=== PATIENT | female | born 1960 | race Caucasian/White ===

== ENCOUNTER 2020-12-17 16:38 | Inpatient (IN) | payer MEDICAID, SELFPAY ==
[2020-12-17] VITALS (11 sets, daily range): BP systolic 149–200; BP diastolic 91–120; PULSE 95–103; RESP 16–20; TEMP 36.8–38.5; O2SAT 94–100; BMI 30.9
--- NOTE | 2020-12-17 16:41 | XRR_ITS ---
PROCEDURE INFORMATION: Exam: XR Chest Exam date and time: 12/17/2020 4:41 PM Age: 60 years old Clinical indication: Other: Stroke alert; Additional info: AMS TECHNIQUE: Imaging protocol: XR of the chest. Views: 1 view. COMPARISON: CR Chest 1 [place] [id number] 03/08/2014 8:12 PM FINDINGS: Lungs: Unremarkable. No consolidation. Pleural spaces: Unremarkable. No pleural effusion. No pneumothorax. Heart/Mediastinum: Unremarkable. No cardiomegaly. Bones/joints: Unremarkable. XR/XR chest 1V portable [id number] IMPRESSION: No acute findings.
--- NOTE | 2020-12-17 16:41 | CTR_ITS ---
PROCEDURE INFORMATION: Exam: CT Head Without Contrast Exam date and time: 12/17/2020 4:41 PM Age: 60 years old Clinical indication: Altered mental status/memory loss and weakness, extremity; Left; Additional info: AMS TECHNIQUE: Imaging protocol: Computed tomography of the head without contrast. Radiation optimization: All CT scans at this facility use at least one of these dose optimization techniques: automated exposure control; mA and/or kV adjustment per patient size (includes targeted exams where dose is matched to clinical indication); or iterative reconstruction. Other technique: STROKE PROTOCOL was implemented. COMPARISON: CT head wo con* [id number] 03/13/2019 11:46 AM RADIATION DOSE METRICS: Total DLP (mGy-cm): 1606.53 FINDINGS: Brain: There is encephalomalacia of the right temporal lobe tip new compared with 03/13/2019 which may represent a chronic cortical infarct. There is no intracranial mass, hemorrhage or edema. Cerebral ventricles: Ventricles and cisterns are within normal limits. There are no extra-axial fluid collections. Paranasal sinuses: Visualized sinuses are unremarkable. No fluid levels. Mastoid air cells: Visualized mastoid air cells are well aerated. Bones/joints: Unremarkable. No acute fracture. Soft tissues: Unremarkable. CT/CT head wo con* [id number] IMPRESSION: 1. Chronic infarct of right temporal lobe tip. 2. No acute intracranial finding. ASSESSMENT: ASPECTS ([place] Stroke Program Early CT Score) is 10. Radiation Dose CTDIVOL = (mGy): DLP = 1606.53 (mGy-cm)
--- NOTE | 2020-12-17 16:41 | CTR_ITS ---
PROCEDURE INFORMATION: Exam: CT Angiography Head Without And With Contrast, Arteriography Exam date and time: 12/17/2020 4:41 PM Age: 60 years old Clinical indication: Weakness and other: AMS TECHNIQUE: Imaging protocol: Computed tomographic angiography of the head without and with contrast. Exam focused on the arteries. 3D rendering (Not supervised by radiologist): MIP and/or 3D reconstructed images were created by the technologist. Radiation optimization: All CT scans at this facility use at least one of these dose optimization techniques: automated exposure control; mA and/or kV adjustment per patient size (includes targeted exams where dose is matched to clinical indication); or iterative reconstruction. Contrast material: OMNI 350; Contrast volume: 95 ml; Contrast route: INTRAVENOUS (IV); Other technique: STROKE PROTOCOL was implemented. COMPARISON: CT head wo con* [id number] 12/17/2020 4:37 PM RADIATION DOSE METRICS: Total DLP (mGy-cm): 2459.98 FINDINGS: ANTERIOR CIRCULATION: Right internal carotid artery: There is some atherosclerotic plaque in the clinoid right internal carotid artery with mild stenosis. Right middle cerebral artery: There is moderate stenosis in the midportion of the right M1 middle cerebral artery. Right anterior cerebral artery: No occlusion or significant stenosis. No aneurysm. Left internal carotid artery: There is some atherosclerotic plaque in the clinoid portion of the left internal carotid artery with mild stenosis. Left middle cerebral artery: No occlusion or significant stenosis. No aneurysm. Left anterior cerebral artery: No occlusion or significant stenosis. No aneurysm. POSTERIOR CIRCULATION: Right vertebral artery: No occlusion or significant stenosis. No aneurysm. Left vertebral artery: No occlusion or significant stenosis. No aneurysm. Basilar artery: There is some irregularity and moderate atherosclerotic change in the basilar artery with multifocal moderate stenoses.. Right posterior cerebral artery: There is origin of the right posterior cerebral artery. The right P1 segment is very small. Left posterior cerebral artery: There is origin of the left posterior cerebral artery. There is moderate stenosis in the proximal left posterior cerebral artery. Superior cerebellar arteries: There is moderate stenosis in the proximal left superior cerebellar artery. HEAD: Brain: Unremarkable. No acute intracranial hemorrhage. No significant white matter disease. No edema. Old right temporal lobe tip infarct. Cerebral ventricles: Normal. No ventriculomegaly. Bones/joints: Unremarkable. No acute fracture. Paranasal sinuses: Visualized sinuses are normal. No fluid levels. Mastoid air cells: Visualized mastoids are normal. No mastoid effusion. Soft tissues: Unremarkable. IMPRESSION: 1. Moderate stenosis of the mid right M1 MCA segment. 2. Stenosis of the proximal left P1 posterior cerebral artery segment and origin of the left posterior cerebral artery. 3. 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 ASSESSMENT: ASPECTS ([place] Stroke Program Early CT Score) is 10. COMMENTS: THIS REPORT CONTAINS FINDINGS THAT MAY BE CRITICAL TO PATIENT CARE. The findings were verbally communicated via telephone conference with NICOLE APONTE at 5:46 PM CDT on 12/17/2020. The findings were acknowledged and understood. PROCEDURE INFORMATION: Exam: CT Angiography Neck Without And With Contrast Exam date and time: 12/17/2020 4:41 PM Age: 60 years old Clinical indication: Weakness and other: AMS TECHNIQUE: Imaging protocol: Computed tomographic angiography of the neck without and with contrast. 3D rendering (Not supervised by radiologist): MIP and/or 3D reconstructed images were created by the technologist. Radiation optimization: All CT scans at this facility use at least one of these dose optimization techniques: automated exposure control; mA and/or kV adjustment per patient size (includes targeted exams where dose is matched to clinical indication); or iterative reconstruction. Contrast material: OMNI 350; Contrast volume: 95 ml; Contrast route: INTRAVENOUS (IV); COMPARISON: CT head wo con* [id number] 12/17/2020 4:37 PM RADIATION DOSE METRICS: Total DLP (mGy-cm): 2459.98 FINDINGS: Right common carotid artery: No stenosis. No dissection or occlusion. Right internal carotid artery: There is some atherosclerotic calcification at the right carotid bifurcation without stenosis as measured according to the NASCET criteria. Right external carotid artery: No occlusion or stenosis of the origin. Left common carotid artery: No stenosis. No dissection or occlusion. Left internal carotid artery: There is some atherosclerotic calcification at the left carotid bifurcation without stenosis as measured according to the NASCET criteria. Left external carotid artery: No occlusion or stenosis of the origin. Right vertebral artery: No stenosis. No dissection or occlusion. Left vertebral artery: No stenosis. No dissection or occlusion. Soft tissues: Normal. No significant soft tissue swelling. Bones/joints: No acute fracture. CT/CT angio headneck* [id number] IMPRESSION: 1. No significant stenosis or occlusion in the common or internal carotid artery on either side of the neck. 2. Bilateral vertebral arteries are patent. REFERENCES: NASCET CRITERIA. The degree of internal carotid artery stenosis is based on NASCET criteria. Normal is no stenosis. Mild is less than 50% stenosis. Moderate is 50-69% stenosis. Severe is 70% to 99% stenosis. Total occlusion is no detectable patent lumen. Radiation Dose CTDIVOL = (mGy): DLP = 2459.98~2459.98 (mGy-cm)
--- NOTE | 2020-12-17 16:42 | ECG_ITS ---
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 Measurements Intervals [place] Rate: 99 P: 40 [place]: 164 QRS: 12 QRSD: 78 T: 68 QT: 338 QTc: 435 Interpretive Statements SINUS RHYTHM NONSPECIFIC T-WAVE ABNORMALITY Compared to ECG 01/16/2018 20:23:37 No significant changes Electronically Signed On 12-18-2020 6:56:39 CDT by Dayana De Oliveira M.D. [email or web address]
[2020-12-17] MEDS: sodium chloride 0.9% 1,000 ML 999 ML IV (16:53)
[2020-12-17 16:54] LABS: Basophils # 0.1 10^3/uL (0.0-0.1); Basophils % 0.5 %; Eosinophils # 0.1 10^3/uL (0.0-0.8); Eosinophils % 0.5 %; Hematocrit 45.2 % (37.0-47.0); Lymphocytes % 7.6 %; Mean Corpuscular HGB Conc 33.2 g/dL (30.0-36.0); Mean Corpuscular Hemoglobin 28.6 pg (28.0-34.0); Mean Corpuscular Volume 86.1 fl (81-99); Mean Platelet Volume 9.8 fL (7.4-10.4); Monocytes # 0.2 10^3/uL (0.2-0.9); Monocytes % 1.9 %; Neutrophils # 11.29 10^3/uL (1.8-7.7); Neutrophils % 87.3 %; Nucleated Red Blood Cells % 0 %; Platelet Count 366 10^3/cmm (130-400); Red Blood Count 5.25 10^6/uL (4.1-5.3); Red Cell Distribution Width 12.3 % (12.1-15.1); White Blood Count 12.9 10^3/uL (4.0-10.0)
[2020-12-17] MEDS: naloxone 0.4 mg/ml SDV IVP (16:54)
[2020-12-17 16:56] LABS: ABG PCO2 39.5 mmHg (35-45); Arterial Blood Gas Hematocrit 45.1 % (37-47); Base Excess ABG -6.8 mmol/L (-2.0-2.0); Blood Gas Allen Test Pos; Blood Gas Sample Type Arterial; HCO3 ABG 19.3 mmol/L (22-26); PO2 ABG 73.7 mmHg (80.0-100.0)
[2020-12-17 16:58] LABS: Blood Gas Operator Identificat MONRO; Blood Gas Sample Site Radial, right; Oxygen Device ROOM AIR
[2020-12-17 17:10] LABS: Ketone (Acetest) Serum Negative (Negative)
[2020-12-17] MEDS: iohexol 350 mg/mL 100 mL Btl IV (17:15)
[2020-12-17 17:23] LABS: Troponin(5th) Baseline 9 ng/L (0-10)
[2020-12-17 17:33] LABS: Alanine Aminotransferase 20 U/L (0-33); Albumin Level 4.6 g/dL (3.5-5.2); Alkaline Phosphatase 114 IU/L (35-105); Anion Gap 28.7 (5-19); Aspartate Amino Transferase 14 U/L (0-32); Blood Urea Nitrogen 14 mg/dL (6-20); Calcium 9.1 mg/dL (8.5-10.5); Carbon Dioxide 16 mmol/L (22-29); Chloride 94 mmol/L (98-107); Creatine Phosphokinase 78 U/L (26-192); Globulin 2.5 g/dL (1.3-4.6); Glomerular Filtration Rate 73.7 mL/min (90-130); Glucose 346 mg/dL (65-115); Magnesium 2.1 mg/dL (1.7-2.3); NT Pro B Type Natriuretic Pept 330 pg/mL (0-125); Osmolality Calculated 292 mOsm/kg (285-295); Potassium 4.7 mmol/L (3.5-5.1); Sodium 134 mmol/L (136-145); Thyroid Stimulating Hormone 1.29 uIU/mL (0.27-4.20); Total Bilirubin 0.4 mg/dL (0.15-1.2); Total Protein 7.1 g/dL (6.6-8.7)
[2020-12-17 17:34] LABS: Glucose Point of Care 328 mg/dL (70-110)
[2020-12-17 17:40] LABS: Acetaminophen < 5.0 ug/mL (10-30); Alcohol Level < 10 mg/dL (0-10)
--- NOTE | 2020-12-17 17:42 | PC.PHAR ---
PT UNABLE TO VERIFY MEDICATIONS-NO MEDS PULL UP ON EXT MED HISTORY-DUDLEY STATES THE LAST THING THEY DID WAS A FLU SHOT IN 2020
--- NOTE | 2020-12-17 17:47 | PM.SAN ---
Stroke Alert Activation ED Arrival Date: 12/17/20 ED Arrival Time: 16:34 ED Physican at Bedside: 16:35 Last Known Normal/at Baseline: 1-2 hours ago Other Last Known Well Infomation: I was called stat for stroke team as [facility] approached with this 60-year-old woman who was found obtunded on an elevator. They were not able to obtain a cell phone number of the witness that found Ms. Lozada on the floor of the elevator unconscious. Her does not know anything about it other than what he was told by somebody who saw somebody who witnessed her fall or witnessed her to be unconscious. He does not know when she was last normal other than this morning when she was walking up and down the klein. She cannot tell me what time her symptoms began and she is insistent that she did not fall down. She is not aware that she has any problem. She has a right middle cerebral artery occlusion. She has left hemiparesis and a stroke scale score of 13. Stroke Alert Activated by: [facility] [place] Stroke Alert Activation Time: 16:22 Stroke MD @ Bedside Time: 16:40 NIH Stroke Scale Time: 17:00 NIH stroke score NIHSS: Level Of Consciousness - 1a: 1 Level Of Consciousness Questions - 1b: One Correct Level Of Consciousness Commands - 1c: One Correct Best Gaze - 2: Forced Deviation Visual [place] - 3: Complete Hemianopia Facial Palsy - 4: Minor Paralysis Motor Arm Right - 5: No Drift Motor Arm Left - 5: Effort Against [place] Motor Leg Right - 6: No Drift Motor Leg Left - 6: Drift Limb Ataxia - 7: Present In One Limb Sensory - 8: Normal Best Language - 9: No Aphasia Dysarthia - 10: Mild/Moderate Dysarthia Extinction And Inattention - 11: 1 Score: Total Score: 14 Stroke Alert Data/Treatment Time to CT of Head: 16:34 CT Results Time: 16:40 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 Schmidt and I talked with the patient's . He has no idea of anything that happened today. The patient cannot tell me what she did this afternoon. She cannot tell me whether she fell down and insists that she did not. She is not aware that she has a deficit. I talked with the EMT that pick the patient up at her apartment. There were several bystanders and all of them seemed mildly confused or demented. Someone shouted that she was normal 30 minutes before but they did not know what they meant by that and when he asked they could not elaborate. Critical Care Time Critical Care Time: 105 - 134 mins A&P Assessment and plan (1) Right middle cerebral artery stroke: This patient was brought in by EMS for obtundation after falling on the elevator. Initially she was confused and would not answer questions, had random eye movements, was weaker on the left than the right by my exam. The left toe was upgoing while the right was downgoing. Her CT scan of the head was negative. I examined her after her head CT with Dr. Schmidt and then we took her back for CT angiogram. That study shows no flow in the central part of the right middle cerebral artery. She has a very small right vertebral artery but her basilar, although small, is intact as are the posterior cerebral arteries. On reexamination she was calling my name on the way back to the emergency department (I know her from a patient). She had left hemineglect. She was weak on the left side but could oppose on the right and did not have drift on the right side. Her cranial nerves were remarkable for a new strong right gaze preference and dense left visual field cut. I have been unable to find a witness that can give us a time last known well. Patient's exam was not normal on arrival and she had subtle signs of weakness on the left side when she came. Present plan is to contact the [facility] stroke team and see if there willing to consider thrombolysis after reviewing her images. Status: Acute Coding Level of Care Code Acute Inspector Machine Cut Glass for Janene Poon Diagnoses Right middle cerebral artery stroke I63.511
[2020-12-17] MEDS: labetalol 5 mg/mL SDV 20mL 10 MG IVP (18:01)
--- NOTE | 2020-12-17 18:15 | PC.NURSE ---
Blood pressure are reported to Dr Schmidt
[2020-12-17 18:28] LABS: Amphetamines Screen Urine Negative (Negative); Barbiturates Screen Urine Negative (Negative); Benzodiazepines Screen Urine Negative (Negative); Cocaine Screen Urine Negative (Negative); Opiate Screen Urine Negative (Negative); PCP Screen Urine Negative (Negative); THC Screen Urine Negative (Negative)
[2020-12-17 18:35] LABS: Bilirubin Urine Neg (Negative); Blood Urine 2+ (Negative); Glucose Urine UA 4+ (Normal); Ketones Urine Negative (Negative); Nitrate Urine Negative (Negative); Protein Urine 3+ (Negative); Urine Appearance Clear (CLEAR); Urine Color Straw (Yellow); Urobilinogen Urine Norm (Negative); pH Urine 6.5 (5-7)
[2020-12-17 18:36] LABS: Add Urine Microscopic? YES; Bacteria Urine TRACE /hpf; Leukocyte Esterase Urine Negative (Negative); Mucus Urine 1+ /hpf; RBC Urine 0-4 /hpf (0-2); Squamous Epithelial Cell Urine 0-4 /hpf (0-5); WBC Urine 0-4 /hpf (0-5)
[2020-12-17 18:37] LABS: Add Urine Culture? No; Fine Granular Casts Urine 0-4 /lpf
[2020-12-17] MEDS: lactated ringers 1,000 ML 125 ML IV (18:48)
[2020-12-17 19:05] LABS: Troponin 5 2HR 11.77 ng/L (0-10); Troponin 5 2HR Delta 2.77 ABS# (0-10)
--- NOTE | 2020-12-17 19:10 | ED_ITS ---
HPI - Altered Mental Status General: Chief Complaint: Altered Mental Status Stated Complaint: stroke alert/AMS Time Seen by Provider: 12/17/20 16:40 History of Present Illness: HPI narrative: Patient is a 60-year-old female with a past medical history of diabetes and hypertension. She was brought in by EMS after being found down with a possible stroke. It is been extremely difficult to get an exact timeline of today. Her last absolute well-known time was 9:00 this morning by her . From what will be able to piece together from eyewitnesses at the scene as well as EMS she fell to the ground about 3:00 today. When EMS was called she had some left-sided weakness was transferred to the emergency department. None of the eyewitnesses could be interviewed and since most of them are dementia patients so would be difficult to get exact details from them. She arrived she was minimally responsive complaint with left-sided weakness. Was taken to CT via stroke alert. CT was negative was brought to the room where she developed right-sided head and hemianopsia right- sided gaze palsy she had a left upgoing Babinski and right-sided hemineglect. Neurology was consulted who examined the patient with me. That she possibly had MCA stroke. Patient did regain lucid consciousness and denied any other symptoms. Denied headache numbness or tingling. Denies fevers chills chest pain nausea vomiting diarrhea altered mental status or Review of Systems General: Reports: 10 or more systems reviewed and unremarkable except in HPI and below PFSH ED PFSH: Social History Smoking and tobacco status: never smoked Alcohol intake: never Current gender identity: Female Physical Exam Const: COMMON NORMALS: no acute distress and patient oriented x3 EXAM LIMITATIONS: altered mental status GENERAL APPEARANCE: disheveled, appears older than stated age and well hydrated; not cooperative, not in distress, not combative, not diaphoretic and no odor of alcohol detected NUTRITIONAL APPEARANCE: obese ORIENTATION/CONSCIOUSNESS: Yes awake, Yes oriented to person, Yes oriented to place and Yes confused HENMT: COMMON NORMALS: normocephalic and atraumatic HEAD & SCALP: normal to inspection, normocephalic and atraumatic FACE & SINUS: normal facial exam; no Flattened naso-labial fold present Eye: COMMON NORMALS: Equal, round and reactive pupils present, EOMs intact bilaterally and negative for normal visual patterson by confrontation PUPIL: Yes Equal, round and reactive pupils present EOM: Yes EOM abnormal and No Nystagmus present Neck/C-Spine: GENERAL: Yes normal visual inspection and No Meningeal signs present Resp: COMMON NORMALS: normal respiratory effort and No use of accessory muscles EFFORT & INSPECTION: Yes able to speak in complete sentences Cardio: COMMON NORMALS: regular rate, regular rhythm and No murmurs present (Cardio) RATE: regular rate RHYTHM: regular rhythm GI: COMMON NORMALS: Normal to inspection, nondistended, normoactive bowel sounds present INSPECTION: Yes normal to inspection AUSCULTATION: Yes normoactive bowel sounds Extremity: COMMON NORMALS: normal to inspection and no pedal edema; negative for full ROM NARRATIVE EXTREMITY EXAM: Weakness and neglect right- sided upper and lower extremities Neuro: JEF COMA SCALE: document GCS findings [place] coma scale eye opening: Spontaneous Jef coma scale verbal response: Confused Jef coma scale motor response: Obey commands [place] coma scale total score: 14 COMMON NORMALS: patient oriented x3; negative for no focal motor deficits SENSORIUM/ORIENTATION: Yes oriented to person and Yes oriented to place CRANIAL NERVES: Yes CN III (oculomotor) CN III laterality: right COORDINATION/BALANCE: No [id number] test normal and No Normal rapid alternating movements of the distal upper extremity present (Neuro) SPEECH: speech normal GAIT: Yes Unable to assess gait MOTOR EXAM: No Pronator motor function not present and No no tremor noted COORDINATION: [id number] test abnormal and abnormal rapid alternating movement UE OTHER: Right-sided hemineglect left upgoing toe with Babinski right gaze preference left hemianopsia consistent with right MCA syndrome Course ED course: Saw patient with Dr. Camilla Chirinos with neurology. Our concern is for a right MCA syndrome. CT was negative CTA showed some stenosis in the right M1 of MCA as well as P1 of DENTAL SURGERY DOCTOR. No clot noted discussed these findings with [facility] who also looked at the CTA and agreed with no clot. Given unknown last well time the risks of TPA were greater than the benefit so the decision was made not to give TPA [facility]. Given there was no intervention warranted we will keep the patient here admit her get a lipid panel loading dose with Plavix when she passes swallow study adria l keep her permissively hypertensive less than 220 Vital Signs: Vital signs: Vital Signs Temperature 98.8 F 12/17/20 16:51 Pulse Rate 103 H 12/17/20 18:52 Respiratory Rate 16 12/17/20 18:52 Blood Pressure 198/120 12/17/20 18:52 Pulse Oximetry 99 12/17/20 18:52 MDM - Altered Mental Status MDM Narrative: Medical decision making narrative: Patient is a 60-year-old female here with likely a stroke Differential includes stroke, sepsis, encephalitis, subarachnoid hemorrhage, epilepsy, drug overdose Differential Diagnosis: Differential diagnosis altered mental status: Likely alcoholic intoxication, altered mental status, delirium, dementia, hyponatremia and subarachnoid hemorrhage Lab Data: Labs: Lab Results 12/17/20 12/17/20 12/17/20 16:26 16:26 16:26 WBC 12.9 10^3/uL H 10 ^3/uL (4.0-10.0) RBC 5.25 10^6/uL 10^6 /uL (4.1-5.3) Hgb 15.0 g/dL g/dL (11.5-15.3) Hct 45.2 % % (37.0-47.0) MCV 86.1 fl fl (81-99) MCH 28.6 pg pg (28.0-34.0) MCHC 33.2 g/dL g/dL (30.0-36.0) RDW 12.3 % % (12.1-15.1) Plt Count 366 10^3/cmm 10^3 /cmm (130-400) MPV 9.8 fL fL (7.4-10.4) Neut % (Auto) 87.3 % % Lymph % (Auto) 7.6 % % [place] % (Auto) 1.9 % % Eos % (Auto) 0.5 % % Baso % (Auto) 0.5 % % Neut # (Auto) 11.29 10^3/uL H 1 0^3/uL (1.8-7.7) Lymph # (Auto) 1.0 10^3/uL 10^3/ uL (0.8-4.8) [place] # (Auto) 0.2 10^3/uL 10^3/ uL (0.2-0.9) Eos # (Auto) 0.1 10^3/uL 10^3/ uL (0.0-0.8) Baso # (Auto) 0.1 10^3/uL 10^3/ uL (0.0-0.1) Nucleated RBC % (a uto) 0 % % Nucleated RBCs # 0.0 /100WBC /100W BC Specimen Type Sample Site ABG pH ABG pCO2 ABG pO2 ABG HCO3 ABG Base Excess Juan R Test Hematocrit O2 Delivery Device FiO2 Apartment Rental Agent ID Sodium 134 mmol/L L mmol /L (136-145) Potassium 4.7 mmol/L mmol/L (3.5-5.1) Chloride 94 mmol/L L mmol/ L (98-107) Carbon Dioxide 16 mmol/L L mmol/ L (22-29) Anion Gap 28.7 H (5-19) BUN 14 mg/dL mg/dL (6-20) Creatinine 0.8 mg/dL mg/dL (0.5-0.9) GFR Calculation 73.7 mL/min L mL/ min (90-130) Glucose 346 mg/dL H mg/dL (65-115) POC Glucose Calculated Osmolal ity 292 mOsm/kg mOsm/ kg (285-295) Calcium 9.1 mg/dL mg/dL (8.5-10.5) Magnesium 2.1 mg/dL mg/dL (1.7-2.3) Total Bilirubin 0.4 mg/dL mg/dL (0.15-1.2) AST 14 U/L U/L (0-32) ALT 20 U/L U/L (0-33) Alkaline Phosphata se 114 IU/L H IU/L (35-105) Creatine Kinase 78 U/L U/L (26-192) Troponin T Baselin e Troponin T 120 Min [place] Delta Troponin T NT-Pro-B Natriuret Pep 330 pg/mL H pg/mL (0-125) Total Protein 7.1 g/dL g/dL (6.6-8.7) Albumin 4.6 g/dL g/dL (3.5-5.2) Globulin 2.5 g/dL g/dL (1.3-4.6) TSH 1.29 uIU/mL uIU/m L (0.27-4.20) Urine Color Urine Appearance Urine pH Ur Specific Gravit y Urine Protein Urine Glucose (UA) Urine Ketones Urine Blood Urine Nitrate Urine Bilirubin Urine Urobilinogen Ur Leukocyte Fatemeh ase Urine RBC Urine WBC Ur Squamous Epith Cells Amorphous Sediment Urine Bacteria Fine Granular Cast s Urine Mucus Urine Opiates Scre en Acetaminophen < 5.0 ug/mL L ug/ mL (10-30) Ur Barbiturates Sc reen Ur Phencyclidine S crn Ur Amphetamines Sc reen U Benzodiazepines Scrn Urine Cocaine Scre en U Marijuana (THC) Screen Ethyl Alcohol < 10 mg/dL mg/dL (0-10) Serum Ketones Negative (Negative) 12/17/20 12/17/20 12/17/20 16:26 16:45 17:21 WBC RBC Hgb Hct MCV MCH MCHC RDW Plt Count MPV Neut % (Auto) Lymph % (Auto) [place] % (Auto) Eos % (Auto) Baso % (Auto) Neut # (Auto) Lymph # (Auto) [place] # (Auto) Eos # (Auto) Baso # (Auto) Nucleated RBC % (a uto) Nucleated RBCs # Specimen Type Arterial Sample Site Radial, right ABG pH 7.30 L (7.35-7.45) ABG pCO2 39.5 mmHg mmHg (35-45) ABG pO2 73.7 mmHg L mmHg (80.0-100.0) ABG HCO3 19.3 mmol/L L mmo l/L (22-26) ABG Base Excess -6.8 mmol/L L mmo l/L (-2.0-2.0) Juan R Test Pos Hematocrit 45.1 % % (37-47) O2 Delivery Device Room air FiO2 21.0 % % Apartment Rental Agent ID [place] Sodium Potassium Chloride Carbon Dioxide Anion Gap BUN Creatinine GFR Calculation Glucose POC Glucose 328 mg/dL H mg/dL (70-110) Calculated Osmolal ity Calcium Magnesium Total Bilirubin AST ALT Alkaline Phosphata se Creatine Kinase Troponin T Baselin e 9 ng/L ng/L (0-10) Troponin T 120 Min [place] Delta Troponin T NT-Pro-B Natriuret Pep Total Protein Albumin Globulin TSH Urine Color Urine Appearance Urine pH Ur Specific Gravit y Urine Protein Urine Glucose (UA) Urine Ketones Urine Blood Urine Nitrate Urine Bilirubin Urine Urobilinogen Ur Leukocyte [place] ase Urine RBC Urine WBC Ur Squamous Epith Cells Amorphous Sediment Urine Bacteria Fine Granular Cast s Urine Mucus Urine Opiates Scre en Acetaminophen Ur Barbiturates Sc reen Ur Phencyclidine S crn Ur Amphetamines Sc reen U Benzodiazepines Scrn Urine Cocaine Scre en U Marijuana (THC) Screen Ethyl Alcohol Serum Ketones 12/17/20 12/17/20 12/17/20 17:32 17:32 18:28 WBC RBC Hgb Hct MCV MCH MCHC RDW Plt Count MPV Neut % (Auto) Lymph % (Auto) [place] % (Auto) Eos % (Auto) Baso % (Auto) Neut # (Auto) Lymph # (Auto) [place] # (Auto) Eos # (Auto) Baso # (Auto) Nucleated RBC % (a uto) Nucleated RBCs # Specimen Type Sample Site ABG pH ABG pCO2 ABG pO2 ABG HCO3 ABG Base Excess Juan R Test Hematocrit O2 Delivery Device FiO2 Apartment Rental Agent ID Sodium Potassium Chloride Carbon Dioxide Anion Gap BUN Creatinine GFR Calculation Glucose POC Glucose Calculated Osmolal ity Calcium Magnesium Total Bilirubin AST ALT Alkaline Phosphata se Creatine Kinase Troponin T Baselin e Troponin T 120 Min [place] 11.77 ng/L H ng/L (0-10) Delta Troponin T 2.77 ABS# ABS# (0-10) NT-Pro-B Natriuret Pep Total Protein Albumin Globulin TSH Urine Color Straw (Yellow) Urine Appearance Clear (CLEAR) Urine pH 6.5 (5-7) Ur Specific Gravit y 1.010 (1.005-1.030) Urine Protein 3+ H (Negative) Urine Glucose (UA) 4+ H (Normal) Urine Ketones Negative (Negative) Urine Blood 2+ H (Negative) Urine Nitrate Negative (Negative) Urine Bilirubin Neg (Negative) Urine Urobilinogen Norm mg/dL mg/dL (Negative) Ur Leukocyte Fatemeh ase Negative (Negative) Urine RBC 0-4 /hpf H /hpf (0-2) Urine WBC 0-4 /hpf H /hpf (0-5) Ur Squamous Epith Cells 0-4 /hpf H /hpf (0-5) Amorphous Sediment Not Reportable Urine Bacteria Trace /hpf /hpf (NONE) Fine Granular Cast s 0-4 /lpf H /lpf Urine Mucus 1+ /hpf /hpf Urine Opiates Scre en Negative ng/mL ng /mL (Negative) Acetaminophen Ur Barbiturates Sc reen Negative ng/mL ng /mL (Negative) Ur Phencyclidine S crn Negative ng/mL ng /mL (Negative) Ur Amphetamines Sc reen Negative ng/mL ng /mL (Negative) U Benzodiazepines Scrn Negative ng/mL ng /mL (Negative) Urine Cocaine Scre en Negative ng/mL ng /mL (Negative) U Marijuana (THC) Screen Negative ng/mL ng /mL (Negative) Ethyl Alcohol Serum Ketones Critical Care Time Critical Care Time: Critical Care Time: Yes Total Critical Care Time: 90 Attestation: This case had a high probability of a clinically significant, sudden, or life threatening deterioration of this patient's condition which required my full and direct attention, intervention and personal management. 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
[2020-12-17] MEDS: aspirin 300 mg Supp PR (19:18)
[2020-12-17 20:30] LABS: Chol HDL Ratio 5.22 mg/dL (0.0-4.40); Cholesterol 256 mg/dL (0-200); HDL Cholesterol 49 mg/dL (60-100); LDL Cholesterol Calculated 172 mg/dL (50-129); LDL HDL Ratio 3.51 RATIO (0.00-3.22); Triglycerides 177 mg/dL (0-150)
--- NOTE | 2020-12-17 22:42 | ECG_ITS ---
[facility] Test Date: 2020-12-17 Pat Name: Rebecca Sanderson Department: Room: 267 Gender: Female Turn Down Attendant: Dash : 1960 Requested By: Inocencio Stone Order Number: [id number] Sona MD: Nelson Boyle M.D. Measurements Intervals [place] Rate: 98 P: 51 AK: 182 QRS: 0 QRSD: 92 T: 55 QT: 343 QTc: 440 Interpretive Statements SINUS RHYTHM POSSIBLE LEFT ATRIAL ENLARGEMENT [-0.1mV P-WAVE IN V1/V2] NONSPECIFIC ST & T-WAVE ABNORMALITY Compared to ECG 12/17/2020 17:44:26 No significant changes Electronically Signed On 12-18-2020 21:09:09 CDT by Nelson Boyle M.D. [id number]
--- NOTE | 2020-12-17 23:41 | P.HP_ITS ---
Providers/Chief Complaint Admitting Physician: Saundra Sanches Primary Care Provider: Rich Rosa MD Chief Complaint: STROKE History of Present Illness 60-year-old with unknown past medical history hypertension, diabetes mellitus, anxiety, depression, bipolar disorder, obstructive sleep apnea on cpap, IBS, who was brought to ER after she was found unresponsive. She was not able to provide any history. No family at bedside. On arrival to ER a code stroke was called. Neurology consulted. Noted to have an initial NIH of 13. Head CT showed chronic infarct of right temporal lobe tip without acute intracranial finding. CTA head showed mod stenosis of right M1 MCA segment, proximal left p1 post cerebral artery segment and origin of the left post cerebral artery plus multifocal mod stenosis of the basilar artery and neck showed no significant stenosis or occlusion in the common or internal carotid artery on either side of the neck.At the time of my evaluation patient was alert awake and back to baseline however was feeling nauseous and c/o headache. She could not recall events leading to ER visit. She did however note self-inflicted brusing to her left inner thigh from a baseball bat. Denied suicidal ideation. 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 Laboratory workup showed a WBC of 12.9, hemoglobin 15.0, hematocrit of 45.2 and a platelet count of 366. Sodium 134, potassium 4.7 chloride 94, bicarb 16, BUN 14 and creatinine of 0.8. Glucose of 346. LFTs were within normal limits. ProBNP of 330. Delta troponin T of 2.77. TSH 1.29. Urinalysis and urinary drug screen were negative. Patient was aspirin 300 mg MD x 1, NS 1L bolus x 1, Labetalol 10 mg IV x 1. Review of Systems General: Reports: 10 or more systems reviewed and unremarkable except in HPI and below Medications/Allergies Home Medications Medication Instructions Recorded Confirmed Last Taken Type Unable to Assess 12/17/20 12/17/20 Unknown History Allergies Allergy/AdvReac Type Severity Reaction Status Date / Time penicillin G Allergy Mild breaks out Verified 10/12/19 14:37 in hives PFSH Acute PFSH: Medical History (Updated 12/18/20 @ 05:53 by Saundra Sanches MD) Bipolar 1 disorder Diabetes mellitus Hypertension No pertinent family history ESTHER (obstructive sleep apnea) Self-mutilation Social History Smoking and tobacco status: never smoked Alcohol intake: never Current gender identity: Female Vitals/I&O/Wt Last Vital Signs Temp 100.2 F H 12/17/20 22:24 Pulse 102 H 12/17/20 22:24 Resp 18 12/17/20 22:24 BP 199/94 12/17/20 22:24 Pulse Ox 96 12/17/20 22:45 12/17/20 12/17/20 12/18/20 14:59 22:59 06:59 Intake Total 1000 / 1000 Balance 1000 / 1000 Weight last 48 hrs Weight 79.379 kg Physical Exam Narrative: EXAM NARRATIVE: General - Alert - awake x 3 , NAD HEENT : grosly unremarkable CVS: RRR Chest : CTABL Abd Soft Ext No edema Skin - bruising to inner thigh Neuro; MS 5/5 b/l, no sensory deficit Data : 12/17/20 16:26 12/17/20 16:26 A&P Assessment and plan (1) TIA (transient ischemic attack): Possible acute MCA CVA NIH 13 on arrival - Symptoms improving CT head - no acute hemorrhage CTA head /Neck - noted in HPI Continue neuro checks Asa MD 300 mg x 1 in ER Bedside swallow - if stable - start po intake Permissive HTN NS at 125cc/hr Lipitor 40 mg PO qhs Cardiac tele MRI brain w/o contrast in am ECHO in am Neurology consulted in ER Status: Acute (2) Fever: Tmax 101 Tylenol PRN Unclear source of infection Monitor off abx for now Blood culture x2 ordered Pro-mansi in am Status: Acute (3) Injury, self-inflicted: Brusing to thigh caused by bat Not suicidal or homicidal Status: Acute (4) Diabetes mellitus: Sliding scale insulin A1c in am Qachs checks Status: Acute (5) Hypertension: Allow for permissive HTN Status: Acute (6) DVT prophylaxis: Lovenox 40 mg SQ daily Status: Acute Additional A&P Information * Verify home meds and resume Attestations Medical Necessity Statement*: Require over2 midnight stay in hospital for evaluation and treatment Time Spent in Patient Care: Greater than 35 minutes (>than 50% of time spen t in counselling and/or direct pt care on unit) . Coding Level of Care Code Acute Video Editing Intern for Janene Poon Diagnoses TIA (transient ischemic attack) G45.9 Fever R50.9 Injury, self-inflicted Z72.89 Diabetes mellitus E11.9 Hypertension I10 DVT prophylaxis Z29.9
[2020-12-18] VITALS (10 sets, daily range): BP systolic 172–196; BP diastolic 93–125; PULSE 74–95; RESP 16–20; TEMP 36.8–38; O2SAT 96–99
[2020-12-18] MEDS: lactated ringers 1,000 ML 125 ML IV (00:12)
[2020-12-18] MEDS: acetaminophen 500 mg Tablet 650 MG PO (00:13)
[2020-12-18] MEDS: ondansetron 2 mg/ML SDV 2 mL 4 MG IVP ×2 (00:13→13:13)
[2020-12-18] MEDS: enoxaparin 40 mg/0.4 mL Syringe SUBCUT (00:15)
[2020-12-18] MEDS: sodium chloride 0.9% 1,000 ML 125 ML IV ×2 (02:35→09:03)
[2020-12-18] MEDS: metoclopramide 5 mg/mL SDV 2 mL IVP (02:36)
--- NOTE | 2020-12-18 06:00 | USCV_ITS ---
Rebecca Sanderson Age: 60 Gender: F : 1960 Exam Date: 12/18/2020 06:36 Ordering Phys: Saundra Sanches MD Technologist: Exam [place] [facility] [place]ication: ? CVA BP: 144 / 85 HR: 80 Rhythm: Sinus Technical Quality: Adequate MEASUREMENTS (Male / Female) Normal Values 2D ECHO LV Diastolic Diameter PLAX 4.1 cm 4.2 - 5.9 / 3.9 - 5.3 cm LV Systolic Diameter PLAX 2.5 cm IVS Diastolic Thickness 1.1 cm 0.6 - 1.0 / 0.6 - 0.9 cm IVS Systolic Thickness 1.2 cm LVPW Diastolic Thickness 1.3 cm 0.6 - 1.0 / 0.6 - 0.9 cm LVPW Systolic Thickness 1.4 cm LVOT Diameter 2.0 cm LV Ejection Fraction 2D Teich 68.1 % LA Diameter 3.1 cm LA Width 3.8 cm LA Height 4.4 cm RA Width 3.4 cm RA Height 3.3 cm Aorta at Sinotubular Diameter 2.2 cm M-MODE LV Diastolic Diameter MM 3.9 cm 4.2 - 5.9 / 3.9 - 5.3 cm LV Systolic Diameter MM 2.6 cm LV Ejection Fraction MM Teich 60.4 % IVS Diastolic Thickness MM 0.9 cm 0.6 - 1.0 / 0.6 - 0.9 cm IVS Systolic Thickness MM 1.7 cm LVPW Diastolic Thickness MM 1.3 cm 0.6 - 1.0 / 0.6 - 0.9 cm LVPW Systolic Thickness MM 2.2 cm RV Diastolic Diameter MM 1.4 cm DOPPLER AV Peak Velocity 165.0 cm/s LVOT Peak Velocity 104.0 cm/s AV Area Cont Eq vti 2.3 cm squared AV Area Cont Eq pk 1.9 cm squared MV Area PHT 5.8 cm squared Mitral E to A Ratio 0.7 MV E' Velocity 41.5 cm/s Mitral E to MV E' Ratio 9.4 Mitral E to LV E' Lateral Ratio 9.4 Mitral E to LV E' Septal Ratio 9.4 TR Peak Velocity 131.7 cm/s TR Peak Gradient 6.9 mmHg TV Peak E Velocity 85.0 cm/s Right Atrial Pressure 3.0 mmHg Pulmonary Artery Systolic Pressu 9.9 mmHg FINDINGS Left Ventricle Normal left ventricular cavity size. Normal left ventricular systolic function. No regional wall motion abnormalities. Left ventricular ejection fraction is estimated at 60 %. Grade I/IV diastolic dysfunction (abnormal relaxation filling pattern), normal to mildly elevated filling pressures. Right Ventricle The right ventricle is normal in size and function. Right Atrium The right atrium is normal in size. Left Atrium The left atrium is normal in size. Mitral Valve Moderately thickened mitral valve. Mitral annular calcification. No mitral valve stenosis. Mild mitral valve regurgitation. Aortic Valve Moderate aortic valve calcification.aortic valve sclerosis without stenosis or regurgitation. Tricuspid Valve Structurally normal tricuspid valve without significant stenosis or regurgitation. Pulmonary artery systolic pressure is normal. Pulmonic Valve Structurally normal pulmonic valve without significant stenosis. There is no pulmonic regurgitation. Pericardium Normal pericardium without effusion. Aorta Normal ascending aorta dimension. CONCLUSIONS 1-Normal left ventricular cavity size. Normal left ventricular systolic function. No regional wall motion abnormalities. Left ventricular ejection fraction is estimated at 60 %. Grade I/IV diastolic dysfunction (abnormal relaxation filling pattern), normal to mildly elevated filling pressures. 2-Moderately thickened mitral valve. Mitral annular calcification. No mitral valve stenosis. Mild mitral valve regurgitation. 3-Moderate aortic valve calcification.aortic valve sclerosis without stenosis or regurgitation. 4-There is no pericardial effusion. 5-Pulmonary artery systolic pressure is within normal limits. 6-Right atrial pressure is around 5 mm of mercury. 7-No significant change since the prior echocardiogram study of 01/16/2018. Jered Stark MD (Electronically Signed) Final Date: 19 December 2020 12:26 S
[2020-12-18 06:35] LABS: Glucose Point of Care 213 mg/dL (70-110)
[2020-12-18] MEDS: aspirin 81 mg EC Tablet PO (08:56)
[2020-12-18 10:49] LABS: Glucose Point of Care 172 mg/dL (70-110)
--- NOTE | 2020-12-18 14:27 | P.PN_ITS ---
Subjective Subjective: Interval history: Patient was seen and examined this morning, she was complaining spinning of room, nausea.Tmax: 101.3. Her other vitals and labs have been reviewed. Medications: Reviewed: Yes Vitals/I&O/Wt Last Vital Signs Temp 98.6 F 12/18/20 11:45 Pulse 80 12/18/20 11:45 Resp 16 12/18/20 11:45 BP 196/125 12/18/20 11:45 Pulse Ox 96 12/18/20 11:45 12/17/20 12/18/20 12/18/20 22:59 06:59 14:59 Intake Total 1000 / 1000 1025 / 2025 1728.333 / 1728.333 Output Total 600 / 600 Balance 1000 / 1000 425 / 1425 1728.333 / 1728.333 Weight last 48 hrs Weight 79.379 kg Physical Exam Const: COMMON NORMALS: patient oriented x3 HENMT: COMMON NORMALS: normocephalic and atraumatic HEAD & SCALP: normocephalic and atraumatic Chest: COMMONS NORMALS: normal inspection of the chest and normal palpation of entire chest wall CHEST: Yes Symmetrical chest wall rise Resp: COMMON NORMALS: normal respiratory effort, No retractions, No use of accessory muscles and clear to auscultation bilaterally EFFORT & INSPECTION: Yes symmetric chest movement AUSCULTATION: clear to auscultation bilaterally Cardio: COMMON NORMALS: regular rate, regular rhythm, S1 normal heart sound present, S2 normal heart sound present, No gallops present (Cardio), No murmurs present (Cardio), No rub (Cardio) and Peripheral pulses 2+ throughout RATE: regular rate RHYTHM: regular rhythm HEART SOUNDS: S1 normal heart sound present and S2 normal heart sound present PERIPHERAL PULSES: Peripheral pulses 2+ throughout GI: COMMON NORMALS: Normal to inspection, nondistended, normoactive bowel sounds present, Soft to palpation, non-tender, No hepatosplenomegaly present and no masses AUSCULTATION: Yes normoactive bowel sounds PALPATION: Yes Soft to palpation and Yes No hepatosplenomegaly present RECTAL EXAM: deferred Extremity: COMMON NORMALS: no clubbing, cyanosis or edema and no pedal edema Neuro: COMMON NORMALS: patient oriented x3 Data : 12/17/20 16:26 12/17/20 16:26 Micro: Microbiology 12/18/20 04:53 Blood Culture - Preliminary Blood SPECIMEN COLLECTED 12/18/20 04:59 Blood Culture - Preliminary Blood SPECIMEN COLLECTED A&P Assessment and plan (1) TIA (transient ischemic attack): Possible acute MCA CVA NIH 13 on arrival -not a TPA candidate, as last known well could not be stopped CT head -no acute intracranial pathology CTA head /Neck -Moderate stenosis of the mid right M1 MCA segment.Stenosis of the proximal left P1 posterior cerebral artery segment and origin of the left posterior cerebral artery. 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 Continue neuro checks Asa [place] 300 mg x 1 in ER Aspirin 81 mg daily Lipitor 40 mg PO qhs CHIPPER done: Started on diabetic diet Permissive HTN Tele MRI brain w/o contrast: ECHO: Neurology consulted Status: Acute (2) Fever: Tmax 101 Tylenol PRN Unclear source of infection Monitor off abx for now Blood culture x2 ordered Pro-mansi: Status: Acute (3) Injury, self-inflicted: Brusing to thigh caused by bat Not suicidal or homicidal Status: Acute (4) Diabetes mellitus: Sliding scale insulin A1c in am Qachs checks Status: Acute (5) Hypertension: Allow for permissive HTN Status: Acute (6) DVT prophylaxis: Lovenox 40 mg SQ daily Status: Acute Attestations Medical Necessity Statement*: Patient needs to be in the hospital for management of acute CVA. Coding Level of Care Code Acute Supervisor Production Managing for Janene Poon Diagnoses TIA (transient ischemic attack) G45.9 Fever R50.9 Injury, self-inflicted Z72.89 Diabetes mellitus E11.9 Hypertension I10 DVT prophylaxis Z29.9
--- NOTE | 2020-12-18 15:12 | PC.CHAP ---
Pastoral Care Encounter/Spiritual Assessment Type of Contact [] Declined etl programmer visit [] Patient/Family/Request visit [] Outpatient visit [] Follow-up visit [] Physician referral [] Code/Alert [XX] Routine visit [] Staff referral [] Actively dying [] Patient sleeping [] Family support [] [] Out of room [] Palliative care [] [] Receiving care in room [] Pre-surgical visit [] Trauma [] Long length of stay [] ICU visit [] Other: Relational/Emotional Strength [XX] Patient feels connected with others/family/visitors/staff [] Distress [] Loneliness/isolation [] Abandonment Spirituality of Patient [XX] Person of Jessica [] Attends [employer] of their Jessica [XXBelieves in Prayer [XX] Reads Bible or Rastafarian materials [] There are Spiritual issues to be addressed Knotting Machine Operator Portable Interventions [XX] Prayer [XX] Active listening [XX] Non-anxious presence [] Spiritual/emotional support [] Crisis/trauma care [] Spiritual counseling [] Bereavement support [] Provided bereavement packet [XX] Provided Bible/devotional materials [] Provided toy/stuffed animal, coloring book to patient or family member [] Provided Communion [] Anointing/Ray [] Salvation [XX] Completed spiritual assessment [] Other: Impact on Illness or Injury [] Angry [] Fearful [] Anxious [] Often cries [] Exhaustion [XX] Unable to work [] Unable to attend sikh [] Unable to walk/stand [] Unable to read [] Unable to drive [] Unable to eat/drink [] Unable to sleep [] Unable to be with family [] Patient intubated [] Other: Summary Patient stated she is still dizzy but otherwise feels better. She expressed a desire for visit with counselor or psychologist as she has been deliberately hurting herself. She will tell staff about her desires and need. After prayer, patient asked etl programmer to get a nurse for her rene to help her get to bathroom. Knotting Machine Operator Portable complied immediately. Time spent with patient 7 minutes
[2020-12-18 16:57] LABS: Glucose Point of Care 156 mg/dL (70-110)
[2020-12-18 20:47] LABS: Glucose Point of Care 160 mg/dL (70-110)
[2020-12-18] MEDS: atorvastatin 40 mg Tablet PO (22:09)
[2020-12-19] MEDS: ondansetron 2 mg/ML SDV 2 mL 4 MG IVP (02:26)
[2020-12-19 03:10] VITALS: BP 178/110; PULSE 88; RESP 18; TEMP 37.3; O2SAT 95
[2020-12-19 05:28] LABS: Basophils # 0.1 10^3/uL (0.0-0.1); Basophils % 0.6 %; Eosinophils % 0.4 %; Hematocrit 42.4 % (37.0-47.0); Hemoglobin 14.5 g/dL (11.5-15.3); Lymphocytes # 0.7 10^3/uL (0.8-4.8); Lymphocytes % 7.4 %; Mean Corpuscular HGB Conc 34.2 g/dL (30.0-36.0); Mean Corpuscular Hemoglobin 28.7 pg (28.0-34.0); Mean Corpuscular Volume 83.8 fl (81-99); Mean Platelet Volume 9.9 fL (7.4-10.4); Monocytes # 0.6 10^3/uL (0.2-0.9); Monocytes % 6.1 %; Neutrophils # 7.68 10^3/uL (1.8-7.7); Neutrophils % 85.1 %; Nucleated Red Blood Cells % 0 %; Platelet Count 251 10^3/cmm (130-400); Red Blood Count 5.06 10^6/uL (4.1-5.3); Red Cell Distribution Width 12.6 % (12.1-15.1)
[2020-12-19 05:57] LABS: Alanine Aminotransferase 14 U/L (0-33); Albumin Level 3.9 g/dL (3.5-5.2); Alkaline Phosphatase 89 IU/L (35-105); Anion Gap 14.5 (5-19); Aspartate Amino Transferase 15 U/L (0-32); Blood Urea Nitrogen 17 mg/dL (6-20); Calcium 8.8 mg/dL (8.5-10.5); Carbon Dioxide 22 mmol/L (22-29); Chloride 100 mmol/L (98-107); Globulin 2.5 g/dL (1.3-4.6); Glomerular Filtration Rate 85.9 mL/min (90-130); Glucose 182 mg/dL (65-115); Osmolality Calculated 282 mOsm/kg (285-295); Potassium 3.5 mmol/L (3.5-5.1); Sodium 133 mmol/L (136-145); Total Bilirubin 0.5 mg/dL (0.15-1.2); Total Protein 6.4 g/dL (6.6-8.7)
[2020-12-19 05:58] LABS: Procalcitonin 0.37 ng/mL (0-0.5)
[2020-12-19 06:26] LABS: Glucose Point of Care 191 mg/dL (70-110)
[2020-12-19 07:43] VITALS: BP 179/98; PULSE 106; RESP 20; TEMP 37.3; O2SAT 99
[2020-12-19] MEDS: meclizine 25 mg tablet PO (09:03)
[2020-12-19] MEDS: aspirin 81 mg EC Tablet PO (09:03)
[2020-12-19 09:05] VITALS: PULSE 104; O2SAT 99
--- NOTE | 2020-12-19 10:15 | MRR_ITS ---
PROCEDURE INFORMATION: Exam: MR Head Without Contrast Exam date and time: 12/19/2020 10:15 AM Age: 60 years old Clinical indication: Dizziness; Additional info: CVA TECHNIQUE: Imaging protocol: MR of the head without contrast. COMPARISON: CT head wo con* [id number] 12/17/2020 4:37 PM FINDINGS: Brain: Stable chronic right temporal lobe infarct with encephalomalacia.Mild cerebral atrophy and ischemic leukoencephalopathy. Cerebral ventricles: Normal. No ventriculomegaly. Bones/joints: Unremarkable. Paranasal sinuses: Normal as visualized. No acute sinusitis. Mastoid air cells: Normal as visualized. No mastoid effusion. Orbital cavity: Unremarkable. Soft tissues: Unremarkable. Vertebral arteries: Dominant left vertebral artery with patent right vertebral artery. MR/MR head wo con* [id number] IMPRESSION: No acute findings.
[2020-12-19] MEDS: amlodipine 10 mg Tablet PO (11:35)
[2020-12-19 11:57] VITALS: BP 158/95; PULSE 79; RESP 18; TEMP 37.3; O2SAT 95
[2020-12-19 11:59] LABS: Glucose Point of Care 178 mg/dL (70-110)
[2020-12-19 13:42] VITALS: BP 158/95; PULSE 79; RESP 18; TEMP 37.3; O2SAT 95
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
--- NOTE | 2020-12-22 10:36 | PC.SOCIAL ---
discharge follow up call made, , is not a working number, , patients sister, no answer, unable to leave voicemail.
== END 2020-12-19 14:25 | disposition home or self-care (01) | DRG 69 ==
LOC: ER 19:35 → MEDSURG 20:08
PROVIDERS: Admitting Provider Hospitalist; Emergency Provider Family Medicine; PCP Family Medicine; Visit Provider Internal Medicine
DX: G45.9 Transient cerebral ischemic attack, unspecified (principal); G81.94 Hemiplegia, unspecified affecting left nondominant side; I66.01 Occlusion and stenosis of right middle cerebral artery; I34.0 Nonrheumatic mitral (valve) insufficiency; G93.89 Other specified disorders of brain; R50.9 Fever, unspecified; H51.0 Palsy (spasm) of conjugate gaze; R11.0 Nausea; S70.12XA Contusion of left thigh, initial encounter; X83.8XXA Intentional self-harm by other specified means, initial encounter; I10 Essential (primary) hypertension; I35.8 Other nonrheumatic aortic valve disorders; E11.9 Type 2 diabetes mellitus without complications; F41.9 Anxiety disorder, unspecified; F31.9 Bipolar disorder, unspecified; G47.33 Obstructive sleep apnea (adult) (pediatric); Z91.52 Personal history of nonsuicidal self-harm; Z29.9 Encounter for prophylactic measures, unspecified; Z86.73 Personal history of transient ischemic attack (TIA), and cerebral infarction without residual deficits
CPT/HCPCS: 36415; 36416; 36600; 70450; 70496; 70498; 70551; 71045; 80053; 80061; 80306; 80307; 81001; 82009; 82550; 82803; 82962; 83735; 83880; 84145; 84443; 84484; 85025; 87040; 92523; 92610; 93005; 93306; 96361; 96372; 96374; 96375; 97110; 97116; 97162; 97166; 97535; 99285; J1650; J1815; J2310; J2405; J2765; J3490; J7030; J8597; Q9967

== ENCOUNTER → 2021-01-04 11:41 | Outpatient (BNVA) | payer MEDICAID, SELFPAY | PROVIDERS: PCP Family Medicine; Visit Provider Specialist | DX: G93.9 Disorder of brain, unspecified (principal); I65.21 Occlusion and stenosis of right carotid artery; R56.9 Unspecified convulsions; E11.9 Type 2 diabetes mellitus without complications; Z86.73 Personal history of transient ischemic attack (TIA), and cerebral infarction without residual deficits | CPT/HCPCS: 99205 ==

== ENCOUNTER → 2021-02-24 07:49 | Outpatient (BNVA) | payer MEDICAID, SELFPAY | PROVIDERS: PCP Family Medicine; Visit Provider Specialist | DX: R56.9 Unspecified convulsions (principal); I65.21 Occlusion and stenosis of right carotid artery; G93.89 Other specified disorders of brain | CPT/HCPCS: 99214 ==

== ENCOUNTER → 2021-03-23 12:38 | Outpatient (BNVA) | payer MEDICAID, SELFPAY | PROVIDERS: PCP Family Medicine; Referring Provider Specialist; Visit Provider Specialist | DX: R56.9 Unspecified convulsions (principal); G93.9 Disorder of brain, unspecified | CPT/HCPCS: 95816 ==

== ENCOUNTER 2021-04-05 09:57 | Outpatient (CLI) | payer MEDICAID, SELFPAY ==
--- NOTE | 2021-04-05 11:00 | MR_ITS ---
WS: [id number] MRI HEAD WITH CONTRAST TECHNIQUE: Sagittal T1, T2 axial, T2 axial FLAIR, axial susceptibility weighted imaging, axial diffus ion weighted images, and coronal T2 images were obtained. Pre and post-T1 axial and post T1 coronal i mages. ADC and FSPGR images. CLINICAL INFORMATION: I63.511 - Cerebral infarction due to unspecified occlusio... COMPARISON: MRI December 19, 2020 FINDINGS: No evidence of restricted diffusion to suggest acute ischemia. Ventricular system and basal cisterns are patent. Moderate small vessel changes. Moderate parenchymal volume loss. Encephalomalacia and gliosis right anterior temporal lobe.This is unchanged from previous. Normal pos terior fossa. Normal vascular flow voids at the skull base. No extra-axial fluid collections. No evid ence of mass or mass effect. Mild mucosal thickening with partial opacification ethmoid air cells. Mi ld mucosal thickening in the maxillary sinuses. Mild mucosal thickening mastoid air cells. No hemosiderin on the susceptibly weighted images. Tiny punctate focus of hemosiderin in the right pa rietal lobe. Normal optic chiasm and pituitary infundibulum. No abnormal gadolinium enhancement. Norm al optic chiasm and pituitary infundibulum. Dural venous sinuses appear patent. MR/MR head wo/w con [id number] IMPRESSION: 1. No evidence of restricted diffusion to suggest acute ischemia. 2. Moderate small vessel changes with moderate parenchymal volume loss. 3. Chronic encephalomalacia and gliosis in the right anterior temporal lobe un changed from previous. 4. Small vessel changes in the ole. 5. Mild mucosal thickening paranasal sinuses with partial opacification of the ethmoid air cells 6. No abnormal gadolinium enhancement. 7. Tiny punctate chronic focus of hemosiderin in the right parietal lobe.
[2021-04-05] MEDS: gadobenate dimeglumine 20 mL vial IV (13:17)
== END 2021-04-05 09:58 | disposition home or self-care (01) ==
PROVIDERS: PCP Family Medicine; Visit Provider Specialist
DX: I63.511 Cerebral infarction due to unspecified occlusion or stenosis of right middle cerebral artery (principal)
CPT/HCPCS: 70553; A9577

== ENCOUNTER 2021-05-29 16:34 | Emergency (ER) | payer MEDICAID, SELFPAY ==
[2021-05-29 16:38] VITALS: BP 129/84; PULSE 83; RESP 18; TEMP 36.7; O2SAT 97; BMI 34.5
[2021-05-29 16:46] VITALS: BP 127/78; PULSE 79; O2SAT 97
[2021-05-29 16:55] LABS: Glucose Point of Care 159 mg/dL (70-110)
--- NOTE | 2021-05-29 16:56 | W.ED.DIZZY ---
Documented by User: Luis Eduardo Rosales DO 05/29/21 17:40 HPI - Dizziness General: Chief Complaint: Dizziness Stated Complaint: Dizziness and light headed Time Seen by Provider: 05/29/21 16:53 History of Present Illness: HPI Narrative: 60-year-old female presents with a wavy feeling in her head patient reports that it started about 3 weeks ago after she bent down and then stood back up. She reports today she was having a bowel movement had a strain and it got worse. Patient denies any nausea or vomiting. She reports that she just feels off and cannot describe the wavy feeling. Patient reports that she has had a stroke in the past. Patient denies any recent illnesses such as fever, chills, cough or urinary symptoms. Associated symptoms: Denies chest pain, chills, nausea, palpitations or vomiting Review of Systems Narrative: No apparent distress Const: Denies: fever(s) or chills Eyes: Denies: change in vision, blurry vision or photophobia ENMT: Denies: throat pain or ear or mastoid pain Card: Denies: chest pain, palpitations or irregular heart rhythm GI: Denies: abdominal pain, nausea or vomiting Musc: Denies: neck pain, back pain or extremity swelling Neuro: Reports: dizziness and other (Please see HPI) PFSH ED PFSH: Medical History Bipolar 1 disorder Diabetes mellitus DVT prophylaxis Fever Hypertension Injury, self-inflicted No pertinent family history ESTHER (obstructive sleep apnea) Right middle cerebral artery stroke Self-mutilation TIA (transient ischemic attack) Social History Smoking and tobacco status: never smoked Alcohol intake: never Current gender identity: Female Physical Exam Const: COMMON NORMALS: no acute distress, patient oriented x3 and no limitations HENMT: HEAD & SCALP: normal to inspection MOUTH: Normal oral and palatal mucosa present Eye: COMMON NORMALS: Equal, round and reactive pupils present and EOMs intact bilaterally PUPIL: Yes Equal, round and reactive pupils present Resp: COMMON NORMALS: normal respiratory effort, No use of accessory muscles and clear to auscultation bilaterally AUSCULTATION: clear to auscultation bilaterally Extremity: COMMON NORMALS: normal to inspection, full ROM and capillary refill normal Neuro: COMMON NORMALS: patient oriented x3, CN's II-XII intact bilaterally, moves all extremities, no focal motor deficits, no sensory deficits noted and deep tendon reflexes 2+ bilaterally Psych: COMMON NORMALS: mental status grossly normal, cooperative, normal affect and activity/motor behavior normal Skin: COMMON NORMALS: no rashes or lesions noted GENERAL SKIN EXAM: no rashes or lesions noted Course Vital Signs: Vital signs: Vital Signs Temperature 98.0 F 05/29/21 16:38 Pulse Rate 79 05/29/21 17:46 Respiratory Rate 16 05/29/21 18:33 Blood Pressure 132/82 05/29/21 18:30 Pulse Oximetry 98 05/29/21 18:33 MDM - Dizziness Lab Data : 05/29/21 16:58 05/29/21 16:58 Radiology Impressions Chest X-Ray 05/29/21 17:00 IMPRESSION: No acute findings. Head CT 05/29/21 17:00 IMPRESSION: 1. Negative for intracranial hemorrhage. 2. Right middle temporal fossa area of chronic encephalomalacia as seen on prior MRI. Laboratory Results WBC 7.4 10^3/uL (4.0-10.0) 05/29/21 16:58 RBC 4.21 10^6/uL (4.1-5.3) 05/29/21 16:58 Hgb 12.4 g/dL (11.5-15.3) 05/29/21 16:58 Hct 36.7 % (37.0-47.0) L 05/29/21 16:58 MCV 87.2 fl (81-99) 05/29/21 16:58 MCH 29.5 pg (28.0-34.0) 05/29/21 16:58 MCHC 33.8 g/dL (30.0-36.0) 05/29/21 16:58 RDW 12.6 % (12.1-15.1) 05/29/21 16:58 Plt Count 270 10^3/cmm (130-400) 05/29/21 16:58 MPV 9.8 fL (7.4-10.4) 05/29/21 16:58 Neut % (Auto) 65.3 % 05/29/21 16:58 Lymph % (Auto) 22.4 % 05/29/21 16:58 Parker % (Auto) 6.4 % 05/29/21 16:58 Eos % (Auto) 4.7 % 05/29/21 16:58 Baso % (Auto) 0.8 % 05/29/21 16:58 Neut # (Auto) 4.81 10^3/uL (1.8-7.7) 05/29/21 16:58 Lymph # (Auto) 1.7 10^3/uL (0.8-4.8) 05/29/21 16:58 Parker # (Auto) 0.5 10^3/uL (0.2-0.9) 05/29/21 16:58 Eos # (Auto) 0.4 10^3/uL (0.0-0.8) 05/29/21 16:58 Baso # (Auto) 0.1 10^3/uL (0.0-0.1) 05/29/21 16:58 Nucleated RBC % (auto) 0 % 05/29/21 16:58 Nucleated RBCs # 0.0 /100WBC 05/29/21 16:58 Sodium 139 mmol/L (136-145) 05/29/21 16:58 Potassium 3.7 mmol/L (3.5-5.1) 05/29/21 16:58 Chloride 103 mmol/L (98-107) 05/29/21 16:58 Carbon Dioxide 25 mmol/L (22-29) 05/29/21 16:58 Anion Gap 14.7 (5-19) 05/29/21 16:58 BUN 21 mg/dL (6-20) H 05/29/21 16:58 Creatinine 1.0 mg/dL (0.5-0.9) H 05/29/21 16:58 GFR Calculation 56.9 mL/min (90-130) L 05/29/21 16:58 Glucose 169 mg/dL (65-115) H 05/29/21 16:58 POC Glucose 159 mg/dL (70-110) H 05/29/21 16:53 Calculated Osmolality 295 mOsm/kg (285-295) 05/29/21 16:58 Calcium 10.0 mg/dL (8.5-10.5) 05/29/21 16:58 Magnesium 1.7 mg/dL (1.7-2.3) 05/29/21 16:58 Total Bilirubin 0.2 mg/dL (0.15-1.2) 05/29/21 16:58 AST 10 U/L (0-32) 05/29/21 16:58 ALT 10 U/L (0-33) 05/29/21 16:58 Alkaline Phosphatase 101 IU/L (35-105) 05/29/21 16:58 Troponin T Gen 5 ng/L 11 ng/L (0-10) H 05/29/21 16:58 Total Protein 6.6 g/dL (6.6-8.7) 05/29/21 16:58 Albumin 4.4 g/dL (3.5-5.2) 05/29/21 16:58 Globulin 2.2 g/dL (1.3-4.6) 05/29/21 16:58 EKG Data EKG 1: I personally reviewed and interpreted this EKG as follows: EKG interpretation date: 05/29/21 EKG interpretation time: 17:09 Interpretation: Heart rate 70, normal sinus rhythm, normal axis, no acute findings. Computer generated interpretation: Ventricular rate 70, sinus rhythm, septal SC of indeterminate age due to Q-wave in V1 V2, abnormal EKG Discharge Plan Discharge Patient Disposition: Home Clinical Impression: Dizziness, Headache Condition: Stable Prescriptions: No Action meclizine 25 mg tablet 25 mg PO DAILY 0RF zonisamide [Zonegran] 100 mg capsule 200 mg PO DAILY Qty: 60 2RF atorvastatin 40 mg Tablet 40 mg PO BEDTIME 30 Days Qty: 30 3RF aspirin 81 mg Tablet,Delayed Release (Dr/Ec) 81 mg PO DAILY 30 Days Qty: 30 3RF Plavix 75 mg tablet 75 mg PO DAILY Qty: 30 3RF Discharge Orders: Discharge ED (Routine); Ordered 05/29/21 Ordered By: Giovanni Rachel Referrals: Rich Rosa MD [Primary Care Provider] - 1-3 days (As scheduled) Kaycee Ace MD [Physician] - 4-7 days Patient Instructions: Dizziness (ED), Acute Headache (ED) Activity Restrictions/Additional Instructions: Return for worsening headache, vomiting liquids or medications, worsening weakness, syncope or passing out, any other concerning symptoms. Follow-up with your doctors as listed above. Let your neurologist know that you were seen here this weekend with increased dizziness. Coding Level of Care Code ED Investor Relations Manager for Chg Fwd Exam Comprehensive Documented by User: Giovanni Rachel DO 05/29/21 20:18 HPI - Dizziness General: Chief Complaint: Dizziness Stated Complaint: Dizziness and light headed Time Seen by Provider: 05/29/21 16:53 PFSH ED PFSH: Medical History Bipolar 1 disorder Diabetes mellitus DVT prophylaxis Fever Hypertension Injury, self-inflicted No pertinent family history ESTHER (obstructive sleep apnea) Right middle cerebral artery stroke Self-mutilation TIA (transient ischemic attack) Social History Smoking and tobacco status: never smoked Alcohol intake: never Current gender identity: Female Course Vital Signs: Vital signs: Vital Signs Temperature 98.0 F 05/29/21 16:38 Pulse Rate 79 05/29/21 17:46 Respiratory Rate 16 05/29/21 18:33 Blood Pressure 132/82 05/29/21 18:30 Pulse Oximetry 98 05/29/21 18:33 MDM - Dizziness Medical Decision Making 60-year-old female checked out to me at shift change by Dr. Rosales. This lady has a history of chronic neurological symptoms, and is followed by neurology. She had an increase in dizziness over the last 3 weeks or so, and was worse today. Her head CT appears stable from an MRI done in March. She has a chronic temporal lobe encephalomalacia. Her blood pressure is 132/82. She has a headache. Her CBC is essentially normal. BMP shows a BUN of 21, creatinine of 1. Otherwise not remarkable. Point whether she has migraine with dizziness, or if this is more related to chronic symptoms. Certainly after 3 weeks of symptoms, we would see changes on MRI if this was ischemia. I think symptom control is more appropriate. After Toradol, Reglan, and Depacon infusion, headache is improved. Dizziness is quite a bit better as well. She notes that seems to worsen when she bends over and stands back up, which could be flow dependent versus simply positional vertigo. We will ask her to follow-up with neurology as an outpatient. She has had a PCP appointment on Monday. Lab Data : 05/29/21 16:58 05/29/21 16:58 Radiology Impressions Chest X-Ray 05/29/21 17:00 IMPRESSION: No acute findings. Head CT 05/29/21 17:00 IMPRESSION: 1. Negative for intracranial hemorrhage. 2. Right middle temporal fossa area of chronic encephalomalacia as seen on prior MRI. Laboratory Results WBC 7.4 10^3/uL (4.0-10.0) 05/29/21 16:58 RBC 4.21 10^6/uL (4.1-5.3) 05/29/21 16:58 Hgb 12.4 g/dL (11.5-15.3) 05/29/21 16:58 Hct 36.7 % (37.0-47.0) L 05/29/21 16:58 MCV 87.2 fl (81-99) 05/29/21 16:58 MCH 29.5 pg (28.0-34.0) 05/29/21 16:58 MCHC 33.8 g/dL (30.0-36.0) 05/29/21 16:58 RDW 12.6 % (12.1-15.1) 05/29/21 16:58 Plt Count 270 10^3/cmm (130-400) 05/29/21 16:58 MPV 9.8 fL (7.4-10.4) 05/29/21 16:58 Neut % (Auto) 65.3 % 05/29/21 16:58 Lymph % (Auto) 22.4 % 05/29/21 16:58 Parker % (Auto) 6.4 % 05/29/21 16:58 Eos % (Auto) 4.7 % 05/29/21 16:58 Baso % (Auto) 0.8 % 05/29/21 16:58 Neut # (Auto) 4.81 10^3/uL (1.8-7.7) 05/29/21 16:58 Lymph # (Auto) 1.7 10^3/uL (0.8-4.8) 05/29/21 16:58 Parker # (Auto) 0.5 10^3/uL (0.2-0.9) 05/29/21 16:58 Eos # (Auto) 0.4 10^3/uL (0.0-0.8) 05/29/21 16:58 Baso # (Auto) 0.1 10^3/uL (0.0-0.1) 05/29/21 16:58 Nucleated RBC % (auto) 0 % 05/29/21 16:58 Nucleated RBCs # 0.0 /100WBC 05/29/21 16:58 Sodium 139 mmol/L (136-145) 05/29/21 16:58 Potassium 3.7 mmol/L (3.5-5.1) 05/29/21 16:58 Chloride 103 mmol/L (98-107) 05/29/21 16:58 Carbon Dioxide 25 mmol/L (22-29) 05/29/21 16:58 Anion Gap 14.7 (5-19) 05/29/21 16:58 BUN 21 mg/dL (6-20) H 05/29/21 16:58 Creatinine 1.0 mg/dL (0.5-0.9) H 05/29/21 16:58 GFR Calculation 56.9 mL/min (90-130) L 05/29/21 16:58 Glucose 169 mg/dL (65-115) H 05/29/21 16:58 POC Glucose 159 mg/dL (70-110) H 05/29/21 16:53 Calculated Osmolality 295 mOsm/kg (285-295) 05/29/21 16:58 Calcium 10.0 mg/dL (8.5-10.5) 05/29/21 16:58 Magnesium 1.7 mg/dL (1.7-2.3) 05/29/21 16:58 Total Bilirubin 0.2 mg/dL (0.15-1.2) 05/29/21 16:58 AST 10 U/L (0-32) 05/29/21 16:58 ALT 10 U/L (0-33) 05/29/21 16:58 Alkaline Phosphatase 101 IU/L (35-105) 05/29/21 16:58 Troponin T Gen 5 ng/L 11 ng/L (0-10) H 05/29/21 16:58 Total Protein 6.6 g/dL (6.6-8.7) 05/29/21 16:58 Albumin 4.4 g/dL (3.5-5.2) 05/29/21 16:58 Globulin 2.2 g/dL (1.3-4.6) 05/29/21 16:58 Discharge Plan Discharge Patient Disposition: Home Clinical Impression: Dizziness, Headache Condition: Stable Prescriptions: No Action meclizine 25 mg tablet 25 mg PO DAILY 0RF zonisamide [Zonegran] 100 mg capsule 200 mg PO DAILY Qty: 60 2RF atorvastatin 40 mg Tablet 40 mg PO BEDTIME 30 Days Qty: 30 3RF aspirin 81 mg Tablet,Delayed Release (Dr/Ec) 81 mg PO DAILY 30 Days Qty: 30 3RF Plavix 75 mg tablet 75 mg PO DAILY Qty: 30 3RF Discharge Orders: Discharge ED (Routine); Ordered 05/29/21 Ordered By: Giovanni Rachel Referrals: Rich Rosa MD [Primary Care Provider] - 1-3 days (As scheduled) Kaycee Ace MD [Physician] - 4-7 days Patient Instructions: Dizziness (ED), Acute Headache (ED) Activity Restrictions/Additional Instructions: Return for worsening headache, vomiting liquids or medications, worsening weakness, syncope or passing out, any other concerning symptoms. Follow-up with your doctors as listed above. Let your neurologist know that you were seen here this weekend with increased dizziness. Coding Level of Care Code ED Investor Relations Manager for Chg Fwd Exam Comprehensive
--- NOTE | 2021-05-29 17:00 | ECG_ITS ---
[facility] Test Date: 2021-05-29 Pat Name: Rebecca Sanderson Department: Room: Gender: Female Reproduction Technician: : 1960 Requested By: Luis Eduardo Rosales Order Number: [id number] Sona MD: Nelson Boyle M.D. Measurements Intervals [place] Rate: 70 P: 48 AR: 170 QRS: 21 QRSD: 90 T: 66 QT: 409 QTc: 442 Interpretive Statements SINUS RHYTHM SEPTAL MYOCARDIAL INFARCTION , OF INDETERMINATE AGE [40+ ms Q WAVE IN V1/V2] Compared to ECG 12/17/2020 22:52:16 Myocardial infarct finding now present T-wave abnormality no longer present Electronically Signed On 05-30-2021 15:53:52 CDT by Nelson Boyle M.D. [id number]
--- NOTE | 2021-05-29 17:00 | XRR_ITS ---
PROCEDURE INFORMATION: Exam: XR Chest Exam date and time: 05/29/2021 5:00 PM Age: 60 years old Clinical indication: Dyspnea; Additional info: Dizziness TECHNIQUE: Imaging protocol: XR of the chest. Views: 1 view. COMPARISON: CR XR chest 1V portable [id number] 12/17/2020 4:51 PM FINDINGS: Lungs: Unremarkable. No consolidation. Pleural spaces: Unremarkable. No pleural effusion. No pneumothorax. Heart/Mediastinum: Unremarkable. No cardiomegaly. Bones/joints: Unremarkable. XR/XR chest 1V portable [id number] IMPRESSION: No acute findings.
--- NOTE | 2021-05-29 17:00 | CTR_ITS ---
PROCEDURE INFORMATION: Exam: CT Head Without Contrast Exam date and time: 05/29/2021 5:00 PM Age: 60 years old Clinical indication: Patient HX: C/O worsening dizziness x 3 weeks states had a light stroke a year ago TECHNIQUE: Imaging protocol: Computed tomography of the head without contrast. Radiation optimization: All CT scans at this facility use at least one of these dose optimization techniques: automated exposure control; mA and/or kV adjustment per patient size (includes targeted exams where dose is matched to clinical indication); or iterative reconstruction. COMPARISON: MR head wo/w con [id number] 04/05/2021 11:21 AM RADIATION DOSE METRICS: Total DLP (mGy-cm): 768.94 FINDINGS: Brain: Right middle temporal fossa area of chronic encephalomalacia as seen on prior MRI. Cerebral ventricles: No ventriculomegaly. Paranasal sinuses: Visualized sinuses are unremarkable. No fluid levels. Mastoid air cells: Visualized mastoid air cells are well aerated. Bones/joints: Unremarkable. No acute fracture. Soft tissues: Unremarkable. CT/CT head wo con* [id number] IMPRESSION: 1. Negative for intracranial hemorrhage. 2. Right middle temporal fossa area of chronic encephalomalacia as seen on prior MRI.
[2021-05-29 17:11] LABS: Basophils # 0.1 10^3/uL (0.0-0.1); Basophils % 0.8 %; Eosinophils # 0.4 10^3/uL (0.0-0.8); Eosinophils % 4.7 %; Hematocrit 36.7 % (37.0-47.0); Hemoglobin 12.4 g/dL (11.5-15.3); Lymphocytes # 1.7 10^3/uL (0.8-4.8); Lymphocytes % 22.4 %; Mean Corpuscular HGB Conc 33.8 g/dL (30.0-36.0); Mean Corpuscular Hemoglobin 29.5 pg (28.0-34.0); Mean Corpuscular Volume 87.2 fl (81-99); Mean Platelet Volume 9.8 fL (7.4-10.4); Monocytes # 0.5 10^3/uL (0.2-0.9); Monocytes % 6.4 %; Neutrophils # 4.81 10^3/uL (1.8-7.7); Neutrophils % 65.3 %; Nucleated Red Blood Cells % 0 %; Platelet Count 270 10^3/cmm (130-400); Red Blood Count 4.21 10^6/uL (4.1-5.3); Red Cell Distribution Width 12.6 % (12.1-15.1); White Blood Count 7.4 10^3/uL (4.0-10.0)
[2021-05-29] MEDS: sodium chloride 0.9% 1,000 ML 999 ML IV (17:13)
[2021-05-29 17:16] VITALS: BP 159/87; PULSE 76; O2SAT 98
[2021-05-29 17:31] LABS: Alanine Aminotransferase 10 U/L (0-33); Albumin Level 4.4 g/dL (3.5-5.2); Alkaline Phosphatase 101 IU/L (35-105); Anion Gap 14.7 (5-19); Aspartate Amino Transferase 10 U/L (0-32); Blood Urea Nitrogen 21 mg/dL (6-20); Carbon Dioxide 25 mmol/L (22-29); Chloride 103 mmol/L (98-107); Globulin 2.2 g/dL (1.3-4.6); Glomerular Filtration Rate 56.9 mL/min (90-130); Glucose 169 mg/dL (65-115); Magnesium 1.7 mg/dL (1.7-2.3); Osmolality Calculated 295 mOsm/kg (285-295); Potassium 3.7 mmol/L (3.5-5.1); Sodium 139 mmol/L (136-145); Total Bilirubin 0.2 mg/dL (0.15-1.2); Total Protein 6.6 g/dL (6.6-8.7)
[2021-05-29 17:32] LABS: Troponin T (5th) Once 11 ng/L (0-10)
[2021-05-29 17:46] VITALS: BP 132/82; PULSE 79; O2SAT 98
[2021-05-29 18:30] VITALS: BP 132/82; O2SAT 96
[2021-05-29 18:33] VITALS: RESP 16; O2SAT 98
[2021-05-29] MEDS: fentaNYL 50 mcg/mL INJ 2mL 75 MCG IVP (18:33)
[2021-05-29] MEDS: metoclopramide 5 mg/mL SDV 2 mL 10 MG IVP (18:34)
[2021-05-29] MEDS: ketorolac 30 mg/mL INJ 15 MG IVP (19:24)
== END 2021-05-29 20:34 | disposition home or self-care (01) ==
PROVIDERS: Student in an Organized Health Care Education/Training Program; Emergency Provider Emergency Medicine; PCP Family Medicine
DX: R42 Dizziness and giddiness (principal); R51.9 Headache, unspecified; Z79.82 Long term (current) use of aspirin; Z79.02 Long term (current) use of antithrombotics/antiplatelets; E11.9 Type 2 diabetes mellitus without complications; I10 Essential (primary) hypertension; Z86.73 Personal history of transient ischemic attack (TIA), and cerebral infarction without residual deficits
CPT/HCPCS: 36416; 70450; 71045; 80053; 82962; 83735; 84484; 85025; 93005; 96365; 96375; 99284; J1885; J2765; J3010; J7030

== ENCOUNTER → 2021-06-23 10:34 | Outpatient (BNVA) | payer MEDICAID, SELFPAY | PROVIDERS: PCP Family Medicine; Visit Provider Specialist | DX: R56.9 Unspecified convulsions (principal); I65.21 Occlusion and stenosis of right carotid artery; G93.9 Disorder of brain, unspecified; G43.711 Chronic migraine without aura, intractable, with status migrainosus | CPT/HCPCS: 99214; 99215 ==

== ENCOUNTER 2021-08-03 18:24 | Emergency (ER) | payer MEDICAID, SELFPAY ==
[2021-08-03] VITALS (7 sets, daily range): BP systolic 116–150; BP diastolic 68–91; PULSE 61–89; RESP 16–18; TEMP 37.2; O2SAT 96–100
--- NOTE | 2021-08-03 18:57 | ED_ITS ---
HPI - Dizziness General: Chief Complaint: Dizziness Stated Complaint: HEADACHE Time Seen by Provider: 08/03/21 18:57 History of Present Illness: HPI Narrative: Ms. Sanderson is a 61-year-old lady with history of seizures, diabetes, migraines, and history of stroke presenting to the emergency department due to off-balance feeling lightheadedness associated with possible confusion. She reports symptom onset was this morning. She was on the toilet however denies straining or hard bowel movements and had sudden onset of symptoms. She describes spinning sensation with difficulty with ambulation. Additionally she endorses headache which is sharp behind the back of her eye. Currently intensity symptoms is moderate though has been severe. She did note high blood pressure associated with this however it is subsequently improved. The symptoms are similar to prior episode of stroke. No other specific changes in health, exacerbating, or alleviating factors identified. Onset (ago): hour(s) Severity: moderate Description: lightheadedness, off-balance and difficulty walking History of similar symptoms: Yes Exacerbating factors: movement/ambulation Relieving factors: nothing Review of Systems General: Reports: 10 or more systems reviewed and unremarkable except in HPI and below PFSH ED PFSH: Medical History Bipolar 1 disorder Diabetes mellitus DVT prophylaxis Fever Hypertension Injury, self-inflicted No pertinent family history ESTHER (obstructive sleep apnea) Right middle cerebral artery stroke Self-mutilation TIA (transient ischemic attack) Social History Smoking and tobacco status: never smoked Alcohol intake: never Current gender identity: Female Physical Exam Const: COMMON NORMALS: patient oriented x3 and alert GENERAL APPEARANCE: cooperative and well developed HENMT: COMMON NORMALS: normocephalic and atraumatic HEAD & SCALP: nor mocephalic and atraumatic Eye: COMMON NORMALS: conjunctivae normal CONJUNCTIVA: Yes conjunctivae normal SCLERA: sclerae normal Neck/C-Spine: COMMON NORMALS: supple GENERAL: Yes trachea midline Resp: COMMON NORMALS: normal respiratory effort EFFORT & INSPECTION: Yes able to speak in complete sentences Cardio: COMMON NORMALS: regular rate and regular rhythm RATE: regular rate RHYTHM: regular rhythm GI: COMMON NORMALS: Soft to palpation PALPATION: Yes Soft to palpation and No Tenderness to palpation present (GI) PERCUSSION: normal to percussion Extremity: GENERAL: Yes normal exam except as noted and No edema Neuro: COMMON NORMALS: patient oriented x3, CN's II-XII intact bilaterally, moves all extremities, no focal motor deficits and no sensory deficits noted SENSORIUM/ORIENTATION: Yes alert and No Orientation impaired Psych: COMMON NORMALS: mental status grossly normal and Normal thought process present THOUGHT PROCESS: Normal thought process present Course ED course: - Patient was seen and evaluated by me at bedside - Patient placed on cardiac monitors, IV access obtained - Initial evaluation notable for exam as above - Labs and xrays personally interpreted by me. EKG notable for sinus rhythm wi th no STEMI. -Fluids and meclizine ordered. - Labs notable for no acute hematologic or metabolic abnormality to explain patient's symptoms. Delta troponin is negative. Urinalysis not concerning for urinary tract infection. - Imaging notable for no lobar consolidation or pneumothorax on chest x-ray. Head CT and CTA head and neck without acute pathology identified to explain patient's symptoms. Discussed thyroid nodule with patient including need for follow-up. - Upon serial reexamination after treatment the patient was mildly improved though she did still have headache and headache treatment was ordered. Improvement in headache on reassessment. - Based on patient history, evaluation, and testing as interpreted the most likely cause of the patient's condition is dizziness and headache of uncertain etiology. Patient has history of similar and is on aspirin, Plavix, statin. - The results of ED evaluation were discussed with the patient including prescriptions and/or symptomatic cares (if applicable) including appropriate and responsible use, followup plan, and return precautions. The patient verbalized understanding and felt safe for discharge. - Patient discharged in satisfactory condition. Note: Click bubbles or prepopulated patterson in note writing are used for assistance with data collection and billing and are inherently more limited than narrative and other text portions of this note. Please use narrative for additional clinical history and defer to narrative/free test for any case of contradictory information. If information appears in only free text or click bubble it should be considered present or absent as reported. Please contact note advertising copywriter for clarifications of clinical information or contradictory information. MDM is a brief summary, contradictory or erroneous seeming information should be clarified and full note should be reviewed. Vital Signs: Vital signs: Vital Signs Temperature 98.9 F 08/03/21 18:39 Pulse Rate 63 05/18/22 00:17 Respiratory Rate 16 08/04/21 00:17 Blood Pressure 149/80 08/04/21 00:17 Pulse Oximetry 98 08/04/21 00:17 MDM - Dizziness Medical Decision Making 61-year-old lady presenting with headache and dizziness. She has history of stroke and has had similar episodes in the past. ED evaluation without obvious cause. Patient mildly improved with symptom treatment and comfortable for outpatient follow-up. Discharged with strict return precautions. Medical Records I reviewed the patient's medical records. Lab Data I reviewed the patient's lab results. : 08/03/21 19:45 08/03/21 19:45 Radiology Impressions Chest X-Ray 08/03/21 19:14 IMPRESSION: No acute findings. Head CT 08/03/21 19:14 IMPRESSION: 1. No acute intracranial abnormality. 2. Unchanged chronic right temporal lobe encephalomalacia. Head/Neck CTA 08/03/21 20:24 IMPRESSION: No large vessel occlusion. IMPRESSION: 1. 1.5 cm left inferior thyroid nodule with recommendation for nonemergent thyroid ultrasound to rule out neoplasm. 2. Dominant left vertebral artery with patent right vertebral artery. 3. No ICA stenosis by NASCET/SRU criteria. COMMENTS: Consistent with the [place] [employer]'s Incidental Findings Committee white paper (J Am Matt Radiol 2015): In patients aged 35 years and older with an incidental thyroid nodule equal to or greater than 1.[address], MRI or extrathyroidal US, further evaluation with dedicated thyroid US is recommended for patients with normal life expectancy and without comorbidities. For smaller nodules without suspicious features, no further evaluation or follow up is recommended. REFERENCES: NASCET CRITERIA. The degree of internal carotid artery stenosis is based on NASCET criteria. Normal is no stenosis. Mild is less than 50% stenosis. Moderate is 50-69% stenosis. Severe is 70% to 99% stenosis. Total occlusion is no detectable patent lumen. Laboratory Results WBC 8.7 10^3/uL (4.0-10.0) 08/03/21 19:45 RBC 4.61 10^6/uL (4.1-5.3) 08/03/21 19:45 Hgb 13.3 g/dL (11.5-15.3) 08/03/21 19:45 Hct 39.2 % (37.0-47.0) 08/03/21 19:45 MCV 85.0 fl (81-99) 08/03/21 19:45 MCH 28.9 pg (28.0-34.0) 08/03/21 19:45 MCHC 33.9 g/dL (30.0-36.0) 08/03/21 19:45 RDW 12.1 % (12.1-15.1) 08/03/21 19:45 Plt Count 272 10^3/cmm (130-400) 08/03/21 19:45 MPV 9.8 fL (7.4-10.4) 08/03/21 19:45 Neut % (Auto) 64.4 % 08/03/21 19:45 Lymph % (Auto) 20.2 % 08/03/21 19:45 [place] % (Auto) 4.9 % 08/03/21 19:45 Eos % (Auto) 9.2 % 08/03/21 19:45 Baso % (Auto) 1.0 % 08/03/21 19:45 Neut # (Auto) 5.62 10^3/uL (1.8-7.7) 08/03/21 19:45 Lymph # (Auto) 1.8 10^3/uL (0.8-4.8) 08/03/21 19:45 [place] # (Auto) 0.4 10^3/uL (0.2-0.9) 08/03/21 19:45 Eos # (Auto) 0.8 10^3/uL (0.0-0.8) 08/03/21 19:45 Baso # (Auto) 0.1 10^3/uL (0.0-0.1) 08/03/21 19:45 Nucleated RBC % (auto) 0 % 08/03/21 19:45 Nucleated RBCs # 0.0 /100WBC 08/03/21 19:45 Sodium 136 mmol/L (136-145) 08/03/21 19:45 Potassium 4.3 mmol/L (3.5-5.1) 08/03/21 19:45 Chloride 101 mmol/L (98-107) 08/03/21 19:45 Carbon Dioxide 23 mmol/L (22-29) 08/03/21 19:45 Anion Gap 16.3 (5-19) 08/03/21 19:45 BUN 19 mg/dL (6-20) 08/03/21 19:45 Creatinine 1.0 mg/dL (0.5-0.9) H 08/03/21 19:45 GFR Calculation 56.7 mL/min (90-130) L 08/03/21 19:45 Glucose 111 mg/dL (65-115) 08/03/21 19:45 Calculated Osmolality 285 mOsm/kg (285-295) 08/03/21 19:45 Calcium 9.8 mg/dL (8.5-10.5) 08/03/21 19:45 Magnesium 1.9 mg/dL (1.7-2.3) 08/03/21 19:45 Total Bilirubin 0.3 mg/dL (0.15-1.2) 08/03/21 19:45 AST 11 U/L (0-32) 08/03/21 19:45 ALT 11 U/L (0-33) 08/03/21 19:45 Alkaline Phosphatase 97 IU/L (35-105) 08/03/21 19:45 Troponin T Baseline 20 ng/L (0-10) H 08/03/21 19:45 Troponin T 120 Minute 18.05 ng/L (0-10) H 08/03/21 21:40 Delta Troponin T -1.95 ABS# (0-10) L 08/03/21 21:40 NT-Pro-B Natriuret Pep 37 pg/mL (0-125) 08/03/21 19:45 Total Protein 7.3 g/dL (6.6-8.7) 08/03/21 19:45 Albumin 4.7 g/dL (3.5-5.2) 08/03/21 19:45 Globulin 2.6 g/dL (1.3-4.6) 08/03/21 19:45 TSH 1.86 uIU/mL (0.27-4.20) 08/03/21 19:45 Urine Color Yellow (Yellow) 08/03/21 20:00 Urine Appearance Clear (CLEAR) 08/03/21 20:00 Urine pH 5 (5-7) 08/03/21 20:00 Ur Specific [place] 1.015 (1.005-1.030) 08/03/21 20:00 Urine Protein Neg (Negative) 08/03/21 20:00 Urine Glucose (UA) Norm (Normal) 08/03/21 20:00 Urine Ketones Negative (Negative) 08/03/21 20:00 Urine Blood Neg (Negative) 08/03/21 20:00 Urine Nitrate Negative (Negative) 08/03/21 20:00 Urine Bilirubin Neg (Negative) 08/03/21 20:00 Urine Urobilinogen Norm mg/dL (Negative) 08/03/21 20:00 Ur Leukocyte Esterase 2+ (Negative) H 08/03/21 20:00 Urine RBC None /hpf (0-2) 08/03/21 20:00 Urine WBC 0-4 /hpf (0-5) H 08/03/21 20:00 Ur Squamous Epith Cells 0-4 /hpf (0-5) H 08/03/21 20:00 Amorphous Sediment Not Reportable 08/03/21 20:00 Urine Bacteria None /hpf (NONE) 08/03/21 20:00 Discharge Plan Discharge Patient Disposition: Home Clinical Impression: Dizziness, Headache Condition: Stable Prescriptions: No Action meclizine 25 mg tablet 25 mg PO DAILY 0RF gabapentin 300 mg capsule 300 mg PO TID 0RF zonisamide [Zonegran] 100 mg capsule 300 mg PO DAILY Qty: 90 2RF atorvastatin 40 mg Tablet 40 mg PO BEDTIME 30 Days Qty: 30 3RF aspirin 81 mg Tablet,Delayed Release (Dr/Ec) 81 mg PO DAILY 30 Days Qty: 30 3RF Plavix 75 mg tablet 75 mg PO DAILY Qty: 30 3RF Discharge Orders: Discharge ED (Routine); Ordered 08/04/21 Ordered By: Jose Lam Referrals: Rich Rosa MD [Primary Care Provider] - Discharge Diet: Usual diet Discharge Activity: Increase activity as tolerated Patient Instructions: Acute Headache (ED), Dizziness (ED) Activity Restrictions/Additional Instructions: Thank you for visiting the emergency department. You were seen and evaluated for abnormal neurologic event with headache and dizziness. The exact cause of your symptoms is unclear. You are on optimal treatment for secondary stroke prevention, please ensure that you continue this. Please follow-up with your primary care provider and neurology. Please return to the emergency department for worsening symptoms, any new focal neurologic deficits, or anything else that you are concerned about and feel needs emergency department evaluation. Coding Level of Care Code ED Costume Cutter for Janene Poon Exam Comprehensive
--- NOTE | 2021-08-03 19:14 | ECG_ITS ---
[facility] Test Date: 2021-08-03 Pat Name: Rebecca Sanderson Department: Room: Gender: Female Surgical Consultant: : 1960 Requested By: Jose Lam Order Number: [id number] Sona MD: Nelson Boyle M.D. Measurements Intervals [place] Rate: 64 P: 37 OR: 184 QRS: -5 QRSD: 95 T: 56 QT: 427 QTc: 443 Interpretive Statements SINUS RHYTHM NONSPECIFIC T-WAVE ABNORMALITY Compared to ECG 05/29/2021 17:09:16 T-wave abnormality now present Myocardial infarct finding no longer present Electronically Signed On 08-03-2021 21:56:20 CDT by Nelson Boyle M.D. [id number]
--- NOTE | 2021-08-03 19:14 | CTR_ITS ---
PROCEDURE INFORMATION: Exam: CT Head Without Contrast Exam date and time: 08/03/2021 7:27 PM Age: 61 years old Clinical indication: Dizziness; Prior surgery; Surgery date: 6+ months; Patient HX: Only eye surgery; Additional info: Dizzy, AMS TECHNIQUE: Imaging protocol: Computed tomography of the head without contrast. Radiation optimization: All CT scans at this facility use at least one of these dose optimization techniques: automated exposure control; mA and/or kV adjustment per patient size (includes targeted exams where dose is matched to clinical indication); or iterative reconstruction. COMPARISON: CT head wo con* [id number] 05/29/2021 5:47 PM RADIATION DOSE METRICS: Total DLP (mGy-cm): 785.28 FINDINGS: Brain: There is volume loss and periventricular low density compatible with chronic small vessel disease changes. There is no acute hemorrhage, edema or mass effect. Unchanged chronic right temporal lobe encephalomalacia. Cerebral ventricles: No ventriculomegaly. Paranasal sinuses: Visualized sinuses are unremarkable. No fluid levels. Mastoid air cells: Visualized mastoid air cells are well aerated. Bones/joints: Unremarkable. No acute fracture. Soft tissues: Unremarkable. CT/CT head wo con* [id number] IMPRESSION: 1. No acute intracranial abnormality. 2. Unchanged chronic right temporal lobe encephalomalacia.
--- NOTE | 2021-08-03 19:14 | XRR_ITS ---
PROCEDURE INFORMATION: Exam: XR Chest Exam date and time: 08/03/2021 7:38 PM Age: 61 years old Clinical indication: Other: Headache; Additional info: AMS TECHNIQUE: Imaging protocol: XR of the chest. Views: 1 view. COMPARISON: CR (CHEST, ) 05/29/2021 5:12 PM FINDINGS: Lungs: Unremarkable. No consolidation. Unchanged calcified pulmonary granulomas. The vascularity is within normal limits. Pleural spaces: Unremarkable. No pleural effusion. No pneumothorax. Heart/Mediastinum: Unremarkable. No cardiomegaly. Bones/joints: No acute abnormality. XR/XR chest 1V portable [id number] IMPRESSION: No acute findings.
[2021-08-03 19:56] LABS: Basophils # 0.1 10^3/uL (0.0-0.1); Eosinophils # 0.8 10^3/uL (0.0-0.8); Eosinophils % 9.2 %; Hematocrit 39.2 % (37.0-47.0); Hemoglobin 13.3 g/dL (11.5-15.3); Lymphocytes # 1.8 10^3/uL (0.8-4.8); Lymphocytes % 20.2 %; Mean Corpuscular HGB Conc 33.9 g/dL (30.0-36.0); Mean Corpuscular Hemoglobin 28.9 pg (28.0-34.0); Mean Platelet Volume 9.8 fL (7.4-10.4); Monocytes # 0.4 10^3/uL (0.2-0.9); Monocytes % 4.9 %; Neutrophils # 5.62 10^3/uL (1.8-7.7); Neutrophils % 64.4 %; Nucleated Red Blood Cells % 0 %; Platelet Count 272 10^3/cmm (130-400); Red Blood Count 4.61 10^6/uL (4.1-5.3); Red Cell Distribution Width 12.1 % (12.1-15.1); White Blood Count 8.7 10^3/uL (4.0-10.0)
[2021-08-03] MEDS: lactated ringers 1,000 ML 999 ML IV (19:56)
[2021-08-03 20:15] LABS: Add Urine Microscopic? YES; Bilirubin Urine Neg (Negative); Blood Urine Neg (Negative); Glucose Urine UA Norm (Normal); Ketones Urine Negative (Negative); Leukocyte Esterase Urine 2+ (Negative); Nitrate Urine Negative (Negative); Protein Urine Neg (Negative); Specific Gravity, Urine 1.015 (1.005-1.030); Urine Appearance Clear (CLEAR); Urine Color Yellow (Yellow); Urobilinogen Urine Norm (Negative); pH Urine 5 (5-7)
[2021-08-03 20:19] LABS: WBC Urine 0-4 /hpf (0-5)
[2021-08-03 20:20] LABS: Add Urine Culture? No; Squamous Epithelial Cell Urine 0-4 /hpf (0-5)
--- NOTE | 2021-08-03 20:24 | CTR_ITS ---
PROCEDURE INFORMATION: Exam: CT Angiography Head With Contrast, Arteriography Exam date and time: 08/03/2021 9:11 PM Age: 61 years old Clinical indication: Dizziness and giddiness; Other: Eye pain; Patient HX: C/O RT ocular pain with dizziness. History of RT mca stroke. ; Additional info: Dizzy, headache, unsteady, stroke HX, eval posterior circ TECHNIQUE: Imaging protocol: Computed tomography angiography of the head with contrast. Exam focused on the arteries. 3D rendering (Not supervised by radiologist): MIP and/or 3D reconstructed images were created by the technologist. Radiation optimization: All CT scans at this facility use at least one of these dose optimization techniques: automated exposure control; mA and/or kV adjustment per patient size (includes targeted exams where dose is matched to clinical indication); or iterative reconstruction. Contrast material: OMNI 350; Contrast volume: 60 ml; Contrast route: INTRAVENOUS (IV); COMPARISON: CT angio headneck* [id number] 12/17/2020 5:11 PM RADIATION DOSE METRICS: Total DLP (mGy-cm): 33 FINDINGS: ANTERIOR CIRCULATION: Right internal carotid artery: Calcified plaque in the right cavernous ICA without significant stenosis. Right middle cerebral artery: Unremarkable. No occlusion or significant stenosis. No aneurysm. Right anterior cerebral artery: Unremarkable. No occlusion or significant stenosis. No aneurysm. Left internal carotid artery: Calcified plaque in the left cavernous ICA without significant stenosis. Left middle cerebral artery: Unremarkable. No occlusion or significant stenosis. No aneurysm. Left anterior cerebral artery: Unremarkable. No occlusion or significant stenosis. No aneurysm. POSTERIOR CIRCULATION: Right vertebral artery: Dominant left vertebral artery with patent right vertebral artery. Left vertebral artery: Unremarkable. No occlusion or significant stenosis. No aneurysm. Basilar artery: Unremarkable. No occlusion or significant stenosis. No aneurysm. Right posterior cerebral artery: Unremarkable. No occlusion or significant stenosis. No aneurysm. Left posterior cerebral artery: Unremarkable. No occlusion or significant stenosis. No aneurysm. Brain: No definite mass, mass effect, or midline shift. Cerebral ventricles: No ventriculomegaly. Bones/joints: Unremarkable. No acute fracture. Soft tissues: Unremarkable. PROCEDURE INFORMATION: Exam: CT Angiography Neck With Contrast Exam date and time: 08/03/2021 9:11 PM Age: 61 years old Clinical indication: Dizziness and giddiness; Other: Eye pain; Patient HX: C/O RT ocular pain with dizziness. History of RT mca stroke. ; Additional info: Dizzy, headache, unsteady, stroke HX, eval posterior circ TECHNIQUE: Imaging protocol: Computed tomography angiography of the neck with contrast. 3D rendering (Not supervised by radiologist): MIP and/or 3D reconstructed images were created by the technologist. Radiation optimization: All CT scans at this facility use at least one of these dose optimization techniques: automated exposure control; mA and/or kV adjustment per patient size (includes targeted exams where dose is matched to clinical indication); or iterative reconstruction. Contrast material: OMNI 350; Contrast volume: 60 ml; Contrast route: INTRAVENOUS (IV); COMPARISON: CT angio headneck* [id number] 12/17/2020 5:11 PM RADIATION DOSE METRICS: Total DLP (mGy-cm): 2059. FINDINGS: Right common carotid artery: No stenosis. No dissection or occlusion. Right internal carotid artery: Right carotid bifurcation calcified plaque. No ICA stenosis by NASCET/SRU criteria. Right external carotid artery: No occlusion or stenosis of the origin. Left common carotid artery: No stenosis. No dissection or occlusion. Left internal carotid artery: Left carotid bifurcation calcified plaque. Left external carotid artery: No occlusion or stenosis of the origin. Right vertebral artery: Dominant left vertebral artery with patent right vertebral artery. Left vertebral artery: No stenosis. No dissection or occlusion. Thyroid: 1.5 cm left inferior thyroid nodule with recommendation for nonemergent thyroid ultrasound to rule out neoplasm. Soft tissues: Normal. No significant soft tissue swelling. Bones/joints: No acute fracture. CT/CT angio headneck* [id number] IMPRESSION: No large vessel occlusion. IMPRESSION: 1. 1.5 cm left inferior thyroid nodule with recommendation for nonemergent thyroid ultrasound to rule out neoplasm. 2. Dominant left vertebral artery with patent right vertebral artery. 3. No ICA stenosis by NASCET/SRU criteria. COMMENTS: Consistent with the [place] [employer]'s Incidental Findings Committee white paper (J Am Matt Radiol 2015): In patients aged 35 years and older with an incidental thyroid nodule equal to or greater than 1.[address], MRI or extrathyroidal US, further evaluation with dedicated thyroid US is recommended for patients with normal life expectancy and without comorbidities. For smaller nodules without suspicious features, no further evaluation or follow up is recommended. REFERENCES: NASCET CRITERIA. The degree of internal carotid artery stenosis is based on NASCET criteria. Normal is no stenosis. Mild is less than 50% stenosis. Moderate is 50-69% stenosis. Severe is 70% to 99% stenosis. Total occlusion is no detectable patent lumen.
[2021-08-03 20:25] LABS: Troponin(5th) Baseline 20 ng/L (0-10)
[2021-08-03 20:35] LABS: Alanine Aminotransferase 11 U/L (0-33); Albumin Level 4.7 g/dL (3.5-5.2); Alkaline Phosphatase 97 IU/L (35-105); Anion Gap 16.3 (5-19); Aspartate Amino Transferase 11 U/L (0-32); Blood Urea Nitrogen 19 mg/dL (6-20); Calcium 9.8 mg/dL (8.5-10.5); Carbon Dioxide 23 mmol/L (22-29); Chloride 101 mmol/L (98-107); Globulin 2.6 g/dL (1.3-4.6); Glomerular Filtration Rate 56.7 mL/min (90-130); Glucose 111 mg/dL (65-115); Magnesium 1.9 mg/dL (1.7-2.3); NT Pro B Type Natriuretic Pept 37 pg/mL (0-125); Osmolality Calculated 285 mOsm/kg (285-295); Potassium 4.3 mmol/L (3.5-5.1); Sodium 136 mmol/L (136-145); Thyroid Stimulating Hormone 1.86 uIU/mL (0.27-4.20); Total Bilirubin 0.3 mg/dL (0.15-1.2); Total Protein 7.3 g/dL (6.6-8.7)
[2021-08-03] MEDS: ketorolac 30 mg/mL INJ 15 MG IVP (20:36)
[2021-08-03] MEDS: meclizine 25 mg tablet PO (20:36)
--- NOTE | 2021-08-03 21:14 | ECG_ITS ---
[facility] Test Date: 2021-08-03 Pat Name: Rebecca Sanderson Department: Room: Gender: Female Boiling Off Winder: : 1960 Requested By: Jose Lam Order Number: [id number] Sona MD: Nelson Boyle M.D. Measurements Intervals [place] Rate: 60 P: 51 MS: 188 QRS: -1 QRSD: 90 T: 63 QT: 432 QTc: 432 Interpretive Statements SINUS RHYTHM NONSPECIFIC T-WAVE ABNORMALITY Compared to ECG 08/03/2021 19:50:25 No significant changes Electronically Signed On 08-03-2021 22:00:44 CDT by Nelson Boyle M.D. [id number]
[2021-08-03] MEDS: iohexol 350 mg/mL 100 mL Btl IV (21:34)
[2021-08-03 22:03] LABS: Troponin 5 2HR 18.05 ng/L (0-10)
[2021-08-03 22:05] LABS: Troponin 5 2HR Delta -1.95 ABS# (0-10)
[2021-08-03] MEDS: sodium chloride 0.9% 1,000 ML 999 ML IV (23:00)
--- NOTE | 2021-08-04 00:06 | PC.NURSE ---
Patient able to ambulate down hallway without having dizziness, stumbling, or difficulty. Patient states she is ready to be discharged and go home. Dr. Lam notified.
[2021-08-04 00:17] VITALS: BP 149/80; PULSE 63; RESP 16; O2SAT 98
== END 2021-08-04 00:18 | disposition home or self-care (01) ==
PROVIDERS: Emergency Provider Emergency Medicine; PCP Family Medicine
DX: R51.9 Headache, unspecified (principal); R42 Dizziness and giddiness; E11.9 Type 2 diabetes mellitus without complications; I10 Essential (primary) hypertension; Z79.82 Long term (current) use of aspirin; Z86.73 Personal history of transient ischemic attack (TIA), and cerebral infarction without residual deficits
CPT/HCPCS: 70450; 70496; 70498; 71045; 80053; 81001; 83735; 83880; 84443; 84484; 85025; 93005; 96361; 96374; 99285; J1885; J7030; J8597; Q9967

== ENCOUNTER → 2021-09-13 08:48 | Outpatient (BNVA) | payer MEDICAID, SELFPAY | PROVIDERS: PCP Family Medicine; Referring Provider Specialist; Visit Provider Specialist | DX: R56.9 Unspecified convulsions (principal); G93.9 Disorder of brain, unspecified | CPT/HCPCS: 95816 ==

== ENCOUNTER → 2021-10-07 12:22 | Outpatient (BNVA) | payer MEDICAID, SELFPAY | PROVIDERS: PCP Family Medicine; Visit Provider Specialist | DX: G93.9 Disorder of brain, unspecified (principal); R56.9 Unspecified convulsions; Z86.73 Personal history of transient ischemic attack (TIA), and cerebral infarction without residual deficits | CPT/HCPCS: 99214 ==

== ENCOUNTER → 2022-01-05 12:18 | Outpatient (BNVA) | payer MEDICAID, SELFPAY | PROVIDERS: PCP Family Medicine; Visit Provider Specialist | DX: R42 Dizziness and giddiness (principal); R56.9 Unspecified convulsions; G45.0 Vertebro-basilar artery syndrome; I69.398 Other sequelae of cerebral infarction | CPT/HCPCS: 99214 ==

== ENCOUNTER → 2022-02-22 12:56 | Outpatient (BNVA) | payer MEDICAID, SELFPAY | PROVIDERS: PCP Family Medicine; Visit Provider Specialist | DX: F44.5 Conversion disorder with seizures or convulsions (principal); G43.711 Chronic migraine without aura, intractable, with status migrainosus | CPT/HCPCS: 36415; 80053; 82533; 84443; 85025; 99215 ==

== ENCOUNTER → 2022-06-06 15:32 | Outpatient (BNVA) | payer MEDICAID, SELFPAY | PROVIDERS: PCP Family Medicine; Visit Provider Specialist | DX: F44.5 Conversion disorder with seizures or convulsions (principal); G93.9 Disorder of brain, unspecified | CPT/HCPCS: 99214 ==

== ENCOUNTER 2022-09-27 14:59 | Emergency (ER) | payer MEDICAID, SELFPAY ==
--- NOTE | 2022-09-27 15:04 | ECG_ITS ---
[facility] Test Date: 2022-09-27 Pat Name: Rebecca Sanderson Department: Room: Gender: Female Security Systems Administrator: : 1960 Requested By: Braden Lemos Order Number: [id number] Sona MD: Dayana De Oliveira M.D. Measurements Intervals [place] Rate: 71 P: 52 ID: 180 QRS: 0 QRSD: 98 T: 49 QT: 406 QTc: 443 Interpretive Statements SINUS RHYTHM Compared to ECG 08/03/2021 20:50:05 T-wave abnormality no longer present Electronically Signed On 09-27-2022 17:17:47 CDT by Dayana De Oliveira M.D. [id number]
--- NOTE | 2022-09-27 15:04 | XRR_ITS ---
PROCEDURE INFORMATION: Exam: XR Chest Exam date and time: 09/27/2022 3:13 PM Age: 62 years old Clinical indication: Other: Syncope TECHNIQUE: Imaging protocol: Radiologic exam of the chest. Views: 1 view. COMPARISON: CR XR chest 1V portable [id number] 08/03/2021 7:38 PM FINDINGS: Lungs: Unremarkable. No consolidation. Pleural spaces: Unremarkable. No pleural effusion. No pneumothorax. Heart/Mediastinum: Unremarkable. No cardiomegaly. Bones/joints: Unremarkable. XR/XR chest 1V portable [id number] IMPRESSION: No acute findings.
[2022-09-27 15:30] LABS: Basophils # 0.1 10^3/uL (0.0-0.1); Basophils % 1.1 %; Eosinophils # 0.5 10^3/uL (0.0-0.8); Eosinophils % 7.7 %; Hematocrit 33.8 % (37.0-47.0); Hemoglobin 11.4 g/dL (11.5-15.3); Lymphocytes # 1.4 10^3/uL (0.8-4.8); Lymphocytes % 21.6 %; Mean Corpuscular HGB Conc 33.7 g/dL (30.0-36.0); Mean Corpuscular Hemoglobin 29.8 pg (28.0-34.0); Mean Corpuscular Volume 88.5 fl (81-99); Mean Platelet Volume 9.9 fL (7.4-10.4); Monocytes # 0.4 10^3/uL (0.2-0.9); Monocytes % 6.5 %; Neutrophils # 4.15 10^3/uL (1.8-7.7); Neutrophils % 62.6 %; Nucleated Red Blood Cells % 0 %; Platelet Count 244 10^3/cmm (130-400); Red Blood Count 3.82 10^6/uL (4.1-5.3); Red Cell Distribution Width 12.7 % (12.1-15.1); White Blood Count 6.6 10^3/uL (4.0-10.0)
--- NOTE | 2022-09-27 15:31 | CTR_ITS ---
PROCEDURE INFORMATION: Exam: CT Head Without Contrast Exam date and time: 09/27/2022 3:51 PM Age: 62 years old Clinical indication: Syncope and collapse; Additional info: Fall, positive loc, on blood thinner TECHNIQUE: Imaging protocol: Computed tomography of the head without contrast. Radiation optimization: All CT scans at this facility use at least one of these dose optimization techniques: automated exposure control; mA and/or kV adjustment per patient size (includes targeted exams where dose is matched to clinical indication); or iterative reconstruction. REPORTING DATA: Count of CT and Cardiac NM exams in prior 12 months: This patient has received 0 known CTs and 0 known cardiac nuclear medicine studies in the 12 months prior to the current study. COMPARISON: CT head wo con* [id number] 08/03/2021 7:27 PM RADIATION DOSE METRICS: Total DLP (mGy-cm): 987.8 FINDINGS: Brain: Right temporal lobe arachnoid cyst. There are moderate periventricular and subcortical lucencies consistent with chronic microvascular ischemic changes.The howard-white differentiation is maintained. No hemorrhage. No edema. Cerebral ventricles: No ventriculomegaly. Paranasal sinuses: Visualized sinuses are unremarkable. No fluid levels. Mastoid air cells: Visualized mastoid air cells are well aerated. Bones/joints: Unremarkable. No acute fracture. Soft tissues: Unremarkable. CT/CT head wo con* [id number] IMPRESSION: No acute intracranial abnormality. Chronic microvascular ischemic changes.
[2022-09-27 15:37] LABS: INR 0.97 (0.8-1.2)
--- NOTE | 2022-09-27 15:37 | W.ED.FALL ---
HPI - Fall General: Chief Complaint: Fall Stated Complaint: sycope Time Seen by Provider: 09/27/22 15:03 History of Present Illness: Patient presents to the ER with complaints of syncope fall and loss of consciousness. Patient is currently on Plavix. Patient does have a history of an old stroke. Patient states she was unconscious for approximately 30 seconds to 1 minute and now has a headache. This was a witnessed fall. Patient does not remember anything about the fall or any pre-existing symptoms she only remembers waking up on the ground with a headache. Patient does not have a history of syncope prior to this episode. Review of Systems General: Reports: 10 or more systems reviewed and unremarkable except in HPI and below PFSH ED PFSH: Medical History Bipolar 1 disorder Diabetes mellitus DVT prophylaxis Fever Hypertension Injury, self-inflicted No pertinent family history ESTHER (obstructive sleep apnea) Right middle cerebral artery stroke Self-mutilation TIA (transient ischemic attack) Family History Father Sleep apnea Hypertension Mother Hypertension Social History Smoking and tobacco status: never smoked Alcohol intake: current Alcohol intake frequency: holidays/special occasions only Substance/Drug Use: never Current gender identity: Female Physical Exam Const: COMMON NORMALS: no acute distress, average body habitus, patient oriented x3, no limitations, healthy appearing, alert and well nourished HENMT: COMMON NORMALS: normocephalic, atraumatic, hearing grossly normal bilaterally, external ears normal, Normal external nose present and moist oral mucous membranes HEAD & SCALP: normocephalic and atraumatic NOSE: Normal external nose present EXTERNAL EAR: Yes external ears normal Eye: COMMON NORMALS: Equal, round and reactive pupils present, EOMs intact bilaterally, conjunctivae normal and no scleral icterus CONJUNCTIVA: Yes conjunctivae normal PUPIL: Yes Equal, round and reactive pupils present Neck/C-Spine: COMMON NORMALS: full ROM, no lymphadenopathy, supple, no meningeal signs, no JVD and Thyroid normal THYROID: Thyroid normal Lymph: LYMPHATIC: no lymphadenopathy noted Chest: COMMONS NORMALS: normal inspection of the chest and normal palpation of entire chest wall Resp: COMMON NORMALS: normal respiratory effort, No retractions, No use of accessory muscles and clear to auscultation bilaterally AUSCULTATION: clear to auscultation bilaterally Cardio: COMMON NORMALS: no JVD, regular rate, regular rhythm, S1 normal heart sound present, S2 normal heart sound present, No gallops present (Cardio), No clicks present (Cardio), No murmurs present (Cardio) and No rub (Cardio) RATE: regular rate RHYTHM: regular rhythm HEART SOUNDS: S1 normal heart sound present and S2 normal heart sound present GI: COMMON NORMALS: Normal to inspection, nondistended, normoactive bowel sounds present, Soft to palpation, non-tender, No hepatosplenomegaly present and no masses PALPATION: Yes Soft to palpation and Yes No hepatosplenomegaly present Neuro: COMMON NORMALS: patient oriented x3 SENSORIUM/ORIENTATION: Yes alert MENINGEAL SIGNS: Yes no meningeal signs MDM - Fall Medical Decision Making Patient presents to the ER after having a syncopal episode falling and hitting her head. Patient is on Plavix. Physical exam was performed lab work-up was obtained as well as chest x-ray head CT and EKG. This showed patient creatinine was up at 1.5 and her urine showed a urinary tract infection. Patient was given Cipro in the ER and will be discharged home with a prescription for Cipro and is to follow-up with her family practice doctor in the next 7 days as needed. Differential Diagnosis Likely syncope; Unlikely dislocation of shoulder region, fracture of wrist, compression fracture, concussion with loss of consciousness or concussion without loss of consciousness Medical Records I reviewed the patient's medical records. Lab Data I reviewed the patient's lab results. 09/27/22 15:09 09/27/22 15:09 Radiology Impressions Chest X-Ray 09/27/22 15:04 IMPRESSION: No acute findings. Head CT 09/27/22 15:31 IMPRESSION: No acute intracranial abnormality. Chronic microvascular ischemic changes. Laboratory Results WBC 6.6 10^3/uL (4.0-10.0) 09/27/22 15:09 RBC 3.82 10^6/uL (4.1-5.3) L 09/27/22 15:09 Hgb 11.4 g/dL (11.5-15.3) L 09/27/22 15:09 Hct 33.8 % (37.0-47.0) L 09/27/22 15:09 MCV 88.5 fl (81-99) 09/27/22 15:09 MCH 29.8 pg (28.0-34.0) 09/27/22 15:09 MCHC 33.7 g/dL (30.0-36.0) 09/27/22 15:09 RDW 12.7 % (12.1-15.1) 09/27/22 15:09 Plt Count 244 10^3/cmm (130-400) 09/27/22 15:09 MPV 9.9 fL (7.4-10.4) 09/27/22 15:09 Neut % (Auto) 62.6 % 09/27/22 15:09 Lymph % (Auto) 21.6 % 09/27/22 15:09 [place] % (Auto) 6.5 % 09/27/22 15:09 Eos % (Auto) 7.7 % 09/27/22 15:09 Baso % (Auto) 1.1 % 09/27/22 15:09 Neut # (Auto) 4.15 10^3/uL (1.8-7.7) 09/27/22 15:09 Lymph # (Auto) 1.4 10^3/uL (0.8-4.8) 09/27/22 15:09 [place] # (Auto) 0.4 10^3/uL (0.2-0.9) 09/27/22 15:09 Eos # (Auto) 0.5 10^3/uL (0.0-0.8) 09/27/22 15:09 Baso # (Auto) 0.1 10^3/uL (0.0-0.1) 09/27/22 15:09 Nucleated RBC % (auto) 0 % 09/27/22 15:09 Nucleated RBCs # 0.0 /100WBC 09/27/22 15:09 PT 13.20 SECONDS (12.1-14.9) 09/27/22 15:09 INR 0.97 (0.8-1.2) 09/27/22 15:09 Sodium 139 mmol/L (136-145) 09/27/22 15:09 Potassium 4.3 mmol/L (3.5-5.1) 09/27/22 15:09 Chloride 104 mmol/L (98-107) 09/27/22 15:09 Carbon Dioxide 22 mmol/L (22-29) 09/27/22 15:09 Anion Gap 17.3 (5-19) 09/27/22 15:09 BUN 21 mg/dL (8-23) 09/27/22 15:09 Creatinine 1.5 mg/dL (0.5-0.9) H 09/27/22 15:09 GFR Calculation 35.4 mL/min (90-130) L 09/27/22 15:09 Glucose 92 mg/dL (65-115) 09/27/22 15:09 Calculated Osmolality 291 mOsm/kg (285-295) 09/27/22 15:09 Calcium 9.4 mg/dL (8.5-10.5) 09/27/22 15:09 Total Bilirubin 0.3 mg/dL (0.15-1.2) 09/27/22 15:09 AST 10 U/L (0-32) 09/27/22 15:09 ALT 11 U/L (0-33) 09/27/22 15:09 Alkaline Phosphatase 83 U/L (35-105) 09/27/22 15:09 Total Protein 6.7 g/dL (6.6-8.7) 09/27/22 15:09 Albumin 4.4 g/dL (3.5-5.2) 09/27/22 15:09 Globulin 2.3 g/dL (1.3-4.6) 09/27/22 15:09 Urine Color Yellow (Yellow) 09/27/22 18:16 Urine Appearance Clear (CLEAR) 09/27/22 18:16 Urine pH 5 (5-7) 09/27/22 18:16 Ur Specific [place] 1.020 (1.005-1.030) 09/27/22 18:16 Urine Protein Neg (Negative) 09/27/22 18:16 Urine Glucose (UA) Norm (Normal) 09/27/22 18:16 Urine Ketones Negative (Negative) 09/27/22 18:16 Urine Blood Neg (Negative) 09/27/22 18:16 Urine Nitrate Positive (Negative) H 09/27/22 18:16 Urine Bilirubin Neg (Negative) 09/27/22 18:16 Prot Sulfosalicylic Acd Negative (Negative) 09/27/22 18:16 Urine Urobilinogen Norm mg/dL (Negative) 09/27/22 18:16 Ur Leukocyte Esterase 1+ (Negative) H 09/27/22 18:16 Urine RBC 0-4 /hpf (0-2) H 09/27/22 18:16 Urine WBC 10-15 /hpf (0-5) H 09/27/22 18:16 Ur Squamous Epith Cells 0-4 /hpf (0-5) H 09/27/22 18:16 Amorphous Sediment Not Reportable 09/27/22 18:16 Urine Bacteria 4+ /hpf (NONE) H 09/27/22 18:16 EKG Data EKG 1: I personally reviewed and interpreted this EKG as follows: EKG interpretation date: 09/27/22 EKG interpretation time: 15:11 Prior EKG tracings: not available for review Interpretation: EKG showed ventricular rate 71 beats a minute, [place] interval 180, QRS duration 98, QTc of 429, sinus rhythm, no ST-T wave changes Discharge Plan Discharge Patient Disposition: Home Clinical Impression: Syncope Qualifiers: Syncope type: unspecified Qualified Code(s): R55 - Syncope and collapse Urinary tract infection Qualifiers: Urinary tract infection type: acute cystitis Hematuria presence: without hematuria Qualified Code(s): N30.00 - Acute cystitis without hematuria Condition: Stable Prescriptions: New ciprofloxacin HCl 500 mg tablet 500 mg PO BID Qty: 14 0RF No Action meclizine 25 mg tablet 25 mg PO DAILY gabapentin 300 mg capsule 300 mg PO TID zonisamide [Zonegran] 100 mg capsule 300 mg PO DAILY 90 Days Qty: 270 3RF Rx Instructions: Take 3 caps daily. atorvastatin 40 mg Tablet 40 mg PO BEDTIME 30 Days Qty: 30 3RF aspirin 81 mg Tablet,Delayed Release (Dr/Ec) 81 mg PO DAILY 30 Days Qty: 30 3RF Plavix 75 mg tablet 75 mg PO DAILY Qty: 30 3RF Discharge Orders: Discharge ED (Routine); Ordered 09/27/22 Ordered By: Braden Lemos Referrals: Rich Rosa MD [Primary Care Provider] - 1 week Patient Instructions: Syncope, Urinary Tract Infection in Women (ED) Activity Restrictions/Additional Instructions: Please push fluids. Please take all your antibiotics as directed. Please follow-up with family practice doctor in approximately 7 days or sooner as needed. Coding Level of Care Code ED Tissue Coordinator for Janene Poon
[2022-09-27 15:48] LABS: Alanine Aminotransferase 11 U/L (0-33); Albumin Level 4.4 g/dL (3.5-5.2); Alkaline Phosphatase 83 U/L (35-105); Anion Gap 17.3 (5-19); Aspartate Amino Transferase 10 U/L (0-32); Blood Urea Nitrogen 21 mg/dL (8-23); Calcium 9.4 mg/dL (8.5-10.5); Carbon Dioxide 22 mmol/L (22-29); Chloride 104 mmol/L (98-107); Globulin 2.3 g/dL (1.3-4.6); Glomerular Filtration Rate 35.4 mL/min (90-130); Glucose 92 mg/dL (65-115); Osmolality Calculated 291 mOsm/kg (285-295); Potassium 4.3 mmol/L (3.5-5.1); Sodium 139 mmol/L (136-145); Total Bilirubin 0.3 mg/dL (0.15-1.2); Total Protein 6.7 g/dL (6.6-8.7)
[2022-09-27 18:39] LABS: Add Urine Microscopic? YES; Bilirubin Urine Neg (Negative); Blood Urine Neg (Negative); Glucose Urine UA Norm (Normal); Ketones Urine Negative (Negative); Leukocyte Esterase Urine 1+ (Negative); Nitrate Urine Positive (Negative); Protein Urine Neg (Negative); Sulfosalicylic Acid Urine Negative (Negative); Urine Appearance Clear (CLEAR); Urine Color Yellow (Yellow); Urobilinogen Urine Norm (Negative); pH Urine 5 (5-7)
[2022-09-27 18:40] LABS: RBC Urine 0-4 /hpf (0-2); Squamous Epithelial Cell Urine 0-4 /hpf (0-5)
[2022-09-27 18:41] LABS: Add Urine Culture? Yes; Bacteria Urine 4+ /hpf
[2022-09-27] MEDS: ciprofloxacin 500 mg Tablet PO (18:54)
[2022-09-27 18:57] VITALS: BP 135/92; PULSE 64; RESP 16; O2SAT 100
== END 2022-09-27 18:59 | disposition home or self-care (01) ==
PROVIDERS: Emergency Provider Emergency Medicine; PCP Family Medicine
DX: N30.00 Acute cystitis without hematuria (principal); R55 Syncope and collapse; E11.9 Type 2 diabetes mellitus without complications; I10 Essential (primary) hypertension; G47.33 Obstructive sleep apnea (adult) (pediatric); Z79.82 Long term (current) use of aspirin; Z79.02 Long term (current) use of antithrombotics/antiplatelets; Z86.73 Personal history of transient ischemic attack (TIA), and cerebral infarction without residual deficits
CPT/HCPCS: 70450; 71045; 80053; 81001; 85025; 85610; 87077; 87086; 87186; 93005; 99285

== ENCOUNTER 2022-10-19 15:42 | Emergency (ER) | payer MEDICAID, SELFPAY ==
--- NOTE | 2022-10-19 15:43 | CT_ITS ---
WS: [id number] CT HEAD NONCONTRAST HISTORY: fall on thinner with AMS TECHNIQUE: Contiguous axial imaging performed through the brain in 2.5 mm imaging. Bone and soft tiss ue windows. Sagittal and coronal reformats reviewed. All CT scans at [facility] use at least one of these dose optimization techniques: automated exposure control; mA and/or kV adjustment per pa tient size (includes targeted exams where dose is matched to clinical indication); or iterative recon struction. DLP: 1344.35 mGy.cm COMPARISON: 09/27/2022 No acute intracranial hemorrhage, midline shift or mass effect. Minimal atrophy. Following loss in the anterior RIGHT frontal lobe probably an arachnoid cyst versus prior infarct. Ventricles: Normal size with no hydrocephalus. Paranasal sinuses: As visualized are clear. Mastoid air cells: Well pneumatized. Calvarium and scalp: Hyperostosis frontalis interna. CT/CT head wo con* [id number] IMPRESSION: 1. No acute intracranial hemorrhage or edema. 2. Long-term stability volume loss in the anterior RIGHT frontal lobe. Arachno id cyst versus prior infarct. 3. Mild atrophy and small vessel ischemic disease.
--- NOTE | 2022-10-19 15:43 | CT_ITS ---
WS: [id number] CT CERVICAL SPINE HISTORY: fall from standing on thinners ams TECHNIQUE: Contiguous 2.0 mm axial imaging performed through the entire cervical spine. Sagittal and coronal reformats also performed. All CT scans at [facility] use at least one of these dose o ptimization techniques: automated exposure control; mA and/or kV adjustment per patient size (include s targeted exams where dose is matched to clinical indication); or iterative reconstruction. DLP: 1344.35 mGy.cm COMPARISON: None available. Normal cervical alignment. Craniocervical junction, atlantodental interval and C1-C2 alignment is nor mal. C2-C3: Normal. C3-C4: Bilateral facet joint arthritis, LEFT greater than RIGHT. Mild LEFT foraminal narrowing. C4-C5: Moderate osteophytic ridging with central and bilateral foraminal stenosis, moderate. C5-C6: No stenosis. C6-C7: No stenosis. C7-T1: Normal. Bilateral thyromegaly. CT/CT cervical spin wo con* [id number] IMPRESSION: 1. No acute cervical spine fracture. 2. Facet joint arthritis and foraminal stenosis as above. 3. Mild thyromegaly.
--- NOTE | 2022-10-19 15:52 | XRR_ITS ---
PROCEDURE INFORMATION: Exam: XR Chest Exam date and time: 10/19/2022 3:58 PM Age: 62 years old Clinical indication: Other: Altered mental status TECHNIQUE: Imaging protocol: Radiologic exam of the chest. Views: 1 view. COMPARISON: CR XR chest 1V portable [id number] 09/27/2022 3:13 PM FINDINGS: Lungs: Unremarkable. No consolidation. Pleural spaces: Unremarkable. No pleural effusion. No pneumothorax. Heart/Mediastinum: Unremarkable. No cardiomegaly. Bones/joints: Unremarkable. XR/XR chest 1V portable [id number] IMPRESSION: No acute findings.
[2022-10-19 16:03] VITALS: BP 102/65; RESP 60; TEMP 36.8; O2SAT 96; BMI 35.4
[2022-10-19 16:03] LABS: Basophils # 0.1 10^3/uL (0.0-0.1); Basophils % 1.3 %; Eosinophils # 0.7 10^3/uL (0.0-0.8); Eosinophils % 11.6 %; Hemoglobin 11.6 g/dL (11.5-15.3); Lymphocytes # 1.4 10^3/uL (0.8-4.8); Lymphocytes % 22.5 %; Mean Corpuscular HGB Conc 32.2 g/dL (30.0-36.0); Mean Corpuscular Hemoglobin 29.4 pg (28.0-34.0); Mean Corpuscular Volume 91.1 fl (81-99); Mean Platelet Volume 9.9 fL (7.4-10.4); Monocytes # 0.3 10^3/uL (0.2-0.9); Monocytes % 5.6 %; Neutrophils # 3.54 10^3/uL (1.8-7.7); Neutrophils % 58.7 %; Nucleated Red Blood Cells % 0 %; Platelet Count 272 10^3/cmm (130-400); Red Blood Count 3.95 10^6/uL (4.1-5.3); Red Cell Distribution Width 12.6 % (12.1-15.1)
[2022-10-19] MEDS: sodium chloride 0.9% 500 ML IV (16:13)
[2022-10-19 16:24] LABS: Troponin(5th) Baseline 16 ng/L (0-10)
--- NOTE | 2022-10-19 16:31 | ECG_ITS ---
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 Measurements Intervals [place] Rate: 60 P: 55 SD: 181 QRS: -6 QRSD: 81 T: 61 QT: 420 QTc: 421 Interpretive Statements SINUS RHYTHM LOW QRS VOLTAGE IN PRECORDIAL LEADS [QRS DEFLECTION < 1.0 mV IN CHEST LEADS] Compared to ECG 09/27/2022 15:11:51 Low QRS voltage now present Electronically Signed On 10-19-2022 23:26:51 CDT by Davian Interiano M.D. [id number]
[2022-10-19 16:34] LABS: Alanine Aminotransferase 11 U/L (0-33); Albumin Level 4.4 g/dL (3.5-5.2); Alkaline Phosphatase 81 U/L (35-105); Anion Gap 14.9 (5-19); Aspartate Amino Transferase 10 U/L (0-32); Blood Urea Nitrogen 15 mg/dL (8-23); Carbon Dioxide 24 mmol/L (22-29); Chloride 108 mmol/L (98-107); Globulin 1.8 g/dL (1.3-4.6); Glomerular Filtration Rate 45.8 mL/min (90-130); Glucose 120 mg/dL (65-115); NT Pro B Type Natriuretic Pept 531 pg/mL (0-125); Osmolality Calculated 296 mOsm/kg (285-295); Potassium 4.9 mmol/L (3.5-5.1); Sodium 142 mmol/L (136-145); Total Bilirubin 0.2 mg/dL (0.15-1.2); Total Protein 6.2 g/dL (6.6-8.7)
[2022-10-19 16:41] LABS: Creatinine Clr Calc Pharmacy 53.3038
[2022-10-19 16:48] LABS: Lactic Sepsis W/Reflex 2.1 mmol/L (0.5-2.2)
--- NOTE | 2022-10-19 16:49 | ED_ITS ---
HPI - Headache General: Chief Complaint: Headache Stated Complaint: Ams Time Seen by Provider: 10/19/22 15:43 History of Present Illness: 62-year-old female presents to the emergency room department chief complaint of altered mental status patient apparently sustained a fall 2 weeks ago she is a currently on blood thinning agents of Plavix she had a episode of altered neuro status when by her today which had a persistent headache for last 2 weeks. Patient reports no recent falls injury or trauma reports no recent infections or illnesses reporting a generalized headache noted to the front of her head with no other associated symptoms. Associated symptoms: Reports confusion; Deny chest pain, fever(s), malaise, nausea, rash or vomiting Review of Systems General: Reports: 10 or more systems reviewed and unremarkable except in HPI and below Const: Reports: other (Headache); Denies: fever(s), chills, fatigue or malaise Eyes: Denies: change in vision or blurry vision Card: Denies: chest pain or palpitations Resp: Denies: dyspnea or productive cough GI: Denies: abdominal pain, nausea or vomiting : Denies: flank pain Musc: Denies: extremity pain or extremity swelling Skin/Breast: Denies: rash or pruritus Neuro: Reports: headache(s) and confusion Psych: Denies: anxiety or depression Zak/Lymph: Denies: easy bleeding All/Imm: Denies: urticaria, throat swelling or facial swelling PFSH ED PFSH: Medical History Bipolar 1 disorder Diabetes mellitus DVT prophylaxis Fever Hypertension Injury, self-inflicted No pertinent family history ESTHER (obstructive sleep apnea) Right middle cerebral artery stroke Self-mutilation TIA (transient ischemic attack) Family History Father Sleep apnea Hypertension Mother Hypertension Social History Smoking and tobacco status: never smoked Alcohol intake: current Alcohol intake frequency: holidays/special occasions only Substance/Drug Use: never Current gender identity: Female Physical Exam Narrative: EXAM NARRATIVE: Patient appears somewhat confused on exam with no focal neurodeficits appreciated patient appears to be a very poor historian upon direct questioning patient has difficulty answering my questions. Const: COMMON NORMALS: no acute distress, patient oriented x3 and healthy appearing HENMT: COMMON NORMALS: normocephalic and atraumatic HEAD & SCALP: normocephalic and atraumatic Eye: COMMON NORMALS: Equal, round and reactive pupils present and EOMs intact bilaterally PUPIL: Yes Equal, round and reactive pupils present Neck/C-Spine: COMMON NORMALS: full ROM, supple and no JVD Lymph: LYMPHATIC: no lymphadenopathy noted Chest: COMMONS NORMALS: normal inspection of the chest and normal palpation of entire chest wall Resp: COMMON NORMALS: normal respiratory effort, No retractions and clear to auscultation bilaterally EFFORT & INSPECTION: Yes able to speak in complete sentences and Yes symmetric chest movement AUSCULTATION: clear to auscultation bilaterally Cardio: COMMON NORMALS: no JVD, regular rate and regular rhythm RATE: regular rate RHYTHM: regular rhythm GI: COMMON NORMALS: Normal to inspection, nondistended, normoactive bowel sounds present, Soft to palpation and non-tender INSPECTION: Yes normal to inspection PALPATION: Yes Soft to palpation : COMMON NORMALS: Yes no CVA tenderness BLADDER/KIDNEY EXAM: Yes no CVA tenderness Back/Pelvis: COMMON NORMALS: no CVA tenderness Extremity: COMMON NORMALS: normal to inspection and full ROM Neuro: COMMON NORMALS: patient oriented x3, CN's II-XII intact bilaterally, moves all extremities and no focal motor deficits Psych: COMMON NORMALS: mental status grossly normal, Normal thought process present, cooperative and normal affect THOUGHT PROCESS: Normal thought process present Skin: COMMON NORMALS: no rashes or lesions noted GENERAL SKIN EXAM: no rashes or lesions noted Course 2 Vital Signs: Vital signs: Vital Signs Temperature 98.2 F 10/19/22 16:03 Pulse Rate 62 10/19/22 18:00 Respiratory Rate 60 H 10/19/22 16:03 Blood Pressure 119/72 10/19/22 18:00 Pulse Oximetry 99 10/19/22 18:00 Oxygen Delivery Me thod Room Air 10/19/22 18:00 MDM - Headache Medical Decision Making Due to patient's symptoms and condition IV will be established lab work imaging will be obtained we will continue to follow. Patient continue to improve regards her mental status return emergency department CT imaging came back unremarkable as well as red rest of the lab work patient on her CT and he does report having a long-term volume loss right anterior frontal lobe that appears to be chronic in nature which is arachnoid cyst versus prior infarct with mild atrophy with no acute process the patient be subcu discharged home with some medication for discomfort advised for the follow-up primary care in 3 to 5 days in which she was advised to return the interim if any of her symptoms persist or worse. Lab Data 10/19/22 15:28 10/19/22 15:28 Radiology Impressions Cervical Spine CT 10/19/22 15:43 IMPRESSION: 1. No acute cervical spine fracture. 2. Facet joint arthritis and foraminal stenosis as above. 3. Mild thyromegaly. Head CT 10/19/22 15:43 IMPRESSION: 1. No acute intracranial hemorrhage or edema. 2. Long-term stability volume loss in the anterior RIGHT frontal lobe. Arachnoid cyst versus prior infarct. 3. Mild atrophy and small vessel ischemic disease. Chest X-Ray 10/19/22 15:52 IMPRESSION: No acute findings. Laboratory Results WBC 6.0 10^3/uL (4.0-10.0) 10/19/22 15: RBC 3.95 10^6/uL (4.1-5.3) L 10/19/22 15:28 Hgb 11.6 g/dL (11.5-15.3) 10/19/22 15: Hct 36.0 % (37.0-47.0) L 10/19/22 15: MCV 91.1 fl (81-99) 10/19/22 15: MCH 29.4 pg (28.0-34.0) 10/19/22 15: MCHC 32.2 g/dL (30.0-36.0) 10/19/22 15: RDW 12.6 % (12.1-15.1) 10/19/22 15: Plt Count 272 10^3/cmm (130-400) 10/19/22 15: MPV 9.9 fL (7.4-10.4) 10/19/22 15: Neut % (Auto) 58.7 % 10/19/22 15: Lymph % (Auto) 22.5 % 10/19/22 15:28 [place] % (Auto) 5.6 % 10/19/22 15:28 Eos % (Auto) 11.6 % 10/19/22 15:28 Baso % (Auto) 1.3 % 10/19/22 15:28 Neut # (Auto) 3.54 10^3/uL (1.8-7.7) 10/19/22 15: Lymph # (Auto) 1.4 10^3/uL (0.8-4.8) 10/19/22 15:28 [place] # (Auto) 0.3 10^3/uL (0.2-0.9) 10/19/22 15: Eos # (Auto) 0.7 10^3/uL (0.0-0.8) 10/19/22 15:28 Baso # (Auto) 0.1 10^3/uL (0.0-0.1) 10/19/22 15: Nucleated RBC % (auto) 0 % 10/19/22 15: Nucleated RBCs # 0.0 /100WBC 10/19/22 15:28 Sodium 142 mmol/L (136-145) 10/19/22 15:28 Potassium 4.9 mmol/L (3.5-5.1) 10/19/22 15:28 Chloride 108 mmol/L (98-107) H 10/19/22 15:28 Carbon Dioxide 24 mmol/L (22-29) 10/19/22 15:28 Anion Gap 14.9 (5-19) 10/19/22 15:28 BUN 15 mg/dL (8-23) 10/19/22 15:28 Creatinine 1.2 mg/dL (0.5-0.9) H 10/19/22 15:28 GFR Calculation 45.8 mL/min (90-130) L 10/19/22 15:28 Glucose 120 mg/dL (65-115) H 10/19/22 15:28 Calculated Osmolality 296 mOsm/kg (285-295) H 10/19/22 15:28 Lactic Acid 2.1 mmol/L (0.5-2.2) 10/19/22 16:26 Calcium 10.0 mg/dL (8.5-10.5) 10/19/22 15:28 Total Bilirubin 0.2 mg/dL (0.15-1.2) 10/19/22 15:28 AST 10 U/L (0-32) 10/19/22 15:28 ALT 11 U/L (0-33) 10/19/22 15:28 Alkaline Phosphatase 81 U/L (35-105) 10/19/22 15:28 Troponin T Baseline 16 ng/L (0-10) H 10/19/22 15:28 Troponin T 120 Minute 9.70 ng/L (0-10) 10/19/22 17:33 Delta Troponin T -6.30 ABS# (0-10) L 10/19/22 17:33 C-Reactive Protein 3.0 mg/L (0.0-4.9) 10/19/22 15:28 NT-Pro-B Natriuret Pep 531 pg/mL (0-125) H 10/19/22 15:28 Total Protein 6.2 g/dL (6.6-8.7) L 10/19/22 15:28 Albumin 4.4 g/dL (3.5-5.2) 10/19/22 15:28 Globulin 1.8 g/dL (1.3-4.6) 10/19/22 15:28 Urine Color Yellow (Yellow) 10/19/22 18:34 Urine Appearance Clear (CLEAR) 10/19/22 18:34 Urine pH 7 (5-7) 10/19/22 18:34 Ur Specific [place] 1.005 (1.005-1.030) 10/19/22 18:34 Urine Protein Neg (Negative) 10/19/22 18:34 Urine Glucose (UA) Norm (Normal) 10/19/22 18:34 Urine Ketones Negative (Negative) 10/19/22 18:34 Urine Blood Neg (Negative) 10/19/22 18:34 Urine Nitrate Negative (Negative) 10/19/22 18:34 Urine Bilirubin Neg (Negative) 10/19/22 18:34 Urine Urobilinogen Norm mg/dL (Negative) 10/19/22 18:34 Ur Leukocyte Esterase Negative (Negative) 10/19/22 18:34 Urine Opiates Screen Negative ng/mL (Negative) 10/19/22 18:34 Ur Barbiturates Screen Negative ng/mL (Negative) 10/19/22 18:34 Ur Phencyclidine Scrn Negative ng/mL (Negative) 10/19/22 18:34 Ur Amphetamines Screen Negative ng/mL (Negative) 10/19/22 18:34 U Benzodiazepines Scrn Negative ng/mL (Negative) 10/19/22 18:34 Urine Cocaine Screen Negative ng/mL (Negative) 10/19/22 18:34 U Marijuana (THC) Screen Negative ng/mL (Negative) 10/19/22 18:34 Discharge Plan Discharge Patient Disposition: Home Clinical Impression: Acute post-traumatic headache, Post-concussional syndrome Condition: Stable Prescriptions: New tramadol 50 mg tablet 25 mg PO Q6H PRN (Reason: pain) Qty: 10 0RF ondansetron 4 mg tablet,disintegrating 4 mg PO Q8H PRN (Reason: nausea and vomiting) Qty: 10 0RF No Action meclizine 25 mg tablet 25 mg PO DAILY gabapentin 300 mg capsule 300 mg PO TID zonisamide [Zonegran] 100 mg capsule 300 mg PO DAILY 90 Days Qty: 270 3RF Rx Instructions: Take 3 caps daily. atorvastatin 40 mg Tablet 40 mg PO BEDTIME 30 Days Qty: 30 3RF aspirin 81 mg Tablet,Delayed Release (Dr/Ec) 81 mg PO DAILY 30 Days Qty: 30 3RF Plavix 75 mg tablet 75 mg PO DAILY Qty: 30 3RF ciprofloxacin HCl 500 mg tablet 500 mg PO BID Qty: 14 0RF Discharge Orders: Discharge ED (Routine); Ordered 10/19/22 Ordered By: Kadeem Marie Referrals: Rich Rosa MD [Primary Care Provider] - 4-7 days Discharge Diet: Advance as tolerated Discharge Activity: Resume usual activity and Increase activity as tolerated Patient Instructions: Chronic Post Traumatic Headache (ED), Opioid Safety, Pain Management Activity Restrictions/Additional Instructions: Please further follow-up your primary care doctor in 3 to 5 days, please take medications as prescribed and please return in the interim if any of your symptoms persist or worse. Coding Level of Care Code ED Web Software Engineer for Janene Poon
[2022-10-19 16:59] VITALS: BP 118/67; PULSE 58; O2SAT 98
[2022-10-19 18:00] VITALS: BP 119/72; PULSE 62; O2SAT 99
[2022-10-19 18:16] LABS: Reflex Lactate Order REFLEX LACTIC ORDERD
[2022-10-19 18:52] LABS: Add Urine Microscopic? NO; Charge for UA Resulting for Rev
[2022-10-19 18:54] LABS: Bilirubin Urine Neg (Negative); Blood Urine Neg (Negative); Glucose Urine UA Norm (Normal); Ketones Urine Negative (Negative); Leukocyte Esterase Urine Negative (Negative); Nitrate Urine Negative (Negative); Protein Urine Neg (Negative); Specific Gravity, Urine 1.005 (1.005-1.030); Urine Appearance Clear (CLEAR); Urine Color Yellow (Yellow); Urobilinogen Urine Norm (Negative); pH Urine 7 (5-7)
[2022-10-19 19:03] LABS: Amphetamines Screen Urine Negative (Negative); Barbiturates Screen Urine Negative (Negative); Benzodiazepines Screen Urine Negative (Negative); Cocaine Screen Urine Negative (Negative); Opiate Screen Urine Negative (Negative); PCP Screen Urine Negative (Negative); THC Screen Urine Negative (Negative)
[2022-10-19 19:59] VITALS: BP 124/85; PULSE 60; RESP 16; O2SAT 98
[2022-10-19 20:02] VITALS: BP 124/85; RESP 16; O2SAT 98
== END 2022-10-19 20:03 | disposition home or self-care (01) ==
PROVIDERS: Emergency Provider Emergency Medicine; PCP Family Medicine
DX: G44.319 Acute post-traumatic headache, not intractable (principal); F07.81 Postconcussional syndrome; E11.9 Type 2 diabetes mellitus without complications; I10 Essential (primary) hypertension; Z79.82 Long term (current) use of aspirin; Z79.02 Long term (current) use of antithrombotics/antiplatelets; Z79.899 Other long term (current) drug therapy; Z86.73 Personal history of transient ischemic attack (TIA), and cerebral infarction without residual deficits
CPT/HCPCS: 36415; 70450; 71045; 72125; 80053; 80306; 81003; 83605; 83880; 84484; 85025; 86140; 93005; 96360; 96361; 99285; J7040

== ENCOUNTER → 2022-12-14 10:14 | Outpatient (BNVA) | payer MEDICAID, SELFPAY | PROVIDERS: PCP Family Medicine; Visit Provider Specialist | DX: G43.711 Chronic migraine without aura, intractable, with status migrainosus; G93.9 Disorder of brain, unspecified; F44.5 Conversion disorder with seizures or convulsions; R29.90 Unspecified symptoms and signs involving the nervous system | CPT/HCPCS: 99214 ==

== ENCOUNTER 2022-12-30 08:55 | Observation (INO) | payer MEDICAID, SELFPAY ==
[2022-12-30] VITALS (49 sets, daily range): BP systolic 120–161; BP diastolic 82–125; PULSE 79–137; RESP 0–31; TEMP 36.6–37.1; O2SAT 81–100; BMI 29.2
[2022-12-30 09:12] LABS: Basophils # 0.1 10^3/uL (0.0-0.1); Basophils % 0.8 %; Eosinophils # 0.1 10^3/uL (0.0-0.8); Eosinophils % 0.5 %; Hematocrit 30.5 % (36-47); Lymphocytes # 1.4 10^3/uL (0.8-4.8); Mean Corpuscular HGB Conc 32.5 g/dL (30-55); Mean Corpuscular Hemoglobin 29.6 pg (27-33); Mean Platelet Volume 9.8 fL (7.4-10.4); Monocytes # 0.4 10^3/uL (0.2-0.9); Neutrophils # 10.53 10^3/uL (1.8-7.7); Neutrophils % 84.2 %; Nucleated Red Blood Cells % 0 %; Platelet Count 350 10^3/cmm (157-399); Red Blood Count 3.35 10^6/uL (3.85-5.65); Red Cell Distribution Width 12.5 % (12.1-15.1)
[2022-12-30] MEDS: tranexamic acid 1,000 mg/10mL SDV 1000 MG MUCOUS MEM ×2 (09:13→10:47)
--- NOTE | 2022-12-30 09:26 | ED_ITS ---
HPI - Dental/Oral General: Chief complaint: Dental/Oral Stated complaint: Mouth Bleeding Time Seen by Provider: 12/30/22 08:58 Source: patient Mode of arrival: EMS History of Present Illness: 62-year-old female who recently had dental extractions she is on Plavix continued to take her Plavix with the dental extractions. Presents emergency room via EMS with continued bleeding from the extraction sites. In addition to Plavix she does take aspirin. Onset (ago): hour(s) Duration: constant Relieving factors: nothing Exacerbating factors: nothing Associated symptoms: Denies fever(s), gum swelling, odynophagia, sore throat or tongue swelling Review of Systems Const: Denies: fever(s) ENMT: Denies: odynophagia Card: Denies: chest pain Resp: Denies: dyspnea GI: Denies: abdominal pain : Denies: dysuria, urinary frequency or urinary urgency Musc: Denies: neck pain or back pain Skin/Breast: Denies: rash All/Imm: Denies: tongue swelling PFSH ED PFSH: Medical History Bipolar 1 disorder Diabetes mellitus DVT prophylaxis Fever Hypertension Injury, self-inflicted No pertinent family history ESTHER (obstructive sleep apnea) Right middle cerebral artery stroke Self-mutilation TIA (transient ischemic attack) Family History Father Sleep apnea Hypertension Mother Hypertension Social History Smoking and tobacco/nicotine status: never used tobacco/nicotine Alcohol intake: current Alcohol intake frequency: holidays/special occasions only Substance/Drug Use: never Current gender identity: Female Physical Exam Const: GENERAL APPEARANCE: cooperative and comfortable ORIENTATION/CONSCIOUSNESS: Yes awake HENMT: COMMON NORMALS: normocephalic, atraumatic and hearing grossly normal bilaterally HEAD & SCALP: normocephalic and atraumatic OTHER: Active bleeding from gumline where teeth were excised from the lower incisors and the second molar on the left on the maxilla. Resp: COMMON NORMALS: normal respiratory effort, No retractions, No use of accessory muscles and clear to auscultation bilaterally AUSCULTATION: clear to auscultation bilaterally Cardio: COMMON NORMALS: regular rate, regular rhythm and No murmurs present (Cardio) RATE: regular rate RHYTHM: regular rhythm GI: COMMON NORMALS: Soft to palpation and No hepatosplenomegaly present AUSCULTATION: Yes normoactive bowel sounds PALPATION: Yes Soft to palpation, No Tenderness to palpation present (GI), No Guarding due to palpation present (GI) and Yes No hepatosplenomegaly present Extremity: COMMON NORMALS: normal to inspection, capillary refill normal, no c lubbing, cyanosis or edema, no calf tenderness and no pedal edema Skin: COMMON NORMALS: no rashes or lesions noted GENERAL SKIN EXAM: no rashes or lesions noted Course Vital Signs: Vital signs: Vital Signs Temperature 98.4 F 12/31/22 05:48 Pulse Rate 77 12/31/22 06:00 Respiratory Rate 16 12/31/22 05:48 Blood Pressure 136/84 12/31/22 05:48 Pulse Oximetry 100 12/31/22 05:48 Oxygen Delivery Me thod Room Air 12/31/22 04:00 Oxygen Flow Rate 5 12/30/22 12:04 MDM - Dental/Oral Medical Decision Making Extractions done while patient was on Plavix and aspirin. Multiple strategies were used to treat the patient's bleeding she was given TXA IV and topically. Both wires were repeated after we did not have improvement. After 3 hours patient continued to have receded above. She also reiterated to have altered m ental status got confused and disoriented she was taken to a trauma room and reevaluated. We were able to eventually contact the dentist who had done the procedures who recommended oversewing the areas for ciliary do not have any dentist with privileges to the hospital. We contacted oral maxillofacial surgery through [facility] transfer center they advised that the patient could be seen in their office however patient and no family members available to transfer the patient and since we are going to a private office ambulance was not an option. We were finally able to get the bleeding to stop by applying Surgicel multiple times to the gumline. Repeat hemoglobin at that time patient seem to deter iorate and remained stable it is gone from 9.9-10.1. Patient's cognition mental status improved she was given 1 mg Ativan she had severe anxiety this did seem to help. Will admit to hospital for observation and further evaluation. Lactate was slightly up a think that is from the stress of the blood loss there is no evidence of secondary infections at this time no evidence of infection at the time of the gumline. Discussed with hospitalist orders written. Patient will need repeat hemoglobins to monitor. Medical Records I reviewed the patient's medical records. Lab Data I reviewed the patient's lab results. 12/31/22 03:36 12/31/22 03:36 Laboratory Results WBC 11.76 10^3/uL (3.29-11.43) H 12/30/22 11:40 RBC 3.38 10^6/uL (3.85-5.65) L 12/30/22 11:40 Hgb 10.10 g/dL (11.27-16.99) L 12/30/22 11:40 Hct 30.6 % (36-47) L 12/30/22 11:40 MCV 90.5 fl (85-98) 12/30/22 11:40 MCH 29.9 pg (27-33) 12/30/22 11:40 MCHC 33.0 g/dL (30-55) 12/30/22 11:40 RDW 12.5 % (12.1-15.1) 12/30/22 11:40 Plt Count 364 10^3/cmm (157-399) 12/30/22 11:40 MPV 9.5 fL (7.4-10.4) 12/30/22 11:40 Neut % (Auto) 85.7 % 12/30/22 11:40 Lymph % (Auto) 10.4 % 12/30/22 11:40 [place] % (Auto) 2.5 % 12/30/22 11:40 Eos % (Auto) 0.2 % 12/30/22 11:40 Baso % (Auto) 0.7 % 12/30/22 11:40 Neut # (Auto) 10.09 10^3/uL (1.8-7.7) H 12/30/22 11:40 Lymph # (Auto) 1.2 10^3/uL (0.8-4.8) 12/30/22 11:40 [place] # (Auto) 0.3 10^3/uL (0.2-0.9) 12/30/22 11:40 Eos # (Auto) 0.0 10^3/uL (0.0-0.8) 12/30/22 11:40 Baso # (Auto) 0.1 10^3/uL (0.0-0.1) 12/30/22 11:40 Nucleated RBC % (auto) 0 % 12/30/22 11:40 Nucleated RBCs # 0.0 /100WBC 12/30/22 11:40 Specimen Type Arterial 12/30/22 11:39 Sample Site Radial, right 12/30/22 11:39 ABG pH 7.33 (7.35-7.45) L 12/30/22 11:39 ABG pCO2 26.7 mmHg (35-45) L 12/30/22 11:39 ABG pO2 97.0 mmHg (80.0-100.0) 12/30/22 11:39 ABG HCO3 14.1 mmol/L (22-26) L 12/30/22 11:39 ABG O2 Saturation 98.8 12/30/22 11:39 ABG Base Excess -10.5 mmol/L (-2.0-2.0) L 12/30/22 11:39 Juan R Test Pos 12/30/22 11:39 A-a O2 Gradient 2.1 mmHg (5-10) L 12/30/22 11:39 Hematocrit 29.7 % (37-47) L 12/30/22 11:39 Hgb O2 Saturation 97.1 % (95-100) 12/30/22 11:39 Carboxyhemoglobin 1.3 %THgb (0.4-20.1) 12/30/22 11:39 Methemoglobin 0.4 % (0.4-1.5) 12/30/22 11:39 Total Hemoglobin 9.7 g/dL (12-16) L 12/30/22 11:39 Sodium 137.0 mmol/L (131-143) 12/30/22 11:39 Potassium 5.2 mmol/L (3.5-5.0) H 12/30/22 11:39 Glucose 195.0 mg/dL (70-115) H 12/30/22 11:39 Ionized Calcium 1.3 mmol/L (1.1-1.4) 12/30/22 11:39 O2 Delivery Device Room air 12/30/22 11:39 FiO2 21.0 % 12/30/22 11:39 Vp Clinical Research ID [place] 12/30/22 11:39 Sodium 139 mmol/L (136-145) 12/30/22 11:40 Potassium 5.6 mmol/L (3.5-5.1) H 12/30/22 13:52 Chloride 105 mmol/L (98-107) 12/30/22 11:40 Carbon Dioxide 17 mmol/L (22-29) L 12/30/22 11:40 Anion Gap 22.9 (5-19) H 12/30/22 11:40 BUN 42 mg/dL (8-23) H 12/30/22 11:40 Creatinine 1.5 mg/dL (0.5-0.9) H 12/30/22 11:40 GFR Calculation 35.4 mL/min (90-130) L 12/30/22 11:40 Glucose 204 mg/dL (65-115) H 12/30/22 11:40 Estimat Average Glucose 108 12/30/22 11:40 Hemoglobin A1c 5.4 % (4.0-6.0) 12/30/22 11:40 Calculated Osmolality 304 mOsm/kg (285-295) H 12/30/22 11:40 Lactic Acid 4.9 mmol/L (0.5-2.2) H* 12/30/22 11:40 Lactic Acid (Sepsis) 2.7 mmol/L (0.5-2.2) H 12/30/22 14:35 Calcium 9.3 mg/dL (8.5-10.5) 12/30/22 11:40 Ammonia 14 umol/L (11-51) 12/30/22 11:40 Creatine Kinase 77 U/L (26-192) 12/30/22 11:40 Vitamin B12 655 pg/mL (232-1245) 12/30/22 11:40 Procalcitonin 0.13 ng/mL (0-0.5) 12/30/22 11:40 TSH 1.79 uIU/mL (0.27-4.20) 12/30/22 11:40 Urine Color Yellow (Yellow) 12/30/22 15:10 Urine Appearance Sl hazy (CLEAR) A 12/30/22 15:10 Urine pH 5 (5-7) 12/30/22 15:10 Ur Specific [place] 1.025 (1.005-1.030) 12/30/22 15:10 Urine Protein Trace (Negative) 12/30/22 15:10 Urine Glucose (UA) Norm (Normal) 12/30/22 15:10 Urine Ketones 1+ (Negative) H 12/30/22 15:10 Urine Blood 2+ (Negative) H 12/30/22 15:10 Urine Nitrate Positive (Negative) H 12/30/22 15:10 Urine Bilirubin 1+ (Negative) H 12/30/22 15:10 Urine Urobilinogen Norm mg/dL (Negative) 12/30/22 15:10 Ur Leukocyte Esterase Trace (Negative) H 12/30/22 15:10 Urine RBC 0-4 /hpf (0-2) H 12/30/22 15:10 Urine WBC 0-4 /hpf (0-5) H 12/30/22 15:10 Ur Squamous Epith Cells 0-4 /hpf (0-5) H 12/30/22 15:10 Amorphous Sediment Not Reportable 12/30/22 15:10 Urine Bacteria 3+ /hpf (NONE) H 12/30/22 15:10 Blood Type O Positive 12/30/22 11:40 Rho(D) Type Positive 12/30/22 11:40 Antibody Screen Negative 12/30/22 11:40 Crossmatch See Detail 12/30/22 11:40 All radiology interpretation(s) finalized by discharge Discharge Plan Discharge Patient Disposition: Admitted As Inpatient Admit Provider: Jered Lo Clinical Impression: Altered mental status, Functional neurological symptom disorder with attacks or seizures, Anemia, Medication side effect Condition: Stable Coding Level of Care Code ED Can Crimper for Janene Poon
--- NOTE | 2022-12-30 09:32 | PC.PHAR ---
Addendum entered by Maura Lynn 12/30/22 10:10: evert from [employer] [phone] verified pts meds-list sent from [facility] had losartan 100mg/25mg daily rameys last filled 08/02/22 30d/s 5 refills rameys states the sent in another rx on 08/16/22 for 50-12.5mg daily with 5 refills evert states the losartan/hctz was dced-list pt brought in had amlodipine 10mg bid med list from [facility] has 2.5mg daily rameys last filled 2.5mg daily-notes are made in the pharmacy comments-medications entered are from what mac has filled recently-what was on med list from [facility] and what the nurse evert from [facility] states the pt takes Original Note: pt states she has [facility] [phone] that sets up her meds-per riley from [facility] states will fax med list
[2022-12-30] MEDS: ondansetron 2 mg/ML SDV 2 mL 4 MG IVP (10:58)
--- NOTE | 2022-12-30 11:22 | CT_ITS ---
WS: [id number] CT HEAD NONCONTRAST HISTORY: AMS TECHNIQUE: Contiguous axial imaging performed through the brain in 2.5 mm imaging. Bone and soft tiss ue windows. Sagittal and coronal reformats reviewed. All CT scans at [facility] use at least one of these dose optimization techniques: automated exposure control; mA and/or kV adjustment per pa tient size (includes targeted exams where dose is matched to clinical indication); or iterative recon struction. DLP: 979.58 mGy.cm COMPARISON: 10/19/2022 No acute intracranial hemorrhage, midline shift or mass effect. Mild atrophy. Reidentified is the anterior RIGHT middle cranial fossa arachnoid cyst. No midline shif t or mass effect. Mild small vessel ischemic disease. No prior infarct. Ventricles: Normal size with no hydrocephalus. No inferior displacement of the cerebellar tonsils. Paranasal sinuses: As visualized are clear. Mastoid air cells: Well pneumatized. Calvarium and scalp: Skull is intact with no soft tissue edema or swelling. IMPRESSION: 1. Stable noncontrast head CT. 2. Mild volume loss and atrophy and small vessel ischemic disease. 3. Stable RIGHT middle cranial fossa arachnoid cyst.
--- NOTE | 2022-12-30 11:22 | ECG_ITS ---
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 Measurements Intervals [place] Rate: 131 P: 51 PA: 171 QRS: -12 QRSD: 68 T: 73 QT: 298 QTc: 441 Interpretive Statements SINUS TACHYCARDIA MINIMAL ST DEPRESSION [0.025+ mV ST DEPRESSION] ABNORMAL RHYTHM ECG Compared to ECG 10/19/2022 16:31:09 ST (T wave) deviation now present Sinus rhythm no longer present Electronically Signed On 12-30-2022 12:35:27 CDT by Dayana De Oliveira M.D. [id number]
--- NOTE | 2022-12-30 11:38 | XR_ITS ---
WS: [id number] Portable AP upright chest, 12/30/2022 Clinical Data: change in loc Comparison: Portable chest, 10/19/2022 Findings: No nodules, masses or effusions are seen. The heart is normal. The pulmonary vascularity is not increased. No pneumonia or pneumothorax is seen. Monitor leads are on the chest wall. The patien t's clothing obscures only minimal detail. Impression: Negative chest.
[2022-12-30 11:45] LABS: Basophils # 0.1 10^3/uL (0.0-0.1); Basophils % 0.7 %; Eosinophils % 0.2 %; Hematocrit 30.6 % (36-47); Lymphocytes # 1.2 10^3/uL (0.8-4.8); Lymphocytes % 10.4 %; Mean Corpuscular Hemoglobin 29.9 pg (27-33); Mean Corpuscular Volume 90.5 fl (85-98); Mean Platelet Volume 9.5 fL (7.4-10.4); Monocytes # 0.3 10^3/uL (0.2-0.9); Monocytes % 2.5 %; Neutrophils # 10.09 10^3/uL (1.8-7.7); Neutrophils % 85.7 %; Nucleated Red Blood Cells % 0 %; Platelet Count 364 10^3/cmm (157-399); Red Blood Count 3.38 10^6/uL (3.85-5.65); Red Cell Distribution Width 12.5 % (12.1-15.1); White Blood Count 11.76 10^3/uL (3.29-11.43)
[2022-12-30] MEDS: pantoprazole 40 mg SDV 80 MG IVP (11:49)
[2022-12-30] MEDS: LORazepam 2 mg/mL INJ 1 mL 1 MG IVP (11:49)
[2022-12-30] MEDS: sodium chloride 0.9% 1,000 ML 999 ML IV (11:49)
[2022-12-30 11:50] LABS: ABG PCO2 26.7 mmHg (35-45); ABG PH Result 7.33 (7.35-7.45); Alveolar-Arterial Oxygen Gradi 2.1 mmHg (5-10); Arterial Blood Gas Hematocrit 29.7 % (37-47); Base Excess ABG -10.5 mmol/L (-2.0-2.0); Blood Gas Allen Test Pos; Blood Gas Operator Identificat WALCI; Blood Gas Sample Site Radial, right; Blood Gas Sample Type Arterial; Carboxyhemoglobin 1.3 %THgb (0.4-20.1); HCO3 ABG 14.1 mmol/L (22-26); HGB O2 Sat 97.1 % (95-100); Ionized Calcium Level - ABG 1.3 mmol/L (1.1-1.4); Methemoglobin 0.4 % (0.4-1.5); Oxygen Device ROOM AIR; Oxygen Saturation ABG 98.8; Potassium Level - ABG 5.2 mmol/L (3.5-5.0); Total Hemoglobin 9.7 g/dL (12-16)
--- NOTE | 2022-12-30 11:54 | PC.NURSE ---
Nurse went in room to assess pt. Pt was screaming for her mom and dad. Dr. Stone was notified vrb orders were given to get a head CT and repeat CBC. While pt was in CT pt became no responsive to verbal and pain stimuli. Pt was brought back to ER 10 and was assessed for a stroke. Further orders were given per Dr. Stone. Pt is still not a/o. Pt has continuous bleeding coming from mouth. No further orders at this time.
[2022-12-30 12:07] LABS: Anion Gap 22.9 (5-19); Blood Urea Nitrogen 42 mg/dL (8-23); Calcium 9.3 mg/dL (8.5-10.5); Carbon Dioxide 17 mmol/L (22-29); Chloride 105 mmol/L (98-107); Creatine Phosphokinase 77 U/L (26-192); Glomerular Filtration Rate 35.4 mL/min (90-130); Glucose 204 mg/dL (65-115); Osmolality Calculated 304 mOsm/kg (285-295); Potassium 5.9 mmol/L (3.5-5.1); Sodium 139 mmol/L (136-145)
[2022-12-30 12:09] LABS: Ammonia 14 umol/L (11-51)
[2022-12-30 12:13] LABS: Lactic Sepsis W/Reflex 4.9 mmol/L (0.5-2.2)
[2022-12-30 13:29] LABS: Reflex Lactate Order REFLEX LACTIC ORDERD
[2022-12-30 14:18] LABS: Potassium 5.6 mmol/L (3.5-5.1)
[2022-12-30 14:58] LABS: Lactic Acid level (Lactate) 2.7 mmol/L (0.5-2.2)
[2022-12-30 15:34] LABS: Add Urine Culture? Yes; Add Urine Microscopic? YES; Bacteria Urine 3+ /hpf; Bilirubin Urine 1+ (Negative); Blood Urine 2+ (Negative); Glucose Urine UA Norm (Normal); Ketones Urine 1+ (Negative); Leukocyte Esterase Urine Trace (Negative); Nitrate Urine Positive (Negative); Protein Urine Trace (Negative); RBC Urine 0-4 /hpf (0-2); Specific Gravity, Urine 1.025 (1.005-1.030); Squamous Epithelial Cell Urine 0-4 /hpf (0-5); Urine Appearance SL Hazy (CLEAR); Urine Color Yellow (Yellow); Urobilinogen Urine Norm (Negative); WBC Urine 0-4 /hpf (0-5); pH Urine 5 (5-7)
--- NOTE | 2022-12-30 15:54 | P.HP_ITS ---
Providers/Chief Complaint Admitting Physician: Jered oL MD Primary Care Provider: Rich Rosa MD Chief Complaint: Mouth Bleeding History of Present Illness Rebecca Sanderson is a 62 year old female Who presentED to the hospital for dental bleed. Recently had dental extraction for caries, patient did not stop aspirin Plavix or Eliquis stating that she was not told to stop she is able to tell me her name, date of she is stating that president is Kadeem Fischer and she is not sure about her 's name.She is endorsing that she lives with her she is denying signs of UTI. No active nausea vomiting chest pain or active bleeding. She has received multiple dose of Tranxene Estella acid in the ER. 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 Review of Systems Const: Denies: fever(s) Eyes: Denies: change in vision ENMT: Denies: throat pain Card: Denies: chest pain Resp: Denies: dyspnea GI: Denies: abdominal pain : Denies: flank pain Medications/Allergies Home Medications Medication Instructions Recorded Confirmed Last Taken Type aspirin 81 mg tablet,delayed 81 mg PO DAILY 30 days #30 tabs 12/19/20 12/30/22 Unknown Rx release atorvastatin 40 mg tablet 40 mg PO BEDTIME 30 days #30 tabs 12/19/20 12/30/22 Unknown Rx clopidogrel 75 mg tablet (Plavix) 75 mg PO DAILY #30 tabs 12/19/20 12/30/22 Unknown Rx meclizine 25 mg tablet 25 mg PO TID PRN Dizziness 01/04/21 12/30/22 Unknown History bupropion HCl 150 mg 24 hr tablet, 150 mg PO QAM 12/14/22 12/30/22 Unknown History extended release cetirizine 10 mg tablet (Allergy 10 mg PO DAILY 12/14/22 12/30/22 Unknown History Relief (cetirizine)) citalopram 20 mg tablet 20 mg PO DAILY 12/14/22 12/30/22 Unknown History clonidine HCl 0.1 mg tablet 0.1 mg PO BID 12/14/22 12/30/22 Unknown History gabapentin 300 mg capsule See Rx Instructions .Route .COMPLEX 12/14/22 12/30/22 Unknown History isosorbide mononitrate 60 mg 60 mg PO DAILY 12/14/22 12/30/22 Unknown History tablet,extended release 24 hr metformin 1,000 mg tablet 1,000 mg PO BID 12/14/22 12/30/22 Unknown History omeprazole 20 mg capsule,delayed 20 mg PO DAILY 12/14/22 12/30/22 Unknown History release spironolactone 50 mg tablet 50 mg PO DAILY 12/14/22 12/30/22 Unknown History tamsulosin 0.4 mg capsule 0.4 mg PO DAILY 12/14/22 12/30/22 Unknown History amlodipine 2.5 mg tablet 2.5 mg PO DAILY 12/30/22 12/30/22 Unknown History latanoprost 0.005 % eye drops 1 drp ophthalmic (eye) QPM 12/30/22 12/30/22 Unknown History zonisamide 100 mg capsule 300 mg PO QAM 12/30/22 12/30/22 Unknown History (Zonegran) Allergies Allergy/AdvReac Type Severity Reaction Status Date / Time penicillin G Allergy Mild breaks out Verified 12/14/22 10:38 in hives PFSH Acute PFSH: Medical History Bipolar 1 disorder Diabetes mellitus DVT prophylaxis Fever Hypertension Injury, self-inflicted No pertinent family history ESTHER (obstructive sleep apnea) Right middle cerebral artery stroke Self-mutilation TIA (transient ischemic attack) Family History Father Sleep apnea Hypertension Mother Hypertension Social History Smoking and tobacco/nicotine status: never used tobacco/nicotine Alcohol intake: current Alcohol intake frequency: holidays/special occasions only Substance/Drug Use: never Current gender identity: Female Vitals/I&O/Wt Last Vital Signs Temp 98.2 F 12/30/22 08:58 Pulse 122 H 12/30/22 15:00 Resp 21 H 12/30/22 15:00 BP 160/116 12/30/22 15:15 Pulse Ox 100 12/30/22 15:00 O2 Del Method Nasal Cannula 12/30/22 12:04 O2 Flow Rate 5 12/30/22 12:04 Weight last 48 hrs Weight 74.843 kg Physical Exam Narrative: Patient is awake and alert Oriented to time place and person GCS 15 Nonfocal neuro exam Hemodynamically stable S1, S2 Abdomen soft Lower extremity no edema Currently doing well on room air Data 12/30/22 11:40 12/30/22 13:52 A&P Assessment and plan (1) Seizures: (2) Functional neurological symptom disorder with attacks or seizures: (3) Vertigo: (4) Chronic migraine without aura, intractable, with status migrainosus: (5) Diabetes mellitus: (6) Basilar artery insufficiency: (7) Temporal lobe lesion: (8) Acute kidney injury superimposed on chronic kidney disease: Plan Patient seems to have functional neurological symptoms with 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 Ace She is not showing any signs of stroke I do not think she is off baseline at this point I would like to monitor overnight We will give her antibiotics for UTI Dental bleed has stopped Stop antiplatelet and anticoagulating agent for next 72 hours Likely will discharge her tomorrow DVT prophylaxis on board Full code Hold antiplatelet therapy , questionable history of seizure with a migraine Hypertension: Continue antihtn rx Attestations Medical Necessity Statement*: Likely will be discharged within 48 hours Coding Level of Care Code 11066 Moderate MDM includes number and complexity of problems actively addressed during encounter, amount and/or complexity of data reviewed/ordered and described risk of complication, morbidity or mortality of management as d ocumented Diagnoses Seizures R56.9 Functional neurological symptom disorder with attacks or seizures F44.5 Vertigo R42 Chronic migraine without aura, intractable, with status migrainosus G43.711 Diabetes mellitus E11.9 Basilar artery insufficiency G45.0 Temporal lobe lesion G93.9 Acute kidney injury superimposed on chronic kidney disease N17.9; N18.9
[2022-12-30 16:31] LABS: Procalcitonin 0.13 ng/mL (0-0.5)
[2022-12-30] MEDS: lactated ringers 1,000 ML 999 ML IV (16:50)
[2022-12-30 16:51] LABS: Estmated Average Glucose 108; Hemoglobin A1C 5.4 % (4.0-6.0)
[2022-12-30 17:01] LABS: Ammonia 30 umol/L (11-51)
[2022-12-30 17:05] LABS: Thyroid Stimulating Hormone 1.79 uIU/mL (0.27-4.20); Vitamin B12 655 pg/mL (232-1245)
[2022-12-30] MEDS: cloNIDine 0.1 mg Tablet PO (17:49)
[2022-12-30] MEDS: sodium chloride 0.9% 1,000 ML 75 ML IV (18:02)
[2022-12-31] VITALS (13 sets, daily range): BP systolic 106–170; BP diastolic 67–98; PULSE 74–92; RESP 16–18; TEMP 36.4–37; O2SAT 97–100
[2022-12-31 04:00] LABS: Basophils % 0.3 %; Eosinophils % 0.2 %; Lymphocytes # 0.9 10^3/uL (0.8-4.8); Lymphocytes % 13.9 %; Mean Corpuscular Volume 91.1 fl (85-98); Mean Platelet Volume 9.5 fL (7.4-10.4); Monocytes # 0.4 10^3/uL (0.2-0.9); Monocytes % 5.5 %; Neutrophils # 5.04 10^3/uL (1.8-7.7); Neutrophils % 79.5 %; Nucleated Red Blood Cells % 0 %; Platelet Count 216 10^3/cmm (157-399); Red Blood Count 2.13 10^6/uL (3.85-5.65); Red Cell Distribution Width 12.7 % (12.1-15.1); White Blood Count 6.34 10^3/uL (3.29-11.43)
[2022-12-31 04:18] LABS: Anion Gap 13.4 (5-19); Blood Urea Nitrogen 34 mg/dL (8-23); C Reactive Protein 4.2 mg/L (0.0-4.9); Calcium 8.3 mg/dL (8.5-10.5); Carbon Dioxide 20 mmol/L (22-29); Chloride 110 mmol/L (98-107); Creatinine Clr Calc Pharmacy 48.3061; Glomerular Filtration Rate 45.8 mL/min (90-130); Glucose 147 mg/dL (65-115); Hematocrit 19.4 % (36-47); Magnesium 1.8 mg/dL (1.7-2.3); Osmolality Calculated 298 mOsm/kg (285-295); Phosphorus 3.1 mg/dL (2.5-4.5); Potassium 4.4 mmol/L (3.5-5.1); Sodium 139 mmol/L (136-145)
--- NOTE | 2022-12-31 06:00 | USCV_ITS ---
Rebecca Sanderson Age: 62 Gender: F : 1960 Exam Date: 12/31/2022 07:51 Ordering Phys: Jered Lo MD Technologist: Yogi Chino Exam Location: [facility] [place] Indication: ams BP: 143 / 88 HR: 83 Rhythm: Sinus Technical Quality: Adequate MEASUREMENTS (Male / Female) Normal Values 2D ECHO LVOT Diameter 2.0 cm LV Ejection Fraction MOD 2C 69.7 % LV Ejection Fraction 2C AL 69.2 % LA Diameter 3.7 cm LA Width 2.9 cm LA Height 4.7 cm RA Width 3.6 cm RA Height 4.4 cm Aorta at Sinotubular Diameter 2.2 cm IVC Diameter 1.3 cm M-MODE Aortic Annulus Diameter 2.5 cm LA Ao Ratio MM 1.6 MV E Point Septal Separation 0.5 cm DOPPLER AV Peak Velocity 155.0 cm/s LVOT Peak Velocity 101.0 cm/s AV Area Cont Eq vti 1.9 cm squared AV Area Cont Eq pk 2.0 cm squared MV Peak Velocity 131.0 cm/s MV Area PHT 5.0 cm squared Mitral E to A Ratio 0.6 MV E' Velocity 33.5 cm/s Mitral E to MV E' Ratio 6.3 Mitral E to LV E' Lateral Ratio 9.1 Mitral E to LV E' Septal Ratio 4.8 TR Peak Velocity 160.4 cm/s TR Peak Gradient 10.3 mmHg TR Mean Velocity 115.7 cm/s TR Mean Gradient 5.8 mmHg TR Velocity Time Integral 33.8 cm Right Atrial Pressure 3.0 mmHg Pulmonary Artery Systolic Pressu 13.3 mmHg PV Peak Velocity 113.0 cm/s RV Acceleration Time 0.1 s RV Ejection Time 0.3 s RV AcT/ET 0.4 FINDINGS Left Ventricle Normal left ventricular size and systolic function, EF 70 %. No regional wall motion abnormalities. Grade I/IV diastolic dysfunction (abnormal relaxation filling pattern), normal to mildly elevated filling pressures. Right Ventricle The right ventricle is normal in size and function. Right Atrium The right atrium is normal in size. Left Atrium The left atrium is normal in size. Mitral Valve Thickened mitral valve. Mild mitral annular calcification. Aortic Valve Thickened aortic valve. Tricuspid Valve Trace tricuspid valve regurgitation. Pulmonic Valve No gross abnormalities noted Pericardium Normal pericardium without effusion. Aorta Normal ascending aorta dimension. IVC Normal inferior vena cava. CONCLUSIONS Normal left ventricular size and systolic function, EF 70 %. No regional wall motion abnormalities. Grade I/IV diastolic dysfunction (abnormal relaxation filling pattern), normal to mildly elevated filling pressures. Thickened mitral valve. Mild mitral annular calcification. Trace tricuspid valve regurgitation. Thickened aortic valve. Estimated pulmonary artery peak systolic pressure, within normal limits There is no pericardial effusion. Compared to the study from 12/18/2020, there may not be a significant change Dr Davian Interiano MD FACC (Electronically Signed) Final Date: 31 December 2022 12:50 S
[2022-12-31] MEDS: isosorbide mononitrate ER 60 mg Tablet PO (08:53)
[2022-12-31] MEDS: cloNIDine 0.1 mg Tablet PO (08:53)
[2022-12-31] MEDS: tamsulosin 0.4 mg Capsule PO (08:53)
[2022-12-31] MEDS: cefTRIAXone 1,000 MG in sodium chloride 0.9% (plus) 50 ML 100 MG IV (08:53)
[2022-12-31] MEDS: sodium chloride 0.9% 1,000 ML 75 ML IV (08:54)
--- NOTE | 2022-12-31 09:02 | PM.PN ---
Subjective Subjective: Drop in hemoglobin noted, patient getting blood transfusion continue Protonix discontinue fluids Vitals/I&O/Wt Last Vital Signs Temp 97.9 F 12/31/22 08:18 Pulse 85 12/31/22 08:18 Resp 18 12/31/22 08:18 BP 166/98 12/31/22 08:53 Pulse Ox 99 12/31/22 08:18 O2 Del Method Nasal Cannula 12/31/22 08:18 O2 Flow Rate 5 12/30/22 12:04 12/30/22 12/31/22 12/31/22 22:59 06:59 14:59 Intake Total 2220 / 2220 867.5 / 3087.5 350 / 350 Output Total 200 / 200 400 / 600 Balance 2019 467.5 / 2487.5 350 / 350 Weight last 48 hrs Weight 74.843 kg Physical Exam Narrative: Pleasant but confused Hemodynamically stable Currently on 2 L nasal cannula GCS 15 Abdomen soft Awake and alert S1, S2 variable Data 12/31/22 03:36 12/31/22 03:36 Micro: Microbiology 12/30/22 16:28 Blood Culture - Preliminary Blood SPECIMEN COLLECTED 12/30/22 16:20 Blood Culture - Preliminary Blood SPECIMEN COLLECTED A&P Assessment and plan (1) Altered mental status: (2) Anemia: (3) Medication side effect: (4) Acute kidney injury superimposed on chronic kidney disease: (5) Functional neurological symptom disorder with attacks or seizures: (6) Blood loss anemia: Plan Acute blood loss anemia Patient had significant dental bleed she has received Tranxene Estella acid Check FOBT Continue Protonix Discontinue IV fluids 1 unit PRBC requested today Hemodynamically stable Monitor blood pressure closely as she is requiring clonidine DVT prophylaxis: SCDs Attestations Medical Necessity Statement*: Continue medical management Diagnoses Altered mental status R41.82 Anemia D64.9 Medication side effect T88.7XXA Acute kidney injury superimposed on chronic kidney disease N17.9; N18.9 Functional neurological symptom disorder with attacks or seizures F44.5 Blood loss anemia D50.0
[2022-12-31] MEDS: pantoprazole 40 mg SDV IVP (10:01)
[2022-12-31 10:41] LABS: Hematocrit 23.7 % (36-47)
--- NOTE | 2022-12-31 11:27 | PM.DCS ---
Discharge Providers Date of Admission: 12/30/22 15:51 Date of Discharge: December 31, 2022 Attending Provider at Admission: Jered Lo MD Attending Provider at Discharge: Jered Lo MD Primary Care Provider: Rich Rosa MD Diagnoses at Discharge Discharge Diagnosis (1) Altered mental status: Status: Acute (2) Anemia: Status: Acute (3) Medication side effect: Status: Acute (4) Acute kidney injury superimposed on chronic kidney disease: Status: Acute (5) Functional neurological symptom disorder with attacks or seizures: Status: Acute (6) Blood loss anemia: Status: Acute Reason for Visit Reason for Visit: Mouth Bleeding Hospital Course Hospital Course 8-year-old female who recently had dental surgery, patient was on aspirin and Plavix, she did not hold her Plavix before surgery and dentist was not aware she presented to hospital with active bleeding from her tooth, she was given multiple Tranxene Estella acid doses topically and intravascular which did stopped the bleeding, her hemoglobin dropped below 7 she required 1 unit PRBC. Hemoglobin at the time of discharge is 7.8 she is hemodynamically stable I have asked her to hold antiplatelet therapy for at least 1 week, her general surgeon also called I spoke with him as well he is planning to keep an eye on her and likely will see on Monday. I will add levofloxacin for possible UTI. Patient seems to have baseline dementia with confusion. Patient is awake and alert no signs of confusion at the time of discharge. Physical Exam Narrative: Awake and alert GCS 15 No active confusion Nonfocal neuro exam Hemodynamic stable Currently on room air Discharge Data Studies Completed and Pending Completed Studies During Hospitalization Category Date Time Status CT head wo con* [id number] Stat Cat Scan 12/30/22 11:22 Completed XR chest 1V portable [id number] Stat Exams 12/30/22 11:38 Completed Pending at discharge Category Date Time Status Basic Metabolic Panel AM LABS Lab 01/01/23 04:00 Ordered Blood Culture Stat Lab 12/30/22 16:28 Results Complete Blood Count w/Auto AM LABS Lab 01/01/23 04:00 Ordered Leukocyte Reduced RBC Stat Lab 12/31/22 04:25 Results Occult Blood Stool [Immunochemical Fecal OCB] Routine Lab 12/31/22 09:04 Uncollected Type and Screen Stat Lab 12/31/22 04:25 Results Urine Culture Stat Lab 12/30/22 15:10 Received CV. echo complete* [id number] Routine Ultrasound 12/31/22 06:00 Taken Laboratory Results WBC 6.34 10^3/uL (3.29-11.43) 12/31/22 03:36 RBC 2.13 10^6/uL (3.85-5.65) L 12/31/22 03:36 Hgb 7.80 g/dL (11.27-16.99) L 12/31/22 10:25 Hct 23.7 % (36-47) L 12/31/22 10:25 MCV 91.1 fl (85-98) 12/31/22 03:36 MCH 30.0 pg (27-33) 12/31/22 03:36 MCHC 33.0 g/dL (30-55) 12/31/22 03:36 RDW 12.7 % (12.1-15.1) 12/31/22 03:36 Plt Count 216 10^3/cmm (157-399) D 12/31/22 03:36 MPV 9.5 fL (7.4-10.4) 12/31/22 03:36 Neut % (Auto) 79.5 % 12/31/22 03:36 Lymph % (Auto) 13.9 % 12/31/22 03:36 [place] % (Auto) 5.5 % 12/31/22 03:36 Eos % (Auto) 0.2 % 12/31/22 03:36 Baso % (Auto) 0.3 % 12/31/22 03:36 Neut # (Auto) 5.04 10^3/uL (1.8-7.7) 12/31/22 03:36 Lymph # (Auto) 0.9 10^3/uL (0.8-4.8) 12/31/22 03:36 [place] # (Auto) 0.4 10^3/uL (0.2-0.9) 12/31/22 03:36 Eos # (Auto) 0.0 10^3/uL (0.0-0.8) 12/31/22 03:36 Baso # (Auto) 0.0 10^3/uL (0.0-0.1) 12/31/22 03:36 Nucleated RBC % (auto) 0 % 12/31/22 03:36 Nucleated RBCs # 0.0 /100WBC 12/31/22 03:36 Specimen Type Arterial 12/30/22 11:39 Sample Site Radial, right 12/30/22 11:39 ABG pH 7.33 (7.35-7.45) L 12/30/22 11:39 ABG pCO2 26.7 mmHg (35-45) L 12/30/22 11:39 ABG pO2 97.0 mmHg (80.0-100.0) 12/30/22 11:39 ABG HCO3 14.1 mmol/L (22-26) L 12/30/22 11:39 ABG O2 Saturation 98.8 12/30/22 11:39 ABG Base Excess -10.5 mmol/L (-2.0-2.0) L 12/30/22 11:39 Juan R Test Pos 12/30/22 11:39 A-a O2 Gradient 2.1 mmHg (5-10) L 12/30/22 11:39 Hematocrit 29.7 % (37-47) L 12/30/22 11:39 Hgb O2 Saturation 97.1 % (95-100) 12/30/22 11:39 Carboxyhemoglobin 1.3 %THgb (0.4-20.1) 12/30/22 11:39 Methemoglobin 0.4 % (0.4-1.5) 12/30/22 11:39 Total Hemoglobin 9.7 g/dL (12-16) L 12/30/22 11:39 Sodium 137.0 mmol/L (131-143) 12/30/22 11:39 Potassium 5.2 mmol/L (3.5-5.0) H 12/30/22 11:39 Glucose 195.0 mg/dL (70-115) H 12/30/22 11:39 Ionized Calcium 1.3 mmol/L (1.1-1.4) 12/30/22 11:39 O2 Delivery Device Room air 12/30/22 11:39 FiO2 21.0 % 12/30/22 11:39 Financial Services Consultant ID [place] 12/30/22 11:39 Sodium 139 mmol/L (136-145) 12/31/22 03:36 Potassium 4.4 mmol/L (3.5-5.1) 12/31/22 03:36 Chloride 110 mmol/L (98-107) H 12/31/22 03:36 Carbon Dioxide 20 mmol/L (22-29) L 12/31/22 03:36 Anion Gap 13.4 (5-19) 12/31/22 03:36 BUN 34 mg/dL (8-23) H 12/31/22 03:36 Creatinine 1.2 mg/dL (0.5-0.9) H 12/31/22 03:36 GFR Calculation 45.8 mL/min (90-130) L 12/31/22 03:36 Glucose 147 mg/dL (65-115) H 12/31/22 03:36 Estimat Average Glucose 108 12/30/22 11:40 Hemoglobin A1c 5.4 % (4.0-6.0) 12/30/22 11:40 Calculated Osmolality 298 mOsm/kg (285-295) H 12/31/22 03:36 Lactic Acid 4.9 mmol/L (0.5-2.2) H* 12/30/22 11:40 Lactic Acid (Sepsis) 2.7 mmol/L (0.5-2.2) H 12/30/22 14:35 Calcium 8.3 mg/dL (8.5-10.5) L 12/31/22 03:36 Phosphorus 3.1 mg/dL (2.5-4.5) 12/31/22 03:36 Magnesium 1.8 mg/dL (1.7-2.3) 12/31/22 03:36 Ammonia 30 umol/L (11-51) 12/30/22 16:28 Creatine Kinase 77 U/L (26-192) 12/30/22 11:40 C-Reactive Protein 4.2 mg/L (0.0-4.9) 12/31/22 03:36 Vitamin B12 655 pg/mL (232-1245) 12/30/22 11:40 Procalcitonin 0.13 ng/mL (0-0.5) 12/30/22 11:40 TSH 1.79 uIU/mL (0.27-4.20) 12/30/22 11:40 Urine Color Yellow (Yellow) 12/30/22 15:10 Urine Appearance Sl hazy (CLEAR) A 12/30/22 15:10 Urine pH 5 (5-7) 12/30/22 15:10 Ur Specific [place] 1.025 (1.005-1.030) 12/30/22 15:10 Urine Protein Trace (Negative) 12/30/22 15:10 Urine Glucose (UA) Norm (Normal) 12/30/22 15:10 Urine Ketones 1+ (Negative) H 12/30/22 15:10 Urine Blood 2+ (Negative) H 12/30/22 15:10 Urine Nitrate Positive (Negative) H 12/30/22 15:10 Urine Bilirubin 1+ (Negative) H 12/30/22 15:10 Urine Urobilinogen Norm mg/dL (Negative) 12/30/22 15:10 Ur Leukocyte Esterase Trace (Negative) H 12/30/22 15:10 Urine RBC 0-4 /hpf (0-2) H 12/30/22 15:10 Urine WBC 0-4 /hpf (0-5) H 12/30/22 15:10 Ur Squamous Epith Cells 0-4 /hpf (0-5) H 12/30/22 15:10 Amorphous Sediment Not Reportable 12/30/22 15:10 Urine Bacteria 3+ /hpf (NONE) H 12/30/22 15:10 Blood Type O Positive 12/30/22 11:40 Rho(D) Type Positive 12/30/22 11:40 Antibody Screen Negative 12/30/22 11:40 Crossmatch See Detail 12/30/22 11:40 Vitals Last Vital Signs Temp 97.6 F 12/31/22 09:53 Pulse 83 12/31/22 10:16 Resp 16 12/31/22 10:16 BP 138/72 12/31/22 09:53 Pulse Ox 100 12/31/22 10:16 O2 Del Method Room Air 12/31/22 10:16 O2 Flow Rate 5 12/30/22 12:04 Discharge Plan Discharge Patient Disposition: Home Condition: Stable Prescriptions: New levofloxacin 750 mg tablet 750 mg PO DAILY 5 Days Qty: 5 0RF Continued meclizine 25 mg tablet 25 mg PO TID PRN (Reason: Dizziness) gabapentin 300 mg capsule See Rx Instructions .ROUTE .COMPLEX Rx Instructions: 300mg po in the am and 600mg in the pm tamsulosin 0.4 mg capsule 0.4 mg PO DAILY metformin 1,000 mg tablet 1,000 mg PO BID omeprazole 20 mg capsule,delayed release(DR/EC) 20 mg PO DAILY bupropion HCl 150 mg tablet extended release 24 hr 150 mg PO QAM cetirizine [Allergy Relief (cetirizine)] 10 mg tablet 10 mg PO DAILY isosorbide mononitrate 60 mg tablet extended release 24 hr 60 mg PO DAILY citalopram 20 mg tablet 20 mg PO DAILY clonidine HCl 0.1 mg tablet 0.1 mg PO BID spironolactone 50 mg tablet 50 mg PO DAILY atorvastatin 40 mg Tablet 40 mg PO BEDTIME 30 Days Qty: 30 3RF latanoprost 0.005 % drops 1 drp ophthalmic (eye) QPM amlodipine 2.5 mg Tablet 2.5 mg PO DAILY Held aspirin 81 mg Tablet,Delayed Release (Dr/Ec) 81 mg PO DAILY 30 Days Qty: 30 3RF Hold Instructions: Resume on 01/07/23. clopidogrel [Plavix] 75 mg tablet 75 mg PO DAILY Qty: 30 3RF Hold Instructions: Resume on 01/07/23. Discontinued Zonegran 100 mg capsule 300 mg PO QAM Discharge Orders: Discharge Order (Routine); Ordered 12/31/22 Ordered By: Jered Lo Referrals: Rich Rosa MD [Primary Care Provider] - 1 week Discharge Diet: GI Soft Discharge Activity: Increase activity as tolerated Patient Instructions: Opioid Safety Activity Restrictions/Additional Instructions: Please see your dental surgeon on Monday if possible and do not take aspirin or Plavix for at least 1 week Discharge Attestations Time Spent in Discharge Care*: greater than 30 min Status at Discharge: Cognitive status at discharge: cognitively intact, Behavioral status at discharge: cooperative, Quality Metrics Clinical Quality Measures [ No reported AMI, CVA or VTE this stay] Coding Level of Care Code Acute Code for Chg Fwd Diagnoses Altered mental status R41.82 Anemia D64.9 Medication side effect T88.7XXA Acute kidney injury superimposed on chronic kidney disease N17.9; N18.9 Functional neurological symptom disorder with attacks or seizures F44.5 Blood loss anemia D50.0
== END 2022-12-31 12:51 | disposition home or self-care (01) ==
LOC: ER 09:28 → MEDSURG 15:51
PROVIDERS: Admitting Provider Internal Medicine; Emergency Provider Family Medicine; PCP Family Medicine; Visit Provider Internal Medicine
DX: D50.0 Iron deficiency anemia secondary to blood loss (chronic) (principal); Z98.890 Other specified postprocedural states; N17.9 Acute kidney failure, unspecified; N18.9 Chronic kidney disease, unspecified; F44.5 Conversion disorder with seizures or convulsions; I05.9 Rheumatic mitral valve disease, unspecified; I35.8 Other nonrheumatic aortic valve disorders; Z79.82 Long term (current) use of aspirin; E11.9 Type 2 diabetes mellitus without complications; I10 Essential (primary) hypertension; G47.33 Obstructive sleep apnea (adult) (pediatric); Z86.73 Personal history of transient ischemic attack (TIA), and cerebral infarction without residual deficits; R42 Dizziness and giddiness; G43.711 Chronic migraine without aura, intractable, with status migrainosus; G45.0 Vertebro-basilar artery syndrome; G93.9 Disorder of brain, unspecified; N39.0 Urinary tract infection, site not specified
CPT/HCPCS: 36415; 36430; 36600; 70450; 71045; 80048; 80051; 81001; 82140; 82330; 82550; 82607; 82805; 83036; 83605; 83735; 84100; 84132; 84145; 84443; 85014; 85018; 85025; 86140; 86850; 86900; 86920; 87040; 87077; 87086; 87186; 93005; 93306; 96361; 96365; 96366; 96375; 96376; 99285; C9113; G0378; J0696; J2060; J2405; J7030; J7120; P9016

== ENCOUNTER 2023-01-04 08:18 | Emergency (ER) | payer MEDICAID, SELFPAY ==
[2023-01-04 08:20] VITALS: BP 132/88; PULSE 93; RESP 18; TEMP 36.9; O2SAT 100; BMI 28.3
--- NOTE | 2023-01-04 08:22 | XRR_ITS ---
PROCEDURE INFORMATION: Exam: XR Chest Exam date and time: 01/04/2023 8:28 AM Age: 62 years old Clinical indication: Cough and dyspnea and shortness of breath; Additional info: Dyspnea/cough.No history of trauma or recent surgery is provided. TECHNIQUE: Imaging protocol: Radiologic exam of the chest. 1image(s) are provided. Views: 1 view. COMPARISON: 1. CR XR chest 1V portable [id number] 12/30/2022 11:36 AM 2. CR XR chest 1V portable [id number] 10/19/2022 3:58 PM FINDINGS: Lungs: No lobar consolidation is appreciated. Pleural spaces: No pneumothorax or significant pleural effusion is appreciated. Heart/Mediastinum: The cardiomediastinal silhouette is within normal. No cardiac decompensation is appreciated. Diaphragm: The hemidiaphragms are symmetric. Bones/joints: Osseous alignment is maintained.No interval displaced fracture or dislocation is appreciated. Soft tissues: No radiopaque foreign body or subcutaneous emphysema is appreciated. Other findings: No significant interval changes are appreciated. XR/XR chest 1V portable [id number] IMPRESSION: No lobar consolidation is appreciated.No interval acute cardiopulmonary changes are appreciated.
--- NOTE | 2023-01-04 08:32 | W.ED.AMS ---
HPI - Altered Mental Status General: Chief Complaint: Altered Mental Status Stated Complaint: AMS Time Seen by Provider: 01/04/23 08:19 Source: patient and EMS Mode of arrival: EMS History of Present Illness: 62-year-old female presents emergency room via EMS with complaint of confusion and altered mental status. She has no acute neurologic deficits but is confused and disoriented she was seen a few days ago with protracted bleeding from dental extractions failed TXA and ultimately bleeding was stopped with application of topical Surgicel in the mouth. She did have significant blood loss and required a unit of blood. She had a functional neurologic episodes during that time as well. Last hospitalization notes were reviewed. They did discharge her home with her aspirin and Plavix on hold. She presents here denies any abdominal pain chest pain no difficulty breathing. She is arousable to verbal stimuli there is no focal neurologic deficits. Vital signs are stable no fever. MD complaint: confusion Onset (ago): day(s) Severity: mild Consistency of symptoms: Waxing and Waning Associated symptoms: Deny auditory hallucinations, visual hallucinations, delusions, depression, homicidal ideation, racing thoughts or suicidal ideation Review of Systems Const: Denies: fever(s) or chills Card: Denies: chest pain Resp: Denies: dyspnea GI: Denies: abdominal pain : Denies: dysuria, urinary frequency or urinary urgency Musc: Denies: neck pain or back pain Skin/Breast: Denies: rash Psych: Denies: depression, visual hallucinations, auditory hallucinations, suicidal ideation or homicidal ideation [facility] PFSH: Medical History Bipolar 1 disorder Diabetes mellitus DVT prophylaxis Fever Hypertension Injury, self-inflicted No pertinent family history ESTHER (obstructive sleep apnea) Right middle cerebral artery stroke Self-mutilation TIA (transient ischemic attack) Family History Father Sleep apnea Hypertension Mother Hypertension Social History Smoking and tobacco/nicotine status: never used tobacco/nicotine Alcohol intake: current Alcohol intake frequency: holidays/special occasions only Substance/Drug Use: never Current gender identity: Female Physical Exam Const: COMMON NORMALS: no acute distress GENERAL APPEARANCE: cooperative and comfortable ORIENTATION/CONSCIOUSNESS: Yes awake HENMT: COMMON NORMALS: normocephalic, atraumatic and hearing grossly normal bilaterally HEAD & SCALP: normocephalic and atraumatic Resp: COMMON NORMALS: normal respiratory effort, No retractions, No use of accessory muscles and clear to auscultation bilaterally AUSCULTATION: clear to auscultation bilaterally Cardio: COMMON NORMALS: regular rate, regular rhythm and No murmurs present (Cardio) RATE: regular rate RHYTHM: regular rhythm GI: COMMON NORMALS: Soft to palpation and No hepatosplenomegaly present AUSCULTATION: Yes normoactive bowel sounds PALPATION: Yes Soft to palpation, No Tenderness to palpation present (GI), No Guarding due to palpation present (GI) and Yes No hepatosplenomegaly present Extremity: COMMON NORMALS: normal to inspection, capillary refill normal, no clubbing, cyanosis or edema, no calf tenderness and no pedal edema Neuro: OTHER: No focal or lateralizing neurologic symptoms. Psych: THOUGHT CONTENT: No delusions Skin: COMMON NORMALS: no rashes or lesions noted GENERAL SKIN EXAM: no rashes or lesions noted Course Vital Signs: Vital signs: Vital Signs Temperature 98.5 F 01/04/23 08:20 Pulse Rate 82 01/04/23 10:24 Respiratory Rate 16 01/04/23 10:24 Blood Pressure 132/88 01/04/23 08:20 Pulse Oximetry 100 01/04/23 10:24 Oxygen Delivery Me thod Room Air 01/04/23 08:20 MDM - Altered Mental Status Medical Decision Making She did not have any bleeding from the mouth lesions. During the course of work-up she now has become awake and alert back at her baseline. She ambulated without difficulty we will discharge patient home continue to follow-up with neurology and dentistry as previously planned. Her hemoglobin is increased. Medical Records I reviewed the patient's medical records. Lab Data I reviewed the patient's lab results. 01/04/23 08:26 01/04/23 08:26 Radiology Impressions Chest X-Ray 01/04/23 08:22 IMPRESSION: No lobar consolidation is appreciated.No interval acute cardiopulmonary changes are appreciated. Laboratory Results WBC 6.65 10^3/uL (3.29-11.43) 01/04/23 08:26 RBC 3.21 10^6/uL (3.85-5.65) L 01/04/23 08: Hgb 9.60 g/dL (11.27-16.99) L 01/04/23 08: Hct 29.4 % (36-47) L 01/04/23 08: MCV 91.6 fl (85-98) 01/04/23 08: MCH 29.9 pg (27-33) 01/04/23 08: MCHC 32.7 g/dL (30-55) 01/04/23 08: RDW 13.4 % (12.1-15.1) 01/04/23 08: Plt Count 296 10^3/cmm (157-399) 01/04/23 08: MPV 9.5 fL (7.4-10.4) 01/04/23 08:26 Neut % (Auto) 66.7 % 01/04/23 08: Lymph % (Auto) 21.8 % 01/04/23 08:26 [place] % (Auto) 6.8 % 01/04/23 08:26 Eos % (Auto) 3.3 % 01/04/23 08:26 Baso % (Auto) 0.8 % 01/04/23 08: Neut # (Auto) 4.44 10^3/uL (1.8-7.7) 01/04/23 08: Lymph # (Auto) 1.5 10^3/uL (0.8-4.8) 01/04/23 08:26 [place] # (Auto) 0.5 10^3/uL (0.2-0.9) 01/04/23 08: Eos # (Auto) 0.2 10^3/uL (0.0-0.8) 01/04/23 08:26 Baso # (Auto) 0.1 10^3/uL (0.0-0.1) 01/04/23 08: Nucleated RBC % (auto) 0 % 01/04/23 08: Nucleated RBCs # 0.0 /100WBC 01/04/23 08:26 Sodium 144 mmol/L (136-145) 01/04/23 08:26 Potassium 3.5 mmol/L (3.5-5.1) 01/04/23 08:26 Chloride 109 mmol/L (98-107) H 01/04/23 08:26 Carbon Dioxide 19 mmol/L (22-29) L 01/04/23 08:26 Anion Gap 19.5 (5-19) H 01/04/23 08:26 BUN 20 mg/dL (8-23) 01/04/23 08: Creatinine 1.4 mg/dL (0.5-0.9) H 01/04/23 08:26 GFR Calculation 38.4 mL/min (90-130) L 01/04/23 08:26 Glucose 171 mg/dL (65-115) H 01/04/23 08:26 Calculated Osmolality 305 mOsm/kg (285-295) H 01/04/23 08:26 Calcium 9.8 mg/dL (8.5-10.5) 01/04/23 08:26 Total Bilirubin 0.3 mg/dL (0.15-1.2) 01/04/23 08: AST 10 U/L (0-32) 01/04/23 08:26 ALT 9 U/L (0-33) 01/04/23 08:26 Alkaline Phosphatase 81 U/L (35-105) 01/04/23 08:26 Total Protein 6.8 g/dL (6.6-8.7) 01/04/23 08:26 Albumin 4.5 g/dL (3.5-5.2) 01/04/23 08:26 Globulin 2.3 g/dL (1.3-4.6) 01/04/23 08:26 Urine Color Dark yellow (Yellow) 01/04/23 08:30 Urine Appearance Hazy (CLEAR) A 01/04/23 08:30 Urine pH 5 (5-7) 01/04/23 08:30 Ur Specific [employer] 1.030 (1.005-1.030) 01/04/23 08:30 Urine Protein 1+ (Negative) H 01/04/23 08:30 Urine Glucose (UA) Norm (Normal) 01/04/23 08:30 Urine Ketones 1+ (Negative) H 01/04/23 08:30 Urine Blood Neg (Negative) 01/04/23 08:30 Urine Nitrate Negative (Negative) 01/04/23 08:30 Urine Bilirubin 1+ (Negative) H 01/04/23 08:30 Urine Urobilinogen 1 mg/dL (Negative) H 01/04/23 08:30 Ur Leukocyte Esterase 2+ (Negative) H 01/04/23 08:30 Urine RBC 0-4 /hpf (0-2) H 01/04/23 08:30 Urine WBC 15-25 /hpf (0-5) H 01/04/23 08:30 Ur Squamous Epith Cells 5-10 /hpf (0-5) H 01/04/23 08:30 Calcium Oxalate Crystal 5-10 /hpf H 01/04/23 08:30 Amorphous Sediment Not Reportable 01/04/23 08:30 Urine Bacteria Trace /hpf (NONE) 01/04/23 08:30 Hyaline Casts 15-25 /lpf H 01/04/23 08:30 Urine Mucus 2+ /hpf 01/04/23 08:30 All radiology interpretation(s) finalized by discharge Discharge Plan Discharge Patient Disposition: Home Clinical Impression: Functional neurological symptom disorder with attacks or seizures, Anemia Condition: Stable Prescriptions: No Action meclizine 25 mg tablet 25 mg PO TID PRN (Reason: Dizziness) gabapentin 300 mg capsule See Rx Instructions .ROUTE .COMPLEX Rx Instructions: 300mg po in the am and 600mg in the pm tamsulosin 0.4 mg capsule 0.4 mg PO DAILY metformin 1,000 mg tablet 1,000 mg PO BID omeprazole 20 mg capsule,delayed release(DR/EC) 20 mg PO DAILY bupropion HCl 150 mg tablet extended release 24 hr 150 mg PO QAM cetirizine [Allergy Relief (cetirizine)] 10 mg tablet 10 mg PO DAILY isosorbide mononitrate 60 mg tablet extended release 24 hr 60 mg PO DAILY citalopram 20 mg tablet 20 mg PO DAILY clonidine HCl 0.1 mg tablet 0.1 mg PO BID spironolactone 50 mg tablet 50 mg PO DAILY atorvastatin 40 mg Tablet 40 mg PO BEDTIME 30 Days Qty: 30 3RF aspirin 81 mg Tablet,Delayed Release (Dr/Ec) 81 mg PO DAILY 30 Days Qty: 30 3RF Hold Instructions: Resume on 01/07/23. clopidogrel [Plavix] 75 mg tablet 75 mg PO DAILY Qty: 30 3RF Hold Instructions: Resume on 01/07/23. latanoprost 0.005 % drops 1 drp ophthalmic (eye) QPM amlodipine 2.5 mg Tablet 2.5 mg PO DAILY levofloxacin 750 mg tablet 750 mg PO DAILY 5 Days Qty: 5 0RF Discharge Orders: Discharge ED (Routine); Ordered 01/04/23 Ordered By: Meliton Stone Referrals: Rich Rosa MD [Primary Care Provider] - Patient Instructions: Opioid Safety, Pain Management Coding Level of Care Code ED Director Of Plant Operations for Janene Poon
[2023-01-04 08:33] LABS: Basophils # 0.1 10^3/uL (0.0-0.1); Basophils % 0.8 %; Eosinophils # 0.2 10^3/uL (0.0-0.8); Eosinophils % 3.3 %; Hematocrit 29.4 % (36-47); Lymphocytes # 1.5 10^3/uL (0.8-4.8); Lymphocytes % 21.8 %; Mean Corpuscular HGB Conc 32.7 g/dL (30-55); Mean Corpuscular Hemoglobin 29.9 pg (27-33); Mean Corpuscular Volume 91.6 fl (85-98); Mean Platelet Volume 9.5 fL (7.4-10.4); Monocytes # 0.5 10^3/uL (0.2-0.9); Monocytes % 6.8 %; Neutrophils # 4.44 10^3/uL (1.8-7.7); Neutrophils % 66.7 %; Nucleated Red Blood Cells % 0 %; Platelet Count 296 10^3/cmm (157-399); Red Blood Count 3.21 10^6/uL (3.85-5.65); Red Cell Distribution Width 13.4 % (12.1-15.1); White Blood Count 6.65 10^3/uL (3.29-11.43)
--- NOTE | 2023-01-04 08:46 | ECG_ITS ---
[facility] Test Date: 2023-01-04 Pat Name: Rebecca Sanderson Department: Room: Gender: Female Weight Engineer: : 1960 Requested By: Meliton Norris Order Number: [id number] Reading MD: Davian Interiano M.D. Measurements Intervals [place] Rate: 90 P: 42 [place]: 176 QRS: -14 QRSD: 69 T: 11 QT: 329 QTc: 404 Interpretive Statements SINUS RHYTHM LOW QRS VOLTAGE IN PRECORDIAL LEADS [QRS DEFLECTION < 1.0 mV IN CHEST LEADS] NONSPECIFIC ST & T-WAVE ABNORMALITY Compared to ECG 12/30/2022 11:34:06 Low QRS voltage now present T-wave abnormality now present Sinus tachycardia no longer present ST (T wave) deviation no longer present Electronically Signed On 01-04-2023 19:35:31 CDT by Davian Interiano M.D. [id number]
[2023-01-04 08:58] VITALS: PULSE 78; RESP 18; O2SAT 100
[2023-01-04 09:01] LABS: Alanine Aminotransferase 9 U/L (0-33); Albumin Level 4.5 g/dL (3.5-5.2); Alkaline Phosphatase 81 U/L (35-105); Anion Gap 19.5 (5-19); Aspartate Amino Transferase 10 U/L (0-32); Blood Urea Nitrogen 20 mg/dL (8-23); Calcium 9.8 mg/dL (8.5-10.5); Carbon Dioxide 19 mmol/L (22-29); Chloride 109 mmol/L (98-107); Globulin 2.3 g/dL (1.3-4.6); Glomerular Filtration Rate 38.4 mL/min (90-130); Glucose 171 mg/dL (65-115); Osmolality Calculated 305 mOsm/kg (285-295); Potassium 3.5 mmol/L (3.5-5.1); Sodium 144 mmol/L (136-145); Total Bilirubin 0.3 mg/dL (0.15-1.2); Total Protein 6.8 g/dL (6.6-8.7)
[2023-01-04 09:09] LABS: Blood Urine Neg (Negative); Glucose Urine UA Norm (Normal); Ketones Urine 1+ (Negative); Nitrate Urine Negative (Negative); Protein Urine 1+ (Negative); Urine Appearance Hazy (CLEAR); Urine Color Dark Yellow (Yellow); pH Urine 5 (5-7)
[2023-01-04 09:10] LABS: Add Urine Culture? Yes; Add Urine Microscopic? YES; Bacteria Urine TRACE /hpf; Bilirubin Urine 1+ (Negative); Hyaline Casts Urine 15-25 /lpf; Leukocyte Esterase Urine 2+ (Negative); Mucus Urine 2+ /hpf; RBC Urine 0-4 /hpf (0-2); Urobilinogen Urine 1 mg/dL (Negative); WBC Urine 15-25 /hpf (0-5)
[2023-01-04] MEDS: sodium chloride 0.9% 500 ML 999 ML IV (09:11)
--- NOTE | 2023-01-04 09:31 | PC.PHAR ---
waiting on a med list from [facility]
[2023-01-04 10:24] VITALS: PULSE 82; RESP 16; O2SAT 100
== END 2023-01-04 10:25 | disposition home or self-care (01) ==
PROVIDERS: Emergency Provider Family Medicine; PCP Family Medicine
DX: R29.818 Other symptoms and signs involving the nervous system (principal); D64.9 Anemia, unspecified; Z79.82 Long term (current) use of aspirin; Z79.02 Long term (current) use of antithrombotics/antiplatelets; Z79.84 Long term (current) use of oral hypoglycemic drugs; E11.9 Type 2 diabetes mellitus without complications; I10 Essential (primary) hypertension; Z86.73 Personal history of transient ischemic attack (TIA), and cerebral infarction without residual deficits
CPT/HCPCS: 71045; 80053; 81001; 85025; 87086; 93005; 99285; J7040

== ENCOUNTER 2023-03-21 10:47 | Emergency (ER) | payer MEDICAID, SELFPAY ==
[2023-03-21] VITALS (11 sets, daily range): BP systolic 133–174; BP diastolic 90–129; PULSE 93–125; TEMP 37.2; O2SAT 95–99; BMI 28.8
--- NOTE | 2023-03-21 10:51 | XR_ITS ---
WS: [id number] Portable AP upright chest, 03/21/2023 Clinical Data: dyspnea/cough Comparison: Portable chest, 01/04/2023 Findings: No nodules, masses or effusions are seen. The heart is normal. The pulmonary vascularity is not increased. No pneumonia or pneumothorax is seen. Monitor leads are on the chest wall. There is a slight dextroscoliosis. Impression: Negative chest.
--- NOTE | 2023-03-21 10:58 | ED_ITS ---
HPI - General Adult 2 General: Chief complaint: Chest Pain Stated complaint: high BP/ diff breathing Time Seen by Provider: 03/21/23 10:50 Source: patient Mode of arrival: ambulatory History of Present Illness: 62-year-old female presents emergency ro om complaining of rapid heart rate and elevated blood pressure. She was previously on anticoagulants for atrial fibrillation but is those were stopped. She is having some chest discomfort she is given nitro and aspirin in route. She is normally on clonidine but ran out and has been off of it the last couple of days. She is awake and alert she has some mild chest discomfort and slight nonproductive cough no fever. Onset (ago): hour(s) Associated symptoms: Deny chest pain, dyspnea or rash Review of Systems 2 Const: Denies: fever(s) or chills Card: Denies: chest pain Resp: Denies: dyspnea GI: Denies: abdominal pain : Denies: dysuria, urinary frequency or urinary urgency Musc: Denies: neck pain or back pain Skin/Breast: Denies: rash PFSH ED 2 PFSH: Medical History Blood loss anemia Medication side effect Anemia Altered mental status Acute kidney injury superimposed on chronic kidney disease Seizures Functional neurological symptom disorder with attacks or seizures Vertigo Chronic migraine without aura, intractable, with status migrainosus Diabetes mellitus Basilar artery insufficiency Temporal lobe lesion DVT prophylaxis Injury, self-inflicted Fever TIA (transient ischemic attack) No pertinent family history ESTHER (obstructive sleep apnea) Bipolar 1 disorder Self-mutilation Diabetes mellitus Hypertension Right middle cerebral artery stroke Family History Father Sleep apnea Hypertension Mother Hypertension Social History Smoking and tobacco/nicotine status: never used tobacco/nicotine Alcohol intake: current Alcohol intake frequency: holidays/special occasions only Substance/Drug Use: never Current gender identity: Female Physical Exam 2 Const: COMMON NORMALS: no acute distress GENERAL APPEARANCE: cooperative and comfortable ORIENTATION/CONSCIOUSNESS: Yes awake, Yes oriented to person, Yes oriented to place and Yes oriented to time HENMT: COMMON NORMALS: normocephalic, atraumatic and hearing grossly normal bilaterally HEAD & SCALP: normocephalic and atraumatic Resp: COMMON NORMALS: normal respiratory effort, No retractions, No use of accessory muscles and clear to auscultation bilaterally AUSCULTATION: clear to auscultation bilaterally Cardio: COMMON NORMALS: regular rate, regular rhythm and No murmurs present (Cardio) RATE: regular rate RHYTHM: regular rhythm GI: COMMON NORMALS: Soft to palpation and No hepatosplenomegaly present A USCULTATION: Yes normoactive bowel sounds PALPATION: Yes Soft to palpation, No Tenderness to palpation present (GI), No Guarding due to palpation present (GI) and Yes No hepatosplenomegaly present Extremity: COMMON NORMALS: normal to inspection, capillary refill normal, no clubbing, cyanosis or edema, no calf tenderness and no pedal edema Neuro: SENSORIUM/ORIENTATION: Yes oriented to person, Yes oriented to place and Yes oriented to time Skin: COMMON NORMALS: no rashes or lesions noted GENERAL SKIN EXAM: no rashes or lesions noted Course 2 Vital Signs: Vital signs: Vital Signs Temperature 99 F 03/21/23 10:48 Pulse Rate 94 03/21/23 14:30 Blood Pressure 134/90 03/21/23 14:30 Pulse Oximetry 95 03/21/23 14:30 Oxygen Delivery Me thod Room Air 03/21/23 14:30 [facility] - General Adult Medical Decision Making Labs imaging and EKGs reviewed. EKG does not show any acute ST elevation. She does have elevated blood pressure will start on Toprol-XL 25 p.o. daily. Reviewed findings with the patient. Lab Data 03/21/23 10:32 03/21/23 10:32 Laboratory Results WBC 5.94 10^3/uL (3.29-11.43) 03/21/23 10:32 RBC 4.48 10^6/uL (3.85-5.65) 03/21/23 10:32 Hgb 12.60 g/dL (11.27-16.99) 03/21/23 10:32 Hct 38.4 % (36-47) 03/21/23 10:32 MCV 85.7 fl (85-98) 03/21/23 10:32 MCH 28.1 pg (27-33) 03/21/23 10:32 MCHC 32.8 g/dL (30-55) 03/21/23 10:32 RDW 12.7 % (12.1-15.1) 03/21/23 10:32 Plt Count 246 10^3/cmm (157-399) 03/21/23 10:32 MPV 9.7 fL (7.4-10.4) 03/21/23 10:32 Neut % (Auto) 68.9 % 03/21/23 10:32 Lymph % (Auto) 15.8 % 03/21/23 10:32 Divide % (Auto) 13.3 % 03/21/23 10:32 Eos % (Auto) 0.7 % 03/21/23 10:32 Baso % (Auto) 1.0 % 03/21/23 10:32 Neut # (Auto) 4.09 10^3/uL (1.8-7.7) 03/21/23 10:32 Lymph # (Auto) 0.9 10^3/uL (0.8-4.8) 03/21/23 10:32 Divide # (Auto) 0.8 10^3/uL (0.2-0.9) 03/21/23 10:32 Eos # (Auto) 0.0 10^3/uL (0.0-0.8) 03/21/23 10:32 Baso # (Auto) 0.1 10^3/uL (0.0-0.1) 03/21/23 10:32 Nucleated RBC % (auto) 0 % 03/21/23 10:32 Nucleated RBCs # 0.0 /100WBC 03/21/23 10:32 D-Dimer <= 0.27 ug/mLFEU (0-0.59) 03/21/23 10:32 Sodium 141 mmol/L (136-145) 03/21/23 10:32 Potassium 4.4 mmol/L (3.5-5.1) 03/21/23 10:32 Chloride 103 mmol/L (98-107) 03/21/23 10:32 Carbon Dioxide 20 mmol/L (22-29) L 03/21/23 10:32 Anion Gap 22.4 (5-19) H 03/21/23 10:32 BUN 13 mg/dL (8-23) 03/21/23 10:32 Creatinine 1.3 mg/dL (0.5-0.9) H 03/21/23 10:32 GFR Calculation 41.8 mL/min (90-130) L 03/21/23 10:32 Glucose 136 mg/dL (65-115) H 03/21/23 10:32 Calculated Osmolality 294 mOsm/kg (285-295) 03/21/23 10:32 Calcium 10.2 mg/dL (8.5-10.5) 03/21/23 10:32 Total Bilirubin 0.4 mg/dL (0.15-1.2) 03/21/23 10:32 AST 14 U/L (0-32) 03/21/23 10:32 ALT 14 U/L (0-33) 03/21/23 10:32 Alkaline Phosphatase 115 U/L (35-105) H 03/21/23 10:32 Troponin T Baseline 12 ng/L (0-10) H 03/21/23 10:32 Troponin T 120 Minute 10.09 ng/L (0-10) H 03/21/23 12:32 Delta Troponin T -1.91 ABS# (0-10) L 03/21/23 12:32 Total Protein 7.4 g/dL (6.6-8.7) 03/21/23 10:32 Albumin 4.9 g/dL (3.5-5.2) 03/21/23 10:32 Globulin 2.5 g/dL (1.3-4.6) 03/21/23 10:32 All radiology interpretation(s) finalized by discharge Discharge Plan Discharge Patient Disposition: Home Clinical Impression: Atypical chest pain, HTN (hypertension) Condition: Stable Prescriptions: New Toprol XL 25 mg tablet extended release 24 hr 25 mg PO DAILY Qty: 30 0RF No Action gabapentin 300 mg capsule See Rx Instructions .ROUTE .COMPLEX Rx Instructions: 300mg po in the am and 600mg in the pm tamsulosin 0.4 mg capsule 0.4 mg PO QPM metformin 1,000 mg tablet 1,000 mg PO BID omeprazole 20 mg capsule,delayed release(DR/EC) 20 mg PO DAILY bupropion HCl 150 mg tablet extended release 24 hr 150 mg PO BEDTIME cetirizine [Allergy Relief (cetirizine)] 10 mg tablet 10 mg PO DAILY isosorbide mononitrate 60 mg tablet extended release 24 hr 60 mg PO DAILY citalopram 20 mg tablet 20 mg PO DAILY clonidine HCl 0.1 mg tablet 0.1 mg PO BID spironolactone 50 mg tablet 50 mg PO DAILY atorvastatin 40 mg Tablet 40 mg PO BEDTIME 30 Days Qty: 30 3RF aspirin 81 mg Tablet,Delayed Release (Dr/Ec) 81 mg PO DAILY 30 Days Qty: 30 3RF Hold Instructions: Resume on 01/07/23. clopidogrel [Plavix] 75 mg tablet 75 mg PO DAILY Qty: 30 3RF Hold Instructions: Resume on 01/07/23. latanoprost 0.005 % drops 1 drp ophthalmic (eye) QPM amlodipine 2.5 mg Tablet 2.5 mg PO BEDTIME zonisamide 100 mg Capsule 300 mg PO DAILY Discharge Orders: Discharge ED (Routine); Ordered 03/21/23 Ordered By: Meliton Stone Referrals: Rich Rosa MD [Primary Care Provider] - Discharge Diet: Usual diet Discharge Activity: Increase activity as tolerated Patient Instructions: Opioid Safety, Pain Management Activity Restrictions/Additional Instructions: Thank you for choosing [facility] for your healthcare needs today. Please realize this is an emergency room and that we are providing you with a medical screening exam and this may not be complete and all inclusive of all the testing and or work up that you may need to determine your ailment or severity of your illness. It is very important that you follow up as instructed or that you return to the Emergency Department should you have concerns or if your condition changes or worsens in any way. You are seen today for rapid heart rate and hypertension. Recommend to continue all of your current medications and also add metoprolol 25 mg daily and follow- up with your primary care doctor within the next week to reevaluate your blood pressure and return if you have further problems. Coding Level of Care Code ED [employer] for Janene Poon
[2023-03-21] MEDS: labetalol 5 mg/mL SDV 20mL 10 MG IVP (11:00)
--- NOTE | 2023-03-21 11:00 | ECG_ITS ---
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 Measurements Intervals [place] Rate: 120 P: 45 ME: 174 QRS: -27 QRSD: 60 T: 44 QT: 312 QTc: 442 Interpretive Statements SINUS TACHYCARDIA BORDERLINE LEFT AXIS DEVIATION [QRS AXIS < -20] NONSPECIFIC ST & T-WAVE ABNORMALITY ABNORMAL RHYTHM ECG Compared to ECG 01/04/2023 08:46:25 Sinus rhythm no longer present T-wave abnormality still present Electronically Signed On 03-21-2023 17:47:08 RETURNS CLERK by Davian Interiano M.D. [id number]
[2023-03-21 11:04] LABS: Basophils # 0.1 10^3/uL (0.0-0.1); Eosinophils % 0.7 %; Hematocrit 38.4 % (36-47); Lymphocytes # 0.9 10^3/uL (0.8-4.8); Lymphocytes % 15.8 %; Mean Corpuscular HGB Conc 32.8 g/dL (30-55); Mean Corpuscular Hemoglobin 28.1 pg (27-33); Mean Corpuscular Volume 85.7 fl (85-98); Mean Platelet Volume 9.7 fL (7.4-10.4); Monocytes # 0.8 10^3/uL (0.2-0.9); Monocytes % 13.3 %; Neutrophils # 4.09 10^3/uL (1.8-7.7); Neutrophils % 68.9 %; Nucleated Red Blood Cells % 0 %; Platelet Count 246 10^3/cmm (157-399); Red Blood Count 4.48 10^6/uL (3.85-5.65); Red Cell Distribution Width 12.7 % (12.1-15.1); White Blood Count 5.94 10^3/uL (3.29-11.43)
[2023-03-21] MEDS: amlodipine 5 mg Tablet PO (11:18)
[2023-03-21] MEDS: isosorbide mononitrate ER 60 mg Tablet PO (11:18)
[2023-03-21] MEDS: cloNIDine 0.1 mg Tablet PO (11:19)
[2023-03-21 11:21] LABS: Troponin(5th) Baseline 12 ng/L (0-10)
[2023-03-21 11:26] LABS: Alanine Aminotransferase 14 U/L (0-33); Albumin Level 4.9 g/dL (3.5-5.2); Alkaline Phosphatase 115 U/L (35-105); Anion Gap 22.4 (5-19); Aspartate Amino Transferase 14 U/L (0-32); Blood Urea Nitrogen 13 mg/dL (8-23); Calcium 10.2 mg/dL (8.5-10.5); Carbon Dioxide 20 mmol/L (22-29); Chloride 103 mmol/L (98-107); Globulin 2.5 g/dL (1.3-4.6); Glomerular Filtration Rate 41.8 mL/min (90-130); Glucose 136 mg/dL (65-115); Osmolality Calculated 294 mOsm/kg (285-295); Potassium 4.4 mmol/L (3.5-5.1); Sodium 141 mmol/L (136-145); Total Bilirubin 0.4 mg/dL (0.15-1.2); Total Protein 7.4 g/dL (6.6-8.7)
[2023-03-21 12:14] LABS: D Dimer <= 0.27 ug/mLFEU (0-0.59)
--- NOTE | 2023-03-21 12:35 | PC.PHAR ---
PT USES [facility] [phone]. FAXING MED LIST 12:36 03/21/23
--- NOTE | 2023-03-21 12:51 | ECG_ITS ---
[facility] Test Date: 2023-03-21 Pat Name: Rebecca Sanderson Department: Room: Gender: Female Completions Engineer: : 1960 Requested By: Meliton Norris Order Number: [id number] Sona MD: Davian Interiano M.D. Measurements Intervals [place] Rate: 104 P: 32 [place]: 172 QRS: -25 QRSD: 77 T: 36 QT: 334 QTc: 441 Interpretive Statements SINUS TACHYCARDIA POSSIBLE LEFT ATRIAL ENLARGEMENT [-0.1mV P-WAVE IN V1/V2] BORDERLINE LEFT AXIS DEVIATION [QRS AXIS < -20] NONSPECIFIC T-WAVE ABNORMALITY ABNORMAL RHYTHM ECG Compared to ECG 03/21/2023 11:00:02 No significant changes Electronically Signed On 03-21-2023 21:49:05 BIOLOGY DEPARTMENT CHAIR by Davian Interiano M.D. [id number]
[2023-03-21 12:57] LABS: Troponin 5 2HR 10.09 ng/L (0-10)
[2023-03-21 12:58] LABS: Troponin 5 2HR Delta -1.91 ABS# (0-10)
[2023-03-21] MEDS: metoprolol tartrate 1 mg/1 mL SDV 5 mL 2.5 MG IVP (14:06)
== END 2023-03-21 14:44 | disposition home or self-care (01) ==
PROVIDERS: Emergency Provider Family Medicine; PCP Family Medicine
DX: R07.89 Other chest pain (principal); Z79.02 Long term (current) use of antithrombotics/antiplatelets; Z79.82 Long term (current) use of aspirin; Z79.84 Long term (current) use of oral hypoglycemic drugs; E11.22 Type 2 diabetes mellitus with diabetic chronic kidney disease; I12.9 Hypertensive chronic kidney disease with stage 1 through stage 4 chronic kidney disease, or unspecified chronic kidney disease; N18.9 Chronic kidney disease, unspecified; Z86.73 Personal history of transient ischemic attack (TIA), and cerebral infarction without residual deficits
CPT/HCPCS: 36415; 71045; 80053; 84484; 85025; 85378; 93005; 96374; 96375; 99285; J3490

== ENCOUNTER 2023-05-30 02:40 | Emergency (ER) | payer MEDICAID, SELFPAY ==
[2023-05-30 02:46] VITALS: BP 117/72; PULSE 93; RESP 18; TEMP 38.3; O2SAT 97; BMI 28.3
[2023-05-30 04:23] VITALS: BP 94/65; PULSE 80; O2SAT 97
[2023-05-30 04:38] VITALS: BP 119/70; PULSE 78; O2SAT 97
--- NOTE | 2023-05-30 05:06 | XRR_ITS ---
PROCEDURE INFORMATION: Exam: XR Lumbosacral Spine Exam date and time: 05/30/2023 5:11 AM Age: 62 years old Clinical indication: Low back pain TECHNIQUE: Imaging protocol: Radiologic exam of the lumbosacral spine. Views: 2 or 3 views. Other contrast: Oral; COMPARISON: No relevant prior studies available. FINDINGS: Bones/joints: Mild anterolisthesis of L4 on L5. Mild diffuse demineralization. Mild disc space narrowing at L5-S1. The pedicles are intact. Soft tissues: The perivertebral soft tissues are normal. XR/XR lumbar spine 2-3V* [id number] IMPRESSION: 1. No acute findings. 2. Mild degenerative changes.
--- NOTE | 2023-05-30 05:49 | W.ED.GENADLT ---
HPI - General Adult General: Chief complaint: General Medical Stated complaint: weakness Time Seen by Provider: 05/30/23 02:56 History of Present Illness: 62-year-old female presents emergency department via EMS personnel stating she has no ability to move her legs. The patient states she had to crawl to the bathroom at home. Per EMS personnel the patient did stand and ambulate from her chair to the EMS cot. Patient states she is unable to raise her legs but is able to flex and extend her foot. When asked to bend her knee for evaluation patient was able to bend/flex both knees without difficulty. She states she also sees Dr. Ace for neurology for all over tingling sensation that she has had for quite some time. She states she has a history of a light stroke in December 2022 and currently takes Plavix and aspirin. She denies bowel or bladder incontinence or retention. Review of Systems Neuro: Reports: weakness in extremities [facility] ED PFSH: Medical History Blood loss anemia Medication side effect Anemia Altered mental status Acute kidney injury superimposed on chronic kidney disease Seizures Functional neurological symptom disorder with attacks or seizures Vertigo Chronic migraine without aura, intractable, with status migrainosus Diabetes mellitus Basilar artery insufficiency Temporal lobe lesion DVT prophylaxis Injury, self-inflicted Fever TIA (transient ischemic attack) No pertinent family history ESTHER (obstructive sleep apnea) Bipolar 1 disorder Self-mutilation Diabetes mellitus Hypertension Right middle cerebral artery stroke Family History Father Sleep apnea Hypertension Mother Hypertension Social History Smoking and tobacco/nicotine status: never used tobacco/nicotine Alcohol intake: current Alcohol intake frequency: holidays/special occasions only Substance/Drug Use: never Current gender identity: Female Physical Exam Narrative: EXAM NARRATIVE: Constitutional: the patient appears well nourished and with normal development. Vital signs reviewed as documented. HENMT: Normocephalic, atraumatic. External ears normal appearance without drainage. Nose without drainage, normal appearance. Mucus membranes moist. Neck is supple, No jugular venous distension, trachea is midline, no appreciable carotid bruits. No lymphadenopathy. No meningeal signs. Flexion, extension and lateral rotation is without pain. Eyes: Pupils are equal, round, reactive to light and accommodation. No scleral icterus. Extra-ocular movement are intact. Thorax is symmetrical and with equal rise and fall with respirations. Resp: Lungs are clear to auscultation. No wheezes, rales, crackles or ronchi at present. Cardio: Regular rate and rhythm. Positive S1, S2. No appreciable murmurs, rubs or gallops. GI: Abdominal exam reveals normal bowel sounds to all quadrants. No organomegaly. No obvious palpable masses noted. No hepatomegally appreciated. Soft, non-tender to palpation. Extremity: Extremities are non-edematous and both femoral and pedal pulses are 2+ and equal bilaterally. Moves all extremities well, sensation in all extremities. Neuro: Alert and oriented x4, person, place, time and situation. Cranial nerves II through XII are grossly intact, there is no focal neurological deficits that I can appreciate at present. Sensation intact to all extremities. 2-point discrimination intact. Light touch intact to all extremities. Motor strength in the upper and lower extremities are equal and bilateral 5/5. Psych: Cooperative, calm, normal thought process, appropriate judgment. Skin: No lesions, rashes. Patient does have a large healing bruise to the right buttocks area. She also has an abrasion to the right knee and to her right wrist. Back: Symmetrical, no obvious deformity, No CVA tenderness Course Reevaluation(s): Reevaluation #1: Patient sitting at bedside no difficulty or weakness in her lower extremities. The x-ray was completed without any difficulties and the patient flexing or extending her legs she was able to raise her legs up off the bed she states she feels much better and is ready to be discharged. I did advise her to follow-up with her primary care provider and call Dr. Ace her neurologist to discuss her presentation to the emergency department. Patient is in agreement with this plan. Time: 05:55 Vital Signs: Vital signs: Vital Signs Temperature 101.0 F H 05/30/23 02:46 Pulse Rate 77 05/30/23 05:54 Respiratory Rate 18 05/30/23 02:46 Blood Pressure 120/71 05/30/23 06:12 Pulse Oximetry 99 05/30/23 05:54 Oxygen Delivery Me thod Room Air 05/30/23 02:46 MDM - General Adult Medical Decision Making Physical exam completed and documented, I will obtain a x-ray of her lumbar spine. Medical Records I reviewed the patient's medical records. Lab Data Radiology Impressions Lumbar Spine X-Ray 05/30/23 05:06 IMPRESSION: 1. No acute findings. 2. Mild degenerative changes. All radiology interpretation(s) finalized by discharge Discharge Plan Discharge Patient Disposition: Home Clinical Impression: Muscle weakness-general Condition: Stable Prescriptions: No Action gabapentin 300 mg capsule See Rx Instructions .ROUTE .COMPLEX Rx Instructions: 300mg po in the am and 600mg in the pm tamsulosin 0.4 mg capsule 0.4 mg PO QPM metformin 1,000 mg tablet 1,000 mg PO BID omeprazole 20 mg capsule,delayed release(DR/EC) 20 mg PO DAILY bupropion HCl 150 mg tablet extended release 24 hr 150 mg PO BEDTIME cetirizine [Allergy Relief (cetirizine)] 10 mg tablet 10 mg PO DAILY isosorbide mononitrate 60 mg tablet extended release 24 hr 60 mg PO DAILY citalopram 20 mg tablet 20 mg PO DAILY clonidine HCl 0.1 mg tablet 0.1 mg PO BID spironolactone 50 mg tablet 50 mg PO DAILY atorvastatin 40 mg Tablet 40 mg PO BEDTIME 30 Days Qty: 30 3RF aspirin 81 mg Tablet,Delayed Release (Dr/Ec) 81 mg PO DAILY 30 Days Qty: 30 3RF Hold Instructions: Resume on 01/07/23. clopidogrel [Plavix] 75 mg tablet 75 mg PO DAILY Qty: 30 3RF Hold Instructions: Resume on 01/07/23. latanoprost 0.005 % drops 1 drp ophthalmic (eye) QPM amlodipine 2.5 mg Tablet 2.5 mg PO BEDTIME zonisamide 100 mg Capsule 300 mg PO DAILY Toprol XL 25 mg tablet extended release 24 hr 25 mg PO DAILY Qty: 30 0RF Discharge Orders: Discharge ED (Routine); Ordered 05/30/23 Ordered By: Yang Haddad Referrals: Rich Rosa MD [Primary Care Provider] - Discharge Diet: Usual diet Discharge Activity: Resume usual activity Patient Instructions: Opioid Safety, Pain Management Activity Restrictions/Additional Instructions: Activity Restrictions/Additional Instructions: Thank you for choosing [facility] for your healthcare needs today. Please realize that you were seen in the Emergency Department and that we are providing you with an emergency medical screening exam and this may not be a complete and all inclusive of all the testing and or medical work-up that you may need to determine your ailment or severity of your illness. It is very important that you follow-up as instructed with your Primary care provider or Specialist for additional evaluation and to discuss your medical treatment plan. Coding Level of Care Code ED [employer] for Janene Poon
[2023-05-30 05:54] VITALS: BP 120/71; PULSE 77; O2SAT 99
[2023-05-30 06:12] VITALS: BP 120/71
== END 2023-05-30 05:58 | disposition home or self-care (01) ==
PROVIDERS: Emergency Provider Internal Medicine; PCP Family Medicine
DX: M62.81 Muscle weakness (generalized) (principal); Z79.02 Long term (current) use of antithrombotics/antiplatelets; Z79.82 Long term (current) use of aspirin; Z79.84 Long term (current) use of oral hypoglycemic drugs; E11.22 Type 2 diabetes mellitus with diabetic chronic kidney disease; I12.9 Hypertensive chronic kidney disease with stage 1 through stage 4 chronic kidney disease, or unspecified chronic kidney disease; N18.9 Chronic kidney disease, unspecified; Z86.73 Personal history of transient ischemic attack (TIA), and cerebral infarction without residual deficits
CPT/HCPCS: 72100; 99283

== ENCOUNTER → 2023-07-10 11:09 | Outpatient (BNVA) | payer MEDICAID, SELFPAY | PROVIDERS: PCP Family Medicine; Visit Provider Specialist | DX: I63.511 Cerebral infarction due to unspecified occlusion or stenosis of right middle cerebral artery (principal); G43.711 Chronic migraine without aura, intractable, with status migrainosus; G93.9 Disorder of brain, unspecified; F44.5 Conversion disorder with seizures or convulsions; R29.90 Unspecified symptoms and signs involving the nervous system | CPT/HCPCS: 99214 ==

== ENCOUNTER → 2023-09-19 09:31 | Outpatient (BNVA) | payer MEDICAID, SELFPAY | PROVIDERS: PCP Family Medicine; Visit Provider Podiatrist Foot & Ankle Surgery | DX: L60.3 Nail dystrophy (principal); L84 Corns and callosities; G62.9 Polyneuropathy, unspecified; E11.42 Type 2 diabetes mellitus with diabetic polyneuropathy; Z79.84 Long term (current) use of oral hypoglycemic drugs | CPT/HCPCS: 11055; 11721; 99203 ==

== ENCOUNTER 2023-10-02 20:00 | Outpatient (CLI) | payer MEDICAID, SELFPAY | END 2023-10-02 20:01 | disposition home or self-care (01) | LOC: SLEEP 23:56 | PROVIDERS: PCP Family Medicine; Visit Provider Family Medicine | DX: G47.33 Obstructive sleep apnea (adult) (pediatric) (principal) | CPT/HCPCS: 95811 ==

== ENCOUNTER 2023-12-27 10:28 | Inpatient (IN) | payer MEDICAID, SELFPAY ==
[2023-12-27] VITALS (19 sets, daily range): BP systolic 88–128; BP diastolic 53–84; PULSE 47–102; RESP 9–17; TEMP 35.2–36.5; O2SAT 92–99; BMI 28.3; BMI 30.1
--- NOTE | 2023-12-27 10:32 | ECG_ITS ---
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: : 1960 Requested By: Luis Eduardo Rosales Order Number: [id number] Sona MD: CHUCHO IVEY Measurements Intervals [place] Rate: 50 P: 18 HI: 216 QRS: -24 QRSD: 93 T: 33 QT: 451 QTc: 412 Interpretive Statements SINUS BRADYCARDIA WITH FIRST DEGREE AV BLOCK POSSIBLE ANTERIOR MYOCARDIAL INFARCTION , PROBABLY OLD [30 ms Q WAVE IN V3/V4, OR R < 0.2 mV IN V4] Compared to ECG 03/21/2023 12:54:56 First degree AV block now present Myocardial infarct finding now present Sinus tachycardia no longer present T-wave abnormality no longer present Electronically Signed On 12-27-2023 20:11:46 CDT by CHUCHO IVEY [id number]
[2023-12-27 11:05] LABS: Basophils # 0.1 10^3/uL (0.0-0.1); Basophils % 1.1 %; Eosinophils # 0.3 10^3/uL (0.0-0.8); Eosinophils % 4.6 %; Hematocrit 34.2 % (36-47); Lymphocytes # 1.6 10^3/uL (0.8-4.8); Lymphocytes % 21.9 %; Mean Corpuscular HGB Conc 32.5 g/dL (30-55); Mean Corpuscular Hemoglobin 29.4 pg (27-33); Mean Corpuscular Volume 90.7 fl (85-98); Mean Platelet Volume 10.4 fL (7.4-10.4); Monocytes # 0.4 10^3/uL (0.2-0.9); Monocytes % 4.8 %; Neutrophils # 4.85 10^3/uL (1.8-7.7); Nucleated Red Blood Cells % 0 %; Platelet Count 341 10^3/cmm (157-399); Red Blood Count 3.77 10^6/uL (3.85-5.65); Red Cell Distribution Width 12.6 % (12.1-15.1); White Blood Count 7.23 10^3/uL (3.29-11.43)
--- NOTE | 2023-12-27 11:05 | W.ED.GENADLT ---
HPI - General Adult General: Chief complaint: General Medical Stated complaint: Weakness, HTN Time Seen by Provider: 12/27/23 10:33 History of Present Illness: 63-year-old female brought in via EMS for concern for low blood pressure. Patient has been having blood pressure issues on and off for a while and reports that her primary care provider has been making adjustments. Patient is also complaining of fibromyalgia this been going on for a while along with some jerking motions this been going on for at least a couple weeks if not longer. Patient has some generalized malaise and mainly complains of fibromyalgia but no other acute complaints. Associated symptoms: Deny dyspnea, nausea or vomiting Related Data Home Medications Medication Instructions Recorded Confirmed bupropion HCl 150 mg 24 hr tablet, 150 mg PO BEDTIME 12/14/22 12/27/23 extended release cetirizine 10 mg tablet (Allergy 10 mg PO DAILY 12/14/22 12/27/23 Relief (cetirizine)) citalopram 20 mg tablet 20 mg PO DAILY 12/14/22 12/27/23 isosorbide mononitrate 60 mg 60 mg PO DAILY 12/14/22 12/27/23 tablet,extended release 24 hr metformin 1,000 mg tablet 1,000 mg PO BID 12/14/22 12/27/23 omeprazole 20 mg capsule,delayed 20 mg PO BID 12/14/22 12/27/23 release spironolactone 50 mg tablet 50 mg PO DAILY 12/14/22 12/27/23 tamsulosin 0.4 mg capsule 0.4 mg PO QPM 12/14/22 12/27/23 latanoprost 0.005 % eye drops 1 drp ophthalmic (eye) QPM 12/30/22 12/27/23 amlodipine 10 mg tablet 10 mg PO DAILY 07/10/23 12/27/23 metoprolol succinate 50 mg 25 mg PO DAILY 07/10/23 12/27/23 tablet,extended release 24 hr clonidine HCl 0.2 mg tablet 0.2 mg PO BID 12/27/23 12/27/23 diclofenac sodium 75 mg 75 mg PO BID 12/27/23 12/27/23 tablet,delayed release oxybutynin chloride 10 mg 10 mg PO BEDTIME 12/27/23 12/27/23 tablet,extended release 24 hr pregabalin 200 mg capsule 200 mg PO BID 12/27/23 12/27/23 Previous Rx's Medication Instructions Recorded aspirin 81 mg tablet,delayed 81 mg PO DAILY 30 days #30 tabs 12/19/20 release atorvastatin 40 mg tablet 40 mg PO BEDTIME 30 days #30 tabs 12/19/20 clopidogrel 75 mg tablet (Plavix) 75 mg PO DAILY #30 tabs 12/19/20 diabetic shoes w/ 3 inserts #1 ea 09/19/23 Allergies Allergy/AdvReac Type Severity Reaction Status Date / Time penicillin G Allergy Mild breaks out Verified 09/19/23 09:38 in hives Penicillins Allergy ALGY-Hives Verified 09/19/23 09:38 Review of Systems Const: Denies: fever(s) or chills Resp: Denies: dyspnea or wheezing GI: Denies: abdominal pain, nausea or vomiting Musc: Reports: other Neuro: Reports: other (Please see HPI) [facility] ED PFSH: Medical History Blood loss anemia Medication side effect Anemia Altered mental status Acute kidney injury superimposed on chronic kidney disease Seizures Functional neurological symptom disorder with attacks or seizures Vertigo Chronic migraine without aura, intractable, with status migrainosus Diabetes mellitus Basilar artery insufficiency Temporal lobe lesion DVT prophylaxis Injury, self-inflicted Fever TIA (transient ischemic attack) No pertinent family history ESTHER (obstructive sleep apnea) Bipolar 1 disorder Self-mutilation Diabetes mellitus Hypertension Right middle cerebral artery stroke Family History Father Sleep apnea Hypertension Mother Hypertension Social History Smoking and tobacco/nicotine status: never used tobacco/nicotine Alcohol intake: current Alcohol intake frequency: holidays/special occasions only Substance/Drug Use: never Current gender identity: Female Physical Exam Const: COMMON NORMALS: patient oriented x3 GENERAL APPEARANCE: cooperative and appears older than stated age Resp: COMMON NORMALS: normal respiratory effort and No retractions Cardio: COMMON NORMALS: regular rhythm RATE: bradycardic RHYTHM: regular rhythm GI: COMMON NORMALS: Soft to palpation and non-tender PALPATION: Yes Soft to palpation Extremity: COMMON NORMALS: normal to inspection and full ROM Neuro: COMMON NORMALS: patient oriented x3, moves all extremities and no focal motor deficits Psych: COMMON NORMALS: mental status grossly normal and cooperative Course Vital Signs: Vital signs: Vital Signs Temperature 97.7 F 12/27/23 10:29 Pulse Rate 48 L 12/27/23 10:59 Respiratory Rate 14 12/27/23 10:29 Blood Pressure 88/58 12/27/23 10:59 Pulse Oximetry 99 12/27/23 10:59 Oxygen Delivery Me thod Room Air 12/27/23 10:59 MDM - General Adult Medical Decision Making Patient with acute kidney injury. As well as hyperkalemia on labs. Her hyperkalemia is likely due to her Jaycee. Patient is low blood pressure responded appropriately to labs. I suspect it may have to do with her medication adjustments that are being made. Patient will be admitted to Dr. Gonzales for further inpatient management. She is stable upon admission. Lab Data 12/27/23 10:14 12/27/23 10:14 Laboratory Results WBC 7.23 10^3/uL (3.29-11.43) 12/27/23 10:14 RBC 3.77 10^6/uL (3.85-5.65) L 12/27/23 10:14 Hgb 11.10 g/dL (11.27-16.99) L 12/27/23 10:14 Hct 34.2 % (36-47) L 12/27/23 10:14 MCV 90.7 fl (85-98) 12/27/23 10:14 MCH 29.4 pg (27-33) 12/27/23 10:14 MCHC 32.5 g/dL (30-55) 12/27/23 10:14 RDW 12.6 % (12.1-15.1) 12/27/23 10:14 Plt Count 341 10^3/cmm (157-399) 12/27/23 10:14 MPV 10.4 fL (7.4-10.4) 12/27/23 10:14 Neut % (Auto) 67.0 % 12/27/23 10:14 Lymph % (Auto) 21.9 % 12/27/23 10:14 [place] % (Auto) 4.8 % 12/27/23 10:14 Eos % (Auto) 4.6 % 12/27/23 10:14 Baso % (Auto) 1.1 % 12/27/23 10:14 Neut # (Auto) 4.85 10^3/uL (1.8-7.7) 12/27/23 10:14 Lymph # (Auto) 1.6 10^3/uL (0.8-4.8) 12/27/23 10:14 [place] # (Auto) 0.4 10^3/uL (0.2-0.9) 12/27/23 10:14 Eos # (Auto) 0.3 10^3/uL (0.0-0.8) 12/27/23 10:14 Baso # (Auto) 0.1 10^3/uL (0.0-0.1) 12/27/23 10:14 Nucleated RBC % (auto) 0 % 12/27/23 10:14 Nucleated RBCs # 0.0 /100WBC 12/27/23 10:14 Sodium 138 mmol/L (136-145) 12/27/23 10:14 Potassium 6.6 mmol/L (3.5-5.1) H* 12/27/23 10:14 Chloride 107 mmol/L (98-107) 12/27/23 10:14 Carbon Dioxide 18 mmol/L (22-29) L 12/27/23 10:14 Anion Gap 19.6 (5-19) H 12/27/23 10:14 BUN 30 mg/dL (8-23) H 12/27/23 10:14 Creatinine 1.9 mg/dL (0.5-0.9) H 12/27/23 10:14 GFR Calculation 26.9 mL/min (90-130) L 12/27/23 10:14 Glucose 93 mg/dL (65-115) 12/27/23 10:14 POC Glucose 210 mg/dL (70-110) H 12/27/23 12:38 Calculated Osmolality 292 mOsm/kg (285-295) 12/27/23 10:14 Calcium 9.2 mg/dL (8.5-10.5) 12/27/23 10:14 Magnesium 1.7 mg/dL (1.7-2.3) 12/27/23 10:14 All radiology interpretation(s) finalized by discharge Discharge Plan Discharge Condition: Stable Prescriptions: No Action tamsulosin 0.4 mg capsule 0.4 mg PO QPM metformin 1,000 mg tablet 1,000 mg PO BID omeprazole 20 mg capsule,delayed release(DR/EC) 20 mg PO BID bupropion HCl 150 mg tablet extended release 24 hr 150 mg PO BEDTIME cetirizine [Allergy Relief (cetirizine)] 10 mg tablet 10 mg PO DAILY isosorbide mononitrate 60 mg tablet extended release 24 hr 60 mg PO DAILY citalopram 20 mg tablet 20 mg PO DAILY spironolactone 50 mg tablet 50 mg PO DAILY (DME) diabetic shoes w/ 3 inserts See Rx Instructions .Route .MEDSUPPLY Qty: 1 0RF Rx Instructions: As directed by the briseydae callie metoprolol succinate 50 mg tablet extended release 24 hr 25 mg PO DAILY Rx Instructions: take 1/2 tablet by mouth at bedtime amlodipine 10 mg tablet 10 mg PO DAILY atorvastatin 40 mg Tablet 40 mg PO BEDTIME 30 Days Qty: 30 3RF aspirin 81 mg Tablet,Delayed Release (Dr/Ec) 81 mg PO DAILY 30 Days Qty: 30 3RF Hold Instructions: Resume on 01/07/23. clopidogrel [Plavix] 75 mg tablet 75 mg PO DAILY Qty: 30 3RF Hold Instructions: Resume on 01/07/23. latanoprost 0.005 % drops 1 drp ophthalmic (eye) QPM clonidine HCl 0.2 mg Tablet 0.2 mg PO BID oxybutynin chloride 10 mg tablet extended release 24hr 10 mg PO BEDTIME diclofenac sodium 75 mg tablet,delayed release (DR/EC) 75 mg PO BID pregabalin 200 mg capsule 200 mg PO BID Referrals: Rich Rosa MD [Primary Care Provider] - Coding Level of Care Code ED Print Buyer for Janene Poon
[2023-12-27] MEDS: sodium chloride 0.9% 1,000 ML 999 ML IV (11:14)
[2023-12-27 11:16] LABS: Anion Gap 19.6 (5-19); Blood Urea Nitrogen 30 mg/dL (8-23); Calcium 9.2 mg/dL (8.5-10.5); Carbon Dioxide 18 mmol/L (22-29); Chloride 107 mmol/L (98-107); Glomerular Filtration Rate 26.9 mL/min (90-130); Glucose 93 mg/dL (65-115); Magnesium 1.7 mg/dL (1.7-2.3); Osmolality Calculated 292 mOsm/kg (285-295); Sodium 138 mmol/L (136-145)
[2023-12-27 11:17] LABS: Creatinine Clr Calc Pharmacy 29.6825; Potassium 6.6 mmol/L (3.5-5.1)
[2023-12-27] MEDS: dextrose 5%-sod chloride 0.45% 1,000 ML 75 ML IV (11:31)
[2023-12-27] MEDS: insulin regular-human 100 units/1 mL 10 UNIT IVP (11:36)
[2023-12-27 12:17] LABS: Glucose Point of Care 32 mg/dL (70-110)
[2023-12-27] MEDS: dextrose 50% syringe 50 mL IVP (12:22)
[2023-12-27 12:41] LABS: Glucose Point of Care 210 mg/dL (70-110)
--- NOTE | 2023-12-27 12:52 | P.HP_ITS ---
Providers/Chief Complaint 2 Primary Care Provider: Rich Rosa MD Chief Complaint: Weakness, HTN History of Present Illness Rebecca Sanderson is a 63 year old female Medications/Allergies Home Medications Medication Instructions Recorded Confirmed Last Taken Type aspirin 81 mg tablet,delayed 81 mg PO DAILY 30 days #30 tabs 12/19/20 12/27/23 12/27/23 Rx release atorvastatin 40 mg tablet 40 mg PO BEDTIME 30 days #30 tabs 12/19/20 12/27/23 12/26/23 Rx clopidogrel 75 mg tablet (Plavix) 75 mg PO DAILY #30 tabs 12/19/20 12/27/23 12/27/23 Rx bupropion HCl 150 mg 24 hr tablet, 150 mg PO BEDTIME 12/14/22 12/27/23 12/26/23 History extended release cetirizine 10 mg tablet (Allergy 10 mg PO DAILY 12/14/22 12/27/23 12/27/23 History Relief (cetirizine)) citalopram 20 mg tablet 20 mg PO DAILY 12/14/22 12/27/23 12/27/23 History isosorbide mononitrate 60 mg 60 mg PO DAILY 12/14/22 12/27/23 12/27/23 History tablet,extended release 24 hr metformin 1,000 mg tablet 1,000 mg PO BID 12/14/22 12/27/23 12/27/23 History omeprazole 20 mg capsule,delayed 20 mg PO BID 12/14/22 12/27/23 12/27/23 History release spironolactone 50 mg tablet 50 mg PO DAILY 12/14/22 12/27/23 12/27/23 History tamsulosin 0.4 mg capsule 0.4 mg PO QPM 12/14/22 12/27/23 12/26/23 History latanoprost 0.005 % eye drops 1 drp ophthalmic (eye) QPM 12/30/22 12/27/23 12/27/23 History amlodipine 10 mg tablet 10 mg PO DAILY 07/10/23 12/27/23 12/27/23 History metoprolol succinate 50 mg 25 mg PO DAILY 07/10/23 12/27/23 12/27/23 History tablet,extended release 24 hr diabetic shoes w/ 3 inserts #1 ea 09/19/23 12/27/23 Unknown Rx clonidine HCl 0.2 mg tablet 0.2 mg PO BID 12/27/23 12/27/23 Unknown History diclofenac sodium 75 mg 75 mg PO BID 12/27/23 12/27/23 Unknown History tablet,delayed release oxybutynin chloride 10 mg 10 mg PO BEDTIME 12/27/23 12/27/23 Unknown History tablet,extended release 24 hr pregabalin 200 mg capsule 200 mg PO BID 12/27/23 12/27/23 Unknown History Allergies Allergy/AdvReac Type Severity Reaction Status Date / Time penicillin G Allergy Mild breaks out Verified 09/19/23 09:38 in hives Penicillins Allergy ALGY-Hives Verified 09/19/23 09:38 PFSH Acute 2 PFSH: Medical History Blood loss anemia Medication side effect Anemia Altered mental status Acute kidney injury superimposed on chronic kidney disease Seizures Functional neurological symptom disorder with attacks or seizures Vertigo Chronic migraine without aura, intractable, with status migrainosus Diabetes mellitus Basilar artery insufficiency Temporal lobe lesion DVT prophylaxis Injury, self-inflicted Fever TIA (transient ischemic attack) No pertinent family history ESTHER (obstructive sleep apnea) Bipolar 1 disorder Self-mutilation Diabetes mellitus Hypertension Right middle cerebral artery stroke Family History Father Sleep apnea Hypertension Mother Hypertension Social History Smoking and tobacco/nicotine status: never used tobacco/nicotine Alcohol intake: current Alcohol intake frequency: holidays/special occasions only Substance/Drug Use: never Current gender identity: Female Vitals/I&O/Wt Last Vital Signs Temp 97.7 F 12/27/23 10:29 Pulse 48 L 12/27/23 10:59 Resp 14 12/27/23 10:29 BP 88/58 12/27/23 10:59 Pulse Ox 99 12/27/23 10:59 O2 Del Method Room Air 12/27/23 10:59 Weight last 48 hrs Weight 72.575 kg Data 12/27/23 10:14 12/27/23 10:14 Coding Level of Care Code Acute Code for Janene Poon
[2023-12-27 13:48] LABS: Glucose Point of Care 111 mg/dL (70-110)
--- NOTE | 2023-12-27 13:53 | P.HP_ITS ---
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 Patient is concerned about her coarse tremors of extremities. Her medications have been adjusted by PCP. She carries history of fibromyalgia as well. In the ER she was diagnosed with LUÍS creatinine 1.9 and hyperkalemia, she was given hyperkalemia cocktail which caused hypoglycemia, currently she is on D5 half-normal saline at 75 mL/h Patient is not endorsing any nausea, vomiting or diarrhea stating that she is very compliant with her medications, she took all of her antihypertensive regimen today without checking her blood pressure. She was feeling a little lethargic and fatigued when checked her blood pressure it was low that prompted her visit to the ER. Review of Systems 2 Const: Denies: fever(s) Eyes: Denies: change in vision ENMT: Denies: throat pain Card: Denies: chest pain Resp: Denies: dyspnea Medications/Allergies Home Medications Medication Instructions Recorded Confirmed Last Taken Type aspirin 81 mg tablet,delayed 81 mg PO DAILY 30 days #30 tabs 12/19/20 12/27/23 12/27/23 Rx release atorvastatin 40 mg tablet 40 mg PO BEDTIME 30 days #30 tabs 12/19/20 12/27/23 12/26/23 Rx clopidogrel 75 mg tablet (Plavix) 75 mg PO DAILY #30 tabs 12/19/20 12/27/23 12/27/23 Rx bupropion HCl 150 mg 24 hr tablet, 150 mg PO BEDTIME 12/14/22 12/27/23 12/26/23 History extended release cetirizine 10 mg tablet (Allergy 10 mg PO DAILY 12/14/22 12/27/23 12/27/23 History Relief (cetirizine)) citalopram 20 mg tablet 20 mg PO DAILY 12/14/22 12/27/23 12/27/23 History isosorbide mononitrate 60 mg 60 mg PO DAILY 12/14/22 12/27/23 12/27/23 History tablet,extended release 24 hr metformin 1,000 mg tablet 1,000 mg PO BID 12/14/22 12/27/23 12/27/23 History omeprazole 20 mg capsule,delayed 20 mg PO BID 12/14/22 12/27/23 12/27/23 History release spironolactone 50 mg tablet 50 mg PO DAILY 12/14/22 12/27/23 12/27/23 History tamsulosin 0.4 mg capsule 0.4 mg PO QPM 12/14/22 12/27/23 12/26/23 History latanoprost 0.005 % eye drops 1 drp ophthalmic (eye) QPM 12/30/22 12/27/23 12/27/23 History amlodipine 10 mg tablet 10 mg PO DAILY 07/10/23 12/27/23 12/27/23 History metoprolol succinate 50 mg 25 mg PO DAILY 07/10/23 12/27/23 12/27/23 History tablet,extended release 24 hr diabetic shoes w/ 3 inserts #1 ea 09/19/23 12/27/23 Unknown Rx clonidine HCl 0.2 mg tablet 0.2 mg PO BID 12/27/23 12/27/23 Unknown History diclofenac sodium 75 mg 75 mg PO BID 12/27/23 12/27/23 Unknown History tablet,delayed release oxybutynin chloride 10 mg 10 mg PO BEDTIME 12/27/23 12/27/23 Unknown History tablet,extended release 24 hr pregabalin 200 mg capsule 200 mg PO BID 12/27/23 12/27/23 Unknown History Allergies Allergy/AdvReac Type Severity Reaction Status Date / Time penicillin G Allergy Mild breaks out Verified 09/19/23 09:38 in hives Penicillins Allergy ALGY-Hives Verified 09/19/23 09:38 PFSH Acute 2 PFSH: Medical History Blood loss anemia Medication side effect Anemia Altered mental status Acute kidney injury superimposed on chronic kidney disease Seizures Functional neurological symptom disorder with attacks or seizures Vertigo Chronic migraine without aura, intractable, with status migrainosus Diabetes mellitus Basilar artery insufficiency Temporal lobe lesion DVT prophylaxis Injury, self-inflicted Fever TIA (transient ischemic attack) No pertinent family history ESTHER (obstructive sleep apnea) Bipolar 1 disorder Self-mutilation Diabetes mellitus Hypertension Right middle cerebral artery stroke Family History Father Sleep apnea Hypertension Mother Hypertension Social History Smoking and tobacco/nicotine status: never used tobacco/nicotine Alcohol intake: current Alcohol intake frequency: holidays/special occasions only Substance/Drug Use: never Current gender identity: Female Vitals/I&O/Wt Last Vital Signs Temp 97.7 F 12/27/23 10:29 Pulse 53 L 12/27/23 13:16 Resp 14 12/27/23 10:29 BP 96/61 12/27/23 13:16 Pulse Ox 96 12/27/23 13:16 O2 Del Method Room Air 12/27/23 13:16 Weight last 48 hrs Weight 72.575 kg Physical Exam 2 Narrative: Pleasant cooperative GCS 15 Bradycardic Blood pressure 96/61-minute juan Awake and alert Pleasant cooperative No active focal deficit Looks euvolemic GCS 15 Pleasant cooperative On room air Data 12/27/23 10:14 12/27/23 13:03 A&P Assessment and plan (1) Functional neurological symptom disorder with attacks or seizures: (2) Type 2 diabetes mellitus: (3) Peripheral neuropathy: (4) Polypharmacy: (5) Acute kidney injury superimposed on chronic kidney disease: (6) Hyperkalemia: (7) Metabolic acidosis: Plan LUÍS related to nephrotoxic agents Acute on chronic kidney disease Mild metabolic acidosis Hold spironolactone, NSAIDs Discontinue metformin IV fluid hydration Monitor for urinary retention Hypotension, discontinue clonidine, Imdur, metoprolol, spironolactone at this point Patient will need IV fluid hydration No signs of sepsis, she is afebrile, no leukocytosis Patient seems to have dementia with cognitive impairment this was also noted on previous records Neuro conversion disorder She has seen Dr. 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 Ace as well Full code Regular diet Suffering from polypharmacy DVT prophylaxis heparin Attestations 2 Medical Necessity Statement*: Anticipating more than 2 midnights for management of acute on chronic kidney disease with hyperkalemia Diagnoses Functional neurological symptom disorder with attacks or seizures F44.5 Type 2 diabetes mellitus E11.9 Peripheral neuropathy G62.9 Polypharmacy Z79.899 Acute kidney injury superimposed on chronic kidney disease N17.9; N18.9 Hyperkalemia E87.5 Metabolic acidosis E87.20
[2023-12-27 14:00] LABS: Amphetamines Screen Urine Negative (Negative); Barbiturates Screen Urine Negative (Negative); Benzodiazepines Screen Urine Negative (Negative); Cocaine Screen Urine Negative (Negative); Opiate Screen Urine Negative (Negative); PCP Screen Urine Negative (Negative); THC Screen Urine Negative (Negative)
[2023-12-27 14:10] LABS: Anion Gap 14.6 (5-19); Blood Urea Nitrogen 29 mg/dL (8-23); Calcium 7.8 mg/dL (8.5-10.5); Carbon Dioxide 16 mmol/L (22-29); Chloride 113 mmol/L (98-107); Creatinine Clr Calc Pharmacy 33.1745; Glomerular Filtration Rate 30.6 mL/min (90-130); Glucose 157 mg/dL (65-115); Osmolality Calculated 295 mOsm/kg (285-295); Potassium 5.6 mmol/L (3.5-5.1); Sodium 138 mmol/L (136-145)
[2023-12-27 15:06] LABS: Glucose Point of Care 94 mg/dL (70-110)
[2023-12-27 15:13] LABS: Bilirubin Urine Negative (Negative); Blood Urine Negative (Negative); Glucose Urine UA Negative (Normal); Ketones Urine Negative (Negative); Leukocyte Esterase Urine 3+ (Negative); Nitrate Urine Negative (Negative); Protein Urine Negative (Negative); Specific Gravity, Urine 1.013 (1.005-1.030); Urine Appearance Cloudy (CLEAR); Urine Color Yellow (Yellow); pH Urine 5.5 (5-7)
[2023-12-27 15:15] LABS: Add Urine Microscopic? YES; Bacteria Urine 4+ /hpf; Hyaline Casts Urine 2.05 /lpf; RBC Urine 0-2 /hpf (0-2); Squamous Epithelial Cell Urine 0-5 /hpf (0-5); WBC Urine 21-50 /hpf (0-5)
[2023-12-27 15:18] LABS: Add Urine Culture? Yes
[2023-12-27 17:57] LABS: Glucose Point of Care 113 mg/dL (70-110)
[2023-12-27] MEDS: heparin 5,000 unit/mL INJ 1 mL 5000 UNIT SUBCUT (18:25)
[2023-12-27] MEDS: tamsulosin 0.4 mg Capsule PO (18:25)
[2023-12-27] MEDS: sodium bicarbonate 650 mg Tablet PO ×2 (18:25→20:58)
[2023-12-27] MEDS: pantoprazole DR 40 mg Tablet PO (18:25)
--- NOTE | 2023-12-27 18:39 | PC.NURSE ---
Patient's temperature is 95.6 after and hour on the bare hugger used to warm her up. Blood sugar is 113. Dr. Gonzales gave a verbal order to transfer patient to the ICU.
--- NOTE | 2023-12-27 18:47 | PHA.VACGOAL ---
Vancomycin Goal - Goal Vancomycin Goal:: 15-20 mg/L Vancomycin Indication:: Other (SEPSIS) - Therapy Current therapy:: Pip/Tazo Day of therpy:: Day [1]of [] . Actual body weight (kg): 77.111 kg - Data Labs: WBC 7.23 10^3/uL (3.29-11.43) 12/27/23 10:14 RBC 3.77 10^6/uL (3.85-5.65) L 12/27/23 10:14 Hgb 11.10 g/dL (11.27-16.99) L 12/27/23 10:14 Hct 34.2 % (36-47) L 12/27/23 10:14 MCV 90.7 fl (85-98) 12/27/23 10:14 MCH 29.4 pg (27-33) 12/27/23 10:14 MCHC 32.5 g/dL (30-55) 12/27/23 10:14 RDW 12.6 % (12.1-15.1) 12/27/23 10:14 Sodium 138 mmol/L (136-145) 12/27/23 13:03 Potassium 5.6 mmol/L (3.5-5.1) H 12/27/23 13:03 Chloride 113 mmol/L (98-107) H 12/27/23 13:03 Carbon Dioxide 16 mmol/L (22-29) L 12/27/23 13:03 Anion Gap 14.6 (5-19) 12/27/23 13:03 BUN 29 mg/dL (8-23) H 12/27/23 13:03 Creatinine 1.7 mg/dL (0.5-0.9) H 12/27/23 13:03 GFR Calculation 30.6 mL/min (90-130) L 12/27/23 13:03 Treatment plan:: new consult Regimen:: Patient is new start of Vancomycin for Indication of Sepsis. 2000 mg loading dose ordered and a maintenance dose of 1000 mg q24 hours. Pharmacy will monitor daily.
[2023-12-27 18:56] LABS: Anion Gap 12.7 (5-19); Blood Urea Nitrogen 27 mg/dL (8-23); Calcium 8.4 mg/dL (8.5-10.5); Carbon Dioxide 18 mmol/L (22-29); Chloride 111 mmol/L (98-107); Creatinine Clr Calc Pharmacy 36.3055; Glomerular Filtration Rate 32.8 mL/min (90-130); Glucose 111 mg/dL (65-115); Osmolality Calculated 288 mOsm/kg (285-295); Potassium 5.7 mmol/L (3.5-5.1); Sodium 136 mmol/L (136-145)
[2023-12-27] MEDS: vancomycin 2,000 MG/400 ML PIGGYBACK 200 MG IV (19:41)
[2023-12-27] MEDS: oxybutynin chloride XL 5 MG TABLET 10 MG PO (20:58)
[2023-12-27] MEDS: piperacillin-tazobactam 3.375 GM in sodium chloride 0.9% (plus) 50 ML IV (20:58)
[2023-12-27] MEDS: atorvastatin 40 mg Tablet PO (20:58)
[2023-12-27 21:53] LABS: Thyroid Stimulating Hormone 1.03 uIU/mL (0.27-4.20)
--- NOTE | 2023-12-27 22:00 | PC.NURSE ---
Blood sugar: Patient's blood sugar was 168 and had an order for sliding scale insulin, patient also had d5 1/2 NS running at 75mL/hr. Dr. Rondon was contacted and informed of ordered meds, gave this nurse telephone orders to hold ordered evening dose of insulin and stop d5 1/2 ns drip but recheck blood sugars periodically.
[2023-12-27 23:12] LABS: Glucose Point of Care 163 mg/dL (70-110)
[2023-12-28] VITALS (34 sets, daily range): BP systolic 120–182; BP diastolic 72–105; PULSE 48–88; RESP 7–19; TEMP 36.8–37.1; O2SAT 94–100; BMI 30.2
[2023-12-28] MEDS: piperacillin-tazobactam 3.375 GM in sodium chloride 0.9% (plus) 50 ML IV ×3 (04:12→20:11)
[2023-12-28] MEDS: heparin 5,000 unit/mL INJ 1 mL 5000 UNIT SUBCUT ×2 (04:12→17:26)
[2023-12-28 05:51] LABS: Basophils % 0.7 %; Eosinophils # 0.3 10^3/uL (0.0-0.8); Eosinophils % 4.5 %; Hematocrit 32.6 % (36-47); Lymphocytes # 1.4 10^3/uL (0.8-4.8); Lymphocytes % 22.4 %; Mean Corpuscular HGB Conc 31.6 g/dL (30-55); Mean Corpuscular Hemoglobin 29.4 pg (27-33); Mean Corpuscular Volume 93.1 fl (85-98); Mean Platelet Volume 10.6 fL (7.4-10.4); Monocytes # 0.4 10^3/uL (0.2-0.9); Monocytes % 6.1 %; Neutrophils # 3.98 10^3/uL (1.8-7.7); Nucleated Red Blood Cells % 0 %; Platelet Count 239 10^3/cmm (157-399); Red Cell Distribution Width 12.4 % (12.1-15.1); White Blood Count 6.03 10^3/uL (3.29-11.43)
[2023-12-28 06:12] LABS: Blood Urea Nitrogen 24 mg/dL (8-23); Calcium 8.6 mg/dL (8.5-10.5); Carbon Dioxide 17 mmol/L (22-29); Chloride 115 mmol/L (98-107); Creatinine Clr Calc Pharmacy 38.8226; Glomerular Filtration Rate 35.3 mL/min (90-130); Glucose 126 mg/dL (65-115); Magnesium 1.5 mg/dL (1.7-2.3); Osmolality Calculated 302 mOsm/kg (285-295); Sodium 143 mmol/L (136-145)
[2023-12-28 06:14] LABS: Anion Gap 16.8 (5-19); Potassium 5.8 mmol/L (3.5-5.1)
[2023-12-28 07:23] LABS: Glucose Point of Care 98 mg/dL (70-110)
[2023-12-28 07:23] LABS: Glucose Point of Care 104 mg/dL (70-110)
[2023-12-28 07:23] LABS: Glucose Point of Care 106 mg/dL (70-110)
[2023-12-28 07:52] LABS: Glucose Point of Care 105 mg/dL (70-110)
[2023-12-28] MEDS: sodium bicarbonate 650 mg Tablet PO ×2 (09:06→17:26)
[2023-12-28] MEDS: clopidogrel 75 mg Tablet PO (09:06)
[2023-12-28] MEDS: pantoprazole DR 40 mg Tablet PO ×2 (09:06→17:26)
[2023-12-28] MEDS: isosorbide mononitrate ER 60 mg Tablet PO (09:06)
[2023-12-28] MEDS: aspirin 81 mg EC Tablet PO (09:06)
--- NOTE | 2023-12-28 09:42 | P.CONIM_ITS ---
Providers/Reason For Consult 2 Consulting Physician/Specialty*: Lacho Harper MD/telemetry-nephrology Reason for Consult*: Renal failure and hyperkalemia Requesting Physician: Dr Gonzales Attending Physician: Lori Gonzales MD Primary Care Provider: Rich Rosa MD History of Present Illness History of Present Illness Rebecca Sanderson is a 63 year old female with CKD stage III baseline creatinine 1.2 to 1.5 mg/dL. As of 2022. Patient was admitted with a creatinine of 1.9 mg/dL that has since improved to 1.5 mg/dL. The patient has persistent hyperkalemia and renal was called to see the patient. The patient has diagnosis of functional seizures/neuro conversion disorder. Patient has fibromyalgia. She also has history of hypertension. At home the patient takes many medications including metformin for diabetes spironolactone amlodipine metoprolol XL clonidine, and diclofenac, and oxybutynin. Patient was here she was weak lethargic and hypotensive. On admission they discontinued her antihypertensive medications was given IV fluids and then started on vancomycin and Zosyn for significant hypotension. Patient was given also sodium bicarbonate. In his stated renal was called to see the patient as her renal function is improved but she has hyperkalemia. Review of Systems 2 Narrative: Weak, whole body pains. Lightheaded dizzy nausea chest pain shortness of breath denies diarrhea. No hearing nursing changes. Positive urinary complaints. Lightheaded. Medications/Allergies Home Medications Medication Instructions Recorded Confirmed Last Taken Type aspirin 81 mg tablet,delayed 81 mg PO DAILY 30 days #30 tabs 12/19/20 12/27/23 12/27/23 Rx release atorvastatin 40 mg tablet 40 mg PO BEDTIME 30 days #30 tabs 12/19/20 12/27/23 12/26/23 Rx clopidogrel 75 mg tablet (Plavix) 75 mg PO DAILY #30 tabs 12/19/20 12/27/23 12/27/23 Rx bupropion HCl 150 mg 24 hr tablet, 150 mg PO BEDTIME 12/14/22 12/27/23 12/26/23 History extended release cetirizine 10 mg tablet (Allergy 10 mg PO DAILY 12/14/22 12/27/23 12/27/23 History Relief (cetirizine)) citalopram 20 mg tablet 20 mg PO DAILY 12/14/22 12/27/23 12/27/23 History isosorbide mononitrate 60 mg 60 mg PO DAILY 12/14/22 12/27/23 12/27/23 History tablet,extended release 24 hr metformin 1,000 mg tablet 1,000 mg PO BID 12/14/22 12/27/23 12/27/23 History omeprazole 20 mg capsule,delayed 20 mg PO BID 12/14/22 12/27/23 12/27/23 History release spironolactone 50 mg tablet 50 mg PO DAILY 12/14/22 12/27/23 12/27/23 History tamsulosin 0.4 mg capsule 0.4 mg PO QPM 12/14/22 12/27/23 12/26/23 History latanoprost 0.005 % eye drops 1 drp ophthalmic (eye) QPM 12/30/22 12/27/23 12/27/23 History amlodipine 10 mg tablet 10 mg PO DAILY 07/10/23 12/27/23 12/27/23 History metoprolol succinate 50 mg 25 mg PO DAILY 07/10/23 12/27/23 12/27/23 History tablet,extended release 24 hr diabetic shoes w/ 3 inserts #1 ea 09/19/23 12/27/23 Unknown Rx clonidine HCl 0.2 mg tablet 0.2 mg PO BID 12/27/23 12/27/23 Unknown History diclofenac sodium 75 mg 75 mg PO BID 12/27/23 12/27/23 Unknown History tablet,delayed release oxybutynin chloride 10 mg 10 mg PO BEDTIME 12/27/23 12/27/23 Unknown History tablet,extended release 24 hr pregabalin 200 mg capsule 200 mg PO BID 12/27/23 12/27/23 Unknown History Allergies Allergy/AdvReac Type Severity Reaction Status Date / Time penicillin G Allergy Mild breaks out Verified 09/19/23 09:38 in hives Penicillins Allergy ALGY-Hives Verified 09/19/23 09:38 Current Medications Generic Name Dose Route Start Last Admin Trade Name Jaspalq PRN Reason Stop Dose Admin Aspirin 81 mg 12/28/23 09:00 12/28/23 09:06 Aspirin 81 Mg Ec Tablet PO 81 mg DAILY MELINDA Administration Atorvastatin Calcium 40 mg 12/27/23 21:00 12/27/23 20:58 Atorvastatin 40 Mg Tablet PO 40 mg BEDTIME MELINDA Administration Clopidogrel Bisulfate 75 mg 12/28/23 09:00 12/28/23 09:06 Clopidogrel 75 Mg Tablet PO 75 mg DAILY MELINDA Administration Heparin Sodium (Porcine) 5,000 unit 12/27/23 17:07 12/28/23 04:12 Heparin 5,000 Unit/Ml Inj 1 Ml SUBCUT 5,000 unit Q12H MELINDA Administration Piperacillin Sod/Tazobactam 50 mls @ 12.5 mls/hr 12/27/23 19:45 12/28/23 04:12 Sod 3.375 gm/ Sodium Chloride IV 12.5 mls/hr Q8H MELINDA Administration Insulin Human Lispro 0 unit 12/27/23 18:00 12/28/23 07:49 Insulin Lispro 100 Unit/1 Ml SUBCUT Not Given WM&BEDTIME MELINDA Protocol Isosorbide Mononitrate 60 mg 12/28/23 09:00 12/28/23 09:06 Isosorbide Mononitrate Er 60 Mg Tablet PO 60 mg DAILY MELINDA Administration Oxybutynin Chloride 10 mg 12/27/23 21:00 12/27/23 20:58 Oxybutynin Chloride Xl 5 Mg Tablet PO 10 mg BEDTIME MELINDA Administration Pantoprazole Sodium 40 mg 12/27/23 18:00 12/28/23 09:[address] 40 Mg Tablet PO 40 mg BID MELINDA Administration Sodium Bicarbonate 650 mg 12/27/23 16:35 12/28/23 09:06 Sodium Bicarbonate 650 Mg Tablet PO 650 mg TID MELINDA Administration Tamsulosin HCl 0.4 mg 12/27/23 18:00 12/27/23 18:25 Tamsulosin 0.4 Mg Capsule PO 0.4 mg QPM MELINDA Administration PFSH Acute 2 PFSH: Medical History Blood loss anemia Medication side effect Anemia Altered mental status Acute kidney injury superimposed on chronic kidney disease Seizures Functional neurological symptom disorder with attacks or seizures Vertigo Chronic migraine without aura, intractable, with status migrainosus Diabetes mellitus Basilar artery insufficiency Temporal lobe lesion DVT prophylaxis Injury, self-inflicted Fever TIA (transient ischemic attack) No pertinent family history ESTHER (obstructive sleep apnea) Bipolar 1 disorder Self-mutilation Diabetes mellitus Hypertension Right middle cerebral artery stroke Family History Father Sleep apnea Hypertension Mother Hypertension Social History Smoking and tobacco/nicotine status: never used tobacco/nicotine Alcohol intake: current Alcohol intake frequency: holidays/special occasions only Substance/Drug Use: never Current gender identity: Female Vitals/I&O/Wt Last Vital Signs Temp 98.8 F 12/28/23 04:00 Pulse 55 L 12/28/23 09:00 Resp 19 H 12/28/23 09:00 BP 142/81 12/28/23 09:00 Pulse Ox 99 12/28/23 09:00 O2 Del Method Room Air 12/28/23 04:00 12/27/23 12/28/23 12/28/23 22:59 06:59 14:59 Intake Total 1024 170 / 2195 220 / 220 Output Total 1800 / 1800 Balance 1025 / 2024 -1630 / 395 220 / 220 Weight last 48 hrs Weight 77.5 kg Weight 77.111 kg Weight 72.575 kg Physical Exam 2 Narrative: Comfortable in bed no apparent distress. Vital signs noted and stable. HEENT normocephalic atraumatic. Neck is supple no JVP no carotid bruits. Lungs have good air movement. Heart is regular. Abdomen is soft nontender nondistended positive bowel sounds. Extremities have no edema. Neuro awake alert oriented x 3. Normal pulses. The patient was seen and examined using audiovisual equipment as a telehealth visit the nurse aided in the examination. Data 12/28/23 04:24 12/28/23 04:24 Micro: Microbiology 12/27/23 12:58 Urine Culture - Preliminary Urine,Clean Catch Gram Negative Rods 12/27/23 19:48 Blood Culture - Preliminary Blood SPECIMEN COLLECTED 12/27/23 19:45 Blood Culture - Preliminary Blood SPECIMEN COLLECTED A&P Assessment and plan (1) Acute kidney injury superimposed on chronic kidney disease: 63-year-old lady history of seizures, hypertension, hyperlipidemia, anemia, CKD stage III diabetes basilar artery insufficiency ESTHER, bipolar disease. Patient presented with weakness and lethargy and was diagnosed with a gram-negative edie UTI. Patient was hypotensive blood pressure is improving at this time w/ abx and icf 1. CKD stage III- likely from dm, meds, roberts-2 inhibitor and UTI -check renal us 2. leticia improving w/ ivf and off bp meds -check ua, ur na, ur pr, cr, ur microalbumin 3. mild inc AGMA- monitor for diarrhea check urine electrolytes NS ivf can cause a hyperchloremic metabolic acidosis 4. hyperkalemia- from DM, CKD, recent aldactone, and Roberts-2 inhibitor use -stop above meds -ivf -low k diet kayexalate x 1 -beta-balbina can cause some hyperkalemia -send urine potassium Plan see above Consult Attestations 2 Medical Necessity Statement: hyperkalemia, infection, leticia on ckd, hypotension Time Spent in Patient Care: Greater than 35 minutes (>than 50% of time spent in counselling and/or direct pt care on unit) . Coding Level of Care Code Acute Code for Chg Fwd Diagnoses Acute kidney injury superimposed on chronic kidney disease N17.9; N18.9
--- NOTE | 2023-12-28 09:59 | US_ITS ---
WS: [id number] ULTRASOUND RENAL TECHNIQUE: Ultrasound examination of both kidneys. CLINICAL INFORMATION: leticia on ckd COMPARISON: None. FINDINGS: RIGHT: Right kidney is normal in size and appearance. Echogenicity: Normal. Cortical thickness: 1.0 cm; Normal. Hydronephrosis: None. Perinephric fluid: None. Right kidney measures: 8.3 cm x 4.3 cm x 4.3 cm. LEFT: Left kidney is normal in size and appearance. Echogenicity: Normal. Cortical thickness: 1.1 cm; Normal. Hydronephrosis: None. Perinephric fluid: None. Left kidney measures: 8.6 cm x 4.4 cm x 4.0 cm. Normal visualized aorta. Normal bladder US/US renal BI* [id number] IMPRESSION: Normal renal ultrasound
--- NOTE | 2023-12-28 10:12 | PC.NURSE ---
HR 40s and 50s, morning metoprolol dose held Dr. Gonzales approved
[2023-12-28] MEDS: sodium polystyrene sulfonate 15 gm/60 mL Btl PO (10:47)
[2023-12-28 11:25] LABS: Uric Acid 4.9 mg/dL (2.4-5.7)
[2023-12-28 11:30] LABS: Glucose Point of Care 135 mg/dL (70-110)
--- NOTE | 2023-12-28 13:24 | P.PN_ITS ---
Subjective 2 Subjective: Seen today. Potassium 5.8, bicarb 17, creatinine 1.5. Urine culture positive for gram-negative rods Vitals/I&O/Wt Last Vital Signs Temp 98.8 F 12/28/23 04:00 Pulse 55 L 12/28/23 09:00 Resp 19 H 12/28/23 09:00 BP 142/81 12/28/23 09:00 Pulse Ox 99 12/28/23 09:00 O2 Del Method Room Air 12/28/23 04:00 12/27/23 12/28/23 12/28/23 22:59 06:59 14:59 Intake Total 1024 170 / 2195 270 / 270 Output Total 1800 / 1800 Balance 1024 -1630 / 395 270 / 270 Weight last 48 hrs Weight 77.5 kg Weight 77.111 kg Weight 72.575 kg Physical Exam 2 Narrative: Pleasant cooperative GCS 15 Heart rate 55, respirate 19, saturating 99% on room air. Awake and alert Pleasant cooperative No active focal deficit Looks euvolemic GCS 15 Pleasant cooperative On room air Data 12/28/23 04:24 12/28/23 04:24 Micro: Microbiology 12/27/23 12:58 Urine Culture - Preliminary Urine,Clean Catch Gram Negative Rods 12/27/23 19:48 Blood Culture - Preliminary Blood SPECIMEN COLLECTED 12/27/23 19:45 Blood Culture - Preliminary Blood SPECIMEN COLLECTED A&P Assessment and plan (1) Functional neurological symptom disorder with attacks or seizures: (2) Type 2 diabetes mellitus: (3) Peripheral neuropathy: (4) Polypharmacy: (5) Acute kidney injury superimposed on chronic kidney disease: (6) Hyperkalemia: (7) Metabolic acidosis: Plan LUSÍ related to nephrotoxic agents Acute on chronic kidney disease Mild metabolic acidosis Hold spironolactone, NSAIDs Discontinue metformin IV fluid hydration Monitor for urinary retention Hypotension, discontinue clonidine, Imdur, metoprolol, spironolactone at this point Patient will need IV fluid hydration No signs of sepsis, she is afebrile, no leukocytosis Patient seems to have dementia with cognitive impairment this was also noted on previous records Neuro conversion disorder She has seen Dr. 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 Ace as well Full code Regular diet Suffering from polypharmacy DVT prophylaxis heparin 12/27 LUÍS improving however has persistent hyperkalemia ? Hold nephrotoxic agents ? Nephrology consulted, recommendations appreciated Hypotension ? Discontinue antihypertensives from home. Continue IV fluid hydration at this time. ? Will gradually restart home antihypertensives as per blood pressure values Urine culture positive for gram-negative rods Patient does complain of symptoms. Patient was hypothermic and required active rewarming. ? Continue Zosyn. Continue vancomycin Blood cultures pending at this time. If cultures negative will discontinue vancomycin as well. Bradycardia: Most likely secondary to metoprolol. Continue to monitor on telemetry. Transfer to medical surgical floor. Attestations 2 Medical Necessity Statement*: LUÍS, UTI Diagnoses Functional neurological symptom disorder with attacks or seizures F44.5 Type 2 diabetes mellitus E11.9 Peripheral neuropathy G62.9 Polypharmacy Z79.899 Acute kidney injury superimposed on chronic kidney disease N17.9; N18.9 Hyperkalemia E87.5 Metabolic acidosis E87.20
[2023-12-28] MEDS: tamsulosin 0.4 mg Capsule PO (17:26)
[2023-12-28 17:39] LABS: Glucose Point of Care 129 mg/dL (70-110)
[2023-12-28] MEDS: atorvastatin 40 mg Tablet PO (20:10)
[2023-12-28] MEDS: oxybutynin chloride XL 5 MG TABLET 10 MG PO (20:10)
[2023-12-28] MEDS: insulin lispro 100 unit/1 mL SUBCUT (20:44)
[2023-12-28 21:07] LABS: Glucose Point of Care 158 mg/dL (70-110)
[2023-12-28] MEDS: buPROPion XL (24 HR) 150 mg Tablet PO (22:13)
[2023-12-28] MEDS: pregabalin 100 mg Capsule 200 MG PO (22:13)
--- NOTE | 2023-12-28 22:58 | ECG_ITS ---
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 Measurements Intervals [place] Rate: 56 P: 42 HI: 194 QRS: -26 QRSD: 93 T: 47 QT: 416 QTc: 403 Interpretive Statements SINUS BRADYCARDIA BORDERLINE LEFT AXIS DEVIATION [QRS AXIS < -20] Compared to ECG 12/27/2023 10:32:42 First degree AV block no longer present Myocardial infarct finding no longer present Electronically Signed On 12-29-2023 07:40:06 CDT by Nelson Boyle M.D. [id number]
[2023-12-28] MEDS: nitroglycerin 0.4 mg sublingual Tablet SUBLINGUAL ×2 (23:25→23:32)
[2023-12-28] MEDS: magnesium sulfate premix 2 GM/50 ML PIGGYBACK IV (23:26)
[2023-12-28 23:47] LABS: Troponin(5th) Baseline 21 ng/L (0-10)
[2023-12-28 23:53] LABS: Glucose Point of Care 124 mg/dL (70-110)
[2023-12-29] VITALS (42 sets, daily range): BP systolic 117–191; BP diastolic 80–117; PULSE 62–122; RESP 7–19; TEMP 37–37.2; O2SAT 96–100; BMI 29.0
[2023-12-29 00:03] LABS: Bilirubin Urine Negative (Negative); Blood Urine Negative (Negative); Glucose Urine UA Negative (Normal); Ketones Urine Negative (Negative); Leukocyte Esterase Urine Negative (Negative); Nitrate Urine Negative (Negative); Protein Urine Negative (Negative); Specific Gravity, Urine 1.011 (1.005-1.030); Urine Appearance Clear (CLEAR); Urine Color Yellow (Yellow); Urobilinogen Urine 0.2 mg/dL (Negative); pH Urine 5.5 (5-7)
[2023-12-29 00:07] LABS: Bacteria Urine None Seen /hpf; RBC Urine 0-2 /hpf (0-2); Squamous Epithelial Cell Urine 0-5 /hpf (0-5); WBC Urine 0-5 /hpf (0-5)
[2023-12-29 00:20] LABS: Creatinine Urine, Random 38 mg/dL (28-217); Microalbum Creatinine Ratio Ur 26 mg/dL (0-20); Microalbumin Random Urine 1 ug/dL (0-20); Potassium, Radom Urine 19 mmol/L; Urine Protein Random 4 mg/dL; Urine Random Chloride 144 mmol/L; Urine Random Sodium 152 mmol/L
--- NOTE | 2023-12-29 00:50 | PC.NURSE ---
Chest Pain Patient experienced an episode of 6/10 chest pain. Patient stated that the pain radiated to her right arm and both sides of her jaw. Patient also hypertensive at 182/104. EKG was performed. Dr. Sue was contacted and he gave orders for a troponin series and EKG series as well as PRN nitro tablets. This nurse adminstered two nitro tablets. Patient's blood pressure remained steady. After the second tablet, patient stated pain was nearly gone. No further chest pain.
--- NOTE | 2023-12-29 01:02 | PC.NURSE ---
Void Patient saturated a terell pad twice. Unable to accurately assess output.
--- NOTE | 2023-12-29 01:07 | ECG_ITS ---
[facility] Date: 2023-12-29 Pat Name: Rebecca Sanderson Department: Room: ICU03 Gender: Female Car Sander: : 1960 Requested By: Juan Francisco Sue Order Number: [id number] Sona MD: Nelson Boyle M.D. Measurements Intervals [place] Rate: 73 P: 25 SD: 148 QRS: -28 QRSD: 93 T: 65 QT: 397 QTc: 438 Interpretive Statements SINUS RHYTHM BORDERLINE LEFT AXIS DEVIATION [QRS AXIS < -20] NONSPECIFIC T-WAVE ABNORMALITY Compared to ECG 12/27/2023 10:32:42 T-wave abnormality now present Sinus bradycardia no longer present First degree AV block no longer present Myocardial infarct finding no longer present Electronically Signed On 12-29-2023 07:43:38 CDT by Nelson Boyle M.D. [id number]
[2023-12-29] MEDS: hyDRALAzine 20 mg/mL INJ 1 mL 5 MG IVP ×2 (01:35→06:02)
--- NOTE | 2023-12-29 02:00 | PC.NURSE ---
Hypertension Contacted Dr. Sue to let him know of patient's blood pressure of 175/94. Received order for hydralazine 5 mg IVP once.
[2023-12-29 02:29] LABS: Troponin 5 2HR 22.14 ng/L (0-10); Troponin 5 2HR Delta 1.14 ABS# (0-10)
[2023-12-29] MEDS: piperacillin-tazobactam 3.375 GM in sodium chloride 0.9% (plus) 50 ML IV ×2 (04:05→12:25)
--- NOTE | 2023-12-29 05:07 | ECG_ITS ---
[facility] Date: 2023-12[facility]29 Pat Name: Rebecca Sanderson Department: Room: ICU03 Gender: Female Lead Informatica Developer: : 1960 Requested By: Juan Francisco Sue Order Number: [id number] Reading MD: Nelson Boyle M.D. Measurements Intervals [place] Rate: 77 P: -1 ID: [id number] QRS: -27 QRSD: 86 T: 68 QT: 373 QTc: 422 Interpretive Statements SINUS RHYTHM BORDERLINE LEFT AXIS DEVIATION [QRS AXIS < -20] NONSPECIFIC ST & T-WAVE ABNORMALITY Compared to ECG 12/29/2023 00:30:01 No significant changes Electronically Signed On 12-29-2023 07:43:03 CDT by Nelson Boyle M.D. [id number]
[2023-12-29 05:22] LABS: Troponin 5 6HR 23.58 ng/L (0-10); Troponin 5 6HR Delta 2.58 ng/L (0-12)
[2023-12-29 05:25] LABS: Alanine Aminotransferase 11 U/L (0-33); Albumin Level 4.7 g/dL (3.5-5.2); Alkaline Phosphatase 91 U/L (35-105); Anion Gap 16.5 (5-19); Aspartate Amino Transferase 10 U/L (0-32); Blood Urea Nitrogen 18 mg/dL (8-23); Calcium 9.6 mg/dL (8.5-10.5); Carbon Dioxide 21 mmol/L (22-29); Chloride 112 mmol/L (98-107); Creatinine Clr Calc Pharmacy 36.3962; Globulin 2.1 g/dL (1.3-4.6); Glomerular Filtration Rate 32.8 mL/min (90-130); Glucose 114 mg/dL (65-115); Magnesium 2.1 mg/dL (1.7-2.3); Osmolality Calculated 303 mOsm/kg (285-295); Potassium 4.5 mmol/L (3.5-5.1); Sodium 145 mmol/L (136-145); Total Bilirubin 0.3 mg/dL (0.15-1.2); Total Protein 6.8 g/dL (6.6-8.7)
[2023-12-29] MEDS: amlodipine 5 mg Tablet PO (06:02)
[2023-12-29] MEDS: heparin 5,000 unit/mL INJ 1 mL 5000 UNIT SUBCUT ×2 (06:06→17:25)
[2023-12-29 07:35] LABS: Glucose Point of Care 113 mg/dL (70-110)
--- NOTE | 2023-12-29 08:45 | USCV_ITS ---
Rebecca Sanderson Age: 63 Gender: F : 1960 Exam Date: 12/29/2023 13:13 Ordering Phys: Lori Gonzales MD Technologist: Yogi Chino Exam Location: [facility] Indication: chest pain BP: 117 / 68 HR: 74 Rhythm: Sinus Technical Quality: Adequate MEASUREMENTS (Male / Female) Normal Values 2D ECHO LV Diastolic Diameter PLAX 3.9 cm 4.2 - 5.9 / 3.9 - 5.3 cm IVS Diastolic Thickness 1.1 cm 0.6 - 1.0 / 0.6 - 0.9 cm IVS Systolic Thickness 1.5 cm LVPW Diastolic Thickness 1.5 cm 0.6 - 1.0 / 0.6 - 0.9 cm LVPW Systolic Thickness 1.9 cm LVOT Diameter 2.0 cm LV Ejection Fraction 2D Teich 68.8 % LV Ejection Fraction MOD 4C 66.3 % LV Ejection Fraction MOD 2C 63.1 % LV Ejection Fraction 2C AL 62.2 % LA Diameter 3.7 cm RA Systolic Volume 4C AL 27.9 ml RA Systolic Volume 4C MOD 28.8 ml LA Sys Volume AL 40.6 cm cubed LA Sys Volume Index AL 22.1 cm cubed/m squared Aorta at Sinotubular Diameter 2.2 cm IVC Diameter 1.5 cm M-MODE LA Ao Ratio MM 1.3 AV Cusp Separation MM 1.7 cm DOPPLER AV Peak Velocity 150.0 cm/s LVOT Peak Velocity 102.0 cm/s AV Area Cont Eq vti 3.1 cm squared AV Area Cont Eq pk 2.2 cm squared MV Peak Velocity 110.0 cm/s MV Area PHT 4.2 cm squared Mitral E to A Ratio 0.5 TV Peak Velocity 254.0 cm/s TR Peak Velocity 356.0 cm/s TR Peak Gradient 50.7 mmHg TR Mean Velocity 296.0 cm/s TR Mean Gradient 36.1 mmHg TR Velocity Time Integral 89.8 cm PV Peak Velocity 118.0 cm/s RV Ejection Time 0.3 s FINDINGS Left Ventricle Left ventricle is normal in size. LV systolic function is normal with EF 55 to 60%. No regional wall motion abnormalities are seen. Grade 1 diastolic dysfunction. Right Ventricle Normal in size and function Right Atrium Normal in size Left Atrium Normal in size Mitral Valve Moderate mitral annular calcification. Aortic Valve Structurally normal aortic valve. No significant stenosis or regurgitation. Tricuspid Valve Mild tricuspid regurgitation. Insufficient TR jet to calculate RVSP. Pulmonic Valve Not well visualized Pericardium Normal Aorta Normal in size IVC Appears to be normal CONCLUSIONS LV systolic function is normal with EF of 55 to 60%. Grade 1 diastolic dysfunction. Mild tricuspid regurgitation Compared to prior echocardiogram from 2022, no significant changes are seen Nelson Boyle MD (Electronically Signed) Final Date: 29 December 2023 22:03 S
[2023-12-29] MEDS: pregabalin 100 mg Capsule 200 MG PO ×2 (08:47→21:08)
[2023-12-29] MEDS: metoprolol succinate ER (24 HR) 25 mg Tablet PO (08:47)
[2023-12-29] MEDS: citalopram 20 mg Tablet PO (08:47)
[2023-12-29] MEDS: clopidogrel 75 mg Tablet PO (08:47)
[2023-12-29] MEDS: isosorbide mononitrate ER 60 mg Tablet PO (08:48)
[2023-12-29] MEDS: cetirizine 10 mg Tablet PO (08:48)
[2023-12-29] MEDS: sodium bicarbonate 650 mg Tablet PO ×2 (08:48→17:26)
[2023-12-29] MEDS: aspirin 81 mg EC Tablet PO (08:48)
[2023-12-29] MEDS: pantoprazole DR 40 mg Tablet PO ×2 (08:48→17:25)
--- NOTE | 2023-12-29 09:30 | PC.SOCIAL ---
IMM Updated pg 2 of IMM updated and reviewed w/ patient. Copy provided and copy dated, initialed and placed in chart.
--- NOTE | 2023-12-29 09:40 | P.PN_ITS ---
Subjective 2 Subjective: NO NEW COMPLAINTS Medications: Reviewed: Yes Vitals/I&O/Wt Last Vital Signs Temp 98.7 F 12/29/23 05:30 Pulse 75 12/29/23 06:00 Resp 15 12/29/23 06:00 BP 176/112 12/29/23 06:00 Pulse Ox 100 12/29/23 06:00 O2 Del Method Room Air 12/28/23 21:00 12/28/23 12/29/23 12/29/23 22:59 06:59 14:59 Intake Total 250 / 700 600 / 1300 Balance 250 / 700 600 / 1300 Weight last 48 hrs Weight 74.5 kg Weight 77.5 kg Weight 77.111 kg Weight 72.575 kg Physical Exam 2 Narrative: Pleasant cooperative GCS 15 Heart rate 55, respirate 19, saturating 99% on room air. Awake and alert Pleasant cooperative No active focal deficit Looks euvolemic GCS 15 Pleasant cooperative On room air Data 12/28/23 04:24 12/29/23 04:56 Micro: Microbiology 12/27/23 19:48 Blood Culture - Preliminary Blood NEGATIVE TO DATE 12/27/23 19:45 Blood Culture - Preliminary Blood NEGATIVE TO DATE 12/27/23 12:58 Urine Culture - Preliminary Urine,Clean Catch Gram Negative Rods A&P Assessment and plan (1) Acute kidney injury superimposed on chronic kidney disease: 63-year-old lady history of seizures, hypertension, hyperlipidemia, anemia, CKD stage III diabetes basilar artery insufficiency ESTHER, bipolar disease. Patient presented with weakness and lethargy and was diagnosed with a gram-negative edie UTI. Patient was hypotensive blood pressure is improving at this time w/ abx and icf 1. CKD stage III- likely from dm, meds, yeboah-2 inhibitor and UTI -Renal US normal 2. leticia improving - s/p ivf and off bp meds -check UA , UPCR 3. mild AGMA- Improved 4. hyperkalemia- from DM, CKD, recent aldactone, and Yeboah-2 inhibitor use -improved , s/p med management Plan see above Attestations 2 Medical Necessity Statement*: per [facility] Coding Level of Care Code Acute Code for Chg Fwd Diagnoses Acute kidney injury superimposed on chronic kidney disease N17.9; N18.9
[2023-12-29 11:39] LABS: Glucose Point of Care 149 mg/dL (70-110)
[2023-12-29] MEDS: insulin lispro 100 unit/1 mL SUBCUT ×2 (12:24→21:04)
--- NOTE | 2023-12-29 13:55 | P.PN_ITS ---
Subjective 2 Subjective: Seen today. Creatinine 1.6 today. Patient feels better. Did have an episode of chest pain overnight that radiated to the jaw. She also states she has exertional chest pain at home in the past. Chest pain was relieved by nitro. Vitals/I&O/Wt Last Vital Signs Temp 98.7 F 12/29/23 05:30 Pulse 96 12/29/23 09:30 Resp 16 12/29/23 09:30 BP 130/89 12/29/23 10:30 Pulse Ox 99 12/29/23 10:30 O2 Del Method Room Air 12/28/23 21:00 12/28/23 12/29/23 12/29/23 22:59 06:59 14:59 Intake Total 250 / 700 600 / 1300 550 / 550 Output Total 400 / 400 Balance 250 / 700 600 / 1300 150 / 150 Weight last 48 hrs Weight 74.5 kg Weight 77.5 kg Weight 77.111 kg Physical Exam 2 Narrative: Pleasant cooperative GCS 15 Chest pain-free at this time. Awake and alert Pleasant cooperative No active focal deficit Looks euvolemic GCS 15 Pleasant cooperative On room air Clear to auscultation bilaterally Data 12/28/23 04:24 12/29/23 04:56 Micro: Microbiology 12/27/23 19:48 Blood Culture - Preliminary Blood NEGATIVE TO DATE 12/27/23 19:45 Blood Culture - Preliminary Blood NEGATIVE TO DATE A&P Assessment and plan (1) Functional neurological symptom disorder with attacks or seizures: (2) Type 2 diabetes mellitus: (3) Peripheral neuropathy: (4) Polypharmacy: (5) Acute kidney injury superimposed on chronic kidney disease: (6) Hyperkalemia: (7) Metabolic acidosis: Plan LUÍS related to nephrotoxic agents Acute on chronic kidney disease Mild metabolic acidosis Hold spironolactone, NSAIDs Discontinue metformin IV fluid hydration Monitor for urinary retention Hypotension, discontinue clonidine, Imdur, metoprolol, spironolactone at this point Patient will need IV fluid hydration No signs of sepsis, she is afebrile, no leukocytosis Patient seems to have dementia with cognitive impairment this was also noted on previous records Neuro conversion disorder She has seen Dr. 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 Ace as well Full code Regular diet Suffering from polypharmacy DVT prophylaxis heparin 12/28 LUÍS improving, hyperkalemia improved. ? Hold nephrotoxic agents ? Nephrology consulted, recommendations appreciated Hypotension ? Resolved. Urine culture positive for gram-negative rods Patient does complain of symptoms. Patient was hypothermic and required active rewarming. ? Continue Zosyn. Blood cultures pending at this time. Discontinue vancomycin Bradycardia: Most likely secondary to metoprolol. Continue to monitor on telemetry. Chest pain: Troponins completed. Troponin back in March was 10 and now is 23 however from this admission delta +1.14. Given patient's history of exertional chest pain with another episode overnight which relieved with nitro is concerning. She also was hypertensive at the time. It could be attributed to pain secondary to severe hypertension however we will proceed with stress testing on Monday. Continue aspirin Plavix atorvastatin. May transfer to floor today. Attestations 2 Medical Necessity Statement*: Continue to hospitalize for chest pain. She will have a stress test on Monday. Diagnoses Functional neurological symptom disorder with attacks or seizures F44.5 Type 2 diabetes mellitus E11.9 Peripheral neuropathy G62.9 Polypharmacy Z79.899 Acute kidney injury superimposed on chronic kidney disease N17.9; N18.9 Hyperkalemia E87.5 Metabolic acidosis E87.20
[2023-12-29 17:08] LABS: Glucose Point of Care 128 mg/dL (70-110)
[2023-12-29] MEDS: latanoprost 0.005% Op Soln 2.5 mL Btl 1 DROP EYE-BOTH (17:24)
[2023-12-29] MEDS: tamsulosin 0.4 mg Capsule PO (17:25)
[2023-12-29 20:59] LABS: Glucose Point of Care 249 mg/dL (70-110)
[2023-12-29] MEDS: buPROPion XL (24 HR) 150 mg Tablet PO (21:02)
[2023-12-29] MEDS: oxybutynin chloride XL 5 MG TABLET 10 MG PO (21:02)
[2023-12-29] MEDS: atorvastatin 40 mg Tablet PO (21:02)
[2023-12-30] VITALS (28 sets, daily range): BP systolic 140–177; BP diastolic 80–125; PULSE 67–145; RESP 11–22; TEMP 36.7–37.4; O2SAT 96–100
[2023-12-30] MEDS: hyDRALAzine 20 mg/mL INJ 1 mL 5 MG IVP (03:00)
[2023-12-30] MEDS: heparin 5,000 unit/mL INJ 1 mL 5000 UNIT SUBCUT ×2 (04:27→16:33)
[2023-12-30 05:41] LABS: Alanine Aminotransferase 12 U/L (0-33); Albumin Level 4.3 g/dL (3.5-5.2); Alkaline Phosphatase 84 U/L (35-105); Anion Gap 16.1 (5-19); Aspartate Amino Transferase 10 U/L (0-32); Blood Urea Nitrogen 23 mg/dL (8-23); Calcium 9.7 mg/dL (8.5-10.5); Carbon Dioxide 21 mmol/L (22-29); Chloride 112 mmol/L (98-107); Creatinine Clr Calc Pharmacy 40.7963; Globulin 2.6 g/dL (1.3-4.6); Glomerular Filtration Rate 38.2 mL/min (90-130); Glucose 114 mg/dL (65-115); Magnesium 1.9 mg/dL (1.7-2.3); Osmolality Calculated 305 mOsm/kg (285-295); Potassium 4.1 mmol/L (3.5-5.1); Sodium 145 mmol/L (136-145); Total Bilirubin 0.3 mg/dL (0.15-1.2); Total Protein 6.9 g/dL (6.6-8.7)
[2023-12-30] MEDS: hyDRALAzine 20 mg/mL INJ 1 mL 10 MG IVP (06:08)
[2023-12-30 07:54] LABS: Glucose Point of Care 132 mg/dL (70-110)
[2023-12-30] MEDS: aspirin 81 mg EC Tablet PO (09:31)
[2023-12-30] MEDS: clopidogrel 75 mg Tablet PO (09:31)
[2023-12-30] MEDS: isosorbide mononitrate ER 60 mg Tablet PO (09:31)
[2023-12-30] MEDS: amlodipine 10 mg Tablet PO (09:31)
[2023-12-30] MEDS: citalopram 20 mg Tablet PO (09:31)
[2023-12-30] MEDS: cetirizine 10 mg Tablet PO (09:31)
[2023-12-30] MEDS: cefTRIAXone 1,000 mg SDV 1000 MG IVP (09:31)
[2023-12-30] MEDS: sodium bicarbonate 650 mg Tablet PO ×2 (09:31→17:52)
[2023-12-30] MEDS: pantoprazole DR 40 mg Tablet PO ×2 (09:32→17:52)
[2023-12-30] MEDS: hyDRALAzine 50 mg Tablet PO ×3 (09:32→21:01)
[2023-12-30] MEDS: pregabalin 100 mg Capsule 200 MG PO ×2 (09:35→21:01)
[2023-12-30 11:23] LABS: Glucose Point of Care 130 mg/dL (70-110)
--- NOTE | 2023-12-30 12:00 | ECG_ITS ---
[facility] Test Date: 2023-12-30 Pat Name: Rebecca Sanderson Department: Room: [facility] Gender: Female Corporate Director Of Human Resources: : 1960 Requested By: Lori Gonzales Order Number: [id number] Sona MD: Nelson Boyle M.D. Measurements Intervals [place] Rate: 108 P: 20 MA: 160 QRS: -29 QRSD: 78 T: 61 QT: 321 QTc: 432 Interpretive Statements SINUS TACHYCARDIA BORDERLINE LEFT AXIS DEVIATION [QRS AXIS < -20] NONSPECIFIC ST & T-WAVE ABNORMALITY Compared to ECG 12/29/2023 05:01:05 Sinus rhythm no longer present T-wave abnormality still present Electronically Signed On 01-01-2024 14:17:25 CDT by Nelson Boyle M.D. [id number]
--- NOTE | 2023-12-30 13:07 | P.PN_ITS ---
Subjective 2 Subjective: no new c/o Medications: Reviewed: Yes Vitals/I&O/Wt Last Vital Signs Temp 99.4 F 12/30/23 05:48 Pulse 95 12/30/23 09:10 Resp 18 12/30/23 09:10 BP 171/107 12/30/23 09:00 Pulse Ox 100 12/30/23 09:10 O2 Del Method Room Air 12/30/23 09:10 12/29/23 12/30/23 12/30/23 22:59 06:59 14:59 Intake Total 275 / 825 370 / 370 Balance 275 / 425 370 / 370 Weight last 48 hrs Weight 74 kg Weight 74.5 kg Physical Exam 2 Narrative: Pleasant cooperative Awake and alert On room air Data 12/28/23 04:24 12/30/23 04:18 Micro: Microbiology 12/27/23 12:58 Urine Culture - Final Urine,Clean Catch Escherichia coli A&P Assessment and plan (1) Acute kidney injury superimposed on chronic kidney disease: 63-year-old lady history of seizures, hypertension, hyperlipidemia, anemia, CKD stage III diabetes basilar artery insufficiency ESTHER, bipolar disease. Patient presented with weakness and lethargy and was diagnosed with a gram-negative edie UTI. Patient was hypotensive blood pressure is improving at this time w/ abx and icf 1. CKD stage III- likely from dm, meds, yeboah-2 inhibitor and UTI -Renal US normal ,Cr back to baseline 2. leticia improving - s/p ivf and off bp meds -check UA , UPCR 3. mild AGMA- Improved 4. hyperkalemia- from DM, CKD, recent aldactone, and Yeboah-2 inhibitor use -improved , s/p med management Plan see above Attestations 2 Medical Necessity Statement*: per [facility] Coding Level of Care Code Acute Code for Chg Fwd Diagnoses Acute kidney injury superimposed on chronic kidney disease N17.9; N18.9
--- NOTE | 2023-12-30 15:06 | P.PN_ITS ---
Subjective 2 Subjective: Seen this morning. Blood pressure elevated. Hydralazine 50 3 times daily has been added. Patient denies any further episodes of chest pain however did states she had another episode last night which lasted a few seconds and it went away. Patient slightly tachycardic this morning however is also having some tremors. We have ordered an EKG. Vitals/I&O/Wt Last Vital Signs Temp 99.4 F 12/30/23 05:48 Pulse 113 H 12/30/23 13:00 Resp 12 12/30/23 13:00 BP 166/114 12/30/23 13:00 Pulse Ox 97 12/30/23 13:00 O2 Del Method Room Air 12/30/23 09:10 12/30/23 12/30/23 12/30/23 06:59 14:59 22:59 Intake Total 370 / 370 Balance 370 / 370 Weight last 48 hrs Weight 74 kg Weight 74.5 kg Physical Exam 2 Narrative: Pleasant cooperative GCS 15 Chest pain-free at this time. Awake and alert Pleasant cooperative No active focal deficit Looks euvolemic GCS 15 Pleasant cooperative On room air Clear to auscultation bilaterally Data 12/28/23 04:24 12/30/23 04:18 Micro: Microbiology 12/27/23 12:58 Urine Culture - Final Urine,Clean Catch Escherichia coli A&P Assessment and plan (1) Functional neurological symptom disorder with attacks or seizures: (2) Type 2 diabetes mellitus: (3) Peripheral neuropathy: (4) Polypharmacy: (5) Acute kidney injury superimposed on chronic kidney disease: (6) Hyperkalemia: (7) Metabolic acidosis: Plan LUÍS related to nephrotoxic agents Acute on chronic kidney disease Mild metabolic acidosis Hold spironolactone, NSAIDs Discontinue metformin IV fluid hydration Monitor for urinary retention Hypotension, discontinue clonidine, Imdur, metoprolol, spironolactone at this point Patient will need IV fluid hydration No signs of sepsis, she is afebrile, no leukocytosis Patient seems to have dementia with cognitive impairment this was also noted on previous records Neuro conversion disorder She has seen Dr. 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 Ace as well Full code Regular diet Suffering from polypharmacy DVT prophylaxis heparin 12/29 LUÍS improving, hyperkalemia improved.?Creatinine is back to baseline. ? Hold nephrotoxic agents ? Nephrology consulted, recommendations appreciated Hypotension ? Resolved. Urine culture positive for gram-negative rods Patient does complain of symptoms. Patient was hypothermic and required active rewarming. ? Discontinue Zosyn. Switch to ceftriaxone. Urine culture positive for E. coli sensitive to ceftriaxone. Will complete total 7 days. Blood cultures pending at this time. Discontinue vancomycin Bradycardia: Most likely secondary to metoprolol. Continue to monitor on telemetry. Tachycardia: Will repeat an EKG. I have ordered normal saline bolus 500 cc x 1. Chest pain: Troponins completed. Troponin back in March was 10 and now is 23 however from this admission delta +1.14. Given patient's history of exertional chest pain with another episode overnight which relieved with nitro is concerning. She also was hypertensive at the time. It could be attributed to pain secondary to severe hypertension however we will proceed with stress testing on Monday. Continue aspirin Plavix atorvastatin. Plan for stress test on Monday. May transfer to floor today. Attestations 2 Medical Necessity Statement*: Stress test on Monday Diagnoses Functional neurological symptom disorder with attacks or seizures F44.5 Type 2 diabetes mellitus E11.9 Peripheral neuropathy G62.9 Polypharmacy Z79.899 Acute kidney injury superimposed on chronic kidney disease N17.9; N18.9 Hyperkalemia E87.5 Metabolic acidosis E87.20
[2023-12-30 17:21] LABS: Glucose Point of Care 255 mg/dL (70-110)
[2023-12-30] MEDS: insulin lispro 100 unit/1 mL SUBCUT ×2 (17:51→21:01)
[2023-12-30] MEDS: latanoprost 0.005% Op Soln 2.5 mL Btl 1 DROP EYE-BOTH (17:52)
[2023-12-30] MEDS: tamsulosin 0.4 mg Capsule PO (17:52)
[2023-12-30 20:36] LABS: Glucose Point of Care 160 mg/dL (70-110)
[2023-12-30] MEDS: buPROPion XL (24 HR) 150 mg Tablet PO (21:01)
[2023-12-30] MEDS: atorvastatin 40 mg Tablet PO (21:01)
[2023-12-30] MEDS: oxybutynin chloride XL 5 MG TABLET 10 MG PO (21:01)
[2023-12-31] VITALS (35 sets, daily range): BP systolic 108–170; BP diastolic 64–128; PULSE 15–131; RESP 12–24; TEMP 36.6–37.2; O2SAT 94–99
[2023-12-31] MEDS: heparin 5,000 unit/mL INJ 1 mL 5000 UNIT SUBCUT ×2 (04:17→17:18)
[2023-12-31 04:23] LABS: Alanine Aminotransferase 13 U/L (0-33); Albumin Level 4.4 g/dL (3.5-5.2); Alkaline Phosphatase 88 U/L (35-105); Anion Gap 17.5 (5-19); Aspartate Amino Transferase 10 U/L (0-32); Blood Urea Nitrogen 22 mg/dL (8-23); Calcium 9.6 mg/dL (8.5-10.5); Carbon Dioxide 22 mmol/L (22-29); Chloride 111 mmol/L (98-107); Globulin 2.3 g/dL (1.3-4.6); Glomerular Filtration Rate 38.2 mL/min (90-130); Glucose 177 mg/dL (65-115); Magnesium 1.7 mg/dL (1.7-2.3); Osmolality Calculated 310 mOsm/kg (285-295); Potassium 4.5 mmol/L (3.5-5.1); Sodium 146 mmol/L (136-145); Total Bilirubin 0.3 mg/dL (0.15-1.2); Total Protein 6.7 g/dL (6.6-8.7)
--- NOTE | 2023-12-31 06:42 | PM.PN ---
Subjective Subjective: The patient was seen and examined. Still complains of fibromyalgia pains. And is asking for medications. No nausea no vomiting no diarrhea or headaches. Medications: Reviewed: Yes Medication Review Details: Current Medications Acetaminophen (Acetaminophen 500 Mg Tablet) 500 mg PO Q4H PRN PRN Reason: fever Albuterol/Ipratropium (Ipratropium-Albuterol 3 Ml Neb) 3 ml INHALATION Q6H PRN PRN Reason: SHORTNESS OF BREATH Amlodipine Besylate (Amlodipine 10 Mg Tablet) 10 mg PO DAILY [facility] Last Admin: 12/30/23 09:31 Dose: 10 mg Aspirin (Aspirin 81 Mg Ec Tablet) 81 mg PO DAILY MELINDA Last Admin: 12/30/23 09:31 Dose: 81 mg Atorvastatin Calcium (Atorvastatin 40 Mg Tablet) 40 mg PO BEDTIME MELINDA Last Admin: 12/30/23 21:01 Dose: 40 mg Bupropion HCl (Bupropion Xl (24 Hr) 150 Mg Tablet) 150 mg PO BEDTIME MELINDA Last Admin: 12/30/23 21:01 Dose: 150 mg Ceftriaxone Sodium (Ceftriaxone 1,000 Mg Sdv) 1,000 mg IVP Q24H MELINDA; Protocol Last Admin: 12/30/23 09:31 Dose: 1,000 mg Cetirizine HCl (Cetirizine 10 Mg Tablet) 10 mg PO DAILY [facility] Last Admin: 12/30/23 09:31 Dose: 10 mg Citalopram Hydrobromide (Citalopram 20 Mg Tablet) 20 mg PO DAILY [facility] Last Admin: 12/30/23 09:31 Dose: 20 mg Clopidogrel Bisulfate (Clopidogrel 75 Mg Tablet) 75 mg PO DAILY MELINDA Last Admin: 12/30/23 09:31 Dose: 75 mg Glucagon (Glucagon 1 Mg/Ml Kit 1 Ml) 1 mg IM ONCE PRN; Protocol PRN Reason: Adult Acute Hypoglycemia Nursing Prot. Heparin Sodium (Porcine) (Heparin 5,000 Unit/Ml Inj 1 Ml) 5,000 unit SUBCUT Q12H [facility] Last Admin: 12/31/23 04:17 Dose: 5,000 unit Hydralazine HCl (Hydralazine 50 Mg Tablet) 50 mg PO TID MELINDA Last Admin: 12/30/23 21:01 Dose: 50 mg Dextrose (D5w) 500 mls @ 0 mls/hr IV ONCE PRN; Protocol PRN Reason: Adult Acute Hypoglycemia Prot Dextrose (D10w) 125 mls @ 750 mls/hr IV PRN PRN; Protocol PRN Reason: Adult Acute Hypoglycemia Nursing Protocol Dextrose (D10w) 250 mls @ 1,000 mls/hr IV PRN PRN; Protocol PRN Reason: Adult Acute Hypoglycemia Nursing Protocol Insulin Human Lispro (Insulin Lispro 100 Unit/1 Ml) 0 unit SUBCUT WM&BEDTIME [facility]; Protocol Last Admin: 12/30/23 21:01 Dose: 2 unit Isosorbide Mononitrate (Isosorbide Mononitrate Er 60 Mg Tablet) 60 mg PO DAILY [facility] Last Admin: 12/30/23 09:31 Dose: 60 mg Latanoprost (Latanoprost 0.005% Op Soln 2.5 Ml Btl) 1 drop EYE-BOTH QPM [facility] Last Admin: 12/30/23 17:52 Dose: 1 drop Metoprolol Succinate (Metoprolol Succinate Er (24 Hr) 25 Mg Tablet) 25 mg PO DAILY [facility] Nitroglycerin (Nitroglycerin 0.4 Mg Sublingual Tablet) 0.4 mg SUBLINGUAL Q5M PRN PRN Reason: CHEST PAIN Last Admin: 12/28/23 23:32 Dose: 0.4 mg Ondansetron HCl (Ondansetron 2 Mg/Ml Sdv 2 Ml) 4 mg IVP Q6H PRN PRN Reason: NAUSEA AND VOMITING Oxybutynin Chloride (Oxybutynin Chloride Xl 5 Mg Tablet) 10 mg PO BEDTIME [facility] Last Admin: 12/30/23 21:01 Dose: 10 mg Pantoprazole Sodium (Pantoprazole Dr 40 Mg Tablet) 40 mg PO BID [facility] Last Admin: 12/30/23 17:52 Dose: 40 mg Pregabalin (Pregabalin 100 Mg Capsule) 200 mg PO 0900,2100 [facility] Last Admin: 12/30/23 21:01 Dose: 200 mg Sodium Bicarbonate (Sodium Bicarbonate 650 Mg Tablet) 650 mg PO BID [facility] Last Admin: 12/30/23 17:52 Dose: 650 mg Tamsulosin HCl (Tamsulosin 0.4 Mg Capsule) 0.4 mg PO QPM [facility] Last Admin: 12/30/23 17:52 Dose: 0.4 mg Vitals/I&O/Wt Last Vital Signs Temp 98.5 F 12/31/23 04:00 Pulse 94 12/31/23 06:00 Resp 17 10/13/24 04:00 BP 161/108 12/31/23 04:00 Pulse Ox 96 12/31/23 04:00 O2 Del Method Room Air 12/31/23 04:00 12/30/23 12/30/23 12/31/23 14:59 22:59 06:59 Intake Total 370 / 370 240 / 610 Output Total 300 / 300 Balance 370 / 370 240 / 610 -300 / 310 Weight last 48 hrs Weight 87.6 kg Weight 74 kg Physical Exam Narrative: Comfortable in bed no apparent distress. Vital signs noted and blood pressure is elevated. HEENT normocephalic atraumatic. Neck is supple no JVP no carotid bruits. Lungs have good air movement. Heart is regular. Abdomen is soft nontender nondistended positive bowel sounds. Extremities have no edema. Neuro awake alert oriented x 3. Normal pulses. The patient was seen and examined using audiovisual equipment as a telehealth visit the nurse aided in the examination. Data 12/28/23 04:24 12/31/23 03:42 A&P Assessment and plan (1) Acute kidney injury superimposed on chronic kidney disease: 63-year-old lady history of seizures, hypertension, hyperlipidemia, anemia, CKD stage III diabetes basilar artery insufficiency ESTHER, bipolar disease. Patient presented with weakness and lethargy and was diagnosed with a gram-negative edie UTI. Patient was hypotensive blood pressure is improving at this time w/ abx and icf 1. CKD stage III- likely from dm, meds, yeboah-2 inhibitor and UTI -Renal US normal ,Cr back to baseline 2. leticia improving - s/p ivf and off bp meds -No significant proteinuria. 3. Hypernatremia. Patient needs more water. 4. Pain. Please avoid NSAIDs and dose all medications for CKD stage IIIa. 5. hyperkalemia- from DM, CKD, recent aldactone, and Yeboah-2 inhibitor use -improved , s/p med management 6. Hypertension -continue amlodipine can use hydralazine. Increase Toprol-XL to 50 mg daily. As of now avoid CHARI and ARB's until we are sure that her renal function is stable. No long-term patient would benefit from RAAS inhibition. Seen examined with nurse this was a telehealth visit using audiovisual equipment. Patient consents to to telehealth. Plan see above Attestations Medical Necessity Statement*: Fibromyalgia pain as per primary. Renal function improving can follow-up as an outpatient. Time Spent in Patient Care: 16 - 35 minutes (>than 50% of time spent in counselling and/or direct pt care on unit). Coding Level of Care Code Acute Code for Chg Fwd Diagnoses Acute kidney injury superimposed on chronic kidney disease N17.9; N18.9
[2023-12-31 06:48] LABS: Glucose Point of Care 146 mg/dL (70-110)
[2023-12-31] MEDS: cefTRIAXone 1,000 mg SDV 1000 MG IVP (08:20)
[2023-12-31] MEDS: clopidogrel 75 mg Tablet PO (08:20)
[2023-12-31] MEDS: insulin lispro 100 unit/1 mL SUBCUT ×4 (08:20→21:30)
[2023-12-31] MEDS: isosorbide mononitrate ER 60 mg Tablet PO (08:21)
[2023-12-31] MEDS: amlodipine 10 mg Tablet PO (08:21)
[2023-12-31] MEDS: metoprolol succinate ER (24 HR) 25 mg Tablet 50 MG PO (08:21)
[2023-12-31] MEDS: hyDRALAzine 50 mg Tablet PO (08:21)
[2023-12-31] MEDS: citalopram 20 mg Tablet PO (08:21)
[2023-12-31] MEDS: aspirin 81 mg EC Tablet PO (08:21)
[2023-12-31] MEDS: pregabalin 100 mg Capsule 200 MG PO ×2 (08:22→21:30)
[2023-12-31] MEDS: sodium bicarbonate 650 mg Tablet PO ×2 (08:22→17:18)
[2023-12-31] MEDS: pantoprazole DR 40 mg Tablet PO ×2 (08:22→17:18)
[2023-12-31] MEDS: cetirizine 10 mg Tablet PO (08:22)
[2023-12-31 12:15] LABS: Glucose Point of Care 188 mg/dL (70-110)
--- NOTE | 2023-12-31 12:45 | P.PN_ITS ---
Subjective 2 Subjective: Seen this morning. Chest pain-free. Did have an episode of tachycardia yesterday which was sinus tach patient was given IV fluids which improved. Sodium slightly elevated at 146 today. Vitals/I&O/Wt Last Vital Signs Temp 97.9 F 12/31/23 12:00 Pulse 80 12/31/23 12:00 Resp 20 H 12/31/23 12:00 BP 133/86 12/31/23 12:00 Pulse Ox 96 12/31/23 12:00 O2 Del Method Room Air 12/31/23 12:00 12/30/23 12/31/23 12/31/23 22:59 06:59 14:59 Intake Total 240 / 610 240 / 240 Output Total 300 / 300 Balance 240 / 610 -300 / 310 240 / 240 Weight last 48 hrs Weight 87.6 kg Weight 74 kg Physical Exam 2 Narrative: Pleasant cooperative GCS 15 Chest pain-free at this time. Awake and alert Pleasant cooperative No active focal deficit Looks euvolemic GCS 15 Pleasant cooperative On room air Clear to auscultation bilaterally Data 12/28/23 04:24 12/31/23 03:42 A&P Assessment and plan (1) Functional neurological symptom disorder with attacks or seizures: (2) Type 2 diabetes mellitus: (3) Peripheral neuropathy: (4) Polypharmacy: (5) Acute kidney injury superimposed on chronic kidney disease: (6) Hyperkalemia: (7) Metabolic acidosis: Plan LUÍS related to nephrotoxic agents Acute on chronic kidney disease Mild metabolic acidosis Hold spironolactone, NSAIDs Discontinue metformin IV fluid hydration Monitor for urinary retention Hypotension, discontinue clonidine, Imdur, metoprolol, spironolactone at this point Patient will need IV fluid hydration No signs of sepsis, she is afebrile, no leukocytosis Patient seems to have dementia with cognitive impairment this was also noted on previous records Neuro conversion disorder She has seen Dr. 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 Ace as well Full code Regular diet Suffering from polypharmacy DVT prophylaxis heparin 12/29 - LUÍS improving, hyperkalemia improved.?Creatinine is back to baseline. ? Hold nephrotoxic agents ? Nephrology consulted, recommendations appreciated ? Patient hypernatremic today. Encourage oral hydration. Hypotension ? Resolved. Hypertension ? Continue metoprolol 50 daily, hydralazine 25 3 times daily, Imdur 60 daily. I dose reduced her hydralazine to 25 from 50. Blood pressure has been 106 over 70s range at this time. Will continue to monitor. Going forward patient did not take any more clonidine. Discussed this with her. Urine culture positive for E. coli sensitive to ceftriaxone. Will complete total 7 days. Last dose Sunday 12/31 Blood cultures negative Bradycardia: Most likely secondary to metoprolol. Continue to monitor on telemetry. Chest pain: Continue aspirin Plavix atorvastatin. Plan for stress test on Monday. Echo without wall motion abnormalities Attestations 2 Medical Necessity Statement*: Stress test on Monday Diagnoses Functional neurological symptom disorder with attacks or seizures F44.5 Type 2 diabetes mellitus E11.9 Peripheral neuropathy G62.9 Polypharmacy Z79.899 Acute kidney injury superimposed on chronic kidney disease N17.9; N18.9 Hyperkalemia E87.5 Metabolic acidosis E87.20
--- NOTE | 2023-12-31 14:06 | ECG_ITS ---
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 Interpretive Statements Lung unchanged pre/post procedure; Intraprocedure shortess of breath; Symptoms resoled by discharge [id number]
--- NOTE | 2023-12-31 14:36 | ECG_ITS ---
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 Measurements Intervals [place] Rate: 78 P: 46 AR: 189 QRS: -20 QRSD: 66 T: 25 QT: 364 QTc: 417 Interpretive Statements SINUS RHYTHM NONSPECIFIC ST & T-WAVE ABNORMALITY Compared to ECG 12/30/2023 12:00:27 Sinus tachycardia no longer present T-wave abnormality still present Electronically Signed On 01-01-2024 14:16:12 CDT by Nelson Boyle M.D. [id number]
--- NOTE | 2023-12-31 15:01 | PC.NURSE ---
at 1445 pt had returned from bathroom and began c/o substernal chest pain.rated pain 5/10.no radiation.no nausea/vomiting/diaphoresis.bp 147/97.hr 90 (sr).resp 16.o2 sat 97% on room air.ekg obtained.dr mathis notified.she ordered 0.5 inch nitropaste.stated will obtain cardiology consult.has stress test ordered for tomorrow.will continue to observe
[2023-12-31] MEDS: nitroglycerin 1 gm/inch oint Pkt 0.5 INCH TOPICAL ×2 (15:08→21:30)
[2023-12-31] MEDS: hyDRALAzine 50 mg Tablet 25 MG PO ×2 (15:09→21:30)
[2023-12-31 15:50] LABS: Troponin(5th) Baseline 18 ng/L (0-10)
--- NOTE | 2023-12-31 16:28 | PC.NURSE ---
pt states is chest pain free at 1600.
[2023-12-31 16:51] LABS: Glucose Point of Care 148 mg/dL (70-110)
--- NOTE | 2023-12-31 16:58 | ECG_ITS ---
[facility] Test Date: 2023-12-31 Pat Name: Rebecca Sanderson Department: Room: 112 Gender: Female Whiskey Proof Reader: : 1960 Requested By: Lori Gonzales Order Number: [id number] Sona MD: Nelson Boyle M.D. Measurements Intervals [place] Rate: 85 P: 32 FL: 177 QRS: -17 QRSD: 78 T: 91 QT: 366 QTc: 436 Interpretive Statements SINUS RHYTHM POSSIBLE ANTERIOR MYOCARDIAL INFARCTION , PROBABLY OLD [30 ms Q WAVE IN V3/V4, OR R < 0.2 mV IN V4] MODERATE T-WAVE ABNORMALITY, CONSIDER LATERAL ISCHEMIA [-0.1+ mV T-WAVE IN I/aVL/V5/V6] Compared to ECG 12/31/2023 14:46:34 Myocardial infarct finding now present Possible ischemia now present T-wave abnormality still present Electronically Signed On 01-01-2024 14:15:32 CDT by Nelson Boyle M.D. [id number]
[2023-12-31] MEDS: tamsulosin 0.4 mg Capsule PO (17:18)
[2023-12-31] MEDS: latanoprost 0.005% Op Soln 2.5 mL Btl 1 DROP EYE-BOTH (17:19)
[2023-12-31 18:06] LABS: Troponin 5 2HR 16.73 ng/L (0-10)
[2023-12-31 18:08] LABS: Troponin 5 2HR Delta -1.27 ABS# (0-10)
[2023-12-31 20:45] LABS: Glucose Point of Care 236 mg/dL (70-110)
[2023-12-31] MEDS: atorvastatin 40 mg Tablet PO (21:29)
[2023-12-31] MEDS: oxybutynin chloride XL 5 MG TABLET 10 MG PO (21:29)
[2023-12-31] MEDS: buPROPion XL (24 HR) 150 mg Tablet PO (21:30)
[2023-12-31 22:17] LABS: Troponin 5 6HR 16.35 ng/L (0-10)
[2023-12-31 22:19] LABS: Troponin 5 6HR Delta -1.65 ng/L (0-12)
--- NOTE | 2023-12-31 22:55 | ECG_ITS ---
[facility] Date: 2023-12-31 Pat Name: Rebecca Sanderson Department: Room: 112 Gender: Female Digital Librarian: : 1960 Requested By: Lori Gonzales Order Number: [id number] Sona MD: Nelson Boyle M.D. Measurements Intervals [place] Rate: 88 P: 30 IA: 179 QRS: -24 QRSD: 83 T: 58 QT: 356 QTc: 432 Interpretive Statements SINUS RHYTHM BORDERLINE LEFT AXIS DEVIATION [QRS AXIS < -20] NONSPECIFIC ST & T-WAVE ABNORMALITY Compared to ECG 12/31/2023 17:10:00 Myocardial infarct finding no longer present Possible ischemia no longer present T-wave abnormality still present Electronically Signed On 01-01-2024 14:15:06 CDT by Nelson Boyle M.D. [id number]
[2024-01-01] VITALS (28 sets, daily range): BP systolic 116–189; BP diastolic 87–119; PULSE 80–120; RESP 12–21; TEMP 36.8–37.2; O2SAT 93–97
[2024-01-01] MEDS: nitroglycerin 1 gm/inch oint Pkt 0.5 INCH TOPICAL (04:12)
[2024-01-01] MEDS: heparin 5,000 unit/mL INJ 1 mL 5000 UNIT SUBCUT (04:12)
[2024-01-01 04:56] LABS: Alanine Aminotransferase 18 U/L (0-33); Albumin Level 4.3 g/dL (3.5-5.2); Alkaline Phosphatase 93 U/L (35-105); Anion Gap 15.6 (5-19); Aspartate Amino Transferase 14 U/L (0-32); Blood Urea Nitrogen 26 mg/dL (8-23); Calcium 9.6 mg/dL (8.5-10.5); Carbon Dioxide 22 mmol/L (22-29); Chloride 109 mmol/L (98-107); Globulin 2.6 g/dL (1.3-4.6); Glomerular Filtration Rate 38.2 mL/min (90-130); Glucose 219 mg/dL (65-115); Magnesium 1.9 mg/dL (1.7-2.3); Osmolality Calculated 305 mOsm/kg (285-295); Phosphorus 4.2 mg/dL (2.5-4.5); Potassium 4.6 mmol/L (3.5-5.1); Sodium 142 mmol/L (136-145); Total Bilirubin 0.3 mg/dL (0.15-1.2); Total Protein 6.9 g/dL (6.6-8.7)
[2024-01-01 06:49] LABS: Glucose Point of Care 204 mg/dL (70-110)
[2024-01-01] MEDS: regadenoson 0.4 Mg/5 ml Syringe IVP (07:04)
[2024-01-01] MEDS: aminophylline 25 mg/mL SDV 10 mL IVP ×2 (07:13→07:16)
--- NOTE | 2024-01-01 08:27 | P.CONIM_ITS ---
Providers/Reason For Consult 2 Consulting Physician/Specialty*: Nelson Boyle MD/Cardiology Reason for Consult*: Chest pain Requesting Physician: Dr Gonzales Attending Physician: Lori Gonzales MD Primary Care Provider: Rich Rosa MD History of Present Illness History of Present Illness Rebecca Sanderson is a 63 year old female who presented to hospital with hypotension, nausea vomiting. Was found to have LUÍS. During hospitalization she complained of chest discomfort episodes. Echo showed normal LV systolic function. EKGs showed nonspecific ST-T wave changes. Troponins have not trended up. She had stress test done today, not showing significant abnormalities/ischemia. No active chest pain at this time. Review of Systems 2 Const: Denies: fever(s) Eyes: Denies: change in vision ENMT: Denies: throat pain Card: Denies: chest pain Resp: Denies: dyspnea Medications/Allergies Home Medications Medication Instructions Recorded Confirmed Last Taken Type aspirin 81 mg tablet,delayed 81 mg PO DAILY 30 days #30 tabs 12/19/20 12/27/23 12/27/23 Rx release atorvastatin 40 mg tablet 40 mg PO BEDTIME 30 days #30 tabs 12/19/20 12/27/23 12/26/23 Rx clopidogrel 75 mg tablet (Plavix) 75 mg PO DAILY #30 tabs 12/19/20 12/27/23 12/27/23 Rx bupropion HCl 150 mg 24 hr tablet, 150 mg PO BEDTIME 12/14/22 12/27/23 12/26/23 History extended release cetirizine 10 mg tablet (Allergy 10 mg PO DAILY 12/14/22 12/27/23 12/27/23 History Relief (cetirizine)) citalopram 20 mg tablet 20 mg PO DAILY 12/14/22 12/27/23 12/27/23 History isosorbide mononitrate 60 mg 60 mg PO DAILY 12/14/22 12/27/23 12/27/23 History tablet,extended release 24 hr metformin 1,000 mg tablet 1,000 mg PO BID 12/14/22 12/27/23 12/27/23 History omeprazole 20 mg capsule,delayed 20 mg PO BID 12/14/22 12/27/23 12/27/23 History release tamsulosin 0.4 mg capsule 0.4 mg PO QPM 0912/27/23 12/26/23 History latanoprost 0.005 % eye drops 1 drp ophthalmic (eye) QPM 12/30/22 12/27/23 12/27/23 History amlodipine 10 mg tablet 10 mg PO DAILY 07/10/23 12/27/23 12/27/23 History diabetic shoes w/ 3 inserts #1 ea 09/19/23 12/27/23 Unknown Rx oxybutynin chloride 10 mg 10 mg PO BEDTIME 12/27/23 12/27/23 Unknown History tablet,extended release 24 hr pregabalin 200 mg capsule 200 mg PO BID 12/27/23 12/27/23 Unknown History cefdinir 300 mg capsule 300 mg PO BID #8 caps 01/01/24 Unknown Rx hydralazine 50 mg tablet 25 mg (1/2 x 50 mg) PO TID #45 tabs 01/01/24 Unknown Rx losartan 50 mg tablet 25 mg (1/2 x 50 mg) PO DAILY #30 01/01/24 Unknown Rx tabs metoprolol succinate 50 mg 50 mg PO DAILY #30 tabs 01/01/24 12/27/23 12/27/23 Rx tablet,extended release 24 hr sodium bicarbonate 650 mg tablet 650 mg PO DAILY #30 tabs 01/01/24 Unknown Rx Allergies Allergy/AdvReac Type Severity Reaction Status Date / Time penicillin G Allergy Mild breaks out Verified 09/19/23 09:38 in hives Penicillins Allergy ALGY-Hives Verified 09/19/23 09:38 Current Medications Generic Name Dose Route Start Last Admin Trade Name Freq PRN Reason Stop Dose Admin Aminophylline 25 mg 01/01/24 06:58 01/01/24 07:16 Aminophylline 25 Mg/Ml Sdv 10 Ml IVP 01/02/24 06:57 25 mg Q2M PRN Administration see dose instructions Amlodipine Besylate 10 mg 12/30/23 09:00 12/31/23 08:21 Amlodipine 10 Mg Tablet PO 10 mg DAILY MELINDA Administration Aspirin 81 mg 12/28/23 09:00 12/31/23 08:21 Aspirin 81 Mg Ec Tablet PO 81 mg DAILY MELINDA Administration Atorvastatin Calcium 40 mg 12/27/23 21:00 12/31/23 21:29 Atorvastatin 40 Mg Tablet PO 40 mg BEDTIME MELINDA Administration Bupropion HCl 150 mg 12/28/23 22:15 12/31/23 21:30 Bupropion Xl (24 Hr) 150 Mg Tablet PO 150 mg BEDTIME MELINDA Administration Ceftriaxone Sodium 1,000 mg 12/30/23 09:00 12/31/23 08:20 Ceftriaxone 1,000 Mg Sdv IVP 01/01/24 23:59 1,000 mg Q24H MELINDA Administration Protocol Cetirizine HCl 10 mg 12/29/23 09:00 12/31/23 08:22 Cetirizine 10 Mg Tablet PO 10 mg DAILY MELINDA Administration Citalopram Hydrobromide 20 mg 12/29/23 09:00 12/31/23 08:21 Citalopram 20 Mg Tablet PO 20 mg DAILY MELINDA Administration Clopidogrel Bisulfate 75 mg 12/28/23 09:00 12/31/23 08:20 Clopidogrel 75 Mg Tablet PO 75 mg DAILY MELINDA Administration Heparin Sodium (Porcine) 5,000 unit 12/27/23 17:07 01/01/24 04:12 Heparin 5,000 Unit/Ml Inj 1 Ml SUBCUT 5,000 unit Q12H MELINDA Administration Hydralazine HCl 25 mg 12/31/23 15:00 12/31/23 21:30 Hydralazine 50 Mg Tablet PO 25 mg TID MELINDA Administration Insulin Human Lispro 0 unit 12/27/23 18:00 12/31/23 21:30 Insulin Lispro 100 Unit/1 Ml SUBCUT 6 unit WM&BEDTIME MELINDA Administration Protocol Isosorbide Mononitrate 60 mg 12/28/23 09:00 12/31/23 08:21 Isosorbide Mononitrate Er 60 Mg Tablet PO 60 mg DAILY MELINDA Administration Latanoprost 1 drop 12/29/23 18:00 12/31/23 17:19 Latanoprost 0.005% Op Soln 2.5 Ml Btl EYE-BOTH 1 drop QPM MELINDA Administration Metoprolol Succinate 50 mg 12/31/23 09:00 12/31/23 08:21 Metoprolol Succinate Er (24 Hr) 25 Mg Tablet PO 50 mg DAILY MELINDA Administration Nitroglycerin 0.4 mg 12/28/23 23:07 12/28/23 23:32 Nitroglycerin 0.4 Mg Sublingual Tablet SUBLINGUAL 0.4 mg Q5M PRN Administration CHEST PAIN Nitroglycerin 0.5 inch 12/31/23 15:00 01/01/24 04:12 Nitroglycerin 1 Gm/Inch Oint Pkt TOPICAL 0.5 inch Q6H MELINDA Administration Oxybutynin Chloride 10 mg 12/27/23 21:00 12/31/23 21:29 Oxybutynin Chloride Xl 5 Mg Tablet PO 10 mg BEDTIME MELINDA Administration Pantoprazole Sodium 40 mg 12/27/23 18:00 12/31/23 17:[address] 40 Mg Tablet PO 40 mg BID MELINDA Administration Pregabalin 200 mg 12/28/23 22:15 12/31/23 21:30 Pregabalin 100 Mg Capsule PO 200 mg 0900,2100 MELINDA Administration Sodium Bicarbonate 650 mg 12/28/23 18:00 12/31/23 17:18 Sodium Bicarbonate 650 Mg Tablet PO 650 mg BID MELINDA Administration Tamsulosin HCl 0.4 mg 12/27/23 18:00 12/31/23 17:18 Tamsulosin 0.4 Mg Capsule PO 0.4 mg QPM MELINDA Administration PFSH Acute 2 PFSH: Medical History Blood loss anemia Medication side effect Anemia Altered mental status Acute kidney injury superimposed on chronic kidney disease Seizures Functional neurological symptom disorder with attacks or seizures Vertigo Chronic migraine without aura, intractable, with status migrainosus Diabetes mellitus Basilar artery insufficiency Temporal lobe lesion DVT prophylaxis Injury, self-inflicted Fever TIA (transient ischemic attack) No pertinent family history ESTHER (obstructive sleep apnea) Bipolar 1 disorder Self-mutilation Diabetes mellitus Hypertension Right middle cerebral artery stroke Family History Father Sleep apnea Hypertension Mother Hypertension Social History Smoking and tobacco/nicotine status: never used tobacco/nicotine Alcohol intake: current Alcohol intake frequency: holidays/special occasions only Substance/Drug Use: never Current gender identity: Female Vitals/I&O/Wt Last Vital Signs Temp 98.9 F 01/01/24 04:00 Pulse 110 H 01/01/24 07:20 Resp 15 01/01/24 04:00 BP 129/92 01/01/24 07:20 Pulse Ox 97 01/01/24 04:00 O2 Del Method Room Air 01/01/24 04:00 12/31/23 01/01/24 01/01/24 22:59 06:59 14:59 Intake Total 940 / 1420 480 / 480 Balance 940 / 1420 480 / 480 Weight last 48 hrs Weight 189 lb 2.506 oz Weight 193 lb 1.999 oz Physical Exam 2 Narrative: GENERAL: Patient is alert, awake and oriented x3. [] NECK: No jugular vein distension. [] HEENT: No cyanosis. No icterus. No pallor. [] HEART: Regular S1 and S2. No murmur, rub or gallop. [] LUNGS: Clear to auscultate bilaterally. [] CENTRAL NERVOUS SYSTEM: Grossly nonfocal. [] EXTREMITIES: Lower extremities with 1+ edema bilaterally. Data 12/28/23 04:24 01/01/24 04:23 A&P Assessment and plan (1) Chest pain: Plan Patient's chest pain symptoms are atypical. Stress test is normal. Continue medical therapy. Continue aspirin/plavix/statin as has carotid artery disease/ TIAs. Thank you for involving us with care of this patient. We will sign off. Please call with questions. Consult Attestations 2 Medical Necessity Statement: Care expected to cross 2 midnights. Coding Level of Care Code Acute Code for [facility] Diagnoses Chest pain R07.9
[2024-01-01] MEDS: clopidogrel 75 mg Tablet PO (08:40)
[2024-01-01] MEDS: pantoprazole DR 40 mg Tablet PO (08:40)
[2024-01-01] MEDS: sodium bicarbonate 650 mg Tablet PO (08:41)
[2024-01-01] MEDS: amlodipine 10 mg Tablet PO (08:41)
[2024-01-01] MEDS: metoprolol succinate ER (24 HR) 25 mg Tablet 50 MG PO (08:41)
[2024-01-01] MEDS: isosorbide mononitrate ER 60 mg Tablet PO (08:41)
[2024-01-01] MEDS: citalopram 20 mg Tablet PO (08:41)
[2024-01-01] MEDS: hyDRALAzine 50 mg Tablet 25 MG PO (08:41)
[2024-01-01] MEDS: insulin lispro 100 unit/1 mL SUBCUT ×2 (08:42→12:47)
[2024-01-01] MEDS: cefTRIAXone 1,000 mg SDV 1000 MG IVP (08:42)
[2024-01-01] MEDS: aspirin 81 mg EC Tablet PO (08:42)
[2024-01-01] MEDS: cetirizine 10 mg Tablet PO (08:42)
[2024-01-01] MEDS: pregabalin 100 mg Capsule 200 MG PO (08:44)
--- NOTE | 2024-01-01 09:44 | PM.PN ---
Subjective Subjective: The patient was seen and examined. Status post stress test this morning. She is feeling well no nausea vomiting or diarrhea. She had some itching overnight. Medications: Reviewed: Yes Medication Review Details: Current Medications Acetaminophen (Acetaminophen 500 Mg Tablet) 500 mg PO Q4H PRN PRN Reason: fever Albuterol/Ipratropium (Ipratropium-Albuterol 3 Ml Neb) 3 ml INHALATION Q6H PRN PRN Reason: SHORTNESS OF BREATH Aminophylline (Aminophylline 25 Mg/Ml Sdv 10 Ml) 25 mg IVP Q2M PRN PRN Reason: see dose instructions Stop: 01/02/24 06:57 Last Admin: 01/01/24 07:16 Dose: 25 mg Amlodipine Besylate (Amlodipine 10 Mg Tablet) 10 mg PO DAILY [facility] Last Admin: 01/01/24 08:41 Dose: 10 mg Aspirin (Aspirin 81 Mg Ec Tablet) 81 mg PO DAILY [facility] Last Admin: 01/01/24 08:42 Dose: 81 mg Atorvastatin Calcium (Atorvastatin 40 Mg Tablet) 40 mg PO BEDTIME MELINDA Last Admin: 12/31/23 21:29 Dose: 40 mg Bupropion HCl (Bupropion Xl (24 Hr) 150 Mg Tablet) 150 mg PO BEDTIME MELINDA Last Admin: 12/31/23 21:30 Dose: 150 mg Ceftriaxone Sodium (Ceftriaxone 1,000 Mg Sdv) 1,000 mg IVP Q24H MELINDA; Protocol Stop: 01/01/24 23:59 Last Admin: 01/01/24 08:42 Dose: 1,000 mg Cetirizine HCl (Cetirizine 10 Mg Tablet) 10 mg PO DAILY [facility] Last Admin: 01/01/24 08:42 Dose: 10 mg Citalopram Hydrobromide (Citalopram 20 Mg Tablet) 20 mg PO DAILY MELINDA Last Admin: 01/01/24 08:41 Dose: 20 mg Clopidogrel Bisulfate (Clopidogrel 75 Mg Tablet) 75 mg PO DAILY MELINDA Last Admin: 01/01/24 08:40 Dose: 75 mg Glucagon (Glucagon 1 Mg/Ml Kit 1 Ml) 1 mg IM ONCE PRN; Protocol PRN Reason: Adult Acute Hypoglycemia Nursing Prot. Heparin Sodium (Porcine) (Heparin 5,000 Unit/Ml Inj 1 Ml) 5,000 unit SUBCUT Q12H [facility] Last Admin: 01/01/24 04:12 Dose: 5,000 unit Hydralazine HCl (Hydralazine 50 Mg Tablet) 25 mg PO TID [facility] Last Admin: 01/01/24 08:41 Dose: 25 mg Dextrose (D5w) 500 mls @ 0 mls/hr IV ONCE PRN; Protocol PRN Reason: Adult Acute Hypoglycemia Prot Dextrose (D10w) 125 mls @ 750 mls/hr IV PRN PRN; Protocol PRN Reason: Adult Acute Hypoglycemia Nursing Protocol Dextrose (D10w) 250 mls @ 1,000 mls/hr IV PRN PRN; Protocol PRN Reason: Adult Acute Hypoglycemia Nursing Protocol Insulin Human Lispro (Insulin Lispro 100 Unit/1 Ml) 0 unit SUBCUT WM&BEDTIME [facility]; Protocol Last Admin: 01/01/24 08:42 Dose: 4 unit Isosorbide Mononitrate (Isosorbide Mononitrate Er 60 Mg Tablet) 60 mg PO DAILY [facility] Last Admin: 01/01/24 08:41 Dose: 60 mg Latanoprost (Latanoprost 0.005% Op Soln 2.5 Ml Btl) 1 drop EYE-BOTH QPM [facility] Last Admin: 12/31/23 17:19 Dose: 1 drop Metoprolol Succinate (Metoprolol Succinate Er (24 Hr) 25 Mg Tablet) 50 mg PO DAILY [facility] Last Admin: 01/01/24 08:41 Dose: 50 mg Nitroglycerin (Nitroglycerin 0.4 Mg Sublingual Tablet) 0.4 mg SUBLINGUAL Q5M PRN PRN Reason: CHEST PAIN Last Admin: 12/28/23 23:32 Dose: 0.4 mg Nitroglycerin (Nitroglycerin 1 Gm/Inch Oint Pkt) 0.5 inch TOPICAL Q6H [facility] Last Admin: 01/01/24 04:12 Dose: 0.5 inch Nitroglycerin (Nitroglycerin 0.4 Mg Sublingual Tablet) 0.4 mg SUBLINGUAL Q5M PRN PRN Reason: CHEST PAIN Stop: 01/02/24 06:57 Ondansetron HCl (Ondansetron 2 Mg/Ml Sdv 2 Ml) 4 mg IVP Q6H PRN PRN Reason: NAUSEA AND VOMITING Ondansetron HCl (Ondansetron 2 Mg/Ml Sdv 2 Ml) 4 mg IVP Q2M PRN PRN Reason: NAUSEA Oxybutynin Chloride (Oxybutynin Chloride Xl 5 Mg Tablet) 10 mg PO BEDTIME [facility] Last Admin: 12/31/23 21:29 Dose: 10 mg Pantoprazole Sodium (Pantoprazole Dr 40 Mg Tablet) 40 mg PO BID [facility] Last Admin: 01/01/24 08:40 Dose: 40 mg Pregabalin (Pregabalin 100 Mg Capsule) 200 mg PO 0900,2100 [facility] Last Admin: 01/01/24 08:44 Dose: 200 mg Sodium Bicarbonate (Sodium Bicarbonate 650 Mg Tablet) 650 mg PO BID [facility] Last Admin: 01/01/24 08:41 Dose: 650 mg Tamsulosin HCl (Tamsulosin 0.4 Mg Capsule) 0.4 mg PO QPM [facility] Last Admin: 12/31/23 17:18 Dose: 0.4 mg Vitals/I&O/Wt Last Vital Signs Temp 98.9 F 01/01/24 04:00 Pulse 110 H 01/01/24 07:20 Resp 15 01/01/24 04:00 BP 129/92 01/01/24 07:20 Pulse Ox 97 01/01/24 04:00 O2 Del Method Room Air 01/01/24 04:00 12/31/23 01/01/24 01/01/24 22:59 06:59 14:59 Intake Total 940 / 1420 720 / 720 Balance 940 / 1420 720 / 720 Weight last 48 hrs Weight 85.8 kg Weight 87.6 kg Physical Exam Narrative: Comfortable in bed no apparent distress. Vital signs noted and blood pressure is elevated. HEENT normocephalic atraumatic. Neck is supple no JVP no carotid bruits. Lungs have good air movement. Heart is regular. Abdomen is soft Extremities have no edema. Neuro awake alert oriented x 3. Normal pulses. The patient was seen and examined using audiovisual equipment as a telehealth visit Data 12/28/23 04:24 01/01/24 04:23 A&P Assessment and plan (1) Acute kidney injury superimposed on chronic kidney disease: 63-year-old lady history of seizures, hypertension, hyperlipidemia, anemia, CKD stage III diabetes, coronary artery insufficiency ESTHER, bipolar disease. Patient presented with weakness and lethargy and was diagnosed with a gram-negative edie UTI. Patient was hypotensive blood pressure is improving at this time w/ abx and icf 1. CKD stage III- likely from dm, meds, yeboah-2 inhibitor and UTI -Renal US normal ,Cr back to baseline 2. leticia improving - s/p ivf and off bp meds -No significant proteinuria. 3. Hypernatremia. improving 4. Pain. Please avoid NSAIDs and dose all medications for CKD stage IIIa. 5. hyperkalemia- from DM, CKD, recent aldactone, and Yeboah-2 inhibitor use -improved , s/p med management low k diet 6. Hypertension -continue amlodipine, will add low dose ARB- check chem 7 in 1 week -ifBP drops- then decrease hydralazine Seen examined with nurse this was a telehealth visit using audiovisual equipment. she needs outpt renal f/u Plan see above Attestations Medical Necessity Statement*: per medicine and cardiology Time Spent in Patient Care: 16 - 35 minutes (>than 50% of time spent in counselling and/or direct pt care on unit). Coding Level of Care Code Acute Code for g Fwd Diagnoses Acute kidney injury superimposed on chronic kidney disease N17.9; N18.9
[2024-01-01] MEDS: losartan 50 mg Tablet 25 MG PO (11:08)
[2024-01-01 12:51] LABS: Glucose Point of Care 217 mg/dL (70-110)
--- NOTE | 2024-01-01 14:00 | PM.DCS ---
Discharge Providers Date of Admission: 12/27/23 16:06 Date of Discharge: January 01, 2024 Attending Provider at Admission: Lori Gonzales MD Attending Provider at Discharge: Lori Gonzales MD Primary Care Provider: Rich Rosa MD Diagnoses at Discharge Discharge Diagnosis (1) Acute kidney injury superimposed on chronic kidney disease: Status: Resolved Reason for Visit Reason for Visit: Weakness, HTN Hospital Course Hospital Course Patient was admitted for LUÍS most likely secondary to nephrotoxic medications. 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 Clonidine Imdur metoprolol spironolactone were discontinued. Patient was also hypotensive upon admission needing IV fluid hydration. During hospitalization blood pressure was stabilized. He was also seen by nephrology. LUÍS improved. She was sent home on bicarb tablets along with losartan, hydralazine. For UTI she was given cefdinir. During hospitalization patient also complained of chest pain therefore cardiac stress test was done which was negative. Patient discharged home in stable condition. Physical Exam Narrative: Pleasant cooperative GCS 15 Chest pain-free at this time. Awake and alert Pleasant cooperative No active focal deficit Looks euvolemic GCS 15 Pleasant cooperative On room air Clear to auscultation bilaterally Discharge Data Studies Completed and Pending Completed Studies During Hospitalization Category Date Time Status Sestamibi Stress Test Request Routine Exams 12/31/23 14:06 Draft NM librado perf SPECT r/s* [id number] Routine Nuc Med 01/01/24 14:06 Completed CV. echo complete* [id number] Urgent Ultrasound 12/29/23 08:45 Completed US renal BI* [id number] Routine Ultrasound 12/28/23 09:59 Completed Pending at discharge Category Date Time Status Blood Culture Stat Lab 12/27/23 19:48 Results Comprehensive Metabolic Panel AM LABS Lab 01/02/24 04:00 Ordered Comprehensive Metabolic Panel AM LABS Lab 01/03/24 04:00 Ordered Magnesium AM LABS Lab 01/02/24 04:00 Ordered Magnesium AM LABS Lab 01/03/24 04:00 Ordered Phosphorus AM LABS Lab 01/02/24 04:00 Ordered Phosphorus AM LABS Lab 01/03/24 04:00 Ordered Sputum Culture Routine Lab 12/27/23 18:12 Uncollected Radiology Impressions Renal Ultrasound 12/28/23 09:59 IMPRESSION: Normal renal ultrasound Laboratory Results WBC 6.03 10^3/uL (3.29-11.43) 12/28/23 04:24 RBC 3.50 10^6/uL (3.85-5.65) L 12/28/23 04:24 Hgb 10.30 g/dL (11.27-16.99) L 12/28/23 04:24 Hct 32.6 % (36-47) L 12/28/23 04:24 MCV 93.1 fl (85-98) 12/28/23 04:24 MCH 29.4 pg (27-33) 12/28/23 04:24 MCHC 31.6 g/dL (30-55) 12/28/23 04:24 RDW 12.4 % (12.1-15.1) 12/28/23 04:24 Plt Count 239 10^3/cmm (157-399) 12/28/23 04:24 MPV 10.6 fL (7.4-10.4) H 12/28/23 04:24 Neut % (Auto) 66.0 % 12/28/23 04:24 Lymph % (Auto) 22.4 % 12/28/23 04:24 [place] % (Auto) 6.1 % 12/28/23 04:24 Eos % (Auto) 4.5 % 12/28/23 04:24 Baso % (Auto) 0.7 % 12/28/23 04:24 Neut # (Auto) 3.98 10^3/uL (1.8-7.7) 12/28/23 04:24 Lymph # (Auto) 1.4 10^3/uL (0.8-4.8) 12/28/23 04:24 [place] # (Auto) 0.4 10^3/uL (0.2-0.9) 12/28/23 04:24 Eos # (Auto) 0.3 10^3/uL (0.0-0.8) 12/28/23 04:24 Baso # (Auto) 0.0 10^3/uL (0.0-0.1) 12/28/23 04:24 Nucleated RBC % (auto) 0 % 12/28/23 04:24 Nucleated RBCs # 0.0 /100WBC 12/28/23 04:24 Sodium 142 mmol/L (136-145) 01/01/24 04:23 Potassium 4.6 mmol/L (3.5-5.1) 01/01/24 04:23 Chloride 109 mmol/L (98-107) H 01/01/24 04:23 Carbon Dioxide 22 mmol/L (22-29) 01/01/24 04:23 Anion Gap 15.6 (5-19) 01/01/24 04:23 BUN 26 mg/dL (8-23) H 01/01/24 04:23 Creatinine 1.4 mg/dL (0.5-0.9) H 01/01/24 04:23 GFR Calculation 38.2 mL/min (90-130) L 01/01/24 04:23 Glucose 219 mg/dL (65-115) H 01/01/24 04:23 POC Glucose 217 mg/dL (70-110) H 01/01/24 12:24 Calculated Osmolality 305 mOsm/kg (285-295) H 01/01/24 04:23 Uric Acid 4.9 mg/dL (2.4-5.7) 12/28/23 04:24 Calcium 9.6 mg/dL (8.5-10.5) 01/01/24 04:23 Phosphorus 4.2 mg/dL (2.5-4.5) 01/01/24 04:23 Magnesium 1.9 mg/dL (1.7-2.3) 01/01/24 04:23 Total Bilirubin 0.3 mg/dL (0.15-1.2) 01/01/24 04:23 AST 14 U/L (0-32) 01/01/24 04:23 ALT 18 U/L (0-33) 01/01/24 04:23 Alkaline Phosphatase 93 U/L (35-105) 01/01/24 04:23 Troponin T Baseline 18 ng/L (0-10) H 12/31/23 15:16 Troponin T 120 Minute 16.73 ng/L (0-10) H 12/31/23 17:18 Delta Troponin T -1.27 ABS# (0-10) L 12/31/23 17:18 Troponin T Hi Sens 6Hr 16.35 ng/L (0-10) H 12/31/23 21:46 Troponin T Hi Sens 6Hr Delta -1.65 ng/L (0-12) L 12/31/23 21:46 Total Protein 6.9 g/dL (6.6-8.7) 01/01/24 04:23 Albumin 4.3 g/dL (3.5-5.2) 01/01/24 04:23 Globulin 2.6 g/dL (1.3-4.6) 01/01/24 04:23 TSH 1.03 uIU/mL (0.27-4.20) 12/27/23 18:02 Urine Color Yellow (Yellow) 12/28/23 23:40 Urine Appearance Clear (CLEAR) 12/28/23 23:40 Urine pH 5.5 (5-7) 12/28/23 23:40 Ur Specific [place] 1.011 (1.005-1.030) 12/28/23 23:40 Urine Protein Negative (Negative) 12/28/23 23:40 Urine Glucose (UA) Negative (Normal) 12/28/23 23:40 Urine Ketones Negative (Negative) 12/28/23 23:40 Urine Blood Negative (Negative) 12/28/23 23:40 Urine Nitrate Negative (Negative) 12/28/23 23:40 Urine Bilirubin Negative (Negative) 12/28/23 23:40 Urine Urobilinogen 0.2 mg/dL (Negative) 12/28/23 23:40 Ur Leukocyte Esterase Negative (Negative) 12/28/23 23:40 Urine RBC 0-2 /hpf (0-2) 12/28/23 23:40 Urine WBC 0-5 /hpf (0-5) 12/28/23 23:40 Ur Squamous Epith Cells 0-5 /hpf (0-5) 12/28/23 23:40 Amorphous Sediment Not Reportable 12/28/23 23:40 Urine Bacteria None seen /hpf (NONE) 12/28/23 23:40 Hyaline Casts 0.40 /lpf 12/28/23 23:40 Ur Random Microalbumin 1 ug/dL (0-20) 12/28/23 23:40 U Random Total Protein 4 mg/dL 12/28/23 23:40 Ur Random Sodium 152 mmol/L 12/28/23 23:40 Ur Random Potassium 19 mmol/L 12/28/23 23:40 Ur Random Chloride 144 mmol/L 12/28/23 23:40 Urine Creatinine 38 mg/dL (28-217) 12/28/23 23:40 Urine Creatinine Cancelled 12/28/23 23:40 Microalb/Creat Ratio 26 mg/dL (0-20) H 12/28/23 23:40 Urine Opiates Screen Negative ng/mL (Negative) 12/27/23 12:58 Ur Barbiturates Screen Negative ng/mL (Negative) 12/27/23 12:58 Ur Phencyclidine Scrn Negative ng/mL (Negative) 12/27/23 12:58 Ur Amphetamines Screen Negative ng/mL (Negative) 12/27/23 12:58 U Benzodiazepines Scrn Negative ng/mL (Negative) 12/27/23 12:58 Urine Cocaine Screen Negative ng/mL (Negative) 12/27/23 12:58 U Marijuana (THC) Screen Negative ng/mL (Negative) 12/27/23 12:58 Vitals Last Vital Signs Temp 98.3 F 01/01/24 12:00 Pulse 106 H 01/01/24 12:00 Resp 20 H 01/01/24 12:00 BP 116/87 01/01/24 12:00 Pulse Ox 96 01/01/24 12:00 O2 Del Method Room Air 01/01/24 12:00 Discharge Plan Discharge Patient Disposition: Home Condition: Stable Prescriptions: New hydralazine 50 mg Tablet 25 mg PO TID Qty: 45 0RF cefdinir 300 mg capsule 300 mg PO BID Qty: 8 0RF losartan 50 mg Tablet 25 mg PO DAILY Qty: 30 0RF sodium bicarbonate 650 mg Tablet 650 mg PO DAILY Qty: 30 0RF Continued tamsulosin 0.4 mg capsule 0.4 mg PO QPM metformin 1,000 mg tablet 1,000 mg PO BID omeprazole 20 mg capsule,delayed release(DR/EC) 20 mg PO BID bupropion HCl 150 mg tablet extended release 24 hr 150 mg PO BEDTIME cetirizine [Allergy Relief (cetirizine)] 10 mg tablet 10 mg PO DAILY isosorbide mononitrate 60 mg tablet extended release 24 hr 60 mg PO DAILY citalopram 20 mg tablet 20 mg PO DAILY (DME) diabetic shoes w/ 3 inserts See Rx Instructions .Route .MEDSUPPLY Qty: 1 0RF Rx Instructions: As directed by the christal ledesma amlodipine 10 mg tablet 10 mg PO DAILY atorvastatin 40 mg Tablet 40 mg PO BEDTIME 30 Days Qty: 30 3RF aspirin 81 mg Tablet,Delayed Release (Dr/Ec) 81 mg PO DAILY 30 Days Qty: 30 3RF Hold Instructions: Resume on 01/07/23. clopidogrel [Plavix] 75 mg tablet 75 mg PO DAILY Qty: 30 3RF Hold Instructions: Resume on 01/07/23. latanoprost 0.005 % drops 1 drp ophthalmic (eye) QPM oxybutynin chloride 10 mg tablet extended release 24hr 10 mg PO BEDTIME pregabalin 200 mg capsule 200 mg PO BID Changed metoprolol succinate 50 mg tablet extended release 24 hr 50 mg PO DAILY Qty: 30 0RF Rx Instructions: take 1/2 tablet by mouth at bedtime Discontinued spironolactone 50 mg tablet 50 mg PO DAILY clonidine HCl 0.2 mg Tablet 0.2 mg PO BID diclofenac sodium 75 mg tablet,delayed release (DR/EC) 75 mg PO BID Discharge Orders: Discharge Order (Routine); Ordered 01/01/24 Ordered By: Lori Gonzales Referrals: Nelson Boyle M.D [Physician] - 1 month (After your appointment with Agnie Berry, you will be scheduled for an follow-up with Dr. Boyle. Thnak you! ) Rich Rosa MD [Primary Care Provider] - 4-7 days (Per [facility] clinic will call you to schedule follow-up appointment. Thank you! ) Rome Lima MD [Referring] - 7-10 days (We have notified your physician's clinic of the need for a follow-up appointment to be scheduled. If you have not heard from them within the next 2 business days, please call them directly. ) Angie Berry FNP [Nurse Practitioner] - 01/15/24 1:00 pm Discharge Diet: Cardiac Discharge Activity: Resume usual activity Patient Instructions: Hydralazine (By mouth), Losartan (By mouth) (Cozaar), Cefdinir (By mouth) (Omnicef), Sodium Bicarbonate (By mouth), Acute Kidney Injury (DC), Hyperkalemia (DC), Opioid Safety Discharge Attestations Time Spent in Discharge Care*: greater than 30 min Status at Discharge: Cognitive status at discharge: cognitively intact, Behavioral status at discharge: cooperative, Quality Metrics Clinical Quality Measures [ No reported AMI, CVA or VTE this stay] Coding Level of Care Code Acute Code for Chg Fwd Diagnoses Acute kidney injury superimposed on chronic kidney disease N17.9; N18.9
--- NOTE | 2024-01-01 14:06 | NMCV_ITS ---
NM librado perf SPECT r/s* [id number] Rebecca Sanderson Age: 63 Gender: F : 1960 Exam Date: 01/01/2024 14:06 Ordering Phys: Lori Gonzales MD Technologist: ZHANE Jaramillo Exam Location: [facility] Indications: CP STRESS TEST Please see separate stress test report in [facility] for full findings IMAGE PROTOCOL Rest/Stress 1 Lexiscan Day Radiopharmaceutical Dose (mCi) Administration Site Administered by Rest: Tc-99m 10.7 IV Kaylen Benitez, [employer] Sestamibi Stress:Tc-99m 32.9 IV Kaylen Florgle, [employer] Sestamibi Rest: 01-Jan-2024 60 Discovery 630 Stress: 01-Jan-2024 30 Discovery 630 0.4mg Lexiscan. Images obtained in supine and prone position. SPECT RESULTS Technical Quality: Good Raw Data Analysis: Normal Image Corrections: No attenuation or motion correction applied Summed Stress Score: 0 Summed Rest Score: 1 Summed Difference Score: 0 PERFUSION FINDINGS Fairly uniform myocardial tracer uptake with no significant perfusion abnormalities FUNCTIONAL RESULTS (calculated via Gated SPECT) Stress Image LV EF (%): 95 Stress EDV (mL):37 TID: 0.85 Stress ESV (mL):2 FUNCTIONAL FINDINGS: Segmental wall motion analysis revealing no gross wall motion abnormalities IMPRESSIONS 1. Uniform myocardial tracer uptake with no significant Perfusion abnormalities 2. Normal LV ejection fraction 95%. 3. LV wall motion analysis revealing no gross wall motion abnormalities. 4. Normal LV volume Low probability for coronary ischemia, based on the above findings Dr Davian Interiano MD [facility] (Electronically Signed) Final Date: 01 January 2024 12:24 S
--- NOTE | 2024-01-01 15:23 | PC.NURSE ---
Patient waiting in wheelchair in the [place] for discharge. Instructions about appointments and medications given. Reminded patient to please supervisor opening and picking at [facility]. Patient verbalized understanding.
== END 2024-01-01 15:23 | disposition home or self-care (01) | DRG 683 ==
LOC: ER 15:30 → MEDSURG 16:06 → ICU 21:18 → CSU 12-30 16:58
PROVIDERS: Internal Medicine; Internal Medicine Nephrology; Admitting Provider Internal Medicine; Emergency Provider Student in an Organized Health Care Education/Training Program; PCP Family Medicine; Visit Provider Internal Medicine
DX: N17.9 Acute kidney failure, unspecified (principal); E87.20 Acidosis, unspecified; N39.0 Urinary tract infection, site not specified; E11.22 Type 2 diabetes mellitus with diabetic chronic kidney disease; I12.9 Hypertensive chronic kidney disease with stage 1 through stage 4 chronic kidney disease, or unspecified chronic kidney disease; N18.30 Chronic kidney disease, stage 3 unspecified; F44.5 Conversion disorder with seizures or convulsions; I95.9 Hypotension, unspecified; M79.7 Fibromyalgia; E87.5 Hyperkalemia; G47.33 Obstructive sleep apnea (adult) (pediatric); E11.42 Type 2 diabetes mellitus with diabetic polyneuropathy; R00.1 Bradycardia, unspecified; T44.7X5A Adverse effect of beta-adrenoreceptor antagonists, initial encounter; F31.9 Bipolar disorder, unspecified; R07.89 Other chest pain; I25.10 Atherosclerotic heart disease of native coronary artery without angina pectoris; T50.915A Adverse effect of multiple unspecified drugs, medicaments and biological substances, initial encounter; Z79.82 Long term (current) use of aspirin; Z79.84 Long term (current) use of oral hypoglycemic drugs; Z79.01 Long term (current) use of anticoagulants; Z86.73 Personal history of transient ischemic attack (TIA), and cerebral infarction without residual deficits
CPT/HCPCS: 36415; 36416; 76770; 78452; 80048; 80053; 80306; 81001; 82044; 82436; 82570; 82962; 83735; 84100; 84133; 84156; 84300; 84443; 84484; 84550; 85025; 87040; 87077; 87086; 87186; 93005; 93017; 93306; 96372; 96374; 96375; 96376; 99285; A9500; J0280; J0360; J0696; J1644; J1815; J2543; J2785; J3372; J3475; J7030; J7799; Q3014

== ENCOUNTER → 2024-01-15 13:00 | Outpatient (BNVA) | payer MEDICAID, SELFPAY | PROVIDERS: PCP Family Medicine; Visit Provider Nurse Practitioner Family | DX: I25.5 Ischemic cardiomyopathy (principal); I20.9 Angina pectoris, unspecified; R06.09 Other forms of dyspnea; G40.909 Epilepsy, unspecified, not intractable, without status epilepticus | CPT/HCPCS: 99213 ==

== ENCOUNTER → 2024-03-21 10:06 | Outpatient (BNVA) | payer MEDICAID, SELFPAY | PROVIDERS: PCP Family Medicine; Visit Provider Podiatrist Foot & Ankle Surgery | DX: G62.9 Polyneuropathy, unspecified (principal); M79.671 Pain in right foot; E11.42 Type 2 diabetes mellitus with diabetic polyneuropathy; E11.8 Type 2 diabetes mellitus with unspecified complications; L60.3 Nail dystrophy; L84 Corns and callosities; Z79.84 Long term (current) use of oral hypoglycemic drugs | CPT/HCPCS: 73630; 99213 ==

== ENCOUNTER → 2024-07-09 10:18 | Outpatient (BNVA) | payer MEDICAID, SELFPAY | PROVIDERS: PCP Family Medicine; Visit Provider Specialist | DX: G43.711 Chronic migraine without aura, intractable, with status migrainosus (principal); I63.511 Cerebral infarction due to unspecified occlusion or stenosis of right middle cerebral artery; R56.9 Unspecified convulsions; G93.9 Disorder of brain, unspecified; G43.909 Migraine, unspecified, not intractable, without status migrainosus; R29.90 Unspecified symptoms and signs involving the nervous system | CPT/HCPCS: 99213 ==

== ENCOUNTER → 2024-07-16 15:35 | Outpatient (BNVA) | payer MEDICAID, SELFPAY | PROVIDERS: PCP Family Medicine; Visit Provider Internal Medicine | DX: E11.9 Type 2 diabetes mellitus without complications (principal); I10 Essential (primary) hypertension | CPT/HCPCS: 99213 ==

== ENCOUNTER 2024-07-30 10:11 | Observation (INO) | payer MEDICAID, SELFPAY ==
[2024-07-30] VITALS (17 sets, daily range): BP systolic 104–154; BP diastolic 50–87; PULSE 55–85; RESP 10–17; TEMP 36.6–36.9; O2SAT 93–100
--- NOTE | 2024-07-30 10:13 | ECG_ITS ---
[facility] Test Date: 2024-07-30 Pat Name: Rebecca Sanderson Department: Room: Gender: Female Rn Lab: : 1960 Requested By: Meliton Norris Order Number: [id number] Reading MD: CHUCHO IVEY Measurements Intervals [place] Rate: 62 P: 56 RI: 198 QRS: -5 QRSD: 101 T: 48 QT: 413 QTc: 422 Interpretive Statements SINUS RHYTHM Compared to ECG 12/31/2023 22:55:58 T-wave abnormality no longer present Electronically Signed On 08-01-2024 23:34:33 CDT by CHUCHO IVEY [id number]
--- NOTE | 2024-07-30 10:17 | XR_ITS ---
WS: [id number] Exam: XR chest 1V portable [id number] Date/Time of Exam: 07/30/2024 10:30 AM Reason For Exam: Altered mental Comparison 03/21/2023. Lungs are fully expanded and clear. Normal cardiomediastinal silhouette and regional bony elements. No pleural effusion. Monitoring leads overlie the chest. XR/XR chest 1V portable [id number] IMPRESSION: 1. Negative chest.
--- NOTE | 2024-07-30 10:17 | CT_ITS ---
WS: [id number] CT HEAD NONCONTRAST HISTORY: AMS TECHNIQUE: Contiguous axial imaging performed through the brain. Bone and soft tissue windows. Sagittal and coronal reformats reviewed. All CT scans at [facility] use at least one of these dose optimization techniques: automated exposure control; mA and/or kV adjustment per patient size (includes targeted exams where dose is matched to clinical indication); or iterative reconstruction. DLP: 1010.60 mGy.cm COMPARISON: 12/30/2022 No acute intracranial hemorrhage, midline shift or mass effect. Very mild atrophy and small vessel disease. No new infarct. Stable anterior RIGHT middle cranial fossa arachnoid cyst. Mild cerebellar atrophy. Ventricles: Normal size with no hydrocephalus. No inferior displacement the cerebellar tonsils. Paranasal sinuses: As visualized are clear. Mastoid air cells: Well pneumatized. Calvarium and scalp: Skull is intact with no soft tissue edema or swelling. Moderate calcified plaque at the cavernous carotid arteries. CT/CT head wo con* [id number] IMPRESSION: 1. Stable noncontrast head CT. 2. Very mild cerebral and cerebellar atrophy and small vessel disease. 3. No acute infarct. 4. Stable RIGHT middle cranial fossa arachnoid cyst.
[2024-07-30 10:23] LABS: Glucose Point of Care 399 mg/dL (70-110)
--- NOTE | 2024-07-30 10:25 | W.ED.GENADLT ---
HPI - General Adult General: Chief complaint: Altered Mental Status Stated complaint: AMS Time Seen by Provider: 07/30/24 10:16 History of Present Illness: 62-year-old female presents to the emergency room from home. EMS was called out for altered mental status her home health nurse had gone to see her reporting the last couple weeks she has had on and off episodes of altered mental status. She is not oriented to time or place. There is no family at the bedside initially according to EMS the last known well was potentially some 3 weeks ago patient is diabetic blood sugar was elevated in the field on arrival here her Accu-Chek at the bedside is 399. Associated symptoms: Deny chest pain, dyspnea or rash Related Data Home Medications ?Medication ?Instructions ?Recorded ?Confirmed bupropion HCl 150 mg 24 hr tablet, 150 mg PO BEDTIME 12/14/22 07/30/24 extended release cetirizine 10 mg tablet (Allergy 10 mg PO DAILY 12/14/22 07/30/24 Relief (cetirizine)) isosorbide mononitrate 60 mg 60 mg PO DAILY 12/14/22 07/30/24 tablet,extended release 24 hr omeprazole 20 mg capsule,delayed 20 mg PO BID 12/14/22 07/30/24 release tamsulosin 0.4 mg capsule 0.4 mg PO QPM 12/14/22 07/30/24 latanoprost 0.005 % eye drops 1 drp ophthalmic (eye) QPM 12/30/22 07/30/24 amlodipine 10 mg tablet 10 mg PO DAILY 07/10/23 07/30/24 oxybutynin chloride 10 mg 10 mg PO BEDTIME 12/27/23 07/30/24 tablet,extended release 24 hr pregabalin 200 mg capsule 200 mg PO BID 12/27/23 07/30/24 dapagliflozin propanediol 10 mg 10 mg PO DAILY 07/17/24 07/30/24 tablet (Farxiga) spironolactone 25 mg tablet 25 mg PO DAILY 07/17/24 07/30/24 ergocalciferol (vitamin D2) 1,250 1,250 mcg PO Q7D 07/30/24 07/30/24 mcg (50,000 unit) capsule (Vitamin D2) metoprolol succinate 50 mg 25 mg PO DAILY 05/13/25 05/13/25 tablet,extended release 24 hr metoprolol succinate 50 mg 50 mg PO QPM 07/30/24 07/30/24 tablet,extended release 24 hr Previous Rx's ?Medication ?Instructions ?Recorded aspirin 81 mg tablet,delayed 81 mg PO DAILY 30 days #30 tabs 12/19/20 release clopidogrel 75 mg tablet (Plavix) 75 mg PO DAILY #30 tabs 12/19/20 diabetic shoes w/ 3 inserts #1 ea 09/19/23 isosorbide mononitrate 30 mg 30 mg PO DAILY #90 tabs 06/17/24 tablet,extended release 24 hr losartan 50 mg tablet 25 mg (1/2 x 50 mg) PO DAILY #30 07/17/24 tabs citalopram 20 mg tablet 30 mg (1.5 x 20 mg) PO DAILY 30 07/31/24 days #30 tabs Allergies Allergy/AdvReac Type Severity Reaction Status Date / Time penicillin G Allergy Mild breaks out Verified 07/30/24 10:22 in hives Penicillins Allergy ALGY-Hives Verified 07/30/24 10:22 Review of Systems Const: Denies: fever(s) or chills Card: Denies: chest pain Resp: Denies: dyspnea GI: Denies: abdominal pain : Denies: dysuria, urinary frequency or urinary urgency Musc: Denies: neck pain or back pain Skin/Breast: Denies: rash PFSH ED PFSH: Medical History Blood loss anemia Medication side effect Anemia Altered mental status Acute kidney injury superimposed on chronic kidney disease Seizures Functional neurological symptom disorder with attacks or seizures Vertigo Chronic migraine without aura, intractable, with status migrainosus Diabetes mellitus Basilar artery insufficiency Temporal lobe lesion DVT prophylaxis Injury, self-inflicted Fever TIA (transient ischemic attack) No pertinent family history ESTHER (obstructive sleep apnea) Bipolar 1 disorder Self-mutilation Diabetes mellitus Hypertension Right middle cerebral artery stroke Family History Father Sleep apnea Hypertension Mother Hypertension Social History Smoking and tobacco/nicotine status: never used tobacco/nicotine Alcohol intake: current Alcohol intake frequency: holidays/special occasions only Substance/Drug Use: never Current gender identity: Female Physical Exam HENMT: COMMON NORMALS: normocephalic, atraumatic and hearing grossly normal bilaterally HEAD & SCALP: normocephalic and atraumatic Resp: COMMON NORMALS: normal respiratory effort, No retractions, No use of accessory muscles and clear to auscultation bilaterally AUSCULTATION: clear to auscultation bilaterally Cardio: COMMON NORMALS: regular rate, regular rhythm and No murmurs present (Cardio) RATE: regular rate RHYTHM: regular rhythm GI: COMMON NORMALS: Soft to palpation and No hepatosplenomegaly present AUSCULTATION: Yes normoactive bowel sounds PALPATION: Yes Soft to palpation, No Tenderness to palpation present (GI), No Guarding due to palpation present (GI) and Yes No hepatosplenomegaly present Extremity: COMMON NORMALS: normal to inspection, capillary refill normal, no clubbing, cyanosis or edema, no calf tenderness and no pedal edema Skin: COMMON NORMALS: no rashes or lesions noted GENERAL SKIN EXAM: no rashes or lesions noted Course Vital Signs: Vital signs: Vital Signs Temperature 97.8 F 07/31/24 11:30 Pulse Rate 88 07/31/24 14:18 Respiratory Rate 17 07/31/24 14:18 Blood Pressure 122/75 07/31/24 14:18 Pulse Oximetry 97 07/31/24 14:18 Oxygen Delivery Me thod Room Air 07/31/24 11:30 [facility] - General Adult Medical Decision Making Altered mental status. No focal neurologic deficits. She has been progressively worsening according to family for nearly 3 weeks. She continues to have some vomiting and diarrhea. Labs reviewed she is mildly anemic. Her blood gas did not show any metabolic acidosis. Mild acute kidney injury. Family reports she has been extremely stressed. CT of the head and CT abdomen pelvis negative. Difficult to get specific history from the patient. She does not appear to have seized based on her symptoms. No evidence of DKA at this point. Discussed with the hospitalist will admit for altered mental status. Medical Records I reviewed the patient's medical records. Lab Data I reviewed the patient's lab results. 07/31/24 02:42 07/31/24 02:42 Radiology Impressions Chest X-Ray 07/30/24 10:17 IMPRESSION: 1. Negative chest. Head CT 07/30/24 10:17 IMPRESSION: 1. Stable noncontrast head CT. 2. Very mild cerebral and cerebellar atrophy and small vessel disease. 3. No acute infarct. 4. Stable RIGHT middle cranial fossa arachnoid cyst. Abdomen/Pelvis CT 07/30/24 12:57 IMPRESSION: 1. No acute abdominal or pelvic abnormalities. 2. No pelvic mass. 3. No free air or ascites. 4. Normal appendix. 5. No renal obstruction. Laboratory Results WBC 7.01 10^3/uL (3.29-11.43) 07/30/24 10:32 RBC 4.39 10^6/uL (3.85-5.65) 07/30/24 10:32 Hgb 10.60 g/dL (11.27-16.99) L 07/30/24 10:32 Hct 34.0 % (36-47) L 07/30/24 10:32 MCV 77.4 fl (85-98) L 07/30/24 10:32 MCH 24.1 pg (27-33) L 07/30/24 10:32 MCHC 31.2 g/dL (30-55) 07/30/24 10:32 RDW 15.0 % (12.1-15.1) 07/30/24 10:32 Plt Count 300 10^3/cmm (157-399) 07/30/24 10:32 MPV 10.2 fL (7.4-10.4) 07/30/24 10:32 Neut % (Auto) 68.2 % 07/30/24 10:32 Lymph % (Auto) 17.3 % 07/30/24 10:32 [place] % (Auto) 7.0 % 07/30/24 10:32 Eos % (Auto) 5.6 % 07/30/24 10:32 Baso % (Auto) 1.0 % 07/30/24 10:32 Neut # (Auto) 4.79 10^3/uL (1.8-7.7) 07/30/24 10:32 Lymph # (Auto) 1.2 10^3/uL (0.8-4.8) 07/30/24 10:32 [place] # (Auto) 0.5 10^3/uL (0.2-0.9) 07/30/24 10:32 Eos # (Auto) 0.4 10^3/uL (0.0-0.8) 07/30/24 10:32 Baso # (Auto) 0.1 10^3/uL (0.0-0.1) 07/30/24 10:32 Nucleated RBC % (auto) 0 % 07/30/24 10:32 Nucleated RBCs # 0.0 /100WBC 07/30/24 10:32 Specimen Type Arterial 07/30/24 10:33 Sample Site Radial, right 07/30/24 10:33 ABG pH 7.37 (7.35-7.45) 07/30/24 10:33 ABG pCO2 37.8 mmHg (35-45) 07/30/24 10:33 ABG pO2 70.7 mmHg (80.0-100.0) L 07/30/24 10:33 ABG PO2/FiO2 Ratio 336 07/30/24 10:33 ABG HCO3 21.7 mmol/L (22-26) L 07/30/24 10:33 ABG O2 Saturation 94.3 07/30/24 10:33 ABG Base Excess -3.2 mmol/L (-2.0-2.0) L 07/30/24 10:33 Juan R Test Pos 07/30/24 10:33 A-a O2 Gradient 4.0 mmHg (5-10) L 07/30/24 10:33 Hematocrit 33.9 % (37-47) L 07/30/24 10:33 Hgb O2 Saturation 92.2 % (95-100) L 07/30/24 10:33 Carboxyhemoglobin 1.1 %THgb (0.4-20.1) 07/30/24 10:33 Methemoglobin 1.1 % (0.4-1.5) 07/30/24 10:33 Total Hemoglobin 11.1 g/dL (12-16) L 07/30/24 10:33 Sodium 137.0 mmol/L (131-143) 07/30/24 10:33 Potassium 4.8 mmol/L (3.5-5.0) 07/30/24 10:33 Glucose 390.0 mg/dL (70-115) H 07/30/24 10:33 Ionized Calcium 1.2 mmol/L (1.1-1.4) 07/30/24 10:33 O2 Delivery Device Room air 07/30/24 10:33 FiO2 21.0 % 07/30/24 10:33 Artist Color Separation ID [place] 07/30/24 10:33 Sodium 135 mmol/L (136-145) L 07/30/24 10:32 Potassium 4.9 mmol/L (3.5-5.1) 07/30/24 10:32 Chloride 103 mmol/L (98-107) 07/30/24 10:32 Carbon Dioxide 19 mmol/L (22-29) L 07/30/24 10:32 Anion Gap 17.9 (5-19) 07/30/24 10:32 BUN 26 mg/dL (8-23) H 07/30/24 10:32 Creatinine 1.7 mg/dL (0.5-0.9) H 07/30/24 10:32 GFR Calculation 30.5 mL/min (90-130) L 07/30/24 10:32 Glucose 392 mg/dL (65-115) H 07/30/24 10:32 POC Glucose 259 mg/dL (70-110) H 07/30/24 12:41 Estimat Average Glucose 214 07/30/24 10:32 Hemoglobin A1c 9.1 % (4.0-6.0) H 07/30/24 10:32 Calculated Osmolality 301 mOsm/kg (285-295) H 07/30/24 10:32 Lactic Acid 2.0 mmol/L (0.5-2.2) 07/30/24 10:32 Calcium 8.9 mg/dL (8.5-10.5) 07/30/24 10:32 Total Bilirubin 0.2 mg/dL (0.15-1.2) 07/30/24 10:32 AST 9 U/L (0-32) 07/30/24 10:32 ALT 10 U/L (0-33) 07/30/24 10:32 Alkaline Phosphatase 132 U/L (35-105) H 07/30/24 10:32 Creatine Kinase 53 U/L (26-192) 07/30/24 10:32 Total Protein 6.3 g/dL (6.6-8.7) L 07/30/24 10:32 Albumin 4.1 g/dL (3.5-5.2) 07/30/24 10:32 Globulin 2.2 g/dL (1.3-4.6) 07/30/24 10:32 Urine Color Yellow (Yellow) 07/30/24 10:45 Urine Appearance Clear (CLEAR) 07/30/24 10:45 Urine pH 5.0 (5-7) 07/30/24 10:45 Ur Specific [place] 1.029 (1.005-1.030) 07/30/24 10:45 Urine Protein Negative (Negative) 07/30/24 10:45 Urine Glucose (UA) 3+ (Normal) H 07/30/24 10:45 Urine Ketones Negative (Negative) 07/30/24 10:45 Urine Blood Negative (Negative) 07/30/24 10:45 Urine Nitrate Negative (Negative) 07/30/24 10:45 Urine Bilirubin Negative (Negative) 07/30/24 10:45 Urine Urobilinogen 0.2 mg/dL (Negative) 07/30/24 10:45 Ur Leukocyte Esterase Negative (Negative) 07/30/24 10:45 Urine RBC 0-2 /hpf (0-2) 07/30/24 10:45 Urine WBC 6-10 /hpf (0-5) 07/30/24 10:45 Ur Squamous Epith Cells 0-5 /hpf (0-5) 07/30/24 10:45 Amorphous Sediment Not Reportable 07/30/24 10:45 Urine Bacteria 2+ /hpf (NONE) H 07/30/24 10:45 Hyaline Casts 1.21 /lpf 07/30/24 10:45 Serum Ketones Negative (Negative) 07/30/24 10:32 All radiology interpretation(s) finalized by discharge Discharge Plan Discharge Patient Disposition: Placed in Observation Admit Provider: Mali Brown Clinical Impression: Altered mental status, Type 2 diabetes mellitus Discharge Diet: Usual diet Discharge Activity: Resume usual activity Coding Level of Care Code ED Mgmt Analyst for Chg Fwnoman
[2024-07-30 10:39] LABS: Basophils # 0.1 10^3/uL (0.0-0.1); Eosinophils # 0.4 10^3/uL (0.0-0.8); Eosinophils % 5.6 %; Lymphocytes # 1.2 10^3/uL (0.8-4.8); Lymphocytes % 17.3 %; Mean Corpuscular HGB Conc 31.2 g/dL (30-55); Mean Corpuscular Hemoglobin 24.1 pg (27-33); Mean Corpuscular Volume 77.4 fl (85-98); Mean Platelet Volume 10.2 fL (7.4-10.4); Monocytes # 0.5 10^3/uL (0.2-0.9); Neutrophils # 4.79 10^3/uL (1.8-7.7); Neutrophils % 68.2 %; Nucleated Red Blood Cells % 0 %; Platelet Count 300 10^3/cmm (157-399); Red Blood Count 4.39 10^6/uL (3.85-5.65); White Blood Count 7.01 10^3/uL (3.29-11.43)
[2024-07-30 10:44] LABS: ABG PCO2 37.8 mmHg (35-45); ABG PH Result 7.37 (7.35-7.45); Arterial Blood Gas Hematocrit 33.9 % (37-47); Base Excess ABG -3.2 mmol/L (-2.0-2.0); Blood Gas Allen Test Pos; Blood Gas Operator Identificat WALCI; Blood Gas Sample Site Radial, right; Blood Gas Sample Type Arterial; Carboxyhemoglobin 1.1 %THgb (0.4-20.1); HCO3 ABG 21.7 mmol/L (22-26); HGB O2 Sat 92.2 % (95-100); Ionized Calcium Level - ABG 1.2 mmol/L (1.1-1.4); Methemoglobin 1.1 % (0.4-1.5); Oxygen Device ROOM AIR; Oxygen Saturation ABG 94.3; PO2 ABG 70.7 mmHg (80.0-100.0); PO2 FiO2 Ratio Arterial Blood 336; Potassium Level - ABG 4.8 mmol/L (3.5-5.0); Total Hemoglobin 11.1 g/dL (12-16)
[2024-07-30 10:52] LABS: Ketone (Acetest) Serum Negative (Negative)
[2024-07-30 10:59] LABS: Bilirubin Urine Negative (Negative); Blood Urine Negative (Negative); Glucose Urine UA 3+ (Normal); Ketones Urine Negative (Negative); Leukocyte Esterase Urine Negative (Negative); Nitrate Urine Negative (Negative); Protein Urine Negative (Negative); Specific Gravity, Urine 1.029 (1.005-1.030); Urine Appearance Clear (CLEAR); Urine Color Yellow (Yellow); Urobilinogen Urine 0.2 mg/dL (Negative)
[2024-07-30 11:01] LABS: Add Urine Microscopic? YES; Bacteria Urine 2+ /hpf; Hyaline Casts Urine 1.21 /lpf; RBC Urine 0-2 /hpf (0-2); Squamous Epithelial Cell Urine 0-5 /hpf (0-5)
[2024-07-30 11:04] LABS: Alanine Aminotransferase 10 U/L (0-33); Albumin Level 4.1 g/dL (3.5-5.2); Alkaline Phosphatase 132 U/L (35-105); Anion Gap 17.9 (5-19); Aspartate Amino Transferase 9 U/L (0-32); Blood Urea Nitrogen 26 mg/dL (8-23); Calcium 8.9 mg/dL (8.5-10.5); Carbon Dioxide 19 mmol/L (22-29); Chloride 103 mmol/L (98-107); Creatine Phosphokinase 53 U/L (26-192); Globulin 2.2 g/dL (1.3-4.6); Glomerular Filtration Rate 30.5 mL/min (90-130); Glucose 392 mg/dL (65-115); Osmolality Calculated 301 mOsm/kg (285-295); Potassium 4.9 mmol/L (3.5-5.1); Sodium 135 mmol/L (136-145); Total Bilirubin 0.2 mg/dL (0.15-1.2); Total Protein 6.3 g/dL (6.6-8.7)
[2024-07-30 11:12] LABS: UA Slide Review UA Slide Review Perf
[2024-07-30 11:15] LABS: Add Urine Culture? No
[2024-07-30 12:44] LABS: Glucose Point of Care 259 mg/dL (70-110)
--- NOTE | 2024-07-30 12:57 | CT_ITS ---
WS: [id number] CT ABDOMEN AND PELVIS WITH CONTRAST HISTORY: abd pain, lower abdominal pain for 1 day. TECHNIQUE: Imaging performed of the abdomen and pelvis with IV contrast. Single phase imaging of the abdomen. Coronal and sagittal reformats are submitted. All CT scans at [facility] use at least one of these dose optimization techniques: automated exposure control; mA and/or kV adjustment per patient size (includes targeted exams where dose is matched to clinical indication); or iterative reconstruction. IV CONTRAST: Omnipaque 350; 100 mL IV. Oral contrast: No DLP: 854.93 mGy.cm COMPARISON: 02/20/2009 Lower thorax: Lung bases are clear. Heart is normal size. Small hiatal hernia. Liver/biliary system: Normal size with no intrahepatic dilatation. Gallbladder: Normal. No gallstones or wall thickening. No pericholecystic fluid. Pancreas: Normal size pancreas and pancreatic duct. No adjacent inflammation. Spleen: Normal size spleen. No mass or infarct. Adrenal glands: Normal. Right kidney: Normal. Left kidney: Normal. Aorta: Minimal atherosclerotic plaque. Lymphadenopathy: None. Free fluid: None. GI tract: No obstruction. Normal appendix. Mild constipation throughout the colon. No diverticulitis. Abdominal wall: Tiny fat-containing umbilical hernia. Pelvis: No free fluid or adenopathy within the pelvis. No ovarian cyst or mass. Bones: Mild increase in lumbar lordosis. L4 anterolisthesis by [address]/CT abdomen pelvis w con* [id number] IMPRESSION: 1. No acute abdominal or pelvic abnormalities. 2. No pelvic mass. 3. No free air or ascites. 4. Normal appendix. 5. No renal obstruction.
[2024-07-30] MEDS: iohexol 350 mg/mL 500 mL Btl (per mL) IV (13:35)
--- NOTE | 2024-07-30 17:08 | PC.NURSE ---
Patient transferred from ED to CSU via a wheelchair at 1705.
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
[2024-07-30 17:23] LABS: Glucose Point of Care 188 mg/dL (70-110)
[2024-07-30] MEDS: insulin lispro 100 unit/1 mL SUBCUT ×2 (17:57→21:21)
[2024-07-30] MEDS: tamsulosin 0.4 mg Capsule PO (17:57)
[2024-07-30] MEDS: pregabalin 100 mg Capsule 200 MG PO (17:58)
[2024-07-30] MEDS: pantoprazole DR 40 mg Tablet PO (17:58)
--- NOTE | 2024-07-30 20:35 | PC.NURSE ---
Notified Dr. Isaac about patient requesting cpap. Per MD michael to order Cpap.
[2024-07-30 20:42] LABS: Glucose Point of Care 294 mg/dL (70-110)
[2024-07-30 21:20] LABS: Estmated Average Glucose 214; Hemoglobin A1C 9.1 % (4.0-6.0)
[2024-07-30] MEDS: buPROPion XL (24 HR) 150 mg Tablet PO (21:21)
[2024-07-31] MEDS: quetiapine 25 mg Tablet PO (02:13)
--- NOTE | 2024-07-31 02:42 | PC.NURSE ---
Notified Dr. Richards patient is complaining of intermittent whole body numbness and tingling as well as more jerking in her extremeites. Per patient she experiences this at home and just tries to attempt relaxation techniques. MD to place orders.
[2024-07-31 03:32] LABS: Basophils # 0.1 10^3/uL (0.0-0.1); Basophils % 0.8 %; Eosinophils # 0.3 10^3/uL (0.0-0.8); Eosinophils % 4.6 %; Hematocrit 34.9 % (36-47); Lymphocytes # 1.7 10^3/uL (0.8-4.8); Lymphocytes % 23.9 %; Mean Corpuscular HGB Conc 30.9 g/dL (30-55); Mean Corpuscular Hemoglobin 23.9 pg (27-33); Mean Corpuscular Volume 77.2 fl (85-98); Mean Platelet Volume 10.2 fL (7.4-10.4); Monocytes # 0.5 10^3/uL (0.2-0.9); Monocytes % 6.3 %; Neutrophils % 63.4 %; Nucleated Red Blood Cells % 0 %; Platelet Count 331 10^3/cmm (157-399); Red Blood Count 4.52 10^6/uL (3.85-5.65); Red Cell Distribution Width 15.2 % (12.1-15.1); White Blood Count 7.11 10^3/uL (3.29-11.43)
[2024-07-31 04:00] VITALS: BP 127/81; PULSE 108; RESP 18; TEMP 36.6; O2SAT 97
[2024-07-31 04:08] LABS: Alanine Aminotransferase 11 U/L (0-33); Albumin Level 4.2 g/dL (3.5-5.2); Alkaline Phosphatase 142 U/L (35-105); Anion Gap 18.7 (5-19); Aspartate Amino Transferase 12 U/L (0-32); Blood Urea Nitrogen 22 mg/dL (8-23); Calcium 9.6 mg/dL (8.5-10.5); Carbon Dioxide 22 mmol/L (22-29); Chloride 104 mmol/L (98-107); Creatinine Clr Calc Pharmacy 34.4991; Globulin 2.4 g/dL (1.3-4.6); Glomerular Filtration Rate 28.5 mL/min (90-130); Glucose 132 mg/dL (65-115); Magnesium 2.1 mg/dL (1.7-2.3); Osmolality Calculated 295 mOsm/kg (285-295); Phosphorus 4.1 mg/dL (2.5-4.5); Potassium 4.7 mmol/L (3.5-5.1); Sodium 140 mmol/L (136-145); Total Bilirubin 0.3 mg/dL (0.15-1.2); Total Protein 6.6 g/dL (6.6-8.7)
[2024-07-31 05:49] LABS: Glucose Point of Care 199 mg/dL (70-110)
[2024-07-31 07:38] VITALS: BP 142/94; PULSE 88; RESP 13; TEMP 36.5; O2SAT 93
[2024-07-31] MEDS: pregabalin 100 mg Capsule 200 MG PO (08:14)
[2024-07-31] MEDS: amlodipine 10 mg Tablet PO (08:14)
[2024-07-31] MEDS: isosorbide mononitrate ER 60 mg Tablet PO (08:14)
[2024-07-31] MEDS: isosorbide mononitrate ER 30 mg Tablet PO (08:14)
[2024-07-31] MEDS: insulin lispro 100 unit/1 mL SUBCUT ×2 (08:14→12:47)
[2024-07-31] MEDS: clopidogrel 75 mg Tablet PO (08:14)
[2024-07-31] MEDS: pantoprazole DR 40 mg Tablet PO (08:14)
[2024-07-31 08:15] VITALS: BP 142/94
[2024-07-31] MEDS: aspirin 81 mg EC Tablet PO (08:15)
[2024-07-31] MEDS: citalopram 20 mg Tablet PO (08:15)
[2024-07-31] MEDS: losartan 50 mg Tablet 25 MG PO (08:15)
[2024-07-31] MEDS: metoprolol succinate ER (24 HR) 25 mg Tablet PO (08:15)
--- NOTE | 2024-07-31 11:24 | PM.DCS ---
Discharge Providers Date of Admission: 07/30/24 14:34 Date of Discharge: July 31, 2024 Attending Provider at Admission: Mali Brown MD Attending Provider at Discharge: Mali Brown MD Primary Care Provider: Rich Rosa MD Diagnoses at Discharge Discharge Diagnosis (1) Acute stress reaction: Status: Acute (2) Functional neurological symptom disorder with attacks or seizures: Status: Acute (3) Hyperglycemia: Status: Acute (4) CKD (chronic kidney disease): Status: Chronic Reason for Visit Reason for Visit: [facility] Hospital Course Hospital Course Rebecca Sanderson is a 64 year old female with a past medical history of fibromyalgia, migraine, prior reported history of seizures for which she has been evaluated by neurology but these were thought to be more likely functional neurological disorder. Patient was brought to the hospital today via EMS. Per ER report EMS was called out due to altered mental status at the home. On my assessment in the emergency room, patient was found to be alert awake and oriented x 3 without any overt neurological deficits. CT of the head did not show any acute abnormalities. Patient did report amnesia and absence episodes, however please see my detailed H&P from yesterday about the specifics of what patient had stated. Overall these episodes do not appear to correlate with postictal courtroom amnesia events. Patient has several acute stressors and is very overwhelmed and I suspect that her episodes are triggered by the stress. Psychiatry service was consulted to help manage her outpatient psychiatric medications. She was provided information about outpatient therapy and counseling services. Case was also discussed with neurology. Per review of chart on her last visit with Dr. Ace, she had been recommended to cut down her gabapentin however it appears patient is on pregabalin 200 mg twice daily instead of gabapentin. No changes were recommended to the pregabalin dosing. Additionally outpatient note mentioned starting patient on zonisamide, however per discussion with Dr. Ace this plan was eventually deferred. Physical Exam Narrative: General: No acute distress, AO x3 HEENT: PERRLA, pupils bilaterally equal and reactive, pallors not present Chest: Normal vesicular breath sounds, no added sounds, equal good air entry bilaterally CVS: S1-S2 regular, no murmurs, no tachycardia, no gallops, no rubs Abdomen: Soft, nontender, no organomegaly, bowel sounds present Neuro: No focal deficits, no facial deformity, AO x3, power 5/5 in all limbs Discharge Data Studies Completed and Pending Completed Studies During Hospitalization Category Date Time Status CT abdomen pelvis w con* [id number] Stat Cat Scan 07/30/24 12:[address] head wo con* [id number] Stat Cat Scan 07/30/24 10:17 Completed XR chest 1V portable [id number] Stat Exams 07/30/24 10:17 Completed Pending at discharge Category Date Time Status Blood Culture Stat Lab 07/30/24 10:35 Results Radiology Impressions Chest X-Ray 07/30/24 10:17 IMPRESSION: 1. Negative chest. Head CT 07/30/24 10:17 IMPRESSION: 1. Stable noncontrast head CT. 2. Very mild cerebral and cerebellar atrophy and small vessel disease. 3. No acute infarct. 4. Stable RIGHT middle cranial fossa arachnoid cyst. Abdomen/Pelvis CT 07/30/24 12:57 IMPRESSION: 1. No acute abdominal or pelvic abnormalities. 2. No pelvic mass. 3. No free air or ascites. 4. Normal appendix. 5. No renal obstruction. Laboratory Results WBC 7.11 10^3/uL (3.29-11.43) 07/31/24 02:42 RBC 4.52 10^6/uL (3.85-5.65) 07/31/24 02:42 Hgb 10.80 g/dL (11.27-16.99) L 07/31/24 02:42 Hct 34.9 % (36-47) L 07/31/24 02:42 MCV 77.2 fl (85-98) L 07/31/24 02:42 MCH 23.9 pg (27-33) L 07/31/24 02:42 MCHC 30.9 g/dL (30-55) 07/31/24 02:42 RDW 15.2 % (12.1-15.1) H 07/31/24 02:42 Plt Count 331 10^3/cmm (157-399) 07/31/24 02:42 MPV 10.2 fL (7.4-10.4) 07/31/24 02:42 Neut % (Auto) 63.4 % 07/31/24 02:42 Lymph % (Auto) 23.9 % 07/31/24 02:42 [place] % (Auto) 6.3 % 07/31/24 02:42 Eos % (Auto) 4.6 % 07/31/24 02:42 Baso % (Auto) 0.8 % 07/31/24 02:42 Neut # (Auto) 4.50 10^3/uL (1.8-7.7) 07/31/24 02:42 Lymph # (Auto) 1.7 10^3/uL (0.8-4.8) 07/31/24 02:42 [place] # (Auto) 0.5 10^3/uL (0.2-0.9) 07/31/24 02:42 Eos # (Auto) 0.3 10^3/uL (0.0-0.8) 07/31/24 02:42 Baso # (Auto) 0.1 10^3/uL (0.0-0.1) 07/31/24 02:42 Nucleated RBC % (auto) 0 % 07/31/24 02:42 Nucleated RBCs # 0.0 /100WBC 07/31/24 02:42 Specimen Type Arterial 07/30/24 10:33 Sample Site Radial, right 07/30/24 10:33 ABG pH 7.37 (7.35-7.45) 07/30/24 10:33 ABG pCO2 37.8 mmHg (35-45) 07/30/24 10:33 ABG pO2 70.7 mmHg (80.0-100.0) L 07/30/24 10:33 ABG PO2/FiO2 Ratio 336 07/30/24 10:33 ABG HCO3 21.7 mmol/L (22-26) L 07/30/24 10:33 ABG O2 Saturation 94.3 07/30/24 10:33 ABG Base Excess -3.2 mmol/L (-2.0-2.0) L 07/30/24 10:33 Juan R Test Pos 07/30/24 10:33 A-a O2 Gradient 4.0 mmHg (5-10) L 07/30/24 10:33 Hematocrit 33.9 % (37-47) L 07/30/24 10:33 Hgb O2 Saturation 92.2 % (95-100) L 07/30/24 10:33 Carboxyhemoglobin 1.1 %THgb (0.4-20.1) 07/30/24 10:33 Methemoglobin 1.1 % (0.4-1.5) 07/30/24 10:33 Total Hemoglobin 11.1 g/dL (12-16) L 07/30/24 10:33 Sodium 137.0 mmol/L (131-143) 07/30/24 10:33 Potassium 4.8 mmol/L (3.5-5.0) 07/30/24 10:33 Glucose 390.0 mg/dL (70-115) H 07/30/24 10:33 Ionized Calcium 1.2 mmol/L (1.1-1.4) 07/30/24 10:33 O2 Delivery Device Room air 07/30/24 10:33 FiO2 21.0 % 07/30/24 10:33 Pharmacist Technician ID [place] 07/30/24 10:33 Sodium 140 mmol/L (136-145) 07/31/24 02:42 Potassium 4.7 mmol/L (3.5-5.1) 07/31/24 02:42 Chloride 104 mmol/L (98-107) 07/31/24 02:42 Carbon Dioxide 22 mmol/L (22-29) 07/31/24 02:42 Anion Gap 18.7 (5-19) 07/31/24 02:42 BUN 22 mg/dL (8-23) 07/31/24 02:42 Creatinine 1.8 mg/dL (0.5-0.9) H 07/31/24 02:42 GFR Calculation 28.5 mL/min (90-130) L 07/31/24 02:42 Glucose 132 mg/dL (65-115) H 07/31/24 02:42 POC Glucose 199 mg/dL (70-110) H 07/31/24 05:45 Estimat Average Glucose 214 07/30/24 10:32 Hemoglobin A1c 9.1 % (4.0-6.0) H 07/30/24 10:32 Calculated Osmolality 295 mOsm/kg (285-295) 07/31/24 02:42 Lactic Acid 2.0 mmol/L (0.5-2.2) 07/30/24 10:32 Calcium 9.6 mg/dL (8.5-10.5) 07/31/24 02:42 Phosphorus 4.1 mg/dL (2.5-4.5) 07/31/24 02:42 Magnesium 2.1 mg/dL (1.7-2.3) 07/31/24 02:42 Total Bilirubin 0.3 mg/dL (0.15-1.2) 07/31/24 02:42 AST 12 U/L (0-32) 07/31/24 02:42 ALT 11 U/L (0-33) 07/31/24 02:42 Alkaline Phosphatase 142 U/L (35-105) H 07/31/24 02:42 Creatine Kinase 53 U/L (26-192) 07/30/24 10:32 Total Protein 6.6 g/dL (6.6-8.7) 07/31/24 02:42 Albumin 4.2 g/dL (3.5-5.2) 07/31/24 02:42 Globulin 2.4 g/dL (1.3-4.6) 07/31/24 02:42 Urine Color Yellow (Yellow) 07/30/24 10:45 Urine Appearance Clear (CLEAR) 07/30/24 10:45 Urine pH 5.0 (5-7) 07/30/24 10:45 Ur Specific [place] 1.029 (1.005-1.030) 07/30/24 10:45 Urine Protein Negative (Negative) 07/30/24 10:45 Urine Glucose (UA) 3+ (Normal) H 07/30/24 10:45 Urine Ketones Negative (Negative) 07/30/24 10:45 Urine Blood Negative (Negative) 07/30/24 10:45 Urine Nitrate Negative (Negative) 07/30/24 10:45 Urine Bilirubin Negative (Negative) 07/30/24 10:45 Urine Urobilinogen 0.2 mg/dL (Negative) 07/30/24 10:45 Ur Leukocyte Esterase Negative (Negative) 07/30/24 10:45 Urine RBC 0-2 /hpf (0-2) 07/30/24 10:45 Urine WBC 6-10 /hpf (0-5) 07/30/24 10:45 Ur Squamous Epith Cells 0-5 /hpf (0-5) 07/30/24 10:45 Amorphous Sediment Not Reportable 07/30/24 10:45 Urine Bacteria 2+ /hpf (NONE) H 07/30/24 10:45 Hyaline Casts 1.21 /lpf 07/30/24 10:45 Serum Ketones Negative (Negative) 07/30/24 10:32 Vitals Last Vital Signs Temp 97.7 F 07/31/24 07:38 Pulse 88 07/31/24 07:38 Resp 13 07/31/24 07:38 BP 142/94 07/31/24 08:15 Pulse Ox 93 07/31/24 07:38 O2 Del Method Room Air 07/31/24 07:38 Discharge Plan Discharge Patient Disposition: Home Condition: Stable Prescriptions: Continued tamsulosin 0.4 mg capsule 0.4 mg PO QPM omeprazole 20 mg capsule,delayed release(DR/EC) 20 mg PO BID bupropion HCl 150 mg tablet extended release 24 hr 150 mg PO BEDTIME cetirizine [Allergy Relief (cetirizine)] 10 mg tablet 10 mg PO DAILY isosorbide mononitrate 60 mg tablet extended release 24 hr 60 mg PO DAILY (DME) diabetic shoes w/ 3 inserts See Rx Instructions .Route .MEDSUPPLY Qty: 1 0RF Rx Instructions: As directed by the christal ledesma amlodipine 10 mg tablet 10 mg PO DAILY isosorbide mononitrate 30 mg tablet extended release 24 hr 30 mg PO DAILY Qty: 90 1RF Rx Instructions: add to 60mg daily dose to total 90mg daily losartan 50 mg tablet 25 mg PO DAILY Qty: 30 0RF spironolactone 25 mg tablet 25 mg PO DAILY dapagliflozin propanediol [Farxiga] 10 mg tablet 10 mg PO DAILY aspirin 81 mg Tablet,Delayed Release (Dr/Ec) 81 mg PO DAILY 30 Days Qty: 30 3RF clopidogrel [Plavix] 75 mg tablet 75 mg PO DAILY Qty: 30 3RF latanoprost 0.005 % drops 1 drp ophthalmic (eye) QPM oxybutynin chloride 10 mg tablet extended release 24hr 10 mg PO BEDTIME pregabalin 200 mg capsule 200 mg PO BID metoprolol succinate 50 mg tablet extended release 24 hr 50 mg PO QPM metoprolol succinate 50 mg tablet extended release 24 hr 25 mg PO DAILY Rx Instructions: take 1/2 tablet by mouth at bedtime ergocalciferol (vitamin D2) [Vitamin D2] 1,250 mcg (50,000 unit) capsule 1,250 mcg PO Q7D Changed citalopram 20 mg tablet 30 mg PO DAILY 30 Days Qty: 30 0RF Discharge Orders: Discharge Order (Routine); Ordered 07/31/24 Ordered By: Mali Brown Referrals: Rich Rosa MD [Primary Care Provider, [facility]] - 08/09/24 3:30 pm Discharge Diet: Usual diet Discharge Activity: Resume usual activity Patient Instructions: Altered Mental Status (ED), Opioid Safety, Pain Management Discharge Attestations Time Spent in Discharge Care*: greater than 30 min Status at Discharge: Cognitive status at discharge: cognitively intact, Behavioral status at discharge: cooperative, Quality Metrics Clinical Quality Measures [ No reported AMI, CVA or VTE this stay] Coding Level of Care Code Acute Code for Chg Fwd Diagnoses Acute stress reaction F43.0 Functional neurological symptom disorder with attacks or seizures F44.5 Hyperglycemia R73.9 CKD (chronic kidney disease) N18.9
[2024-07-31 11:30] VITALS: BP 132/80; PULSE 93; RESP 14; TEMP 36.6; O2SAT 95
[2024-07-31 11:31] LABS: Glucose Point of Care 240 mg/dL (70-110)
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
[2024-07-31 14:18] VITALS: BP 122/75; PULSE 88; RESP 17; O2SAT 97
== END 2024-07-31 14:20 | disposition home or self-care (01) ==
LOC: ER 14:24 → ER IP 14:35 → CSU 16:20
PROVIDERS: Internal Medicine; Admitting Provider Student in an Organized Health Care Education/Training Program; Emergency Provider Family Medicine; PCP Family Medicine; Visit Provider Student in an Organized Health Care Education/Training Program
DX: F44.5 Conversion disorder with seizures or convulsions (principal); F43.0 Acute stress reaction; I12.9 Hypertensive chronic kidney disease with stage 1 through stage 4 chronic kidney disease, or unspecified chronic kidney disease; N18.9 Chronic kidney disease, unspecified; E11.65 Type 2 diabetes mellitus with hyperglycemia; Z79.82 Long term (current) use of aspirin; K21.9 Gastro-esophageal reflux disease without esophagitis; Z87.39 Personal history of other diseases of the musculoskeletal system and connective tissue; Z86.73 Personal history of transient ischemic attack (TIA), and cerebral infarction without residual deficits; G47.33 Obstructive sleep apnea (adult) (pediatric)
CPT/HCPCS: 36415; 36416; 36600; 70450; 71045; 74177; 80051; 80053; 81001; 82009; 82330; 82550; 82805; 82962; 83036; 83605; 83735; 84100; 85025; 87040; 93005; 94660; 96372; 99285; A9270; G0378; J1815; J9999

== ENCOUNTER 2024-09-16 15:26 | Emergency (ER) | payer MEDICAID, SELFPAY ==
--- NOTE | 2024-09-16 15:29 | ECG_ITS ---
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 Measurements Intervals [place] Rate: 62 P: 38 NM: 200 QRS: -13 QRSD: 104 T: 46 QT: 415 QTc: 423 Interpretive Statements SINUS RHYTHM Compared to ECG 07/30/2024 10:13:50 No significant changes Electronically Signed On 09-19-2024 09:06:40 CDT by Nelson Boyle M.D. [email or web address]
--- NOTE | 2024-09-16 15:29 | CTR_ITS ---
PROCEDURE INFORMATION: Exam: CT Head Without Contrast Exam date and time: 09/16/2024 3:28 PM Age: 64 years old Clinical indication: Stroke-like symptoms; Jacob lower extremity weakness; Additional info: Symptoms of acute stroke TECHNIQUE: Imaging protocol: Computed tomography of the head without contrast. Radiation optimization: All CT scans at this facility use at least one of these dose optimization techniques: automated exposure control; mA and/or kV adjustment per patient size (includes targeted exams where dose is matched to clinical indication); or iterative reconstruction. Other technique: STROKE PROTOCOL was implemented. COMPARISON: CT head wo con* [id number] 07/30/2024 10:59 AM RADIATION DOSE METRICS: Total DLP (mGy-cm): 1061.28 FINDINGS: Brain: Area of encephalomalacia versus a arachnoid cyst right middle cranial fossa. Mild to moderate atrophy and small-vessel ischemic disease. No intracranial hemorrhage. No midline shift. Cerebral ventricles: No ventriculomegaly. Paranasal sinuses: Visualized sinuses are unremarkable. No fluid levels. Mastoid air cells: Visualized mastoid air cells are well aerated. Bones: Unremarkable. No acute fracture. Soft tissues: Unremarkable. CT/CT head thrombolytic [id number] IMPRESSION: No acute abnormality. ASSESSMENT: ASPECTS ([place] Stroke Program Early CT Score) is 10.
--- OUTSIDE RECORDS SUMMARY | 2024-09-16 15:29 | XMS_ITS | Data Portability ---
Author Organization [facility] Address [address] [place] [address] Assessment Encounter Date Assessment Date Assessment LastModified by Organization Details LastModified Time 07/18/2024 07/18/2024 We discussed the risks of an egd including the risks of bleeding, perforation, and sedation. She has no further questions and wishes to proceed. Not available 07/18/2024 16:08:26 Plan of Treatment Reminders Order Date Submit Date Provider Last Modified By Organization Details Last Modified Time Details Appointments RECHECK 15 2024 09:15A Colby Rosa MD Not available Not available Not available PROCEDURE 2024 09:00A Colby Pastor MD Not available Not available Not available Lab CMP, serum or plasma 2024 025 [facility], [address], [address], 06/17/2024 16:53:23 CBC 2024 025 [facility], [address], [address], 06/17/2024 16:13:28 ESR (erythroc yte sedimenta tion rate), blood 2024 025 [facility] ([facility] [address] [place], [address], 06/17/2024 17:33:43 hemoglobi n A1C/hemog lobin total, QN, blood 2024 025 [facility], [address] [facility], [place], [address], 06/17/2024 16:13:25 CMP, serum or plasma 2023 024 [facility], [address], [address], [place], [address], 02/09/2024 16:00:27 CBC 2023 024 [facility], [address] [facility], [address], [place], [address], 02/09/2024 15:36:01 HbA1c (hemoglob in A1c), blood 2023 024 [email or web address] [facility], [address] [facility], [address], [place], [address], 03/06/2024 09:56:18 Referral None recorded. Procedures upper endoscopy procedure (EGD) (PROC) 2024 025 [facility]urface [facility], [address] [place], [address], 07/22/2024 15:56:56 colonosco py procedure (PROC) 2024 025 [id number] [facility], [address] , [place], [address], 07/22/2024 15:51:22 Surgeries None recorded. Imaging None recorded. Medication Orders citalopra m 40 mg tablet 2024 025 [facility] [place], [address], [place], [address], 09/11/2024 17:57:24 spironola ctone 25 mg tablet 2024 025 [facility] [place], [address] [place], [address], 09/11/2024 17:57:26 Patient TargetsNo targets recorded. Patient Instructions Encounter Date Encounter Id Patient Instructions Last Modified By Organization Details Last Modified Time 02/09/2024 [id number] F/U 3 months. [email or web address] Not available 02/09/2024 15:12:58 07/18/2024 [id number] colonoscopy prep - miralax Not available 07/18/2024 16:06:56 colonoscopy education Not available 07/18/2024 16:06:56 colonoscopy education Not available 07/18/2024 16:06:56 08/09/2024 [id number] Keep appt as scheduled in September. Not available 08/09/2024 17:51:29 Reason for Referral None Reported. Results Created Date Observation Date Name Description Value Unit Range Abnormal Flag Note LastModifiedBy Organization Detail LastModifiedTime 02/09/20 24 02/09/2024 CBC WBC 5.8 x10 4.0-10 .5 Not Available [facility] [address] [address], [place], [address], 02/09/2024 15:36:01 02/09/20 24 02/09/2024 CBC RBC 3.76 x10 3.50-5 .50 Not Available [facility] [address], [address], 02/09/2024 15:36:01 02/09/20 24 02/09/2024 CBC HGB 10.8 g/dL 12.0-1 6.0 low Not Available [facility] [address] [facility] [address], [place], [address], 02/09/2024 15:36:01 02/09/20 24 02/09/2024 CBC HCT 31.9 % 37.0-4 7.0 low Not Available [facility] [address] [facility], [place], [address], 02/09/2024 15:36:01 02/09/20 24 02/09/2024 CBC MCV 84.8 fL 80.0-9 9.9 Not Available [facility] [address] [facility], [place], [address], 02/09/2024 15:36:01 02/09/20 24 02/09/2024 CBC MCH 28.8 pg 27.0-3 2.0 Not Available [facility] [address] [facility] 1, [place], [address], 02/09/2024 15:36:01 02/09/20 24 02/09/2024 CBC MCHC 33.9 g/dL 32.0-3 6.0 Not Available [facility] [address] [facility], [place], [address], 02/09/2024 15:36:01 02/09/20 24 02/09/2024 CBC RDW 13.5 % 11.5-1 4.5 Not Available [facility] [address] [facility] 1, [place], [address], 02/09/2024 15:36:01 02/09/20 24 02/09/2024 CBC plt 254.7 x10 140.0- 451.0 Not Available [facility] [address] [facility] 1, [place], [address], 02/09/2024 15:36:01 02/09/20 24 02/09/2024 CBC lymphocytes % 22.3 % 20.0-5 0.0 Not Available [facility] [address] [facility]ron [facility] 1, [place], [address], 02/09/2024 15:36:01 02/09/20 24 02/09/2024 CBC granulcytes % 66.9 % 30.0-7 0.0 Not Available [facility] [address] [facility]ron [facility] 1, [place], [address], 02/09/2024 15:36:01 02/09/20 24 02/09/2024 CBC monocytes % 6.7 % 2.0-16 .0 Not Available [facility] [address] [facility] 1, [place], [address], 02/09/2024 15:36:01 02/09/20 24 02/09/2024 CBC granulcytes# 3.9 x10 Not Darlin ilable [facility] [address] [facility] 1, [place], [address], 02/09/2024 15:36:01 02/09/20 24 02/09/2024 CBC lymphocytes # 1.3 x10 Not Available [facility] [address] [address], [place], [address], 02/09/2024 15:36:01 02/09/20 24 02/09/2024 CBC monocytes # 0.4 x10 Not Avai lable [facility] [address] [facility], [place], [address], 02/09/2024 15:36:01 02/09/20 24 02/09/2024 HBA1C hemaglobin A1C 6.1 4.2-6. 5 Not Available [facility] [address] [facility], [place], [address], 02/09/2024 15:38:29 02/09/20 24 02/09/2024 CMP (FEMA LE) glucose 113.0 mg/dL 60.0-9 9.0 high Not Available [facility] [address] [facility] [address] [facility], [place], [address], 02/09/2024 16:00:27 02/09/20 24 02/09/2024 CMP (FEMA LE) BUN (blood urea nitrogen) 18.0 mg/dL 10.0-2 6.0 Not Available [facility] [address] [facility], [place], [address], 02/09/2024 16:00:27 02/09/20 24 02/09/2024 CMP (FEMA LE) creatinine (serum) 1.6 mg/dL 0.4-1. 5 high Not Available [facility] [address] [facility] 1, [place], [address], 02/09/2024 16:00:27 02/09/20 24 02/09/2024 CMP (FEMA LE) BUN/creatini ne ratio 11.25 ratio Not Available [facility] [address] [address], [place], [address], 02/09/2024 16:00:27 02/09/20 24 02/09/2024 CMP (FEMA LE) eGFR calculated 34.8 Not Available [facility] [address] [facility] 1, [place], [address], 02/09/2024 16:00:27 02/09/20 24 02/09/2024 CMP (FEMA LE) total protein 7.2 g/dL 6.0-8. 5 Not Available [facility] [address] [address], [place], [address], 02/09/2024 16:00:27 02/09/20 24 02/09/2024 CMP (FEMA LE) total bilirubin 0.4 mg/dL 0.2-1. 3 Not Available [facility] [address] [address], [place], [address], 02/09/2024 16:00:27 02/09/20 24 02/09/2024 CMP (FEMA LE) albumin 4.5 g/dL 3.5-5. 5 Not Available [facility] [address] [facility] 1, [place], [address], 02/09/2024 16:00:27 02/09/20 24 02/09/2024 CMP (FEMA LE) globulin 2.7 calc Not Available [facility] [address] [facility], [place], [address], 02/09/2024 16:00:27 02/09/20 24 02/09/2024 CMP (FEMA LE) AST (SGOT) 45.0 U/L 0.0-46 .0 Not Available [facility] [address] [facility], [place], [address], 02/09/2024 16:00:27 02/09/20 24 02/09/2024 CMP (FEMA LE) altv (SGPT) 54.0 U/L 13.0-6 9.0 normal Not Available [facility] [address] [facility]ron [facility] 1, [place], [address], 02/09/2024 16:00:27 02/09/20 24 02/09/2024 CMP (FEMA LE) A/G ratio 1.7 ratio Not Available [facility] [address] [address], [place], [address], 02/09/2024 16:00:27 02/09/20 24 02/09/2024 CMP (FEMA LE) ALP phos 88.0 U/L 30.0-1 40.0 normal Not Available [facility] [address] [facility], [place], [address], 02/09/2024 16:00:27 02/09/20 24 02/09/2024 CMP (FEMA LE) calcium 9.6 mg/dL 8.4-10 .5 Not Available [facility] [address] [facility], [place], [address], 02/09/2024 16:00:27 02/09/20 24 02/09/2024 CMP (FEMA LE) sodium 146.0 mmol/ L 136.0- 145.0 high Not Available [facility] [address] [facility] 1, [place], [address], 02/09/2024 16:00:27 02/09/20 24 02/09/2024 CMP (FEMA LE) potassium 5.2 mmol/ L 3.5-5. 1 high Not Available [facility] [address] [facility] 1, [place], [address], 02/09/2024 16:00:27 02/09/20 24 02/09/2024 CMP (FEMA LE) chloride 113.0 mmol/ L 98.0-1 10.0 abnormal Not Available [facility] [address] [facility] 1, [place], [address], 02/09/2024 16:00:27 02/09/20 24 02/09/2024 CMP (FEMA LE) C02 26.0 mmol/ L 22.0-3 1.0 Not Available [facility] [address] [facility] 1, [place], [address], 02/09/2024 16:00:27 02/09/20 24 02/09/2024 CMP (FEMA LE) anion gap 7.0 calc Not Available [facility] [address] [facility] 1, [place], [address], 02/09/2024 16:00:27 02/09/20 24 02/09/2024 CMP (FEMA LE) osmolality 303.7 calc Not Available [facility] [address] [facility] 1, [place], [address], 02/09/2024 16:00:27 06/18/19 25 06/17/2024 HBA1C hemaglobin A1C 7.3 4.2-6. 5 high Not Available [facility] [address] [facility] Cintron [address], [place], [address], 06/17/2024 16:13:25 06/18/19 25 06/17/2024 CBC WBC 7.8 x10 4.0-10 .5 Not Available [facility] [address] [facility] 1, [place], [address], 06/17/2024 16:13:28 06/18/19 25 06/17/2024 CBC RBC 4.31 x10 3.50-5 .50 Not Available [facility] [address] [facility], [place], [address], 06/17/2024 16:13:28 06/18/1906/17/2024 CBC HGB 11.2 g/dL 12.0-1 6.0 low Not Available [facility] [address] [facility] 1, [place], [address], 06/17/2024 16:13:28 06/18/1906/17/2024 CBC HCT 33.1 % 37.0-4 7.0 low Not Available [facility] [address] [facility] 1, [place], [address], 06/17/2024 16:13:28 06/18/1906/17/2024 CBC MCV 76.9 fL 80.0-9 9.9 low Not Available [facility] [address] [facility] 1, [place], [address], 06/17/2024 16:13:28 06/18/1906/17/2024 CBC MCH 26.0 pg 27.0-3 2.0 low Not Available [facility] [address] [facility]ron [facility] 1, [place], [address], 06/17/2024 16:13:28 06/18/19 25 06/17/2024 CBC MCHC 33.9 g/dL 32.0-3 6.0 Not Available [facility] [address] [facility], [place], [address], 06/17/2024 16:13:28 06/18/19 25 06/17/2024 CBC RDW 16.8 % 11.5-1 4.5 high Not Available [facility] [address] [facility] 1, [place], [address], 06/17/2024 16:13:28 06/18/19 25 06/17/2024 CBC plt 328.2 x10 140.0- 451.0 Not Available [facility] [address] [facility] 1, [place], [address], 06/17/2024 16:13:28 06/18/19 25 06/17/2024 CBC lymphocytes % 21.8 % 20.0-5 0.0 Not Available [facility] [address] [facility] [address], [place], [address], 06/17/2024 16:13:28 06/18/19 25 06/17/2024 CBC granulcytes % 63.6 % 30.0-7 0.0 Not Available [facility] [address] [facility] 1, [place], [address], 06/17/2024 16:13:28 06/18/19 25 06/17/2024 CBC monocytes % 6.3 % 2.0-16 .0 Not Available [facility] [address] [facility] 1, [place], [address], 06/17/2024 16:13:28 06/18/19 25 06/17/2024 CBC granulcytes# 4.9 x10 Not Darlin ilable [facility] [address] [facility] 1, [place], [address], 06/17/2024 16:13:28 06/18/19 25 06/17/2024 CBC lymphocytes # 1.7 x10 Not Available [facility] [address] [facility] 1, [place], [address], 06/17/2024 16:13:28 06/18/19 25 06/17/2024 CBC monocytes # 0.5 x10 Not [facility] [address] [facility] 1, [place], [address], 06/17/2024 16:13:28 06/18/19 25 06/17/2024 CMP (FEMA LE) glucose 158.0 mg/dL 60.0-9 9.0 high Not Available [facility] [address] [address], [place], [address], 06/17/2024 16:53:23 06/18/19 25 06/17/2024 CMP (FEMA LE) BUN (blood urea nitrogen) 27.0 mg/dL 10.0-2 6.0 high Not Available [facility] [address] [address], [place], [address], 06/17/2024 16:53:23 06/18/19 25 06/17/2024 CMP (FEMA LE) creatinine (serum) 1.8 mg/dL 0.4-1. 5 high Not Available [facility] [address] [address], [place], [address], 06/17/2024 16:53:23 06/18/19 25 06/17/2024 CMP (FEMA LE) BUN/creatini ne ratio 15.00 ratio Not Available [facility] [address] [address], [place], [address], 06/17/2024 16:53:23 06/18/19 25 06/17/2024 CMP (FEMA LE) eGFR calculated 30.4 Not Available [facility] [address] [facility] 1, [place], [address], 06/17/2024 16:53:23 06/18/19 25 06/17/2024 CMP (FEMA LE) total protein 7.5 g/dL 6.0-8. 5 Not Available [facility] [address] [facility] 1, [place], [address], 06/17/2024 16:53:23 06/18/19 25 06/17/2024 CMP (FEMA LE) total bilirubin 0.3 mg/dL 0.2-1. 3 Not Available [facility] [address] [facility] 1, [place], [address], 06/17/2024 16:53:23 06/18/19 25 06/17/2024 CMP (FEMA LE) albumin 4.6 g/dL 3.5-5. 5 Not Available [facility] [address] [facility] [address], [place], [address], 06/17/2024 16:53:23 06/18/19 25 06/17/2024 CMP (FEMA LE) globulin 2.9 calc Not Available [facility] [address] [facility] 1, [place], [address], 06/17/2024 16:53:23 06/18/19 25 06/17/2024 CMP (FEMA LE) AST (SGOT) 17.0 U/L 0.0-46 .0 Not Available [facility] [address] [facility] 1, [place], [address], 06/17/2024 16:53:23 06/18/19 25 06/17/2024 CMP (FEMA LE) altv (SGPT) 15.0 U/L 13.0-6 9.0 normal Not Available [facility] [address] [facility], [place], [address], 06/17/2024 16:53:23 06/18/19 25 06/17/2024 CMP (FEMA LE) A/G ratio 1.6 ratio Not Available [facility] [address] [facility] 1, [place], [address], 06/17/2024 16:53:23 06/18/19 25 06/17/2024 CMP (FEMA LE) ALP phos 109.0 U/L 30.0-1 40.0 normal Not Available [facility] [address] [facility] 1, [place], [address], 06/17/2024 16:53:23 06/18/19 25 06/17/2024 CMP (FEMA LE) calcium 9.3 mg/dL 8.4-10 .5 Not Available [facility] [address] [facility] 1, [place], [address], 06/17/2024 16:53:23 06/18/19 25 06/17/2024 CMP (FEMA LE) sodium 143.0 mmol/ L 136.0- 145.0 Not Available [facility] [address] [facility] 1, [place], [address], 06/17/2024 16:53:23 06/18/19 25 06/17/2024 CMP (FEMA LE) potassium 4.7 mmol/ L 3.5-5. 1 Not Available [facility] [address] [facility] 1, [place], [address], 06/17/2024 16:53:23 06/18/19 25 06/17/2024 CMP (FEMA LE) chloride 109.0 mmol/ L 98.0-1 10.0 normal Not Available [facility] [address] [facility] 1, [place], [address], 06/17/2024 16:53:23 06/18/19 25 06/17/2024 CMP (FEMA LE) C02 23.0 mmol/ L 22.0-3 1.0 Not Available [facility] [address] [facility] [address], [place], [address], 06/17/2024 16:53:23 06/18/19 25 06/17/2024 CMP (FEMA LE) anion gap 11.0 calc Not Available [facility] [address] [facility] [address], [place], [address], 06/17/2024 16:53:23 06/18/19 25 06/17/2024 CMP (FEMA LE) osmolality 302.9 calc Not Available [facility] [address] [facility] [address], [place], [address], 06/17/2024 16:53:23 06/19/19 25 06/18/2024 ESR (eryt hrocy te sedim entat ion rate) , blood SedRate 14 Not Available [facility] ([facility]) [address] [place], [address], 06/17/2024 15:23:40 05/29/19 25 05/28/2024 imagi ng/di agnos tic resul t No observ ation record ed. [facility] [address] [place] [address], [address], 06/11/2024 11:09:03 Result Notes None recorded. Problems Name Problem SNOMED Code Status Onset Date Resolution Date Notes Provider Name and Address Organization Details Recorded Time Major depressiv e disorder 035041568 Active 2022 C[facility]pos [facility] 16:16:05 Orthostat ic hypotensi on 56192611 Active 2022 DENIA gtz [place] D[place]in [facility] 5 16:17:12 Memory impairmen t 672719154 Active 2022 DENIA RAMIREZ null, [facility] 5 16:16:18 Diabetic periphera l neuropath y 033072362 Active 2022 DENIA RAMIREZ null, [facility] 5 16:14:11 Obstructi ve sleep apnea syndrome 23585457 Active 2022 DENIA RAMIREZ null, [facility] 5 16:16:55 Hyperlipi demia 09695817 Active 2023 DENIA RAMIREZ null, [facility] 5 16:15:38 Muscle pain 27518865 Active 2023 DENIA RAMIREZ null, [facility] 5 16:16:45 Vitamin D deficienc y 53153288 Active 2023 DENIA RAMIREZ null, [facility] 5 16:20:53 Fibromyal palak 019149911 Active 2023 DENIA RAMIREZ null, [facility] 5 16:14:50 Urinary incontine nce 740578882 Active 2023 DENIA RAMIREZ null, [facility] 5 16:21:03 Diabetes mellitus 48352950 Active 2022 DENIA RAMIREZ null, [facility] 5 16:13:54 Depressiv e disorder 56524388 Active 2022 DENIA RAMIREZ null, [facility] 5 16:13:38 Resting tremor 52215991 Active 2022 DENIA RAMIREZ null, [facility] 5 16:51:44 Benign essential hypertens ion 5344658 Active 2022 DENIA RAMIREZ tresa, [facility] 5 16:12:47 Chronic kidney disease 385179102 Active 2023 DENIA gtz, [facility] 5 16:13:21 Type 2 diabetes mellitus 46007309 Active 2023 DENIA RAMIREZ null, [facility] 5 16:21:40 Coronary atheroscl erosis 650015299 [facility] 16:13:31 Obstructi ve sleep apnea of adult 055166884701 3 Active 2024 ABDELRAHMAN BARRIOS [facility], [facility] 5 12:18:55 Chest pain 55005896 Active 2024 LATOYA ADDISON [facility], [facility] 5 11:16:57 Arthritis 4572070 Active 2021 DENIA RAMIREZ [facility] 5 16:12:34 Psychiatr ic disorder monitorin g Active 2021 Psychiatr ic disorder DENIA RAMIREZ null, [facility] 5 16:19:58 Hyperchol esterolem ia 29844753 Active 2021 DENIA RAMIREZ [facility] 5 16:15:27 Gastroeso phageal reflux disease 920916048 Active 2021 Derrick Pastor MD [address] [place] [address], [id number] , [facility] 5 16:05:19 Problem Notes None recorded. Medical Equipment None Reported. Allergies Allergen ID Allergen Name Allergen Category Reaction Reaction Severity Criticality Documentation Date Start Date Code Code System Note Provider Name and Address Organization Details Recorded Time 39558 Lipitor medicatio n Not available Not available Not available 10/15/2022 67134 5 RxNorm Catalina gtz [facility], LJose[facility] 4 14:48:46 71051 ibuprofen medicatio n palpitati ons moderate low 10/15/2022 5640 RxNorm Catalina gtz [facility], LJoseLJoseCJose 4 14:48:42 23036 dicyclomi ne hydrochlo ride medicatio n Not available Not available Not available 10/15/2022 49827 1 RxNorm Catalina [facility], LJoseLJoseCJose 4 14:48:35 638 Product containin g penicilli n (product) medicatio n rash mild low 06/15/2022 95143 8001 SNOMED [facility] 4 11:38:56 Medications Name Sig Start Date Stop Date Status Note LastModified by Organization Details LastModified Time losartan 50 mg tablet take 1/2 tablet BY MOUTH EVERY DAY active Not Available Not Available No t Available latanopro st 0.005 % eye drops instill 1 drop IN EACH EYE EVERY EVENING active Not Available Not Available No t Available atorvasta tin 40 mg tablet TAKE 1 TABLET BY MOUTH AT BEDTIME active Not Available Not Available No t Available clonidine HCl 0.1 mg tablet TAKE 1 TABLET BY MOUTH TWICE DAILY 12/10 completed changed dose Not Available Not Available Not Available cefuroxim e axetil 250 mg tablet Take 1 tablet every 12 hours by oral route for 7 days. 10/18 completed Not Available Not Available Not Available citalopra m 40 mg tablet TAKE 1 TABLET BY MOUTH EVERY DAY active Not Available Not Available No t Available cetirizin e 10 mg tablet TAKE 1 TABLET BY MOUTH EVERY DAY active Not Available Not Available No t Available oxybutyni n chloride ER 10 mg tablet,ex tended release 24 hr TAKE 1 TABLET BY MOUTH EVERY DAY FOR 30 DAYS 2024 active Not Available Not Available Not Avai lable metoprolo l succinate ER 50 mg tablet,ex tended release 24 hr TAKE 1 TABLET BY MOUTH EVERY DAY active Not Available Not Available No t Available isosorbid e mononitra te ER 30 mg tablet,ex tended release 24 hr TAKE ONE TABLET BY MOUTH DAILY with 60mg tablet, TO equal 90mg daily active Not Available Not Available No t Available hydralazi ne 25 mg tablet TAKE 1 TABLET BY MOUTH THREE TIMES DAILY active Not Available Not Available No t Available amlodipin e 2.5 mg tablet Take 1 tablet every day by oral route for 90 days. 04/21 completed Not Available Not Available Not Available clopidogr el 75 mg tablet TAKE 1 TABLET BY MOUTH EVERY DAY FOR 90 DAYS 2024 active Not Available Not Available Not Avai lable aspirin 81 mg tablet,de layed release daily 01/06 completed 0; Recorded 02/15/20 2:01PM by Abdelrahman Barrios, Office Visit; Not Available Not Available Not Available spironola ctone 25 mg tablet TAKE 1 TABLET BY MOUTH EVERY DAY FOR 90 DAYS active Not Available Not Available No t Available zonisamid e 100 mg capsule daily 01/06 completed Recorded 02/09/20 4:41PM by Rich Rosa MD, Office Visit; Refill Quantity : 120; Capsule; Not Available Not Available Not Available losartan 100 mg-hydroc hlorothia zide 25 mg tablet TAKE ONE TABLET BY MOUTH EVERY DAY 01/08 completed Not Available Not Available Not Available isosorbid e mononitra te ER 60 mg tablet,ex tended release 24 hr TAKE 1 TABLET BY MOUTH EVERY DAY 2024 active Not Available Not Available Not Avai lable clonidine HCl 0.2 mg tablet TAKE ONE TABLET BY MOUTH TWICE DAILY 01/08 completed Not Available Not Available Not Available citalopra m 20 mg tablet TAKE 1 TABLET BY MOUTH EVERY DAY active Not Available Not Available No t Available tamsulosi n 0.4 mg capsule take 1 capsule BY MOUTH EVERY DAY active Not Available Not Available No t Available sodium bicarbona te 650 mg tablet TAKE 1 TABLET BY MOUTH EVERY DAY active Not Available Not Available No t Available amlodipin e 10 mg tablet TAKE 1 TABLET BY MOUTH EVERY DAY FOR 90 DAYS active Not Available Not Available No t Available metformin 1,000 mg tablet TAKE 1 TABLET BY MOUTH TWICE DAILY 01/08 completed Not Available Not Available Not Available losartan 25 mg tablet TAKE 1 TABLET BY MOUTH EVERY DAY active Not Available Not Available No t Available gabapenti n 300 mg capsule take 1 capsule BY MOUTH EVERY MORNING AND TWO EVERY EVENING 11/28 completed Not Available Not Available Not Available omeprazol e 20 mg capsule,d elayed release take 1 capsule BY MOUTH TWICE DAILY active Not Available Not Available No t Available diclofena c sodium 75 mg tablet,de layed release TAKE 1 TABLET BY MOUTH TWICE DAILY active Not Available Not Available No t Available hydralazi ne 50 mg tablet take 1/2 tablet BY MOUTH THREE TIMES DAILY 02/08 completed Not Available Not Available Not Available Vitamin D2 1,250 mcg (50,000 unit) capsule take 1 capsule BY MOUTH every week DIRECTED FOR 35 DAYS active Not Available Not Available No t Available losartan 50 mg-hydroc hlorothia zide 12.5 mg tablet Take 1 tablet every day by oral route. 10/18 completed Not Available Not Available Not Available cefdinir 300 mg capsule take 1 capsule BY MOUTH TWICE DAILY 01/08 completed Not Available Not Available Not Available spironola ctone 50 mg tablet TAKE 1 TABLET BY MOUTH EVERY DAY 01/08 completed Not Available Not Available Not Available bupropion HCl XL 150 mg 24 hr tablet, extended release TAKE 1 TABLET BY MOUTH EVERY DAY active Not Available Not Available No t Available pregabali n 75 mg capsule take 1 capsule BY MOUTH TWICE DAILY FOR 30 DAYS 11/28 completed Not Available Not Available Not Available pregabali n 150 mg capsule take 1 capsule BY MOUTH TWICE DAILY 06/17 completed Not Available Not Available Not Available pregabali n 200 mg capsule take 1 capsule BY MOUTH TWICE DAILY 2024 active Not Available Not Available Not Avai lable acetamino phen every 4 hours, as needed 10/18 completed 0; Recorded 11/28/20 22 2:01PM by Abdelrahman Barrios, Office Visit; Not Available Not Available Not Available meclizine three times daily as needed 01/06 completed Recorded 05/10/19 22 1:49PM by Rich Rosa MD, Office Visit; Refill Quantity : 90; Tablet; Not Available Not Available Not Available metformin BID 01/06 completed RM/AV; 9; Recorded 12/01/19 22 11:36AM by Denia riley (Authori sarahy through Rich Rosa MD), Refill Request; Refill Quantity : 180; Tablet; Not Available Not Available Not Available apple cider vinegar daily active Not Available Not Available Not Available amlodipin e besylate (bulk) two times daily 10/18 completed Recorded 03/08/20 22 4:41PM by Rich Rosa MD, Refill Request; Refill Quantity : 60; Tablet; Not Available Not Available Not Available Contour Next Test Strips daily 11/30 completed Recorded 11/10/19 21 2:56PM by Rich Rosa MD, Office Visit; Refill Quantity : 100; Each; Not Available Not Available Not Available TRUEplus Lancets 33 gauge test THREE TIMES DAILY active Not Available Not Available No t Available Farxiga 10 mg tablet TAKE 1 TABLET BY MOUTH EVERY DAY active Not Available Not Available No t Available Farxiga 5 mg tablet TAKE 1 TABLET BY MOUTH EVERY DAY *stop metformi n* 06/21 completed Not Available Not Available Not Available True Metrix Glucose Test Strip test THREE TIMES DAILY active Not Available Not Available No t Available True Metrix Glucose Meter USE DIRECTED active Not Available Not Available No t Available losartan potassium (bulk) daily 10/18 completed RM/AV; 9; Recorded 01/27/20 22 4:47PM by Denia riley (i sarahy through Rich Rosa MD), Refill Request; Refill Quantity : 30; Tablet; Not Available Not Available Not Available aspirin 81 mg capsule Take 1 capsule every day by oral route. active Not Available Not Available No t Available Vitals Date Recorded Body height Body mass index (BMI) Body weight Heart rate Systolic blood pressure Diastolic blood pressure Provider Name and Address Organization Details Last Updated DateTime 5 161.925 cm 33.2 kg/m2 07015.7 4 g 72 /min 102 mm[Hg] 60 mm[Hg] [facility] 16:01:51 Date Recorded Body height Body mass index (BMI) Body weight Oxygen saturation Oxygen saturation in Arterial blood by Pulse oximetry Heart rate Systolic blood pressure Diastolic blood pressure Provider Name and Address Organization Details Last Updated DateTime 5 161.925 cm 33.6 kg/m2 71953.9 2 g 97 % 97 % 67 /min 122 mm[Hg] 74 mm[Hg] ABDELRAHMAN BARRIOS [facility] 5 14:52:38 Date Recorded Body height Body mass index (BMI) Body weight Oxygen saturation Oxygen saturation in Arterial blood by Pulse oximetry Heart rate Respiratory rate Body temperature Systolic blood pressure Diastolic blood pressure Provider Name and Address Organization Details Last Updated DateTime 5 161.925 cm 34.3 kg/m2 96923.9 9 g 95 % 95 % 90 /min 18 /min 99.6 [degF] 122 mm[Hg] 70 mm[Hg] DARIEN GAUTAM [facility] 5 15:25:53 Date Recorded Body height Body mass index (BMI) Body weight Heart rate Oxygen saturation Oxygen saturation in Arterial blood by Pulse oximetry Systolic blood pressure Diastolic blood pressure Provider Name and Address Organization Details Last Updated DateTime 5 161.925 cm 33.6 kg/m2 00213.9 2 g 76 /min 96 % 96 % 112 mm[Hg] 78 mm[Hg] [facility] 5 17:01:23 Date Recorded Body height Body mass index (BMI) Body weight Oxygen saturation Oxygen saturation in Arterial blood by Pulse oximetry Heart rate Systolic blood pressure Diastolic blood pressure Provider Name and Address Organization Details Last Updated DateTime 4 161.925 cm 30.8 kg/m2 45579.4 4 g 96 % 96 % 55 /min 130 mm[Hg] 80 mm[Hg] ABDELRAHMAN BARRIOS [facility] 4 14:38:43 Social History Question Answer Notes LastModified by Organizat ion Details LastModified Time Tobacco Smoking Status Never Smoker ABDELRAHMAN gtz [facility] 06/15/2022 11:29:31 What Was The Date Of Your Most Recent Tobacco Screening? 08/09/2024 [email or web address] Information not available 08/09/2024 Sex: Unknown Functional Status Question Answer Note LastModified by Organizat ion Details LastModified Time Do you use any illicit or recreational drugs? No [email or web address] Information not available 06/15/2022 What is your level of alcohol consumption? None [email or web address] Information not available 06/15/2022 Mental Status None recorded. Family History Nothing Reported Notes:Hypercholesterolemia, Hypertension, Heart disease in female family member before age 65, 3 Sis; Obesity., Depression, Thyroid problems Medical History No medical history recorded. Gynecological HistoryNo gynecological history recorded. Obstetrics History GPAL:G 0 P 0 0 0 0 Immunizations Vaccine Type Date Status Note Provider Nam e and Address Organization Details Recorded Time Influenza, split virus, trivalent, preservative 0 completed Not Available [facility] 04/21/2023 14:34:22 Influenza, split virus, trivalent, preservative 7 completed Not Available [facility] 04/21/2023 14:34:22 Influenza, split virus, trivalent, preservative 3 completed ABDELRAHMAN BARRIOSNEFTALI gtz [facility] 02/24/2023 11:07:26 COVID-19, mRNA, LNP-S, PF, 30 mcg/0.3 mL dose 1 completed ABDELRAHMAN gtz [facility] 08/16/2022 16:01:55 COVID-19, mRNA, LNP-S, PF, 30 mcg/0.3 mL dose 1 completed ABDELRAHMAN gtz [facility] 08/16/2022 16:01:55 Influenza, split virus, quadrivalent, PF 9 completed CHELSEA Baig - [facility] 08/16/2022 16:01:55 Past Encounters Encounter ID Performer Location Encounter Start Date Encounter Closed Date Diagnosis/Indication Diagnosis SNOMED-CT Code Diagnosis ICD10 Code Diagnosis Note [id number] Rich Rosa MD [facility] ([facility]) [address] [place], [place] [phone] 5 06/15/2022 11:09:42 06/25/2022 23:07:05 Depressive disorder 21887453 F32.9 stable at present. Diabetes mellitus 973002 09 E11.9 Resting tremor 49237836 G25.2 stable Benign ess ential hypertension 3567330 I10 Screening mammography 24 172155 Z12.31 [id number] Rich Rosa MD [facility] ([facility]) [address] [place], [place] [phone] 5 08/16/2022 15:46:35 08/16/2022 18:58:00 Essential hypertension 72672878 I10 BP running low with weight loss. Will cut dose of BP med in half. Major depr essive disorder 530810523 F32.9 Diabetes mellitus 311891 09 E11.9 [id number] Rich Rosa MD [facility] ([facility]) [address] [place] [id number] 5 10/18/2022 13:42:16 10/18/2022 15:43:18 Diabetes mellitus 96552572 E13.42 Headache 67502068 R51.9 Orthostati c hypotension 53853022 I95.1 will stop her losartan/h ct and observe. [id number] Rich Rosa MD [facility] ([facility]) [address] [place] [id number] 5 11/30/2022 11:27:11 11/30/2022 12:38:21 Benign hypertension 12836221 I10 Depressive disorder 3548 9007 F32.9 stable at present. Diabetes mellitus 206276 09 E13.42 Memory impairment 833061 006 R41.3 Memory not bad today with current events except she said Obama was president. Diabetic p eripheral neuropathy 635891178 E11.40 [id number] Rich Rosa MD [facility] ([facility]) [address] [place] [id number] 5 01/06/2023 16:02:04 01/06/2023 17:26:39 Iron deficiency anemia 91766159 D50.9 She had acute blood loss anemia from dental bleeding. That is resolved. Benign ess ential hypertension 6670603 I10 Diabetes mellitus 098305 09 E13.42 stable Essential hypertension 76101010 I10 Obstructiv e sleep apnea syndrome 64303134 G47.33 Needs a new CPAP machine for this as her old one has not worked in about a year. [id number] Rich Rosa MD [facility] ([facility]) [address] [place] [address] 5 02/24/2023 11:01:47 02/24/2023 12:33:28 Diabetes mellitus 75850474 E11.9 stable Benign ess ential hypertension 7227999 I10 Gastroesop hageal reflux disease 225342474 K21.9 well controlled on Omeprazole Major depr essive disorder 059412191 F32.9 stable at present. [id number] Rich Rosa MD [facility] ([facility]) [address] [place] [address] [id number] 5 04/21/2023 14:34:03 04/21/2023 15:23:46 Diabetes mellitus 01047469 E11.9 stable Essential hypertension 83958989 I10 Sinus tachycardia 308243 01 R00.0 Obstructiv e sleep apnea syndrome 69518233 G47.33 needs a new sleep study to get a CPAP. [id number] Rich Rosa MD [facility] ([facility]) [address] [place] [address] [id number] 5 06/30/2023 14:40:17 06/30/2023 16:05:30 Benign hypertension 91299496 I10 Sinus tachycardia 598132 01 R00.0 Arthritis 4734549 M19.90 Diabetes mellitus 607351 09 E11.9 stable Muscle pain 08232922 M79 .10 Anemia 399900027 D64.9 possibly from blood loss after teeth were pulled. Vitamin D deficiency 347 94827 E55.9 [id number] Rich Rosa MD [facility] ([facility]) [address] [place] [address] [id number] 5 08/22/2023 15:50:16 08/22/2023 17:15:45 Plantar wart of right foot 0615725979 6035543 B07.0 right lateral foot. Failed cryotherap y in the office. Fibromyalgia 898766089 M 79.7 stable with small flare recently. Benign ess ential hypertension 4293211 I10 Depressive disorder 3548 9007 F32.9 stable at present. No change in meds. Diabetes mellitus 061349 09 E11.9 stable HgbA1c in June was 5.6. Urinary incontinence 165 243352 R32 [id number] Rich Rosa MD [facility] ([facility]) [address] [place] [address] [id number] 5 10/06/2023 09:34:39 10/06/2023 12:08:54 Diabetes mellitus 74782145 E11.9 stable HgbA1c in June was 5.6. Urinary incontinence 165 307620 R32 Fibromyalgia 588113093 M 79.7 worsening with no improvemen t with increased dose of Gabapentin . Obstructiv e sleep apnea syndrome 51188652 G47.33 Sleep lab results pending. Gastroesop hageal reflux disease 900964680 K21.9 well controlled on Omeprazole [id number] Rich Rosa MD [facility] ([facility]) [address] [place] [address] [id number] 5 11/24/2023 11:36:22 11/24/2023 12:51:58 Obstructive sleep apnea syndrome 76440644 G47.33 Would benefit from BIPAP 14/. WIll order. Fibromyalgia 599229166 M 79.7 [id number] Rich Rosa MD [facility] ([facility]) [address] [place] [address] [id number] 5 01/09/2024 10:05:11 01/09/2024 12:21:16 Chronic kidney disease 844928270 N18.9 Type 2 demetra betes mellitus 03175201 E11.21 Will stop Metformin and try an SGLT2 Benign ess ential hypertension 0360086 I10 Hyperlipidemia 19201480 E78.5 Obstructiv e sleep apnea syndrome 57115890 G47.33 She is doing well with her CPAP and uses it nightly with great improvemen t in symptoms. Sinus tachycardia 840358 01 R00.0 [id number] Rich Rosa MD [facility] ([facility]) [address] [place] [address] [id number] 5 02/09/2024 13:38:08 02/09/2024 15:28:52 Benign essential hypertension 8248188 I10 Chronic ki dney disease 312719372 N18.9 [facility] Diabetes mellitus 363947 09 E11.9 stable HgbA1c in June was 5.6. Coronary atherosclerosis 760763277 I25.10 [id number] Rich Rosa MD [facility] ([facility]) [address] [place] [address] [id number] 5 05/17/2024 14:37:06 05/21/2024 16:04:09 Benign hypertension 92367893 I10 Benign ess ential hypertension 1483484 I10 LOw BP today WIll hold her hydralazin e Hypercholesterolemia 136 68393 E78.00 Depressive disorder 3548 9007 F32.9 stable at present. Type 2 demetra betes mellitus 14625644 E11.21 Muscle pain 45556914 M79 .10 possibly due to Atorvastat in WIll stop that. Obstructiv e sleep apnea of adult 8105916898 103 G47.33 This patient has been compliant with wearing her CPAP nightly and it has greatly improved her symptoms. She is tolerating it well. [id number] Rich Rosa MD [facility] ([facility]) [address] [place] [address] [id number] 5 06/17/2024 14:39:51 06/17/2024 16:18:57 Benign essential hypertension 5892123 I10 stable at present Diabetes mellitus 406815 09 E11.9 Diabetic p eripheral neuropathy 784149943 E11.40 with callus formation stable. She is followed by podiatry. Fibromyalgia 192842033 M 79.7 worsening at this time. No changes in her management at this time. [id number] Derrick Pastor MD [facility] ([facility]) [address] [place] [address] [id number] 5 07/18/2024 14:41:55 07/18/2024 16:11:15 History of anemia 956407610 Z86.2 Anemia 108163623 D64.9 Gastroesop hageal reflux disease 934067088 K21.9 Despite omeprazole [id number] Rich Rosa MD [facility] ([facility]) [address] [place] [phone] 08/09/2024 16:15:29 08/13/2024 14:54:36 Benign essential hypertension 7464321 I10 stable at present Chronic ki dney disease 585319198 N18.9 Diabetic p eripheral neuropathy 047952511 E11.40 with callus formation stable. She is followed by podiatry. Major depr essive disorder 383913660 F32.9 stable at present. Obstructiv e sleep apnea syndrome 96487681 G47.33 She is doing well with her BIPAP and uses it nightly with great improvemen t in symptoms. Mixed anxi ety and depressive disorder 433045326 F32.9 stable at present. Health Concerns Section Related Observation LastModified by Organization Detai ls LastModified Time None Recorded Concern Status LastModified by Organization Details LastModified Time None Recorded Advance Directives Directive None Recorded Payers Insurance Date Sequence Insurance Name Policy Number Policy Dixon Covered Member ID Dixon Member ID Guarantor Name 07/18/2024 1 [place] Rebecca Lozada [id number] Rebecca Lozada 07/18/2024 [place] [facility] Rebecca Lozada [id number] Rebecca Lozada Notes Date Note Type Note Provider Name and Address Organization Details Recorded Time 02/09/2024 text/html General Rash/Ski n LesionReported bypatient.Location:arm (right arm) Quality:painful(tender to touch.) Severity:mild Onset/Timing:gradual onset Concerned about her weight gain. Home health nurse has noted that she is up 30lbs from 1 year ago. Rich Rosa MD [address] [place] [address], [phone], [facility] 02/09/2024 15:18:49 05/17/2024 text/html Anxiety/Depressi onRepo rted bypatient.Severity:den ies suicidal ideations; able to maintain relationships; does not interfere with activities of daily living Context:no major life stressors Modifying Factors:medications as directed Associated Symptoms:denies homicidal ideations; no significant weight gain; no significant weight loss;high irritability;anxiety;d epression;sleep disturbances Rich Rosa MD [address] [place] [address], [phone], [facility] 06/05/2024 17:39:06 06/17/2024 text/html Pt is still havi ng trouble with staying awake. Still having episodes to where her whole body falls asleep. The last episodes lasted about 2 hours. Rich Rosa MD [address] [place] [address], [phone], [facility] 06/17/2024 15:27:38 07/18/2024 text/html Colonoscopy ScreeningReported bypatient.GI Symptoms:no diarrhea; no constipation; no recent change in bowel movements; no change in the stool; no color change in stool; no rectal bleeding;abdominal pain Associated Symptoms:normal appetite; no fever; no chills; no nausea; no vomiting Context:no history of colon polyps;prior examination Family History:no colon cancerNotes:She has been having chronic intermittent GERD despite omeprazole use. The patient presents today at the request of Dr Rosa for evaluation and discussion of colonoscopy for colon cancer screening. The patient denies any recent persistent diarrhea, persistent constipation, bloody or dark tarry stools, or mucusy stools. Last Colon Cancer screenin12/04/15 Problems with anesthesia in the past: nausea Family History of Colon cancers: NONE Blood Thinners: asa 81 mg Co-morbidities:diabete s Derrick Pastor MD [address] [place] [address], [phone], [facility] 07/18/2024 16:09:05 OBGyn Episode No OBEpisode recorded.
--- NOTE | 2024-09-16 15:33 | W.ED.NEUROSD ---
HPI - Neuro Symptoms/Deficit General: Chief Complaint: Neuro Symptoms/Deficit Stated Complaint: stroke alert - facial droop - collapsed Time Seen by Provider: 09/16/24 15:29 History of Present Illness: 62-year-old female presents emergency room from pills a stroke alert they reported that she collapsed witnessed in the field at around 1500. She has had similar episodes in the past she is diabetic her blood glucose was 183 when she initially arrived here she will open her eyes spontaneously but otherwise does not react to verbal commands. Does not blink with eye threat in both eyes and all buchanan of vision. Associated symptoms: Deny chest pain Related Data Home Medications ?Medication ?Instructions ?Recorded ?Confirmed cetirizine 10 mg tablet (Allergy 10 mg PO DAILY 12/14/22 09/16/24 Relief (cetirizine)) isosorbide mononitrate 60 mg 60 mg PO QAM 12/14/22 09/16/24 tablet,extended release 24 hr omeprazole 20 mg capsule,delayed 20 mg PO BID 12/14/22 09/16/24 release tamsulosin 0.4 mg capsule 0.4 mg PO QPM 12/14/22 09/16/24 latanoprost 0.005 % eye drops 1 drp ophthalmic (eye) QPM 12/30/22 09/16/24 amlodipine 10 mg tablet 10 mg PO QAM 07/10/23 09/16/24 oxybutynin chloride 10 mg 10 mg PO BEDTIME 12/27/23 09/16/24 tablet,extended release 24 hr pregabalin 200 mg capsule 200 mg PO BID 12/27/23 09/16/24 dapagliflozin propanediol 10 mg 10 mg PO DAILY 07/17/24 09/16/24 tablet (Farxiga) spironolactone 25 mg tablet 25 mg PO DAILY 07/17/24 09/16/24 ergocalciferol (vitamin D2) 1,250 1,250 mcg PO Q7D 07/30/24 09/16/24 mcg (50,000 unit) capsule (Vitamin D2) metoprolol succinate 50 mg 50 mg PO QPM 07/30/24 09/16/24 tablet,extended release 24 hr citalopram 40 mg tablet 40 mg PO DAILY 09/16/24 09/16/24 clopidogrel 75 mg tablet (Plavix) 75 mg PO QAM 09/16/24 09/16/24 isosorbide mononitrate 30 mg 30 mg PO QAM 09/16/24 09/16/24 tablet,extended release 24 hr losartan 50 mg tablet 25 mg PO QAM 09/16/24 09/16/24 Previous Rx's ?Medication ?Instructions ?Recorded aspirin 81 mg tablet,delayed 81 mg PO DAILY 30 days #30 tabs 12/19/20 release diabetic shoes w/ 3 inserts #1 ea 09/19/23 bupropion HCl 150 mg 24 hr tablet, 150 mg PO QAM #30 tabs 09/02/24 extended release risperidone 0.5 mg tablet 0.5 mg PO BID #60 tabs 09/02/24 (Risperdal) trazodone 50 mg tablet 100 mg (2 x 50 mg) PO .HS PRN 09/02/24 insomnia #60 tabs Allergies Allergy/AdvReac Type Severity Reaction Status Date / Time penicillin G Allergy Mild breaks out Verified 09/02/24 15:40 in hives Penicillins Allergy ALGY-Hives Verified 09/02/24 15:40 Review of Systems Const: Denies: fever(s) or chills Card: Denies: chest pain Resp: Denies: dyspnea GI: Denies: abdominal pain : Denies: dysuria, urinary frequency or urinary urgency Musc: Denies: neck pain or back pain Skin/Breast: Denies: rash PFSH ED PFSH: Medical History (Updated 09/16/24 @ 16:54 by Meliton Stone DO) Psychiatric care Blood loss anemia Medication side effect Anemia Altered mental status Acute kidney injury superimposed on chronic kidney disease Seizures Functional neurological symptom disorder with attacks or seizures Vertigo Chronic migraine without aura, intractable, with status migrainosus Diabetes mellitus Basilar artery insufficiency Temporal lobe lesion DVT prophylaxis Injury, self-inflicted Fever TIA (transient ischemic attack) No pertinent family history ESTHER (obstructive sleep apnea) Bipolar 1 disorder Self-mutilation Diabetes mellitus Hypertension Right middle cerebral artery stroke Family History Father Sleep apnea Hypertension Mother Hypertension Social History Smoking and tobacco/nicotine status: never used tobacco/nicotine Alcohol intake: current Alcohol intake frequency: holidays/special occasions only Substance/Drug Use: never Current gender identity: Female NIH stroke score NIHSS: Level Of Consciousness - 1a: 0 Level Of Consciousness Questions - 1b: Both Correct Level Of Consciousness Commands - 1c: Both Correct Best Gaze - 2: Normal Visual Buchanan - 3: No Visual Loss Facial Palsy - 4: Normal Motor Arm Right - 5: No Drift Motor Arm Left - 5: No Drift Motor Leg Right - 6: No Drift Motor Leg Left - 6: No Drift Limb Ataxia - 7: Absent Sensory - 8: Normal Best Language - 9: No Aphasia Dysarthia - 10: Normal Extinction And Inattention - 11: 0 Score: Total Score: 0 Physical Exam HENMT: COMMON NORMALS: normocephalic and atraumatic HEAD & SCALP: normocephalic and atraumatic Resp: COMMON NORMALS: normal respiratory effort, No retractions, No use of accessory muscles and clear to auscultation bilaterally AUSCULTATION: clear to auscultation bilaterally Cardio: COMMON NORMALS: regular rate, regular rhythm and No murmurs present (Cardio) RATE: regular rate RHYTHM: regular rhythm GI: COMMON NORMALS: Soft to palpation and No hepatosplenomegaly present AUSCULTATION: Yes normoactive bowel sounds PALPATION: Yes Soft to palpation, No Tenderness to palpation present (GI), No Guarding due to palpation present (GI) and Yes No hepatosplenomegaly present Extremity: COMMON NORMALS: normal to inspection, capillary refill normal, no clubbing, cyanosis or edema, no calf tenderness and no pedal edema Skin: COMMON NORMALS: no rashes or lesions noted GENERAL SKIN EXAM: no rashes or lesions noted Course Vital Signs: Vital signs: Vital Signs Temperature 98.6 F 09/16/24 15:37 Pulse Rate 69 09/16/24 17:40 Respiratory Rate 16 09/16/24 15:37 Blood Pressure 113/77 09/16/24 17:40 Pulse Oximetry 94 09/16/24 17:40 Oxygen Delivery Me thod Room Air 09/16/24 17:40 MDM - Neuro Symptoms/Deficit Medical Decision Making Initially on arrival patient will not respond to any verbal or even painful stimuli. After the CT patient is more responsive she will open her eyes response to verbal stimuli but she will not follow any commands and I tried to get her to do an NIH initially she turned and looked at me with good facial symmetry stuck her tongue out at me. There is no deviation of her tongue. I later went back and reevaluated her again she was now compliant and followed commands she has no deficits her NIH was 0 at that point. She has had psychiatric issues in the past. The report today was that she suddenly collapsed witnessed. When she did become verbal later her main complaint was that her was being mean to her and she wanted us to fix that for her and encouraged her to seek out a counselor. She denies being physically abused. Ultimately patient was discharged she has no deficits I do not believe she has a TIA or stroke I think this is more of a conversion disorder. Discussed with Dr. Ace who is very familiar with this patient and she concurs. Medical Records I reviewed the patient's medical records. Lab Data I reviewed the patient's lab results. 09/16/24 16:00 09/16/24 16:[address] 09/16/24 15:29 IMPRESSION: No acute abnormality. ASSESSMENT: ASPECTS ([place] Stroke Program Early CT Score) is 10. ADDENDUM: 09/16/24 1544 THIS REPORT CONTAINS FINDINGS THAT MAY BE CRITICAL TO PATIENT CARE. The findings were verbally communicated by me to MELITON STONE at 3:42 PM RECORDS SPECIALIST on 09/16/2024. The findings were acknowledged and understood. Laboratory Results WBC 7.43 10^3/uL (3.29-11.43) 09/16/24 16:00 RBC 4.23 10^6/uL (3.85-5.65) 09/16/24 16:00 Hgb 10.50 g/dL (11.27-16.99) L 09/16/24 16:00 Hct 32.7 % (36-47) L 09/16/24 16:00 MCV 77.3 fl (85-98) L 09/16/24 16:00 MCH 24.8 pg (27-33) L 09/16/24 16:00 MCHC 32.1 g/dL (30-55) 09/16/24 16:00 RDW 15.3 % (12.1-15.1) H 09/16/24 16:00 Plt Count 265 10^3/cmm (157-399) 09/16/24 16:00 MPV 10.0 fL (7.4-10.4) 09/16/24 16:00 Neut % (Auto) 69.2 % 09/16/24 16:00 Lymph % (Auto) 18.6 % 09/16/24 16:00 [place] % (Auto) 7.0 % 09/16/24 16:00 Eos % (Auto) 3.8 % 09/16/24 16:00 Baso % (Auto) 0.5 % 09/16/24 16:00 Neut # (Auto) 5.14 10^3/uL (1.8-7.7) 09/16/24 16:00 Lymph # (Auto) 1.4 10^3/uL (0.8-4.8) 09/16/24 16:00 [place] # (Auto) 0.5 10^3/uL (0.2-0.9) 09/16/24 16:00 Eos # (Auto) 0.3 10^3/uL (0.0-0.8) 09/16/24 16:00 Baso # (Auto) 0.0 10^3/uL (0.0-0.1) 09/16/24 16:00 Nucleated RBC % (auto) 0 % 09/16/24 16:00 Nucleated RBCs # 0.0 /100WBC 09/16/24 16:00 PT 13.40 SECONDS (12.1-14.9) 09/16/24 16:00 INR 0.95 (0.8-1.2) 09/16/24 16:00 APTT 28.9 SECONDS (23.9-36.7) 09/16/24 16:00 Sodium 139 mmol/L (136-145) 09/16/24 16:00 Potassium 4.6 mmol/L (3.5-5.1) 09/16/24 16:00 Chloride 106 mmol/L (98-107) 09/16/24 16:00 Carbon Dioxide 19 mmol/L (22-29) L 09/16/24 16:00 Anion Gap 18.6 (5-19) 09/16/24 16:00 BUN 29 mg/dL (8-23) H 09/16/24 16:00 Creatinine 1.7 mg/dL (0.5-0.9) H 09/16/24 16:00 GFR Calculation 30.5 mL/min (90-130) L 09/16/24 16:00 Glucose 183 mg/dL (65-115) H 09/16/24 16:00 Calculated Osmolality 299 mOsm/kg (285-295) H 09/16/24 16:00 Calcium 9.2 mg/dL (8.5-10.5) 09/16/24 16:00 Total Bilirubin 0.2 mg/dL (0.15-1.2) 09/16/24 16:00 AST 10 U/L (0-32) 09/16/24 16:00 ALT 11 U/L (0-33) 09/16/24 16:00 Alkaline Phosphatase 129 U/L (35-105) H 09/16/24 16:00 Total Protein 6.5 g/dL (6.6-8.7) L 09/16/24 16:00 Albumin 4.1 g/dL (3.5-5.2) 09/16/24 16:00 Globulin 2.4 g/dL (1.3-4.6) 09/16/24 16:00 All radiology interpretation(s) finalized by discharge Discharge Plan Discharge Patient Disposition: Home Clinical Impression: Conversion disorder with attacks or seizures Condition: Stable Prescriptions: No Action tamsulosin 0.4 mg capsule 0.4 mg PO QPM omeprazole 20 mg capsule,delayed release(DR/EC) 20 mg PO BID cetirizine [Allergy Relief (cetirizine)] 10 mg tablet 10 mg PO DAILY isosorbide mononitrate 60 mg tablet extended release 24 hr 60 mg PO QAM Rx Instructions: along with 30mg to=90mg total (DME) diabetic shoes w/ 3 inserts See Rx Instructions .Route .MEDSUPPLY Qty: 1 0RF Rx Instructions: As directed by the christal ledesma amlodipine 10 mg tablet 10 mg PO QAM trazodone 50 mg tablet 100 mg PO .HS PRN (Reason: insomnia) Qty: 60 2RF Rx Instructions: Take 1 or 2 tabs at night for sleep. risperidone [Risperdal] 0.5 mg tablet 0.5 mg PO BID Qty: 60 2RF bupropion HCl 150 mg tablet extended release 24 hr 150 mg PO QAM Qty: 30 2RF spironolactone 25 mg tablet 25 mg PO DAILY dapagliflozin propanediol [Farxiga] 10 mg tablet 10 mg PO DAILY aspirin 81 mg Tablet,Delayed Release (Dr/Ec) 81 mg PO DAILY 30 Days Qty: 30 3RF latanoprost 0.005 % drops 1 drp ophthalmic (eye) QPM oxybutynin chloride 10 mg tablet extended release 24hr 10 mg PO BEDTIME pregabalin 200 mg capsule 200 mg PO BID metoprolol succinate 50 mg tablet extended release 24 hr 50 mg PO QPM ergocalciferol (vitamin D2) [Vitamin D2] 1,250 mcg (50,000 unit) capsule 1,250 mcg PO Q7D citalopram 40 mg tablet 40 mg PO DAILY losartan 50 mg tablet 25 mg PO QAM isosorbide mononitrate 30 mg tablet extended release 24 hr 30 mg PO QAM Rx Instructions: along with 60mg to=90mg total clopidogrel [Plavix] 75 mg tablet 75 mg PO QAM Discharge Orders: Discharge ED (Routine); Ordered 09/16/24 Ordered By: Meliton Stone Referrals: Rich Rosa MD [Primary Care Provider, Family Practice] Discharge Diet: Usual diet Discharge Activity: Resume usual activity Patient Instructions: Opioid Safety, Pain Management, Patient Portal & Bogdan Instructions Activity Restrictions/Additional Instructions: Thank you for choosing [facility] for your healthcare needs today. It is very important that you follow up as instructed or that you return to the Emergency Department should you have concerns or if your condition changes or worsens in any way. Follow-up with Dr. Ace as needed Print Language: Kenyan Coding Level of Care Code ED Trust Operations Assistant for Janene Poon
[2024-09-16 15:37] VITALS: BP 126/72; PULSE 63; RESP 16; TEMP 37; O2SAT 95
[2024-09-16 16:16] LABS: Basophils % 0.5 %; Eosinophils # 0.3 10^3/uL (0.0-0.8); Eosinophils % 3.8 %; Hematocrit 32.7 % (36-47); Lymphocytes # 1.4 10^3/uL (0.8-4.8); Lymphocytes % 18.6 %; Mean Corpuscular HGB Conc 32.1 g/dL (30-55); Mean Corpuscular Hemoglobin 24.8 pg (27-33); Mean Corpuscular Volume 77.3 fl (85-98); Monocytes # 0.5 10^3/uL (0.2-0.9); Neutrophils # 5.14 10^3/uL (1.8-7.7); Neutrophils % 69.2 %; Nucleated Red Blood Cells % 0 %; Platelet Count 265 10^3/cmm (157-399); Red Blood Count 4.23 10^6/uL (3.85-5.65); Red Cell Distribution Width 15.3 % (12.1-15.1); White Blood Count 7.43 10^3/uL (3.29-11.43)
[2024-09-16 16:27] VITALS: BP 113/63; PULSE 60; O2SAT 96
--- NOTE | 2024-09-16 16:30 | PC.PHAR ---
Pt uses [facility] to set up her home medications. [phone]. Faxing current med list 09/16/24 4:30pm
[2024-09-16 16:34] LABS: INR 0.95 (0.8-1.2)
[2024-09-16 16:35] LABS: Partial Thromboplastin Time 28.9 SECONDS (23.9-36.7)
[2024-09-16 16:42] LABS: Alanine Aminotransferase 11 U/L (0-33); Albumin Level 4.1 g/dL (3.5-5.2); Alkaline Phosphatase 129 U/L (35-105); Anion Gap 18.6 (5-19); Aspartate Amino Transferase 10 U/L (0-32); Blood Urea Nitrogen 29 mg/dL (8-23); Calcium 9.2 mg/dL (8.5-10.5); Carbon Dioxide 19 mmol/L (22-29); Chloride 106 mmol/L (98-107); Globulin 2.4 g/dL (1.3-4.6); Glomerular Filtration Rate 30.5 mL/min (90-130); Glucose 183 mg/dL (65-115); Osmolality Calculated 299 mOsm/kg (285-295); Potassium 4.6 mmol/L (3.5-5.1); Sodium 139 mmol/L (136-145); Total Bilirubin 0.2 mg/dL (0.15-1.2); Total Protein 6.5 g/dL (6.6-8.7)
[2024-09-16 17:40] VITALS: BP 113/77; PULSE 69; O2SAT 94
[2024-09-17 15:35] LABS: Glucose Point of Care 191 mg/dL (70-110)
== END 2024-09-16 17:42 | disposition home or self-care (01) ==
PROVIDERS: Emergency Provider Family Medicine; PCP Family Medicine
DX: F44.5 Conversion disorder with seizures or convulsions (principal); Z79.02 Long term (current) use of antithrombotics/antiplatelets; Z86.73 Personal history of transient ischemic attack (TIA), and cerebral infarction without residual deficits; E11.9 Type 2 diabetes mellitus without complications
CPT/HCPCS: 36415; 36416; 70450; 80053; 82962; 85025; 85610; 85730; 93005; 99284

== ENCOUNTER → 2024-09-17 09:07 | Outpatient (BNVA) | payer MEDICAID, SELFPAY | PROVIDERS: PCP Family Medicine; Visit Provider Podiatrist Foot & Ankle Surgery | DX: E11.42 Type 2 diabetes mellitus with diabetic polyneuropathy (principal); L60.3 Nail dystrophy; L84 Corns and callosities; G62.9 Polyneuropathy, unspecified | CPT/HCPCS: 11721; 99213 ==

== ENCOUNTER 2024-10-03 16:01 | Emergency (ER) | payer MEDICAID, SELFPAY ==
[2024-10-03 16:09] VITALS: BP 108/70; PULSE 57; RESP 14; TEMP 36.5; O2SAT 98; BMI 33.5
[2024-10-03 16:45] LABS: Hematocrit 34.6 % (36-47); Hemoglobin 10.90 g/dL (11.27-16.99); Mean Corpuscular HGB Conc 31.5 g/dL (30-55); Mean Corpuscular Hemoglobin 24.3 pg (27-33); Mean Corpuscular Volume 77.1 fl (85-98); Nucleated Red Blood Cells % 0 %; Platelet Count 310 10^3/cmm (157-399); Red Blood Count 4.49 10^6/uL (3.85-5.65); White Blood Count 7.19 10^3/uL (3.29-11.43)
[2024-10-03 16:59] LABS: Lactic Sepsis W/Reflex 1.9 mmol/L (0.5-2.2)
[2024-10-03 17:24] LABS: Troponin(5th) Baseline 17 ng/L (0-10)
[2024-10-03 17:34] LABS: Alanine Aminotransferase 10 U/L (0-33); Albumin Level 4.3 g/dL (3.5-5.2); Alkaline Phosphatase 142 U/L (35-105); Anion Gap 20.5 (5-19); Aspartate Amino Transferase 9 U/L (0-32); Blood Urea Nitrogen 34 mg/dL (8-23); Calcium 9.4 mg/dL (8.5-10.5); Carbon Dioxide 19 mmol/L (22-29); Chloride 105 mmol/L (98-107); Creatinine Clr Calc Pharmacy 40.3519; Globulin 2.2 g/dL (1.3-4.6); Glucose 256 mg/dL (65-115); NT Pro B Type Natriuretic Pept 276 pg/mL (0-125); Osmolality Calculated 304 mOsm/kg (285-295); Potassium 5.5 mmol/L (3.5-5.1); Sodium 139 mmol/L (136-145); Total Protein 6.5 g/dL (6.6-8.7)
== END 2024-10-03 18:09 | disposition left against medical advice (07) ==
PROVIDERS: Emergency Medicine; Emergency Provider Family Medicine; PCP Family Medicine
DX: Z53.21 Procedure and treatment not carried out due to patient leaving prior to being seen by health care provider (principal); R55 Syncope and collapse
CPT/HCPCS: 80053; 83605; 83880; 84484; 85025

== ENCOUNTER 2024-11-05 14:06 | Emergency (ER) | payer MEDICAID, SELFPAY ==
--- OUTSIDE RECORDS SUMMARY | 2024-11-05 14:16 | XMS_ITS | Encounter Summary ---
Author Organization [facility], [facility] Address [address] [place] [address] Phone Care Team Providers Care Fuse Spooler Name Role Phone Rich Rosa MD Primary Care Provider [phone] Encounter Details Date Type Department Care Team (Late st Contact Info) Description 01/15/2024 Orders Only [facility] [address] [place] [address] Chronic kidney disease, not otherwise specified Social History Tobacco Use Types Packs/Day Years Used Date Smoking Tobacco: Never Assessed Comments Unknown Sex and Gender Information Value Date Recorded Sex Assigned at Not on file Legal Sex Female 10:38 AM EDT Gender Identity Not on file Sexual Orientation Not on file documented as of this encounter Plan of Treatment Upcoming Encounters Date Type Department Care Team (Late st Contact Info) Description 03/10/2025 1:30 PM SPRING ASSEMBLER Office Visit [facility], [facility] [address] [place] [address] Nova Higgins JUNCTION MAKER [address] [facility] [address] [place] [address] documented as of this encounter Visit Diagnoses Diagnosis Chronic kidney disease, not otherwise specified documented in this encounter Care Teams Fuse Spooler Relationship Specialty Start Date End Date Rich Rosa MD [address] [place] [address] PCP - General Family Medicine 01/15/24 documented as of this encounter
--- OUTSIDE RECORDS SUMMARY | 2024-11-05 14:16 | XMS_ITS | Clinical Summary ---
Author Organization Formerly [facility] Address [address] [address] Care Team Providers Care Lumber Straightener Name Role Phone Rich Rosa MD Primary Care Provider [phone] Allergies Active Allergy Reactions Criticality Noted Date Comments Atorvastatin 08/09/2024 Other Reaction(s): Not available Dicyclomine 08/09/2024 Other Reaction(s): Not available Ibuprofen Palpitations Medium 08/09/2024 Penicillins Rash Low 08/09/2024 Medications tamsulosin (FLOMAX) 0.4 MG 24 hr capsule Take by mouth 1 (one) time each day Active spironolactone (ALDACTONE) 25 MG tablet Take 25 mg by mouth 1 (one) time each day Active sodium bicarbonate 650 MG tablet Take 1 tablet by mouth 1 (one) time each day Active pregabalin (LYRICA) 200 MG capsule Take 200 mg by mouth in the morning and 200 mg in the evening. Active oxybutynin XL (DITROPAN-XL) 10 MG 24 hr tablet Take 10 mg by mouth 1 (one) time each day For 30 days Active omeprazole (PriLOSEC) [address] capsule Take 20 mg by mouth in the morning and 20 mg in the evening. 5 Active metoprolol succinate XL (TOPROL XL) 50 MG 24 hr tablet Take 50 mg by mouth 1 (one) time each day Active losartan (COZAAR) 25 MG tablet Take 25 mg by mouth 1 (one) time each day Active latanoprost (XALATAN) 0.005 % ophthalmic solution Administer into both eyes every night 5 Active isosorbide mononitrate (IMDUR) 30 MG 24 hr tablet Take 30 mg by mouth 1 (one) time each day Active hydrALAZINE 25 MG tablet Take 25 mg by mouth in the morning and 25 mg at noon and 25 mg in the evening. Active ergocalciferol 1.25 MG (02725 UT) capsule Take 50,000 Units by mouth 1 (one) time per week 5 Active diclofenac (VOLTAREN) 75 MG EC tablet Take 1 tablet by mouth in the morning and 1 tablet in the evening. 5 Active Farxiga 10 MG tablet Take 10 mg by mouth 1 (one) time each day 5 Active clopidogrel (PLAVIX) 75 MG tablet Take 75 mg by mouth 1 (one) time each day Active citalopram (CeleXA) 20 MG tablet Take 20 mg by mouth 1 (one) time each day Active cetirizine (ZyrTEC) 10 MG tablet Take 1 tablet by mouth 1 (one) time each day Active buPROPion XL (WELLBUTRIN XL) 150 MG 24 hr tablet Take 150 mg by mouth 1 (one) time each day Active atorvastatin (LIPITOR) 40 MG tablet Take 1 tablet by mouth at bed time 5 Active Aspirin 81 MG capsule Take 1 capsule every day by oral route. Active amLODIPine (NORVASC) 10 MG tablet Take 10 mg by mouth 1 (one) time each day Active APPLE CIDER VINEGAR PO 1 (one) time each day Active Active Problems No known active problems Encounters Date Type Department Care Team Description 09/26/2024 Results Follow-Up [facility] [address] [id number] Sharron Raza 09/26/2024 Documentation Only [facility] [address] [place] [address] Sharron Raza 08/27/2024 1:40 PM CDT Office Visit [facility] [address] [place] [id number] Pallavi Rush MD Stage 3b chronic kidney disease (HCC) (Primary Dx); Hypertensive chronic kidney disease with stage 1 through stage 4 chronic kidney disease, or unspecified chronic kidney disease; Type 2 diabetes mellitus with diabetic chronic kidney disease (HCC) 08/09/2024 Documentation Only [facility] [address] [place] [address] Sharron Raza from Last 3 Months Family History Medical History Relation Comments Diabetes Father Relation Status Comments Father Social History Tobacco Use Types Packs/Day Years Used Date Smoking Tobacco: Never Smokeless Tobacco: Never Tobacco Cessation:Counseling Given: Not Answered Alcohol Use Standard Drinks/Week Comments Yes 0 (1 standard drink = 0.6 oz pur e alcohol) Comments Unknown Sex and Gender Information Value Date Recorded Sex Assigned at Not on file Legal Sex Female 10:38 AM EDT Gender Identity Not on file Sexual Orientation Not on file Last Filed Vital Signs Vital Sign Reading Time Taken Comments Blood Pressure 112/62 08/27/2024 1:18 PM CDT Pulse 56 08/27/2024 1:18 PM CDT Temperature - - Respiratory Rate - - Oxygen Saturation 97% 08/27/2024 1:18 PM CDT Inhaled Oxygen Concentration - - Weight 87.6 kg (193 lb 3.2 oz) 08/27/2024 1:18 P M CDT Height 160 cm (5' 3 ) 08/27/2024 1:18 PM CDT Body Mass Index 34.22 08/27/2024 1:18 PM CDT Plan of Treatment Upcoming Encounters Date Type Department Care Team (Late st Contact Info) Description 03/10/2025 1:30 PM AQUA AMMONIA OPERATOR Office Visit [facility], [facility] [address] [place] [address] Nova Higgins NP [address] [facility] [address] [place] [address] Health Maintenance Due Date Last Done Comments Breast Cancer Screening 1960 Pneumococcal Vaccine: 50+ Ye ars (1 of 2 - PCV) 1981 Colorectal Cancer Screening: Annual FOBT 07/28/2011 Colorectal Cancer Screening: Colonoscopy 07/28/2011 Colorectal Cancer Screening: Sigmoidoscopy 07/28/2011 Diabetes: Ophthalmology Exam 02/12/2024 Diabetes: Pedal Pulse Checked 02/12/2024 Diabetes: Sensory Foot Exam 02/12/2024 Diabetes: Visual Foot Exam 02/12/2024 Diabetes: Hemoglobin A1C 05/11/2024 02/09/2024 Influenza Vaccine (#1) 2024 12/19/2018 Hepatitis B Vaccine Aged Out No longe r eligible based on patient's age to complete this topic Procedures Procedure Name Priority Date/Time Associated Diagnosis Comments CBC AND DIFFERENTIAL Routine 09/23/2024 9:51 AM CDT Stage 3b chronic kidney disease (HCC) PTH, INTACT Routine 09/23/2024 9:51 AM CDT Stage 3b chronic kidney disease (HCC) URINE ALBUMIN / CREATININE RATIO Routine 09/23/2024 9:51 AM CDT Stage 3b chronic kidney disease (HCC) RENAL FUNCTION PANEL Routine 09/23/2024 9:51 AM CDT Stage 3b chronic kidney disease (HCC) HEMOGLOBIN A1C (EXTERNAL RESULT ENTRY) Routine 02/09/2024 2:21 PM AQUA AMMONIA OPERATOR from Last 3 Months or Most Recently Relevant to Health Maintenance Results * urine albumin / creatinine ratio (09/23/2024 9:51 AM CDT) Comment Test not performed specimen leaked/spilled after receipt [facility] Urine Urine specimen obtained by clean catch procedure / Unknown 09/23/2024 9:51 AM CDT us Pallavi Rush MD LAB URINE ORDERABLES Final Re sult [facility] * CBC and differential (09/23/2024 9:51 AM CDT) WBC 7.5 K/uL [facility] Red Blood Cell Count 4.46 [facility] Hemoglobin 10.9 g/dL [facility] Hematocrit 34.4 % [facility] MCV 77.2 [facility] MCH 24.5 [facility] MCHC 31.8 [facility] RDW 16.8 [facility] Platelet Count 307.5 [facility] Absolute Lymphocytes 1.2 [facility] Absolute Monocytes 0.4 [facility] Lymphocytes 16.5 [facility] Monocytes 5.5 [facility] Granulocytes Absolute 5.5 [facility] Granulocytes % 73.1 [facility] Blood Venous blood / Unknown 09/23/2024 9:51 AM CDT us Pallavi Rush MD LAB BLOOD ORDERABLES Final Re sult Performing Organization Address [facility] Co de Phone Number [facility] * PTH, intact (09/23/2024 9:51 AM CDT) Parathyroid Hormone, Intact 75 pg/mL [facility] Blood Venous blood / Unknown 09/23/2024 9:51 AM CDT us Pallavi Rush MD LAB BLOOD ORDERABLES Final Re sult Performing Organization Address [facility] de Phone Number [facility] * Renal function panel (09/23/2024 9:51 AM CDT) Glucose 234.0 mg/dL [facility] BUN 26 mg/dL [facility] Creatinine 1.8 mg/dL [facility] BUN/Creatinine Ratio 14.44 [facility] Sodium 140 mEq/L [facility] Potassium 5.2 mEq/L [facility] Chloride 109 [facility] Carbon Dioxide 23 mmol/L [facility] Calcium 9.5 mg/dL [facility] Albumin (Blood) 4.2 g/dL [facility] eGFR Non-Afr Niuean 30.3 [facility] Blood Venous blood / Unknown 09/23/2024 9:51 AM CDT us Pallavi Rush MD LAB BLOOD ORDERABLES Final Re sult Performing Organization Address [facility] Co de Phone Number [facility] * Hemoglobin A1C (02/09/2024 2:21 PM AQUA AMMONIA OPERATOR) Hemoglobin A1C 6.1 Blood specimen (specimen) Venous blood / Unknown 02/09/2024 2:21 PM AQUA AMMONIA OPERATOR us Aps External Provider LAB BLOOD ORDERABLES Final Result from Last 3 Months or Most Recently Relevant to [place] [address] Medicaid [place] ([id number]) Care Teams Lumber Straightener Relationship Specialty Start Date End Date Rich Rosa MD [address] [place] [address] PCP - General Family Medicine 01/15/24
[2024-11-05 14:19] VITALS: BP 108/69; PULSE 58; TEMP 36.4; O2SAT 98; BMI 35.4
--- NOTE | 2024-11-05 14:27 | ECG_ITS ---
[facility]: [facility]24[facility]05 Pat Name: Rebecca Mcintosh Department: Room: Gender: Female Financial Advisor: : 1960 Requested By: Meliton Norris Order Number: [id number] Sona MD: Nelson Boyle M.D. Measurements Intervals [place] Rate: 53 P: 33 NH: 192 QRS: -10 QRSD: 118 T: 47 QT: 441 QTc: 417 Interpretive Statements SINUS BRADYCARDIA POSSIBLE ANTERIOR MYOCARDIAL INFARCTION , PROBABLY OLD [30 ms Q WAVE IN V3/V4, OR R < 0.2 mV IN V4] Compared to ECG 09/16/2024 15:41:14 Myocardial infarct finding now present Sinus rhythm no longer present Electronically Signed On 11-09-2024 08:55:14 CDT by Nelson Boyle M.D. [email or web address]
--- NOTE | 2024-11-05 15:38 | W.ED.GENADLT ---
HPI - General Adult General: Chief complaint: General Medical Stated complaint: general weakness Time Seen by Provider: 11/05/24 14:54 History of Present Illness: 64-year-old female presents emergency room complaining of weakness and low blood pressure. She had endoscopy last week she had she missed her iron infusion and since she missed her infusion she has been very weak and dizzy had trouble with her balance. No other focal neurologic deficits. Associated symptoms: Deny chest pain, dyspnea or rash Related Data Home Medications ?Medication ?Instructions ?Recorded ?Confirmed cetirizine 10 mg tablet (Allergy 10 mg PO DAILY 12/14/22 11/05/24 Relief (cetirizine)) isosorbide mononitrate 60 mg 60 mg PO QAM 12/14/22 11/05/24 tablet,extended release 24 hr omeprazole 20 mg capsule,delayed 20 mg PO BID 12/14/22 11/05/24 release tamsulosin 0.4 mg capsule 0.4 mg PO QPM 12/14/22 11/05/24 latanoprost 0.005 % eye drops 1 drp ophthalmic (eye) QPM 12/30/22 11/05/24 amlodipine 10 mg tablet 10 mg PO QAM 07/10/23 11/05/24 oxybutynin chloride 10 mg 10 mg PO BEDTIME 12/27/23 11/05/24 tablet,extended release 24 hr pregabalin 200 mg capsule 200 mg PO BID 12/27/23 11/05/24 dapagliflozin propanediol 10 mg 10 mg PO DAILY 07/17/24 11/05/24 tablet (Farxiga) spironolactone 25 mg tablet 25 mg PO DAILY 07/17/24 11/05/24 ergocalciferol (vitamin D2) 1,250 1,250 mcg PO Q7D 07/30/24 11/05/24 mcg (50,000 unit) capsule (Vitamin D2) metoprolol succinate 50 mg 50 mg PO QPM 07/30/24 11/05/24 tablet,extended release 24 hr citalopram 40 mg tablet 40 mg PO DAILY 09/16/24 11/05/24 clopidogrel 75 mg tablet (Plavix) 75 mg PO QAM 09/16/24 11/05/24 isosorbide mononitrate 30 mg 30 mg PO QAM 09/16/24 11/05/24 tablet,extended release 24 hr losartan 50 mg tablet 25 mg PO QAM 09/16/24 11/05/24 trazodone 50 mg tablet 50 - 100 mg PO .HS PRN insomnia 11/05/24 11/05/24 Previous Rx's ?Medication ?Instructions ?Recorded aspirin 81 mg tablet,delayed 81 mg PO DAILY 30 days #30 tabs 12/19/20 release diabetic shoes w/ 3 inserts #1 ea 09/19/23 bupropion HCl 150 mg 24 hr tablet, 150 mg PO QAM #30 tabs 09/02/24 extended release risperidone 0.5 mg tablet 0.5 mg PO BID #60 tabs 09/02/24 (Risperdal) Allergies Allergy/AdvReac Type Severity Reaction Status Date / Time penicillin G Allergy Mild breaks out Verified 11/05/24 14:24 in hives Penicillins Allergy ALGY-Hives Verified 11/05/24 14:24 Review of Systems Const: Denies: fever(s) or chills Card: Denies: chest pain Resp: Denies: dyspnea GI: Denies: abdominal pain : Denies: dysuria, urinary frequency or urinary urgency Musc: Denies: neck pain or back pain Skin/Breast: Denies: rash PFSH ED PFSH: Medical History Psychiatric care Blood loss anemia Medication side effect Anemia Altered mental status Acute kidney injury superimposed on chronic kidney disease Seizures Functional neurological symptom disorder with attacks or seizures Vertigo Chronic migraine without aura, intractable, with status migrainosus Diabetes mellitus Basilar artery insufficiency Temporal lobe lesion DVT prophylaxis Injury, self-inflicted Fever TIA (transient ischemic attack) No pertinent family history ESTHER (obstructive sleep apnea) Bipolar 1 disorder Self-mutilation Diabetes mellitus Hypertension Right middle cerebral artery stroke Family History Father Sleep apnea Hypertension Mother Hypertension Social History Smoking and tobacco/nicotine status: never used tobacco/nicotine Alcohol intake: current Alcohol intake frequency: holidays/special occasions only Substance/Drug Use: never Current gender identity: Female Physical Exam Const: COMMON NORMALS: no acute distress GENERAL APPEARANCE: cooperative and comfortable ORIENTATION/CONSCIOUSNESS: Yes awake, Yes oriented to person, Yes oriented to place and Yes oriented to time HENMT: COMMON NORMALS: normocephalic, atraumatic and hearing grossly normal bilaterally HEAD & SCALP: normocephalic and atraumatic OTHER: Extraocular moods intact no nystagmus no field visual field deficits Resp: COMMON NORMALS: normal respiratory effort, No retractions, No use of accessory muscles and clear to auscultation bilaterally AUSCULTATION: clear to auscultation bilaterally Cardio: COMMON NORMALS: regular rate, regular rhythm and No murmurs present (Cardio) RATE: regular rate RHYTHM: regular rhythm GI: COMMON NORMALS: Soft to palpation and No hepatosplenomegaly present AUSCULTATION: Yes normoactive bowel sounds PALPATION: Yes Soft to palpation, No Tenderness to palpation present (GI), No Guarding due to palpation present (GI) and Yes No hepatosplenomegaly present Extremity: COMMON NORMALS: normal to inspection, capillary refill normal, no clubbing, cyanosis or edema, no calf tenderness and no pedal edema Neuro: SENSORIUM/ORIENTATION: Yes oriented to person, Yes oriented to place and Yes oriented to time OTHER: Normal facial symmetry. Strength equal bilaterally in extremities. Skin: COMMON NORMALS: no rashes or lesions noted GENERAL SKIN EXAM: no rashes or lesions noted Course Vital Signs: Vital signs: Vital Signs Temperature 97.5 F L 11/05/24 14:19 Pulse Rate 55 L 11/05/24 18:21 Blood Pressure 126/79 11/05/24 17:03 Pulse Oximetry 97 11/05/24 18:21 Oxygen Delivery Me thod Room Air 11/05/24 14:19 MDM - General Adult Medical Decision Making Labs unremarkable no acute findings on exam or on laboratory studies. Her blood pressure has been normotensive she is mildly bradycardic but I believe that is due to her losartan. Encourage patient to follow-up with her primary care doctor. Reviewed blood pressures with primary care. CT of the head today unremarkable there is no focal neurologic deficits on exam. Medical Records I reviewed the patient's medical records. Lab Data I reviewed the patient's lab results. 11/05/24 15:29 11/05/24 15:[address] 11/05/24 15:45 IMPRESSION: No acute intracranial abnormality. If symptoms persist, consider further evaluation with MRI, if there are no contraindications to obtaining a MRI scan. Laboratory Results WBC 7.68 10^3/uL (3.29-11.43) 11/05/24: RBC 4.88 10^6/uL (3.85-5.65) 11/05/24: Hgb 13.00 g/dL (11.27-16.99) 11/05/24: Hct 39.6 % (36-47) 11/05/24: MCV 81.1 fl (85-98) L 11/05/24: MCH 26.6 pg (27-33) L 11/05/24: MCHC 32.8 g/dL (30-55) 11/05/24 RDW 17.3 % (12.1-15.1) H 11/05/24: Plt Count 235 10^3/cmm (157-399) 11/05/24 MPV 10.2 fL (7.4-10.4) 11/05/24: Neut % (Auto) 67.9 % 11/05/24: Lymph % (Auto) 20.2 % 11/05/24: [place] % (Auto) 7.6 % 11/05/24: Eos % (Auto) 2.7 % 11/05/24: Baso % (Auto) 0.7 % 11/05/24: Neut # (Auto) 5.22 10^3/uL (1.8-7.7) 11/05/24: Lymph # (Auto) 1.6 10^3/uL (0.8-4.8) 11/05/24: [place] # (Auto) 0.6 10^3/uL (0.2-0.9) 11/05/24: Eos # (Auto) 0.2 10^3/uL (0.0-0.8) 11/05/24: Baso # (Auto) 0.1 10^3/uL (0.0-0.1) 11/05/24: Nucleated RBC % (auto) 0 % 11/05/24 Nucleated RBCs # 0.0 /100WBC 11/05/24 15:29 Sodium 136 mmol/L (136-145) 11/05/24 15:29 Potassium 4.7 mmol/L (3.5-5.1) 11/05/24 15: Chloride 102 mmol/L (98-107) 11/05/24 15:29 Carbon Dioxide 23 mmol/L (22-29) 11/05/24 15:29 Anion Gap 15.7 (5-19) 11/05/24 15:29 BUN 21 mg/dL (8-23) 11/05/24 15:29 Creatinine 1.4 mg/dL (0.5-0.9) H 11/05/24 15:29 GFR Calculation 38.1 mL/min (90-130) L 11/05/24 15: Glucose 262 mg/dL (65-115) H 11/05/24 15:29 Calculated Osmolality 294 mOsm/kg (285-295) 11/05/24 15: Calcium 9.1 mg/dL (8.5-10.5) 11/05/24 15: Total Bilirubin 0.2 mg/dL (0.15-1.2) 11/05/24 15:29 AST 10 U/L (0-32) 11/05/24 15: ALT 13 U/L (0-33) 11/05/24 15:29 Alkaline Phosphatase 127 U/L (35-105) H 11/05/24 15:29 Total Protein 6.4 g/dL (6.6-8.7) L 11/05/24 15: Albumin 4.2 g/dL (3.5-5.2) 11/05/24 15: Globulin 2.2 g/dL (1.3-4.6) 11/05/24 15:29 Urine Color Yellow (Yellow) 11/05/24 14:39 Urine Appearance Clear (CLEAR) 11/05/24 14:39 Urine pH 5.0 (5-7) 11/05/24 14:39 Ur Specific [place] 1.025 (1.005-1.030) 11/05/24 14:39 Urine Protein Negative (Negative) 11/05/24 14:39 Urine Glucose (UA) 3+ (Normal) H 11/05/24 14:39 Urine Ketones Negative (Negative) 11/05/24 14:39 Urine Blood Negative (Negative) 11/05/24 14:39 Urine Nitrate Negative (Negative) 11/05/24 14:39 Urine Bilirubin Negative (Negative) 11/05/24 14:39 Urine Urobilinogen 0.2 mg/dL (Negative) 11/05/24 14:39 Ur Leukocyte Esterase Trace (Negative) A 11/05/24 14:39 Amorphous Sediment Not Reportable 11/05/24 14:39 All radiology interpretation(s) finalized by discharge Discharge Plan Discharge Patient Disposition: Home Clinical Impression: Weakness, Bradycardia Condition: Stable Prescriptions: No Action tamsulosin 0.4 mg capsule 0.4 mg PO QPM omeprazole 20 mg capsule,delayed release(DR/EC) 20 mg PO BID cetirizine [Allergy Relief (cetirizine)] 10 mg tablet 10 mg PO DAILY isosorbide mononitrate 60 mg tablet extended release 24 hr 60 mg PO QAM Rx Instructions: along with 30mg to=90mg total (DME) diabetic shoes w/ 3 inserts See Rx Instructions .Route .MEDSUPPLY Qty: 1 0RF Rx Instructions: As directed by the christal ledesma amlodipine 10 mg tablet 10 mg PO QAM risperidone [Risperdal] 0.5 mg tablet 0.5 mg PO BID Qty: 60 2RF bupropion HCl 150 mg tablet extended release 24 hr 150 mg PO QAM Qty: 30 2RF spironolactone 25 mg tablet 25 mg PO DAILY dapagliflozin propanediol [Farxiga] 10 mg tablet 10 mg PO DAILY aspirin 81 mg Tablet,Delayed Release (Dr/Ec) 81 mg PO DAILY 30 Days Qty: 30 3RF latanoprost 0.005 % drops 1 drp ophthalmic (eye) QPM oxybutynin chloride 10 mg tablet extended release 24hr 10 mg PO BEDTIME pregabalin 200 mg capsule 200 mg PO BID metoprolol succinate 50 mg tablet extended release 24 hr 50 mg PO QPM ergocalciferol (vitamin D2) [Vitamin D2] 1,250 mcg (50,000 unit) capsule 1,250 mcg PO Q7D citalopram 40 mg tablet 40 mg PO DAILY losartan 50 mg tablet 25 mg PO QAM isosorbide mononitrate 30 mg tablet extended release 24 hr 30 mg PO QAM Rx Instructions: along with 60mg to=90mg total clopidogrel [Plavix] 75 mg tablet 75 mg PO QAM trazodone 50 mg tablet 50 - 100 mg PO .HS PRN (Reason: insomnia) Discharge Orders: Discharge ED (Routine); Ordered 11/05/24 Ordered By: Meliton Stone Referrals: Rich Rosa MD [Primary Care Provider, [facility]] Discharge Diet: Usual diet Discharge Activity: Increase activity as tolerated Patient Instructions: Opioid Safety, Pain Management, Patient Portal & Bogdan Instructions Activity Restrictions/Additional Instructions: Thank you for choosing [facility] for your healthcare needs today. It is very important that you follow up as instructed or that you return to the Emergency Department should you have concerns or if your condition changes or worsens in any way. You are seen today complaining of weakness. Your laboratory test unremarkable exam was normal head CT is negative. Follow-up with your primary care doctor. Print Language: Mozambican Coding Level of Care Code ED Guideman for Janene Poon
--- NOTE | 2024-11-05 15:45 | CTR_ITS ---
PROCEDURE INFORMATION: Exam: CT Head Without Contrast Exam date and time: 11/05/2024 3:57 PM Age: 64 years old Clinical indication: Dizziness TECHNIQUE: Imaging protocol: Computed tomography of the head without contrast. Radiation optimization: All CT scans at this facility use at least one of these dose optimization techniques: automated exposure control; mA and/or kV adjustment per patient size (includes targeted exams where dose is matched to clinical indication); or iterative reconstruction. COMPARISON: CT head thrombolytic [id number] 09/16/2024 3:28 PM RADIATION DOSE METRICS: Total DLP (mGy-cm): 1014.33 FINDINGS: Brain: Stable encephalomalacia involving the anterior right temporal lobe. No acute confluent lobar ischemic infarct. No acute intracranial hemorrhage. Cerebral ventricles: The ventricles and sulci are prominent in size compatible with mild atrophy. Paranasal sinuses: No fluid levels. Mastoid air cells: Visualized mastoid air cells are well aerated. Bones: No acute calvarial fracture. Soft tissues: Visualized soft tissues are unremarkable. CT/CT head wo con* [id number] IMPRESSION: No acute intracranial abnormality. If symptoms persist, consider further evaluation with MRI, if there are no contraindications to obtaining a MRI scan.
[2024-11-05 15:52] LABS: Hematocrit 39.6 % (36-47); Hemoglobin 13.00 g/dL (11.27-16.99); Mean Corpuscular HGB Conc 32.8 g/dL (30-55); Mean Corpuscular Hemoglobin 26.6 pg (27-33); Mean Corpuscular Volume 81.1 fl (85-98); Nucleated Red Blood Cells % 0 %; Platelet Count 235 10^3/cmm (157-399); Red Blood Count 4.88 10^6/uL (3.85-5.65); White Blood Count 7.68 10^3/uL (3.29-11.43)
[2024-11-05 15:56] LABS: Add Urine Microscopic? NO
[2024-11-05 16:01] LABS: Glucose Urine UA 3+ (Normal); Nitrate Urine Negative (Negative); Specific Gravity, Urine 1.025 (1.005-1.030)
[2024-11-05 16:03] LABS: Charge for UA Resulting for Rev
[2024-11-05 16:09] LABS: Alanine Aminotransferase 13 U/L (0-33); Albumin Level 4.2 g/dL (3.5-5.2); Alkaline Phosphatase 127 U/L (35-105); Anion Gap 15.7 (5-19); Aspartate Amino Transferase 10 U/L (0-32); Blood Urea Nitrogen 21 mg/dL (8-23); Calcium 9.1 mg/dL (8.5-10.5); Carbon Dioxide 23 mmol/L (22-29); Chloride 102 mmol/L (98-107); Creatinine Clr Calc Pharmacy 44.5468; Globulin 2.2 g/dL (1.3-4.6); Glucose 262 mg/dL (65-115); Osmolality Calculated 294 mOsm/kg (285-295); Potassium 4.7 mmol/L (3.5-5.1); Sodium 136 mmol/L (136-145); Total Protein 6.4 g/dL (6.6-8.7)
--- NOTE | 2024-11-05 16:22 | PC.PHAR ---
Pt uses [facility] for setting up her medications. Faxing med list 07/09/24 4:22pm
[2024-11-05 16:31] VITALS: BP 111/66; PULSE 55; O2SAT 95
[2024-11-05 17:03] VITALS: BP 119/77; BP 126/79; BP 127/79; PULSE 52; PULSE 53; PULSE 56
[2024-11-05 18:21] VITALS: PULSE 55; O2SAT 97
== END 2024-11-05 18:22 | disposition home or self-care (01) ==
PROVIDERS: Emergency Medicine; Emergency Provider Family Medicine; PCP Family Medicine
DX: R53.1 Weakness (principal); R00.1 Bradycardia, unspecified; Z79.82 Long term (current) use of aspirin; Z79.02 Long term (current) use of antithrombotics/antiplatelets; E11.9 Type 2 diabetes mellitus without complications; I10 Essential (primary) hypertension; Z86.73 Personal history of transient ischemic attack (TIA), and cerebral infarction without residual deficits
CPT/HCPCS: 36415; 70450; 80053; 81003; 85025; 93005; 99284; J7030

== ENCOUNTER 2024-11-14 10:00 | Oncology outpatient (recurring) (ONCR) | payer MEDICAID, SELFPAY ==
[2024-10-28 13:19] VITALS: BP 110/69; PULSE 64; RESP 16; TEMP 36.8; O2SAT 98
[2024-10-28] MEDS: iron sucrose 200 MG in sodium chloride 0.9% (100 ml) 100 ML IV (13:34)
[2024-10-30] MEDS: iron sucrose 200 MG in sodium chloride 0.9% (100 ml) 100 ML IV (13:07)
[2024-10-30 13:48] VITALS: BP 145/83; PULSE 99; RESP 16; TEMP 36.8; O2SAT 96
[2024-11-05] MEDS: iron sucrose 200 MG in sodium chloride 0.9% (100 ml) 100 ML IV (12:48)
[2024-11-05 13:52] VITALS: BP 96/61; PULSE 60; O2SAT 92
--- NOTE | 2024-11-05 15:46 | PC.NURSE ---
After discharge as the patient was exiting the infusion suite, the patient started to demonstrate signs of weakness, altered gait and slow response to verbal commands. Vital signs were stable. Patient was placed in a wheel chair and taken to [facility] ER for evaluation.
[2024-11-07] MEDS: iron sucrose 200 MG in sodium chloride 0.9% (100 ml) 100 ML IV (13:59)
[2024-11-07 14:37] VITALS: BP 108/69; PULSE 58; TEMP 36.3; O2SAT 97
[2024-11-14] MEDS: iron sucrose 200 MG in sodium chloride 0.9% (100 ml) 100 ML IV (10:37)
[2024-11-14 11:20] VITALS: BP 123/79; PULSE 60; TEMP 36.3; O2SAT 96
[2024-11-14 15:18] VITALS: BP 132/63; PULSE 73; TEMP 36.6; O2SAT 98
== END 2024-11-17 23:59 | disposition home or self-care (01) ==
PROVIDERS: PCP Family Medicine; Visit Provider Family Medicine
DX: Z53.9 Procedure and treatment not carried out, unspecified reason; D50.8 Other iron deficiency anemias; Z79.899 Other long term (current) drug therapy
CPT/HCPCS: 96365; J1756; J7050

== ENCOUNTER 2025-03-18 17:12 | Emergency (ER) | payer MEDICAID, SELFPAY ==
[2025-03-18 17:13] VITALS: BP 133/88; PULSE 68; RESP 18; TEMP 36.7; O2SAT 95
--- OUTSIDE RECORDS SUMMARY | 2025-03-18 17:16 | XMS_ITS | Continuity of Care Document ---
Author Organization [facility] Ulises Johansen [facility], [place], [facility] ([facility] Address [address] [facility] [place] [address] Assessment No assessment recorded. Plan of Treatment Reminders Order Date Submit Date Provider Last Modified By Organization Details Last Modified Time Details Appointments OFFICE VISIT 15 2025 02:30P Colby Rosa MD Not available Not available Not available Lab hemoglobi n A1C/hemog lobin total, QN, blood 2024 025 [facility], [address] [facility], [facility] [address], [address], 12/27/2024 16:46:01 CBC 2024 025 [facility], [address] [facility], [facility] [address], [address], 12/27/2024 16:46:00 CMP, serum or plasma 2024 025 [facility], [address] [facility] [address], [address], 12/27/2024 17:07:54 Referral None recorded. Procedures None recorded. Surgeries None recorded. Imaging None recorded. Medication Orders None recorded. Patient TargetsNo targets recorded. Patient InstructionsNo instructions recorded. Reason for Referral None Reported. Results Created Date Observation Date Name Description Value Unit Range Abnormal Flag Note LastModifiedBy Organization Detail LastModifiedTime 12/28/19 25 12/27/2024 CBC WBC 7.5 x10 4.0-10 .5 Not Available [facility] [address], [place], [address], 12/27/2024 16:46:00 12/28/1912/27/2024 CBC RBC 4.92 x10 3.50-5 .50 Not Available [facility] [address] [facility] [address], [place], [address], 12/27/2024 16:46:00 12/28/1912/27/2024 CBC HGB 14.6 g/dL 12.0-1 6.0 Not Available [facility] [address] [facility] [address], [place], [address], 12/27/2024 16:46:00 12/28/1912/27/2024 CBC HCT 42.8 % 37.0-4 7.0 Not Available [facility] [address] [facility] [address], [place], [address], 12/27/2024 16:46:00 12/28/1912/27/2024 CBC MCV 86.9 fL 80.0-9 9.9 Not Available [facility] [address] [facility] [address], [place], [address], 12/27/2024 16:46:00 12/28/1912/27/2024 CBC MCH 29.6 pg 27.0-3 2.0 Not Available [facility] [address] [facility] 1, [place], [address], 12/27/2024 16:46:00 12/28/1912/27/2024 CBC MCHC 34.0 g/dL 32.0-3 6.0 Not Available [facility] [address] [facility] 1, [place], [address], 12/27/2024 16:46:00 12/28/1912/27/2024 CBC RDW 15.8 % 11.5-1 4.5 high Not Available [facility] [address] [facility] 1, [place], [address], 12/27/2024 16:46:00 12/28/1912/27/2024 CBC plt 225.9 x10 140.0- 451.0 Not Available [facility] [address] [facility] 1, [place], [address], 12/27/2024 16:46:00 12/28/1912/27/2024 CBC lymphocytes % 20.6 % 20.0-5 0.0 Not Available [facility] [address] [facility] 1, [place], [address], 12/27/2024 16:46:00 12/28/1912/27/2024 CBC granulcytes % 67.5 % 30.0-7 0.0 Not Available [facility] [address] [facility] 1, [place], [address], 12/27/2024 16:46:00 12/28/1912/27/2024 CBC monocytes % 6.8 % 2.0-16 .0 Not Available [facility] [address] [facility] [address], [place], [address], 12/27/2024 16:46:00 12/28/19 25 12/27/2024 CBC granulcytes# 5.1 x10 Not Darlin ilable [facility] [address] [facility] [address], [place], [address], 12/27/2024 16:46:00 12/28/1912/27/2024 CBC lymphocytes # 1.6 x10 Not Available [facility] [address] [facility] [address], [place], [address], 12/27/2024 16:46:00 12/28/19 25 12/27/2024 CBC monocytes # 0.5 x10 Not Avai lable [facility] [address] [facility] [address], [place], [address], 12/27/2024 16:46:00 12/28/19 25 12/27/2024 HBA1C hemaglobin A1C 9.3 4.2-6. 5 high Not Available [facility] [address] [facility], [place], [address], 12/27/2024 16:46:01 12/28/1912/27/2024 CMP (FEMA LE) glucose 275.0 mg/dL 60.0-9 9.0 high Not Available [facility] [address] [facility], [place], [address], 12/27/2024 17:07:54 12/28/19 25 12/27/2024 CMP (FEMA LE) BUN (blood urea nitrogen) 30.0 mg/dL 10.0-2 6.0 high Not Available [facility] [address] [facility], [place], [address], 12/27/2024 17:07:54 12/28/19 25 12/27/2024 CMP (FEMA LE) creatinine (serum) 1.7 mg/dL 0.4-1. 5 high Not Available [facility] [address] [facility], [place], [address], 12/27/2024 17:07:54 12/28/19 25 12/27/2024 CMP (FEMA LE) BUN/creatini ne ratio 17.65 ratio Not Available [facility] [address] [facility] Saida [facility] 1, [place], [address], 12/27/2024 17:07:54 12/28/19 25 12/27/2024 CMP (FEMA LE) eGFR calculated 32.4 Not Available [facility] [address] [facility], [place], [address], 12/27/2024 17:07:54 12/28/1912/27/2024 CMP (FEMA LE) total protein 7.2 g/dL 6.0-8. 5 Not Available [facility] [address] [facility] [address], [place], [address], 12/27/2024 17:07:54 12/28/1912/27/2024 CMP (FEMA LE) total bilirubin 0.5 mg/dL 0.2-1. 3 Not Available [facility] [address] [facility] [address], [place], [address], 12/27/2024 17:07:54 12/28/19 25 12/27/2024 CMP (FEMA LE) albumin 4.4 g/dL 3.5-5. 5 Not Available [facility] [address] [facility] [address], [place], [address], 12/27/2024 17:07:54 12/28/1912/27/2024 CMP (FEMA LE) globulin 2.8 calc Not Available [facility] [address] [facility] 1, [place], [address], 12/27/2024 17:07:54 12/28/1912/27/2024 CMP (FEMA LE) AST (SGOT) 19.0 U/L 0.0-46 .0 Not Available [facility] [address] [facility] [address], [place], [address], 12/27/2024 17:07:54 12/28/1912/27/2024 CMP (FEMA LE) altv (SGPT) 21.0 U/L 13.0-6 9.0 normal Not Available [facility] [address] [facility] 1, [place], [address], 12/27/2024 17:07:54 12/28/19 25 12/27/2024 CMP (FEMA LE) A/G ratio 1.6 ratio Not Available [facility] [address] [facility] 1, [place], [address], 12/27/2024 17:07:54 12/28/19 25 12/27/2024 CMP (FEMA LE) ALP phos 119.0 U/L 30.0-1 40.0 normal Not Available [facility] [address] [facility], [place], [address], 12/27/2024 17:07:54 12/28/19 25 12/27/2024 CMP (FEMA LE) calcium 9.9 mg/dL 8.4-10 .5 Not Available [facility] [address] [facility] [address], [place], [address], 12/27/2024 17:07:54 12/28/19 25 12/27/2024 CMP (FEMA LE) sodium 137.0 mmol/ L 136.0- 145.0 Not Available [facility] [address] [facility], [place], [address], 12/27/2024 17:07:54 12/28/19 25 12/27/2024 CMP (FEMA LE) potassium 4.8 mmol/ L 3.5-5. 1 Not Available [facility] [address] [facility] 1, [place], [address], 12/27/2024 17:07:54 12/28/1912/27/2024 CMP (FEMA LE) chloride 103.0 mmol/ L 98.0-1 10.0 normal Not Available [facility] [address] [facility] 1, [place], [address], 12/27/2024 17:07:54 12/28/19 25 12/27/2024 CMP (FEMA LE) C02 25.0 mmol/ L 22.0-3 1.0 Not Available [facility] [address] [facility] [address], [place], [address], 12/27/2024 17:07:54 12/28/19 25 12/27/2024 CMP (FEMA LE) anion gap 9.0 calc Not Available [facility] [address] [facility] [address], [place], [address], 12/27/2024 17:07:54 12/28/1912/27/2024 CMP (FEMA LE) osmolality 297.8 calc Not Available [facility] [address] [facility] [address], [place], [address], 12/27/2024 17:07:54 Result Notes None recorded. Problems Name Problem SNOMED Code Status Onset Date Resolution Date Notes Provider Name and Address Organization Details Recorded Time Arthritis 9500932 Active 2021 DENIA gtz [facility] 5 16:12:34 Psychiatr ic disorder monitorin g Active 2021 Psychiatr ic disorder DENIA gtz [facility] 5 16:19:58 Hyperchol esterolem ia 40039985 Active 2021 DENIA gtz [facility] 5 16:15:27 Gastroeso phageal reflux disease 196347378 Active 2021 Derrick Pastor MD [address] [place], [address], [facility] 5 16:05:19 Diabetes mellitus 56583074 Active 2022 DENIA gtz [facility] 5 16:13:54 Resting tremor 00853060 Active 2022 DENIA gtz, [facility] 5 16:51:44 Benign essential hypertens ion 8488718 Active 2022 Rich Rosa MD [address] [place], [address], [facility] 5 16:11:30 Orthostat ic hypotensi on 70012917 Active 2022 DENIA RAMIREZ null, [facility] 5 16:17:12 Memory impairmen t 885603482 Active 2022 DENIA gtz, [facility] 5 16:16:18 Diabetic periphera l neuropath y 241211864 Active 2022 DENIA gtz, [facility] 5 16:14:11 Obstructi ve sleep apnea syndrome 60207293 Active 2022 Rich Rosa MD [address] [place], [address], [facility] 5 10:52:11 Hyperlipi demia 36103754 Active 2023 DENIA gtz, [facility] 5 16:15:38 Muscle pain 93939075 Active 2023 DENIA RAMIREZ null, [facility] 5 16:16:45 Vitamin D deficienc y 41970127 Active 2023 DENIA RAMIREZ null, [facility] 5 16:20:53 Fibromyal palak 762763215 Active 2023 DENIA RAMIREZ null, [facility] 5 16:14:50 Urinary incontine nve 840536660 Active 2023 DENIA gtz, [facility] 5 16:21:03 Chronic kidney disease 447412214 Active 2023 DENIA gtz, [facility]e 5 16:13:21 Type 2 diabetes mellitus 79717388 Active 2023 Rich Rosa MD [address] [place] [address], [address], [facility] 5 16:11:43 Coronary atheroscl erosis 223743597 Active 2023 Rich Rosa MD [address] [place] [address], [address], [facility] 5 16:11:37 Obstructi ve sleep apnea of adult 580468678255 3 Active 2024 ABDELRAHMAN gtz [facility] 5 12:18:55 Chest pain 88343067 Active 2024 [facility] 13:37:18 Generaliz ed anxiety disorder 68372986 Active 2024 [facility] 5 13:37:18 Moderate major depressio n 902476 Active 2024 [facility] 5 13:37:19 Functiona l neurologi mansi disorder 101044376 Active 2024 [facility] 5 13:37:18 Renal impairmen t 760869339 Active 2024 [facility] L[facility] 5 13:37:18 Anemia 964750355 Active 2024 [facility] L[facility]Jose 17:47:29 History of anemia 335118202 Active 2024 [facility] L[facility] 5 17:47:30 Recurrent conversio n disorder 11473620 Active 2024 Rich Rosa MD [address] [place] [address], [address], [facility], CallieCJose 5 10:49:57 Iron deficienc y anemia 01391356 Active 2024 Rich Rosa MD [address] [place] [address], [address], [facility], CallieCJose 5 16:12:27 Problem Notes None recorded. Procedures Surgical History Date Name Laterality Status Provider Name and Address Organization Details Recorded Time 2024 colonoscopy completed LATOYA ADDISON [facility], CamillaLJoseCJose 5 10:54:49 2024 esophagogastroduodenoscopy [facility] 5 12:57:19 Imaging Results None recorded. Procedure Notes None recorded. Medical Equipment None Reported. Allergies Allergen ID Allergen Name Allergen Category Reaction Reaction Severity Criticality Documentation Date Start Date Code Code System Note Provider Name and Address Organization Details Recorded Time 66376 Lipitor medicatio n Not available Not available Not available 10/15/2022 80462 5 RxNorm Catalina Arrington [facility], LJoseLJoseCJose 4 14:48:46 43512 ibuprofen medicatio n palpitati ons moderate low 10/15/2022 5640 RxNorm Catalina Arrington [facility] 4 14:48:42 92609 dicyclomi ne hydrochlo ride medicatio n Not available Not available Not available 10/15/2022 71315 1 RxNorm Catalina Nury gtz [facility], [place] 4 14:48:35 638 Product containin g penicilli n (product) medicatio n rash mild low 06/15/2022 10103 8001 SNOMED [facility] [place] 4 11:38:56 Medications Name Sig Start Date Stop Date Status Note LastModified by Organization Details LastModified Time losartan 50 mg tablet take 1/2 tablet BY MOUTH EVERY DAY 12/27 completed Not Available Not Available Not Available latanopro st 0.005 % eye drops [...] Not Available Not Available Not Avai lable Vitamin C 500 mg tablet Take 1 tablet every day by oral route. 2024 active Not Available Not Available Not Avai lable trazodone 50 mg tablet TAKE 1 TO 2 TABLETS BY MOUTH every night AT BEDTIME FOR sleep active Not Available Not Available No t Available cetirizin e 10 mg tablet TAKE 1 TABLET BY MOUTH EVERY DAY 2024 active Not Available Not Available Not Avai lable oxybutyni n chloride ER 10 mg tablet,ex [...] hr TAKE 1 TABLET BY MOUTH EVERY MORNING along with 60mg TO equal 90mg total active Not Available Not Available No t [...] Not Available Not Available No t Available aspirin 81 mg tablet,de layed release daily 01/06 completed 0; Recorded 02/15/20 2:01PM by Abdelrahman López, Office Visit; Not Available Not Available Not Available spironola ctone 25 mg tablet TAKE 1 TABLET BY MOUTH EVERY DAY FOR 90 DAYS 2024 active Not Available Not Available Not Avai lable zonisamid e 100 mg capsule daily 01/06 [...] citalopra m 20 mg tablet TAKE 1 & 1/2 TABLETS BY MOUTH EVERY DAY 09/23 completed Not Available Not Available Not Available tamsulosi n 0.4 mg capsule take [...] TAKE 1 TABLET BY MOUTH TWICE DAILY 10/22 /2024 completed Not Available Not Available Not Available [...] TAKE 1 TABLET BY MOUTH TWICE DAILY 09/23 completed Not Available Not Available Not Available hydralazi ne 50 mg tablet take 1/2 tablet BY MOUTH THREE TIMES DAILY 02/08 completed Not Available Not Available Not Available Vitamin D2 1,250 mcg (50,000 unit) capsule take 1 capsule BY MOUTH every week DIRECTED active Not Available Not Available No t Available losartan 50 mg-hydroc hlorothia zide 12.5 mg tablet Take 1 tablet every day by oral route. 10/18 completed Not Available Not Available Not Available cefdinir 300 mg capsule take 1 capsule BY MOUTH TWICE DAILY 01/08 completed Not Available Not Available Not Available risperido ne 0.5 mg tablet TAKE 1 TABLET BY MOUTH TWICE DAILY active Not Available Not Available No t Available spironola ctone 50 mg tablet TAKE 1 TABLET BY MOUTH EVERY DAY 01/08 completed Not Available Not Available Not Available bupropion HCl XL 150 mg 24 hr tablet, extended release TAKE 1 TABLET BY MOUTH EVERY MORNING active Not Available Not Available No t [...] hours, as needed 10/18 completed 0; Recorded 02/15/20 2:01PM by Abdelrahman López, Office Visit; Not Available Not Available Not Available vitamin E active Not Available Not Darlin ilable Not Available meclizine three times daily as needed 01/06 completed Recorded 02/21/20 22 1:49PM by Rich Rosa MD, Office Visit; Refill Quantity : 90; Tablet; Not Available Not Available Not Available metformin BID 01/06 completed RM/AV; 9; Recorded 12/01/19 11:36AM by Denia riley (Authori zed through Rich Rosa MD), Refill Request; Refill Quantity : 180; Tablet; Not Available Not Available Not Available apple cider vinegar daily active Not Available Not Available Not Available FeroSul 325 mg (65 mg iron) tablet TAKE 1 TABLET BY MOUTH EVERY DAY active Not Available Not Available No t Available amlodipin e besylate (bulk) two times daily 10/18 completed Recorded 03/08/20 4:41PM by Rich Rosa MD, Refill Request; Refill Quantity : 60; Tablet; Not Available Not Available Not Available Contour Next Test Strips daily 11/30 completed Recorded 11/10/19 21 2:56PM by Rich Rosa MD, Office Visit; Refill Quantity : 100; Each; Not Available Not Available Not Available TRUEplus Lancets 33 gauge test THREE TIMES DAILY 2024 active Not Available Not Available Not Avai lable Farxiga 10 mg tablet TAKE 1 TABLET BY MOUTH EVERY DAY 2024 active Not Available Not Available Not Avai lable Farxiga 5 mg tablet TAKE 1 TABLET BY MOUTH EVERY DAY *stop metformi n* 06/21 completed Not Available Not Available Not Available True Metrix Glucose Test Strip test THREE TIMES DAILY active Not Available Not Available No t Available True Metrix Glucose Meter USE DIRECTED active Not Available Not Available No t Available Ozempic 0.25 mg or 0.5 mg (2 mg/1.5 mL) subcutane ous pen injector Inject 0.25 mg every week by subcutan eous route. 2024 active Not Available Not Available Not Avai lable losartan potassium (bulk) daily 10/18 completed RM/AV; 9; Recorded 01/27/20 4:47PM by Denia riley (Authori zed through Rich Rosa MD), Refill Request; Refill Quantity : 30; Tablet; Not Available Not Available Not Available aspirin 81 mg capsule Take 1 capsule every day by oral route. active Not Available Not Available No t Available Ozempic 0.25 mg or 0.5 mg (2 mg/3 mL) subcutane ous pen injector Inject 0.5 mg every week by subcutan eous route for 28 days. 2024 active Not Available Not Available Not Avai lable Vitals Date Recorded Body height Body mass index (BMI) Body weight Oxygen saturation Heart rate Systolic And Diastolic Provider Name and Address Organization Details Last Updated DateTime 5 161.925 cm 35.5 kg/m2 84038.4 4 g 96 % 68 /min 132/80 mm[Hg] ABDELRAHMAN LÓPEZ [facility] 5 15:36:34 Social History Question Answer Notes LastModified by RUN Details LastModified Time Tobacco Smoking Status Never Smoker ABDELRAHMAN LÓPEZ [facility] 06/15/2022 11:29:31 What Was The Date Of Your Most Recent Tobacco Screening? 08/09/2024 [email or web address] Information not available 08/09/2024 Sex: Unknown Functional Status Question Answer Note LastModified by RUN Details LastModified Time Do you use any illicit or recreational drugs? No [email or web address] Information not available 06/15/2022 What is your level of alcohol consumption? None [email or web address] Information not available 06/15/2022 Mental Status None [...] virus, trivalent, preservative 0 completed Not Available [facility] 04/21/2023 14:34:22 Influenza, split virus, trivalent, preservative 7 completed Not Available [facility] 04/21/2023 14:34:22 Influenza, split virus, trivalent, preservative 3 completed ABDELRAHMAN LÓPEZ null, [facility] 02/24/2023 11:07:26 Influenza, recombinant, trivalent, PF 5 completed Not Available [facility] 12/27/2024 15:13:25 COVID-19, mRNA, LNP-S, PF, 30 mcg/0.3 mL dose 1 completed ABDELRAHMAN LÓPEZ null, [facility] 08/16/2022 16:01:55 COVID-19, mRNA, LNP-S, PF, 30 mcg/0.3 mL dose 1 completed ABDELRAHMAN LÓPEZ null, [facility] 08/16/2022 16:01:55 Influenza, split virus, quadrivalent, PF 9 completed ABDELRAHMAN LÓPEZ null, [facility] 08/16/2022 16:01:55 Past Encounters Encounter ID Performer Location Encounter Start Date Encounter Closed Date Diagnosis/Indication Diagnosis SNOMED-CT Code Diagnosis ICD10 Code Diagnosis IMO Codes Diagnosis Note [id number] iRch Rosa MD [facility] [address] [place] [phone] 12/27/2024 15:12:55 12/27/2024 16:29:45 Generalized anxiety disorder 89200795 F41.1 98513 a little worsening with increased stress at home. Followed by Dr. Bay. Recurrent conversion disorder 13379014 F44.9 44893 No new problems. Benign ess ential hypertension 6432202 I10 stable at present Coronary atherosclerosis 627206898 I25.10 Type 2 demetra betes mellitus 85498651 E11.21 Last A1c was 7.3 in June, Iron defic iency anemia 69051538 D50.9 90216397 she has had iron infusions. Health Concerns Section Related Observation LastModified by Organization Detai ls LastModified Time None Recorded Concern Status LastModified by Organization Details LastModified Time None Recorded Payers Encounter Date Sequence Insurance Name Policy Number Policy Dixon Covered Member ID Dixon Member ID Guarantor Name 12/27/2024 1 [place] Rebecca M Kierra [id number] Rebecca Lozada Notes Date Note Type Note Provider Name and Address Organization Details Recorded Time 12/27/2024 text/html Has been having dizzy spells off and on. Feels like she if off balance and the room spins. Has been getting dizzy spells pretty often about every other day. Rich Rosa MD [address] [place] [address], [phone], [facility], [facility] 12/27/2024 16:18:48 OBGyn Episode No OBEpisode recorded.
--- OUTSIDE RECORDS SUMMARY | 2025-03-18 17:16 | XMS_ITS | Clinical Summary ---
Author Organization [facility] Facility Address [address] [address] Care Team Providers Care Transfer Professor Name Role Phone Rich Rosa MD Primary Care Provider [phone] Allergies Active Allergy Reactions Criticality Noted Date [...] in the evening. Active ergocalciferol 1.25 MG (58910 UT) capsule Take 50,000 Units by mouth [...] Encounters Date Type Department Care Team Description 03/06/2025 Telephone [facility] [address] [facility] [address] [place] [address] Pallavi Rush MD 02/26/2025 Orders Only [facility] [address] [place] [address] Pallavi Rush MD Stage 3b chronic kidney disease (HCC) from Last 3 Months Family History Medical [...] 08/27/2024 1:18 PM CDT Plan of Treatment Health Maintenance Due Date Last Done Comments Breast Cancer Screening 1960 Colorectal Cancer Screening: Annual FOBT 07/28/2011 Colorectal Cancer Screening: Colonoscopy 07/28/2011 Colorectal Cancer Screening: Sigmoidoscopy 07/28/2011 Pneumococcal Vaccine: 50+ Years (2 of 2 - PCV) 01/17/2019 01/17/2018 Diabetes: Ophthalmology Exam 02/12/2024 Diabetes: Pedal Pulse Checked 02/12/2024 Diabetes: Sensory Foot Exam 02/12/2024 Diabetes: Visual Foot Exam 02/12/2024 Diabetes: Hemoglobin A1C 05/11/2024 02/09/2024 Pneumococcal Vaccine: Peds ( 0 to 5 Years) and At-Risk Patients (6 to 49 Years) Discontinued 01/17/2018 Influenza Vaccine Completed 12/16/2024, 12/19/2018, 01/17/2018 Hepatitis B Vaccine Aged Out No longe r eligible based on patient's age to complete this topic Procedures Procedure Name Priority Date/Time Associated Diagnosis Comments HEMOGLOBIN A1C (EXTERNAL RESULT ENTRY) Routine 02/09/2024 2:21 PM [employer]MIN[employer]RATIVE [employer]BER from Last 3 Months or Most Recently Relevant to Health Maintenance Results * Hemoglobin A1C (02/09/2024 2:21 PM ADMINISTRATIVE APPEALS [employer]) Hemoglobin A1C 6.1 Blood specimen (specimen) Venous blood / Unknown 02/09/2024 2:21 PM ADMINISTRATIVE [employer] Aps External Provider LAB BLOOD ORDERABLES Final Result from Last 3 Months or Most Recently Relevant to Health Maintenance [place] [address] Medicaid [place] ([id number]) Care Teams Transfer Professor Relationship Specialty Start Date End Date Rich Rosa MD [address] [place] [address] PCP - General Family Medicine 01/15/24
--- OUTSIDE RECORDS SUMMARY | 2025-03-18 17:16 | XMS_ITS | Encounter Summary ---
Author Organization [facility] Address [address] [facility] [address] [place] [address] Phone Care Team Providers Care Die Machine Operator Name Role Phone Rich Rosa MD Primary Care Provider [phone] Encounter Details Date Type Department Care Team (Late st Contact Info) Description 01/15/2024 Orders Only [facility] [address] [facility] [address] [place] [address] Chronic kidney disease, not otherwise specified Social History Tobacco Use Types Packs/Day Years Used Date Smoking Tobacco: Never Assessed Comments Unknown Sex and Gender Information Value Date Recorded Sex Assigned at Not on file Legal Sex Female 10:38 AM EDT Gender Identity Not on file Sexual Orientation Not on file documented as of this encounter Plan of Treatment Not on file documented as of this encounter Visit Diagnoses Diagnosis Chronic kidney disease, not otherwise specified documented in this encounter Care Teams Die Machine Operator Relationship Specialty Start Date End Date Rich Rosa MD [address] [place] [address] PCP - General Family Medicine 01/15/24 documented as of this encounter
--- OUTSIDE RECORDS SUMMARY | 2025-03-18 17:16 | XMS_ITS | Data Portability ---
Author Organization CHELSEA [facility] Address [address] [facility] [address] [place] [address] Assessment Encounter Date Assessment Date Assessment LastModified by Organization Details LastModified Time 11/19/2024 11/19/2024 We talked about her prep and she admitted that she did not do the prep appropriately. She assures me that this time she is dedicated to do the prep appropriately. We discussed the risks and alternatives to a colonoscopy. We discussed the risks of bleeding, perforation, and sedation. She had no further questions and wishes to proceed Not available 11/19/2024 11:30:43 Plan of Treatment Reminders Order Date Submit Date Provider Last Modified By Organization Details Last Modified Time Details Appointments OFFIC E VISIT 15 2025 02:30P Colby Rosa MD Not available Not available Not available Lab hemog lobin A1C/h emogl obin total , QN, blood 2024 025 [place] [facility], [address], [facility], [place], [address], 12/27/2024 16:46:01 CBC 2024 025 [place] [facility], [address], [facility], [place], [address], 12/27/2024 16:46:00 CMP, serum or plasm a 2024 025 [place] [facility], [address], [facility], [place], [address], 12/27/2024 17:07:54 CBC 2024 025 [facility], [address], [facility], [place], [address], 11/19/2024 12:14:59 CMP, serum or plasm a 2024 025 [facility], [address], [facility], [place], [address], 09/23/2024 13:49:56 CBC 2024 025 [facility], [address] [facility] [address], [facility], [place], [address], 09/23/2024 11:54:05 PTH (para thyro id hormo ne), intac t, serum or plasm a 2024 025 [facility], [address] [facility], [place], [address], 09/24/2024 11:53:49 micro album in/cr eatin ine, mass ratio , urine 2024 025 [facility], [address], [facility], [place], [address], 09/24/2024 11:53:46 urina lysis , compl ete 2024 025 [facility], [address], [facility], [place], [address], 09/23/2024 11:37:16 magne sium, serum or plasm a 2024 025 [facility], [address] [facility], [place], [address], 09/24/2024 11:53:45 Referral None recor ded. Procedures colon oscop y proce dure (PROC ) 2024 025 [facility], [address] , [place], [address], 12/17/2024 17:25:12 Surgeries None recor ded. Imaging None recor ded. Medication Orders cital opram 40 mg table t 2024 025 [facility] [place], [address] [place], [address], 11/01/2024 09:38:05 Patient TargetsNo targets recorded. Patient Instructions Encounter Date Encounter Id Patient Instructions Last Modified By Organization Details Last Modified Time 08/09/2024 [id number] Keep appt as scheduled in September. [email or web address] Not available 08/09/2024 17:51:29 11/19/2024 [id number] colonoscopy: before your procedure Not available 11/19/2024 11:28:55 colonoscopy: wha t to expect at home Not available 11/19/2024 11:28:55 Reason for Referral None Reported. Results Created Date Observation Date Name Description Value Unit Range Abnormal Flag Note LastModifiedBy Organization Detail LastModifiedTime 09/24/1909/23/2024 URINA LYSIS WITH MICRO color YELLOW Not Available [facility] [address] [facility] [address], [place], [address], 09/23/2024 11:37:16 09/24/19 25 09/23/2024 URINA LYSIS WITH MICRO clarity CLOUDY Not Available [facility] [address] [facility] [address], [place], [address], 09/23/2024 11:37:16 09/24/19 25 09/23/2024 URINA LYSIS WITH MICRO glu 3+ abnormal Not Available [facility] [address] [facility] [address], [place], [address], 09/23/2024 11:37:16 09/24/19 25 09/23/2024 URINA LYSIS WITH MICRO bili NEGATI VE Not Available [facility] [address] [place] [address], [place], [address], 09/23/2024 11:37:16 09/24/19 25 09/23/2024 URINA LYSIS WITH MICRO ket NEGATI VE Not Available [facility] [address] [place] [address], [place], [address], 09/23/2024 11:37:16 09/24/19 25 09/23/2024 URINA LYSIS WITH MICRO S.g 1.015 1.005- 1.025 Not Available [facility] [address] [place] [address], [place], [address], 09/23/2024 11:37:16 09/24/19 25 09/23/2024 URINA LYSIS WITH MICRO pH 7.0 5.0-7. 0 Not Available [facility] [address] [place] [address], [place], [address], 09/23/2024 11:37:16 09/24/19 25 09/23/2024 URINA LYSIS WITH MICRO pro NEGATI VE Not Available [facility] [address] [place] [address], [place], [address], 09/23/2024 11:37:16 09/24/19 25 09/23/2024 URINA LYSIS WITH MICRO uro 0.2 E.U./D L Not Available [facility] [address] [place] [address], [place], [address], 09/23/2024 11:37:16 09/24/19 25 09/23/2024 URINA LYSIS WITH MICRO nit POSITI VE abnormal Not Available [facility] [address] [place] [address], [place], [address], 09/23/2024 11:37:16 09/24/19 25 09/23/2024 URINA LYSIS WITH MICRO blo NEGATI VE Not Available [facility] [address] [facility] [address] [facility], [place], [address], 09/23/2024 11:37:16 09/24/19 25 09/23/2024 URINA LYSIS WITH MICRO leti TRACE abnormal Not Available [facility] [address] [place] [facility], [place], [address], 09/23/2024 11:37:16 09/24/19 25 09/23/2024 URINA LYSIS WITH MICRO WBC 4-6 abnormal Not Available [facility] [address] [place] [address] [facility], [place], [address], 09/23/2024 11:37:16 09/24/19 25 09/23/2024 URINA LYSIS WITH MICRO RBC 0-1 Not Available [facility] [address] [place] [facility], [place], [address], 09/23/2024 11:37:16 09/24/19 25 09/23/2024 URINA LYSIS WITH MICRO epi cells 0-1 Not Available [facility] [address] [facility] [address], [place], [address], 09/23/2024 11:37:16 09/24/19 25 09/23/2024 URINA LYSIS WITH MICRO bacteria 2++ MIXED NORA abnormal Not Available [facility] [address] [place] [facility], [place], [address], 09/23/2024 11:37:16 09/24/19 25 09/23/2024 URINA LYSIS WITH MICRO other NG Not Available [facility] [address] [place] [address] [facility], [place], [address], 09/23/2024 11:37:16 09/24/19 25 09/23/2024 CBC WBC 7.5 x10 4.0-10 .5 Not Available [facility] [address], [place], [address], 09/23/2024 11:54:05 09/24/19 25 09/23/2024 CBC RBC 4.46 x10 3.50-5 .50 Not Available [facility] [address] [facility] [address], [place], [address], 09/23/2024 11:54:05 09/24/19 25 09/23/2024 CBC HGB 10.9 g/dL 12.0-1 6.0 low Not Available [facility] [address] [facility] [address], [place], [address], 09/23/2024 11:54:05 09/24/19 25 09/23/2024 CBC HCT 34.4 % 37.0-4 7.0 low Not Available [facility] [address] [facility] [address] [facility], [place], [address], 09/23/2024 11:54:05 09/24/19 25 09/23/2024 CBC MCV 77.2 fL 80.0-9 9.9 low Not Available [facility] [address] [facility] [address] [facility], [place], [address], 09/23/2024 11:54:05 09/24/19 25 09/23/2024 CBC MCH 24.5 pg 27.0-3 2.0 low Not Available [facility] [address] [facility] [address], [place], [address], 09/23/2024 11:54:05 09/24/19 25 09/23/2024 CBC MCHC 31.8 g/dL 32.0-3 6.0 low Not Available [facility] [address] [facility] [address], [place], [address], 09/23/2024 11:54:05 09/24/19 25 09/23/2024 CBC RDW 16.6 % 11.5-1 4.5 high Not Available [facility] [address] [facility] [address] [facility], [place], [address], 09/23/2024 11:54:05 09/24/19 25 09/23/2024 CBC plt 307.5 x10 140.0- 451.0 Not Available [facility] [address] [place] [address] [facility], [place], [address], 09/23/2024 11:54:05 09/24/19 25 09/23/2024 CBC lymphocytes % 16.5 % 20.0-5 0.0 low Not Available [facility] [address] [facility] [address] [facility], [place], [address], 09/23/2024 11:54:05 09/24/19 25 09/23/2024 CBC granulcytes % 73.1 % 30.0-7 0.0 high Not Available [facility] [address] [place] [address] [facility], [place], [address], 09/23/2024 11:54:05 09/24/19 25 09/23/2024 CBC monocytes % 5.5 % 2.0-16 .0 Not Available [facility] [address] [place] [address] [facility], [place], [address], 09/23/2024 11:54:05 09/24/19 25 09/23/2024 CBC granulcytes# 5.5 x10 Not Darlin ilable [facility] [address] [place] [address] [facility], [place], [address], 09/23/2024 11:54:05 09/24/19 25 09/23/2024 CBC lymphocytes # 1.2 x10 Not Available [facility] [address] [facility] [address] [facility], [place], [address], 09/23/2024 11:54:05 09/24/19 25 09/23/2024 CBC monocytes # 0.4 x10 Not Avai lable [facility] [address] [facility], [place], [address], 09/23/2024 11:54:05 09/24/19 25 09/23/2024 CMP (FEMA LE) glucose 234.0 mg/dL 60.0-9 9.0 high Not Available [facility] [address] [facility], [place], [address], 09/23/2024 13:49:55 09/24/19 25 09/23/2024 CMP (FEMA LE) BUN (blood urea nitrogen) 26.0 mg/dL 10.0-2 6.0 Not Available [facility] [address] [facility] [address], [place], [address], 09/23/2024 13:49:55 09/24/19 25 09/23/2024 CMP (FEMA LE) creatinine (serum) 1.8 mg/dL 0.4-1. 5 high Not Available [facility] [address] [facility] [address], [place], [address], 09/23/2024 13:49:55 09/24/19 25 09/23/2024 CMP (FEMA LE) BUN/creatini ne ratio 14.44 ratio Not Available [facility] [address] [facility] [address], [place], [address], 09/23/2024 13:49:55 09/24/19 25 09/23/2024 CMP (FEMA LE) eGFR calculated 30.3 Not Available [facility] [address] [facility], [place], [address], 09/23/2024 13:49:55 09/24/19 25 09/23/2024 CMP (FEMA LE) total protein 6.8 g/dL 6.0-8. 5 Not Available [facility] [address] [facility] [address] [facility], [place], [address], 09/23/2024 13:49:55 09/24/19 25 09/23/2024 CMP (FEMA LE) total bilirubin 0.4 mg/dL 0.2-1. 3 Not Available [facility] [address] [place] [facility], [place], [address], 09/23/2024 13:49:55 09/24/19 25 09/23/2024 CMP (FEMA LE) albumin 4.2 g/dL 3.5-5. 5 Not Available [facility] [address] [place] [facility], [place], [address], 09/23/2024 13:49:55 09/24/19 25 09/23/2024 CMP (FEMA LE) globulin 2.[address] [facility] [address] [place] [facility], [place], [address], 09/23/2024 13:49:55 09/24/19 25 09/23/2024 CMP (FEMA LE) AST (SGOT) 20.0 U/L 0.0-46 .0 Not Available [facility] [address] [place] [facility], [place], [address], 09/23/2024 13:49:55 09/24/19 25 09/23/2024 CMP (FEMA LE) altv (SGPT) 21.0 U/L 13.0-6 9.0 normal Not Available [facility] [address] [place] [facility], [place], [address], 09/23/2024 13:49:55 09/24/19 25 09/23/2024 CMP (FEMA LE) A/G ratio 1.6 ratio Not Available [facility] [address] [place] [facility], [place], [address], 09/23/2024 13:49:55 09/24/19 25 09/23/2024 CMP (FEMA LE) ALP phos 121.0 U/L 30.0-1 40.0 normal Not Available [facility] [address] [facility], [place], [address], 09/23/2024 13:49:55 09/24/19 25 09/23/2024 CMP (FEMA LE) calcium 9.5 mg/dL 8.4-10 .5 Not Available [facility] [address] [facility] [address], [place], [address], 09/23/2024 13:49:55 09/24/19 25 09/23/2024 CMP (FEMA LE) sodium 140.0 mmol/ L 136.0- 145.0 Not Available [facility] [address] [facility] [address], [place], [address], 09/23/2024 13:49:55 09/24/19 25 09/23/2024 CMP (FEMA LE) potassium 5.2 mmol/ L 3.5-5. 1 high Not Available [facility] [address] [facility] [address], [place], [address], 09/23/2024 13:49:55 09/24/19 25 09/23/2024 CMP (FEMA LE) chloride 109.0 mmol/ L 98.0-1 10.0 normal Not Available [facility] [address] [facility] [address], [place], [address], 09/23/2024 13:49:55 09/24/19 25 09/23/2024 CMP (FEMA LE) C02 23.0 mmol/ L 22.0-3 1.0 Not Available [facility] [address] [facility] [address], [place], [address], 09/23/2024 13:49:55 09/24/19 25 09/23/2024 CMP (FEMA LE) anion gap 8.0 calc Not Available [facility] [address] [facility] [address], [place], [address], 09/23/2024 13:49:55 09/24/19 25 09/23/2024 CMP (FEMA LE) osmolality 300.4 calc Not Available [facility] [address] [facility] [address], [place], [address], 09/23/2024 13:49:55 09/24/19 25 09/24/2024 IRON, TOTAL iron, total 23 mcg/d L 45-160 low Not Available [facility] [address] [address] [place], [address], 09/24/2024 11:53:44 09/24/19 25 09/24/2024 MAGNE SIUM magnesium 2.2 mg/dL 1.5-2. 5 normal Not Available [address], [address], 09/24/2024 11:53:45 09/24/19 25 09/24/2024 ALBUM IN, RANDO M URINE W/CRE ATINI NE creatinine, random urine TNP TEST NOT PERFO RMED. The speci men spill ed/le aked after recei pt. Not Available [facility] [address], [address], 09/24/2024 11:53:46 09/24/19 25 09/24/2024 ALBUM IN, RANDO M URINE W/CRE ATINI NE albumin, urine TNP TEST NOT PERFO RMED. The speci men spill ed/le aked after recei pt. Not Available [facility] [address], [address], 09/24/2024 11:53:46 09/24/19 25 09/24/2024 CIARA TIN ferritin 6 NG/mL 16-288 low Not Available [facility] [address] [place], [address], 09/24/2024 11:53:48 09/24/1909/24/2024 PTH, INTAC T WITHO UT CALCI UM parathyroid hormone, intact 75 pg/mL 16-77 normal Inter preti ve Guide Intac t PTH Calci um ----- ----- ----- --- ----- ----- ----- -- Erin l Parat hyroi d Erin l Erin l Hypop jo yroid ism Low or Low Erin l Low Hyper parat hyroi dism Prima ry Erin l or High High Secon osito High Erin l or Low Terti antonio High High Non-P jo yroid Hyper calce lani Low or Low Erin l High Not Available [facility] [address] [place], [address], 09/24/2024 11:53:49 11/20/1911/19/2024 CBC WBC 7.4 x10 4.0-10 .5 Not Available [facility] [address] [address], [place], [address], 11/19/2024 12:14:59 11/20/1911/19/2024 CBC RBC 5.16 x10 3.50-5 .50 Not Available [facility] [address] [address], [place], [address], 11/19/2024 12:14:59 11/20/19 25 11/19/2024 CBC HGB 13.9 g/dL 12.0-1 6.0 Not Available [facility] [address] [address], [place], [address], 11/19/2024 12:14:59 11/20/19 25 11/19/2024 CBC HCT 43.0 % 37.0-4 7.0 Not Available [facility] [address] [facility] [address] [facility], [place], [address], 11/19/2024 12:14:59 11/20/1911/19/2024 CBC MCV 83.3 fL 80.0-9 9.9 Not Available [facility] [address] [facility] [facility], [place], [address], 11/19/2024 12:14:59 11/20/1911/19/2024 CBC MCH 27.0 pg 27.0-3 2.0 Not Available [facility] [address] [facility] [facility], [place], [address], 11/19/2024 12:14:59 11/20/1911/19/2024 CBC MCHC 32.4 g/dL 32.0-3 6.0 Not Available [facility] [address] [facility], [place], [address], 11/19/2024 12:14:59 11/20/1911/19/2024 CBC RDW 19.5 % 11.5-1 4.5 high Not Available [facility] [address] [place] [address] [facility], [place], [address], 11/19/2024 12:14:59 11/20/1911/19/2024 CBC plt 222.1 x10 140.0- 451.0 Not Available [facility] [address] [facility] [facility], [place], [address], 11/19/2024 12:14:59 11/20/1911/19/2024 CBC lymphocytes % 17.6 % 20.0-5 0.0 low Not Available [facility] [address] [facility] [facility], [place], [address], 11/19/2024 12:14:59 09/02/20 25 11/19/2024 CBC granulcytes % 69.2 % 30.0-7 0.0 Not Available [facility] [address] [facility], [place], [address], 11/19/2024 12:14:59 11/20/19 25 11/19/2024 CBC monocytes % 6.9 % 2.0-16 .0 Not Available [facility] [address] [address], [place], [address], 11/19/2024 12:14:59 11/20/19 25 11/19/2024 CBC granulcytes# 5.2 x10 Not Darlin ilable [facility] [address] [address], [place], [address], 11/19/2024 12:14:59 11/20/19 25 11/19/2024 CBC lymphocytes # 1.3 x10 Not Available [facility] [address] [address], [place], [address], 11/19/2024 12:14:59 11/20/19 25 11/19/2024 CBC monocytes # 0.5 x10 Not Avai lable [facility] [address] [address], [place], [address], 11/19/2024 12:14:59 12/28/19 25 12/27/2024 CBC WBC 7.5 x10 4.0-10 .5 Not Available [facility] [address] [address], [place], [address], 12/27/2024 16:46:00 12/28/1912/27/2024 CBC RBC 4.92 x10 3.50-5 .50 Not Available [facility] [address] [address], [place], [address], 12/27/2024 16:46:00 12/28/1912/27/2024 CBC HGB 14.6 g/dL 12.0-1 6.0 Not Available [facility] [address] [facility], [place], [address], 12/27/2024 16:46:00 12/28/19 25 12/27/2024 CBC HCT 42.8 % 37.0-4 7.0 Not Available [facility] [address] [facility] [address] [facility], [place], [address], 12/27/2024 16:46:00 12/28/1912/27/2024 CBC MCV 86.9 fL 80.0-9 9.9 Not Available [facility] [address] [facility], [place], [address], 12/27/2024 16:46:00 12/28/1912/27/2024 CBC MCH 29.6 pg 27.0-3 2.0 Not Available [facility] [address] [facility] [address] [facility], [place], [address], 12/27/2024 16:46:00 12/28/1912/27/2024 CBC MCHC 34.0 g/dL 32.0-3 6.0 Not Available [facility] [address] [facility] [address] [facility], [place], [address], 12/27/2024 16:46:00 12/28/1912/27/2024 CBC RDW 15.8 % 11.5-1 4.5 high Not Available [facility] [address] [facility] [address] [facility], [place], [address], 12/27/2024 16:46:00 12/28/1912/27/2024 CBC plt 225.9 x10 140.0- 451.0 Not Available [facility] [address] [facility] [facility], [place], [address], 12/27/2024 16:46:00 12/28/19 25 12/27/2024 CBC lymphocytes % 20.6 % 20.0-5 0.0 Not Available [facility] [address] [facility], [place], [address], 12/27/2024 16:46:00 12/28/19 25 12/27/2024 CBC granulcytes % 67.5 % 30.0-7 0.0 Not Available [facility] [address] [place] [address] [facility], [place], [address], 12/27/2024 16:46:00 12/28/1912/27/2024 CBC monocytes % 6.8 % 2.0-16 .0 Not Available [facility] [address] [facility], [place], [address], 12/27/2024 16:46:00 12/28/1912/27/2024 CBC granulcytes# 5.1 x10 Not Darlin ilable [facility] [address] [facility], [place], [address], 12/27/2024 16:46:00 12/28/1912/27/2024 CBC lymphocytes # 1.6 x10 Not Available [facility] [address] [facility], [place], [address], 12/27/2024 16:46:00 12/28/1912/27/2024 CBC monocytes # 0.5 x10 Not Avai lable [facility] [address] [facility], [place], [address], 12/27/2024 16:46:00 12/28/1912/27/2024 HBA1C hemaglobin A1C 9.3 4.2-6. 5 high Not Available [facility] [address] [facility], [place], [address], 12/27/2024 16:46:01 12/28/19 25 12/27/2024 CMP (FEMA LE) glucose 275.0 mg/dL 60.0-9 9.0 high Not Available [facility] [address] [facility], [place], [address], 12/27/2024 17:07:54 12/28/19 25 12/27/2024 CMP (FEMA LE) BUN (blood urea nitrogen) 30.0 mg/dL 10.0-2 6.0 high Not Available [facility] [address] [facility], [place], [address], 12/27/2024 17:07:54 12/28/1912/27/2024 CMP (FEMA LE) creatinine (serum) 1.7 mg/dL 0.4-1. 5 high Not Available [facility] [address] [facility], [place], [address], 12/27/2024 17:07:54 12/28/19 25 12/27/2024 CMP (FEMA LE) BUN/creatini ne ratio 17.65 ratio Not Available [facility] [address] [facility], [place], [address], 12/27/2024 17:07:54 12/28/19 25 12/27/2024 CMP (FEMA LE) eGFR calculated 32.4 Not Available [facility] [address] [facility], [place], [address], 12/27/2024 17:07:54 12/28/19 25 12/27/2024 CMP (FEMA LE) total protein 7.2 g/dL 6.0-8. 5 Not Available [facility] [address] [facility], [place], [address], 12/27/2024 17:07:54 12/28/1912/27/2024 CMP (FEMA LE) total bilirubin 0.5 mg/dL 0.2-1. 3 Not Available [facility] [address] [facility], [place], [address], 12/27/2024 17:07:54 12/28/19 25 12/27/2024 CMP (FEMA LE) albumin 4.4 g/dL 3.5-5. 5 Not Available [facility] [address] [facility], [place], [address], 12/27/2024 17:07:54 12/28/1912/27/2024 CMP (FEMA LE) globulin 2.8 calc Not Available [facility] [address] [facility], [place], [address], 12/27/2024 17:07:54 12/28/19 25 12/27/2024 CMP (FEMA LE) AST (SGOT) 19.0 U/L 0.0-46 .0 Not Available [facility] [address] [facility], [place], [address], 12/27/2024 17:07:54 12/28/19 25 12/27/2024 CMP (FEMA LE) altv (SGPT) 21.0 U/L 13.0-6 9.0 normal Not Available [facility] [address] [facility], [place], [address], 12/27/2024 17:07:54 12/28/19 25 12/27/2024 CMP (FEMA LE) A/G ratio 1.6 ratio Not Available [facility] [address] [facility], [place], [address], 12/27/2024 17:07:54 12/28/19 25 12/27/2024 CMP (FEMA LE) ALP phos 119.0 U/L 30.0-1 40.0 normal Not Available [facility] [address] [facility] [address], [place], [address], 12/27/2024 17:07:54 12/28/1912/27/2024 CMP (FEMA LE) calcium 9.9 mg/dL 8.4-10 .5 Not Available [facility] [address] [facility] [address], [place], [address], 12/27/2024 17:07:54 12/28/1912/27/2024 CMP (FEMA LE) sodium 137.0 mmol/ L 136.0- 145.0 Not Available [facility] [address] [facility] [address], [place], [address], 12/27/2024 17:07:54 12/28/1912/27/2024 CMP (FEMA LE) potassium 4.8 mmol/ L 3.5-5. 1 Not Available [facility] [address] [facility] [address], [place], [address], 12/27/2024 17:07:54 12/28/1912/27/2024 CMP (FEMA LE) chloride 103.0 mmol/ L 98.0-1 10.0 normal Not Available [facility] [address] [facility] [address], [place], [address], 12/27/2024 17:07:54 12/28/1912/27/2024 CMP (FEMA LE) C02 25.0 mmol/ L 22.0-3 1.0 Not Available [facility] [address] [facility], [place], [address], 12/27/2024 17:07:54 12/28/1912/27/2024 CMP (FEMA LE) anion gap 9.0 calc Not Available [facility] [address] [facility], [place], [address], 12/27/2024 17:07:54 12/28/19 25 12/27/2024 CMP (FEMA LE) osmolality 297.8 calc Not Available [facility] [address] [facility], [place], [address], 12/27/2024 17:07:54 11/05/19 25 10/31/2024 colon oscop y proce dure (PROC ) No observ ation record ed. [email or web address] [facility] [address] , [place], [address], 11/04/2024 13:09:43 11/05/19 25 10/31/2024 upper endos copy proce dure (EGD) (PROC ) No observ ation record ed. [address] , [place], [address], 11/04/2024 13:09:44 Result Notes None recorded. Problems Name Problem SNOMED Code Status Onset Date Resolution Date Notes Provider Name and Address Organization Details Recorded Time Arthritis 3760017 Active 2021 DENIA gtz [facility] 5 16:12:34 Psychiatr ic disorder monitorin g Active 2021 Psychiatr ic disorder DENIA gtz [facility] 5 16:19:58 Hyperchol esterolem ia 69932980 Active 2021 DENIA gtz [facility] 5 16:15:27 Gastroeso phageal reflux disease 856027436 Active 2021 Derrick Pastor MD [address] [place], [address] , [facility] 5 16:05:19 Diabetes mellitus 02057324 Active 2022 DENIA gtz [facility] 5 16:13:54 Resting tremor 23785655 Active 2022 DENIA RAMIREZ null, [facility] 5 16:51:44 Benign essential hypertens ion 6104916 Active 2022 Rich Rosa MD [address] [place], [address], [facility] 5 16:11:30 Orthostat ic hypotensi on 27628104 Active 2022 DENIA RAMIREZ null, [facility] 5 16:17:12 Memory impairmen t 071723594 Active 2022 DENIA RAMIREZ null, [facility] 5 16:16:18 Diabetic periphera l neuropath y 410656928 Active 2022 DENIA RAMIREZ null, [facility] 5 16:14:11 Obstructi ve sleep apnea syndrome 36993714 Active 2022 Rich Rosa MD [address] [place], [address], [facility] 5 10:52:11 Hyperlipi demia 86119190 Active 2023 DENIA RAMIREZ null, [facility] 5 16:15:38 Muscle pain 46833290 Active 2023 DENIA RAMIREZ null, [facility] 5 16:16:45 Vitamin D deficienc y 17015321 Active 2023 DENIA RAMIREZ null, [facility] 5 16:20:53 Fibromyal palak 152887463 Active 2023 DENIA JAMES gtz [facility] 5 16:14:50 Urinary incontine mse 738149495 Active 2023 DENIA gtz, [facility] 5 16:21:03 Chronic kidney disease 821749419 Active 2023 DENIA gtz, [facility] 5 16:13:21 Type 2 diabetes mellitus 32845934 Active 2023 Rich Rosa MD [address] [place] [address], [address], [facility] 5 16:11:43 Coronary atheroscl erosis 836630857 Active 2023 Rich Rosa MD [address] [place] [address], [address], [facility] 5 16:11:37 Obstructi ve sleep apnea of adult 968011276611 3 Active 2024 ABDELRAHMAN gtz [facility] 5 12:18:55 Chest pain 63266587 [facility] 20[facility] 13:37:18 Generaliz ed anxiety disorder 22913699 Active 2024 ABDELRAHMAN gtz [facility] 5 13:37:18 Moderate major depressio n 369688 Active 2024 ABDELRAHMAN gtz [facility] 5 13:37:19 Functiona l neurologi mansi disorder 473389344 Active 2024 ABDELRAHMAN gtz [facility] 5 13:37:18 Renal impairmen t 909704125 Active 2024 [facility] 13:37:18 Anemia 676313551 Active 2024 [facility] 17:47:29 History of anemia 751276069 Active 2024 [facility] 17:47:30 Recurrent conversio n disorder 59877034 Active 2024 Rich Rosa MD [address] [place] [address], [address] [place] [address] 5, [facility] 5 10:49:57 Iron deficienc y anemia 64931752 Active 2024 Rich Rosa MD [address] [place] [address], [address] [place] [address] 5, [facility] 5 16:12:27 Problem Notes None recorded. Procedures Surgical History Date Name Laterality Status Provider Name and Address Organization Details Recorded Time 2024 colonoscopy completed LATOYA ADDISON [facility] 5 10:54:49 2024 esophagogastroduodenoscopy completed [facility] 5 12:57:19 Imaging Results None recorded. Procedure Notes None recorded. Medical Equipment None Reported. Allergies Allergen ID Allergen Name Allergen Category Reaction Reaction Severity Criticality Documentation Date Start Date Code Code System Note Provider Name and Address Organization Details Recorded Time 90713 Lipitor medicatio n Not available Not available Not available 10/15/2022 58614 5 RxNonisa Arrington [facility] 4 14:48:46 47119 ibuprofen medicatio n palpitati ons moderate low 10/15/2022 5640 RxNorm Catalina gtz, [facility], LLisa 4 14:48:42 99354 dicyclomi ne hydrochlo ride medicatio n Not available Not available Not available 10/15/2022 61540 1 [facility]Norm [facility] 4 14:48:35 638 Product containin g penicilli n (product) medicatio n rash mild low 06/15/2022 00846 8001 SNOMED [facility] 4 11:38:56 Medications Name Sig Start Date [...] daily as needed 01/06 completed Recorded 05/10/19 1:49PM by Rich Rosa MD, Office Visit; [...] Test Strips daily 11/30 completed Recorded 11/10/19 2:56PM by Rich Rosa MD, Office Visit; [...] Recorded 01/27/20 4:47PM by Denia riley (Authori sarahy through Rich [...] (BMI) Body weight Heart rate Oxygen saturation Systolic And Diastolic Provider Name and Address Organization Details Last Updated DateTime 5 161.925 cm 33.6 kg/m2 44441.9 2 g 76 /min 96 % 112/78 mm[Hg] DENIA RAMIREZ [facility] 5 17:01:23 Date Recorded Body height Oxygen saturation Heart rate Systolic And Diastolic Provider Name and Address Organization Details Last Updated DateTime 09/23/2024 161.925 cm 95 % 69 /min 132/78 mm[Hg] [facility] 09/23/2024 10:00:28 Date Recorded Body height Body mass index (BMI) Body weight Oxygen saturation Heart rate Systolic And Diastolic Provider Name and Address Organization Details Last Updated DateTime 5 161.925 cm 34.9 kg/m2 29289.6 6 g 98 % 66 /min 110/70 mm[Hg] [facility] 5 10:33:41 Date Recorded Body height Body mass index (BMI) Body weight Oxygen saturation Heart rate Respiratory rate Body temperature Systolic And Diastolic Provider Name and Address Organization Details Last Updated DateTime 5 161.925 cm 34.5 kg/m2 83082.2 8 g 96 % 60 /min 18 /min 97.8 [degF] 110/70 mm[Hg] DARIEN GAUTAM [facility] 5 11:06:02 Date Recorded Body height Body mass index (BMI) Body weight Oxygen saturation Heart rate Systolic And Diastolic Provider Name and Address Organization Details Last Updated DateTime 5 161.925 cm 35.5 kg/m2 84935.4 4 g 96 % 68 /min 132/80 mm[Hg] ABDELRAHMAN BARRIOS [facility] 5 15:36:34 Social History Question Answer Notes LastModified by Owlin Details LastModified Time Tobacco Smoking Status Never Smoker ABDELRAHMAN gtz [facility] 06/15/2022 11:29:31 What Was The Date Of Your Most Recent Tobacco Screening? 08/09/2024 [email or web address] Information not available 08/09/2024 Sex: Unknown Functional Status Question Answer Note LastModified by Owlin Details LastModified Time Do you use any illicit or recreational drugs? No [email or web address] Information not available 06/15/2022 What is your level of alcohol consumption? None [email or web address] Information not available 06/15/2022 Mental Status None [...] virus, trivalent, preservative 0 completed Not Available [facility] 04/21/2023 14:34:22 Influenza, split virus, trivalent, preservative 7 completed Not Available [facility] 04/21/2023 14:34:22 Influenza, split virus, trivalent, preservative 3 completed ABDELRAHMAN gtz [facility] 02/24/2023 11:07:26 Influenza, recombinant, trivalent, PF 5 completed Not Available [facility] 12/27/2024 15:13:25 COVID-19, mRNA, LNP-S, PF, 30 mcg/0.3 mL dose 1 completed ABDELRAHMAN gtz, [facility] 08/16/2022 16:01:55 COVID-19, mRNA, LNP-S, PF, 30 mcg/0.3 mL dose 1 completed ABDELRAHMAN NARVAEZRIS null, [facility] 08/16/2022 16:01:55 Influenza, split virus, quadrivalent, PF 9 completed ABDELRAHMAN NARVAEZRIS null, [facility] 08/16/2022 16:01:55 Past Encounters Encounter ID Performer Location Encounter Start Date Encounter Closed Date Diagnosis/Indication Diagnosis SNOMED-CT Code Diagnosis ICD10 Code Diagnosis IMO Codes Diagnosis Note [id number] Rich Rosa MD [facility] [address] [place] [phone] 06/15/2022 11:09:42 06/25/2022 23:07:05 Depressive disorder 83315982 F32.9 stable at present. Diabetes mellitus 976175 09 E11.9 Resting tremor 64032313 G25.2 stable Benign ess ential hypertension 6782081 I10 Screening mammography 24 467740 Z12.31 [id number] Rich Rosa MD [facility] [address] [place] [id number] 5 08/16/2022 15:46:35 08/16/2022 18:58:00 Essential hypertension 16859018 I10 BP running low with weight loss. Will cut dose of BP med in half. Major depr essive disorder 027671313 F32.9 Diabetes mellitus 519190 09 E11.9 [id number] Rich Rosa MD [facility] [address] [place] [id number] 5 10/18/2022 13:42:16 10/18/2022 15:43:18 Diabetes mellitus 25222330 E13.42 Headache 63847038 R51.9 Orthostati c hypotension 97504277 I95.1 will stop her losartan/h ct and observe. [id number] Rich Rosa MD [facility] [address] [place] [id number] 5 11/30/2022 11:27:11 11/30/2022 12:38:21 Benign hypertension 12362296 I10 Depressive disorder 3548 9007 F32.9 stable at present. Diabetes mellitus 638027 09 E13.42 Memory impairment 963005 006 R41.3 Memory not bad today with current events except she said Rachel was president. Diabetic p eripheral neuropathy 515523218 E11.40 [id number] Rich Rosa MD [facility] [address] [place] [id number] 5 01/06/2023 16:02:04 01/06/2023 17:26:39 Iron deficiency anemia 22176120 D50.9 She had acute blood loss anemia from dental bleeding. That is resolved. Benign ess ential hypertension 8799118 I10 Diabetes mellitus 592772 09 E13.42 stable Essential hypertension 15594893 I10 Obstructiv e sleep apnea syndrome 98813717 G47.33 Needs a new CPAP machine for this as her old one has not worked in about a year. [id number] Rich Rosa MD [facility] [address] [place] [id number] 5 02/24/2023 11:01:47 02/24/2023 12:33:28 Diabetes mellitus 69680311 E11.9 stable Benign ess ential hypertension 5502282 I10 Gastroesop hageal reflux disease 004617192 K21.9 well controlled on Omeprazole Major depr essive disorder 826069784 F32.9 stable at present. [id number] Rich Rosa MD [facility] [address] [place] [id number] 5 04/21/2023 14:34:03 04/21/2023 15:23:46 Diabetes mellitus 10223987 E11.9 stable Essential hypertension 85018308 I10 Sinus tachycardia 259177 01 R00.0 Obstructiv e sleep apnea syndrome 56348815 G47.33 needs a new sleep study to get a CPAP. [id number] Rich Rosa MD [facility] [address] [place] [id number] 5 06/30/2023 14:40:17 06/30/2023 16:05:30 Benign hypertension 84549380 I10 Sinus tachycardia 639263 01 R00.0 Arthritis 8863835 M19.90 Diabetes mellitus 111950 09 E11.9 stable Muscle pain 06950311 M79 .10 Anemia 809404946 D64.9 possibly from blood loss after teeth were pulled. Vitamin D deficiency 347 65743 E55.9 [id number] Rich Rosa MD [facility] [address] [place] [id number] 5 08/22/2023 15:50:16 08/22/2023 17:15:45 Plantar wart of right foot 5643527070 7728250 B07.0 right lateral foot. Failed cryotherap y in the office. Fibromyalgia 609063128 M 79.7 stable with small flare recently. Benign ess ential hypertension 3817706 I10 Depressive disorder 3548 9007 F32.9 stable at present. No change in meds. Diabetes mellitus 364616 09 E11.9 stable HgbA1c in June was 5.6. Urinary incontinence 165 007069 R32 [id number] Rich Rosa MD [facility] [address] [place] [id number] 5 10/06/2023 09:34:39 10/06/2023 12:08:54 Diabetes mellitus 60551026 E11.9 stable HgbA1c in June was 5.6. Urinary incontinence 165 596015 R32 Fibromyalgia 781599933 M 79.7 worsening with no improvemen t with increased dose of Gabapentin . Obstructiv e sleep apnea syndrome 61456001 G47.33 Sleep lab results pending. Gastroesop hageal reflux disease 970866855 K21.9 well controlled on Omeprazole [id number] Rich Rosa MD [facility] [address] [place] [id number] 5 11/24/2023 11:36:22 11/24/2023 12:51:58 Obstructive sleep apnea syndrome 66033440 G47.33 Would benefit from BIPAP 31/08. WIll order. Fibromyalgia 998675472 M 79.7 [id number] Rich Rosa MD [facility] [address] [place] [id number] 5 01/09/2024 10:05:11 01/09/2024 12:21:16 Chronic kidney disease 044415529 N18.9 Type 2 demetra betes mellitus 70652911 E11.21 Will stop Metformin and try an SGLT2 Benign ess ential hypertension 0274243 I10 Hyperlipidemia 50496339 E78.5 Obstructiv e sleep apnea syndrome 85288407 G47.33 She is doing well with her CPAP and uses it nightly with great improvemen t in symptoms. Sinus tachycardia 833813 01 R00.0 [id number] Rich Rosa MD [facility] [address] [place] [id number] 5 02/09/2024 13:38:08 02/09/2024 15:28:52 Benign essential hypertension 0069617 I10 Chronic ki dney disease 835644449 N18.9 [email or web address] Diabetes mellitus 181562 09 E11.9 stable HgbA1c in June was 5.6. Coronary atherosclerosis 789403876 I25.10 [id number] Rich Rosa MD [facility] [address] [place] [id number] 5 05/17/2024 14:37:06 05/21/2024 16:04:09 Benign hypertension 17450638 I10 Benign ess ential hypertension 5048413 I10 LOw BP today WIll hold her hydralazin e Hypercholesterolemia 136 19537 E78.00 Depressive disorder 3548 9007 F32.9 stable at present. Type 2 demetra betes mellitus 17850600 E11.21 Muscle pain 28999938 M79 .10 possibly due to Atorvastat in WIll stop that. Obstructiv e sleep apnea of adult 8436983197 103 G47.33 This patient has been compliant with wearing her CPAP nightly and it has greatly improved her symptoms. She is tolerating it well. [id number] Rich Rosa MD [facility] [address] [place] [id number] 5 06/17/2024 14:39:51 06/17/2024 16:18:57 Benign essential hypertension 2984367 I10 stable at present Diabetes mellitus 653567 09 E11.9 Diabetic p eripheral neuropathy 343456175 E11.40 with callus formation stable. She is followed by podiatry. Fibromyalgia 571211753 M 79.7 worsening at this time. No changes in her management at this time. [id number] Derrick Pastor MD [facility] [address] [place] [id number] 5 07/18/2024 14:41:55 07/18/2024 16:11:15 History of anemia 116737470 Z86.2 472909 Anemia 758292935 D64.9 6902163551 Gastroesop hageal reflux disease 773658348 K21.9 37774171 Despite omeprazole [id number] Rich Rosa MD [facility] [address] [place] [id number] 5 08/09/2024 16:15:29 08/13/2024 14:54:36 Benign essential hypertension 3666991 I10 stable at present Chronic ki dney disease 584691877 N18.9 Diabetic p eripheral neuropathy 850739439 E11.40 with callus formation stable. She is followed by podiatry. Major depr essive disorder 132259240 F32.9 stable at present. Obstructiv e sleep apnea syndrome 74151663 G47.33 She is doing well with her BIPAP and uses it nightly with great improvemen t in symptoms. Mixed anxi ety and depressive disorder 599066537 F32.9 stable at present. [id number] Rich Rosa MD [facility] [address] [place] [id number] 5 09/23/2024 09:33:58 09/24/2024 09:32:50 Generalized anxiety disorder 40464907 F41.1 80225 a little worsening with increased stress at home. Followed by Dr. Bay. She has appt this week. Moderate m ajor depression 563398 F32.1 02062 Functional neurological disorder 393202670 F44.9 96146 falling spells as well as shaking spells related to increased stress. Renal impairment 9583938 03 N28.9 05426 [id number] Rich Rosa MD [facility] [address] [place] [id number] 5 10/28/2024 10:20:21 10/28/2024 11:17:43 Moderate major depression 690508 F32.1 72705 Recurrent conversion disorder 67753662 F44.9 09018 pseudoseiz ures and falling asleep spells . Benign ess ential hypertension 5361474 I10 stable at present Type 2 demetra betes mellitus 07249463 E11.21 Last A1c was 7.3 in June, Obstructiv e sleep apnea syndrome 52667964 G47.33 [id number] She is doing well with her BIPAP and uses it nightly with some improvemen t in symptoms. [id number] Derrick Pastor MD [facility] [address] [place], [place] [address] 5 11/19/2024 10:32:48 12/02/2024 09:35:43 Anemia 238877855 D64.9 4165030796 [id number] Rich Rosa MD [facility] [address] [place] [id number] 5 12/27/2024 15:12:55 12/27/2024 16:29:45 Generalized anxiety disorder 97017983 F41.1 42453 a little worsening with increased stress at home. Followed by Dr. Bay. Recurrent conversion disorder 06798633 F44.9 51017 No new problems. Benign ess ential hypertension 6169323 I10 stable at present Coronary atherosclerosis 027148700 I25.10 Type 2 demetra betes mellitus 08563649 E11.21 Last A1c was 7.3 in June, Iron defic iency anemia 39596081 D50.9 14449618 she has had iron infusions. Health Concerns Section Related Observation LastModified by Organization Detai ls LastModified Time None Recorded Concern Status LastModified by Organization Details LastModified Time None Recorded Advance Directives Directive None Recorded Payers Insurance Date Sequence Insurance Name Policy Number Policy Dixon Covered Member ID Dixon Member ID Guarantor Name 12/27/2024 1 [place] Rebecca Lozada [id number] Rebecca Lozada 12/27/2024 [place] [facility] [place] Rebecca Lozada [id number] Rebecca Lozada Notes Date Note Type Note Provider Name and Address Organization Details Recorded Time 09/23/2024 text/html Went to ER on 09/16/24 for stroke like symptoms. Ruled out no stroke, but has been having these episodes to where she spaces out and is unable to do anything. Unsure how long the episodes last. Rich Rosa MD [address] [place] [address], [phone], [facility] 09/23/2024 10:42:29 10/28/2024 text/html Has been having more episodes to where she passes out. Has also been falling asleep more frequently.Has been feeling depressed about everything that has been going on. Rich Rosa MD [address] [place] [address], [phone], [facility] 10/28/2024 10:55:04 11/19/2024 text/html F/U from EGD on 10/31/24, pt was scheduled for a colonoscopy but was unable to do because pt had a large amount of stool in colon. Derrick Pastor MD [address] [place] [address], [phone], [facility] 11/28/2024 23:03:01 12/27/2024 text/html Has been having dizzy spells off and on. Feels like she if off balance and the room spins. Has been getting dizzy spells pretty often about every other day. Rich Rosa MD [address] [place] [address], [phone], [facility] 12/27/2024 16:18:48 OBGyn Episode No OBEpisode recorded.
--- NOTE | 2025-03-18 17:24 | W.ED.SYNCOPE ---
HPI - Syncope General: Chief Complaint: Syncope Stated Complaint: Syncope History of Present Illness: Patient is a 64-year-old female with history of DM, previous CVA, currently off aspirin due to awaiting dental procedure, presents to the emergency room due to syncope. Context: Patient arrived via EMS from [facility], and patient was going down the street for a [employer] dinner, at which time she kept falling asleep. People would yell her name, and she was dozed off. Blood glucose per EMS was appropriate. Associated symptoms: Deny abdominal pain, chest pain, fever(s), headache(s) or nausea Related Data Home Medications ?Medication ?Instructions ?Recorded ?Confirmed cetirizine 10 mg tablet (Allergy 10 mg PO DAILY 12/14/22 02/20/25 Relief (cetirizine)) isosorbide mononitrate 60 mg 60 mg PO QAM 12/14/22 02/20/25 tablet,extended release 24 hr omeprazole 20 mg capsule,delayed 20 mg PO BID 12/14/22 02/20/25 release tamsulosin 0.4 mg capsule 0.4 mg PO QPM 12/14/22 02/20/25 latanoprost 0.005 % eye drops 1 drp ophthalmic (eye) QPM 12/30/22 02/20/25 amlodipine 10 mg tablet 10 mg PO QAM 07/10/23 02/20/25 oxybutynin chloride 10 mg 10 mg PO BEDTIME 12/27/23 02/20/25 tablet,extended release 24 hr pregabalin 200 mg capsule 200 mg PO BID 12/27/23 02/20/25 dapagliflozin propanediol 10 mg 10 mg PO DAILY 07/17/24 02/20/25 tablet (Farxiga) spironolactone 25 mg tablet 25 mg PO DAILY 07/17/24 02/20/25 ergocalciferol (vitamin D2) 1,250 1,250 mcg PO Q7D 07/30/24 02/20/25 mcg (50,000 unit) capsule (Vitamin D2) metoprolol succinate 50 mg 50 mg PO QPM 07/30/24 02/20/25 tablet,extended release 24 hr clopidogrel 75 mg tablet (Plavix) 75 mg PO QAM 09/16/24 02/20/25 losartan 50 mg tablet 25 mg PO QAM 09/16/24 02/20/25 Previous Rx's ?Medication ?Instructions ?Recorded aspirin 81 mg tablet,delayed 81 mg PO DAILY 30 days #30 tabs 12/19/20 release diabetic shoes w/ 3 inserts #1 ea 09/19/23 isosorbide mononitrate 30 mg 30 mg PO QAM #90 tabs 01/02/25 tablet,extended release 24 hr bupropion HCl 300 mg 24 hr tablet, 300 mg PO QAM #30 tabs 02/20/25 extended release (Wellbutrin XL) citalopram 40 mg tablet 40 mg PO DAILY #30 tabs 02/20/25 risperidone 0.5 mg tablet 0.5 mg PO BID #60 tabs 02/20/25 (Risperdal) trazodone 50 mg tablet 50 - 100 mg (1 - 2 x 50 mg) PO .HS 02/20/25 PRN insomnia #60 tabs Allergies Allergy/AdvReac Type Severity Reaction Status Date / Time penicillin G Allergy Mild breaks out Verified 02/20/25 14:58 in hives Penicillins Allergy ALGY-Hives Verified 02/20/25 14:58 Review of Systems General: Reports: 10 or more systems reviewed and unremarkable except in HPI and below Const: Denies: fever(s) or chills Card: Denies: chest pain or palpitations Resp: Denies: dyspnea or productive cough GI: Denies: abdominal pain, nausea or vomiting : Denies: dysuria, urinary frequency or urinary urgency Musc: Denies: neck pain or back pain Skin/Breast: Denies: rash or pruritus Neuro: Denies: headache(s) or numbness in extremities Psych: Denies: anxiety or depression PFS ED PFSH: Medical History (Updated 03/18/25 @ 20:00 by LARRY Vasquez) Psychiatric care Blood loss anemia Medication side effect Anemia Altered mental status Acute kidney injury superimposed on chronic kidney disease Seizures Functional neurological symptom disorder with attacks or seizures Vertigo Chronic migraine without aura, intractable, with status migrainosus Diabetes mellitus Basilar artery insufficiency Temporal lobe lesion DVT prophylaxis Injury, self-inflicted Fever TIA (transient ischemic attack) No pertinent family history ESTHER (obstructive sleep apnea) Bipolar 1 disorder Self-mutilation Diabetes mellitus Hypertension Right middle cerebral artery stroke Family History Father Sleep apnea Hypertension Mother Hypertension Social History Smoking and tobacco/nicotine status: never used tobacco/nicotine Alcohol intake: current Alcohol intake frequency: holidays/special occasions only Substance/Drug Use: never Current gender identity: Female Physical Exam Const: COMMON NORMALS: no acute distress GENERAL APPEARANCE: cooperative and comfortable ORIENTATION/CONSCIOUSNESS: Yes awake, Yes oriented to person, Yes oriented to place and Yes oriented to time HENMT: COMMON NORMALS: normocephalic, atraumatic and hearing grossly normal bilaterally HEAD & SCALP: normocephalic and atraumatic Resp: COMMON NORMALS: normal respiratory effort, No retractions, No use of accessory muscles and clear to auscultation bilaterally AUSCULTATION: clear to auscultation bilaterally Cardio: COMMON NORMALS: regular rate, regular rhythm and No murmurs present (Cardio) RATE: regular rate RHYTHM: regular rhythm GI: COMMON NORMALS: Soft to palpation and No hepatosplenomegaly present AUSCULTATION: Yes normoactive bowel sounds PALPATION: Yes Soft to palpation, No Tenderness to palpation present (GI), No Guarding due to palpation present (GI) and Yes No hepatosplenomegaly present Extremity: COMMON NORMALS: normal to inspection, capillary refill normal, no clubbing, cyanosis or edema, no calf tenderness and no pedal edema Neuro: SENSORIUM/ORIENTATION: Yes oriented to person, Yes oriented to place and Yes oriented to time Skin: COMMON NORMALS: no rashes or lesions noted GENERAL SKIN EXAM: no rashes or lesions noted Course Reevaluation(s): Reevaluation #1: No further issues after 1 L IV fluid Vital Signs: Vital signs: Vital Signs Temperature 98.1 F 03/18/25 17:13 Pulse Rate 57 L 03/18/25 18:58 Respiratory Rate 18 03/18/25 17:13 Blood Pressure 135/80 03/18/25 18:58 Pulse Oximetry 94 03/18/25 18:58 Oxygen Delivery Me thod Room Air 03/18/25 18:58 MDM - Syncope Medical Decision Making Patient is a 64-year-old female with history of DM and CVA, not currently on aspirin while awaiting dental procedure, presents to the emergency room due to falling asleep at a [employer] dinner. This was witnessed by bystanders. Patient does recall the events, before, and after. Denies previous history of ESTHER. Medical Records I reviewed the patient's medical records. Lab Data I reviewed the patient's lab results. 03/18/25 17:00 03/18/25 17:[address] 03/18/25 18:01 IMPRESSION: 1. No acute intracranial process demonstrated. 2. No marked change compared to previous exam. Laboratory Results WBC 7.09 10^3/uL (3.29-11.43) 03/18/25 17:00 RBC 4.36 10^6/uL (3.85-5.65) 03/18/25 17:00 Hgb 13.10 g/dL (11.27-16.99) 03/18/25 17:00 Hct 37.6 % (36-47) 03/18/25 17:00 MCV 86.2 fl (85-98) 03/18/25 17:00 MCH 30.0 pg (27-33) 03/18/25 17:00 MCHC 34.8 g/dL (30-55) 03/18/25 17:00 RDW 12.4 % (12.1-15.1) 03/18/25 17:00 Plt Count 255 10^3/cmm (157-399) 03/18/25 17:00 MPV 9.7 fL (7.4-10.4) 03/18/25 17:00 Neut % (Auto) 70.5 % 03/18/25 17:00 Lymph % (Auto) 17.9 % 03/18/25 17:00 Kane % (Auto) 6.5 % 03/18/25 17:00 Eos % (Auto) 3.4 % 03/18/25 17:00 Baso % (Auto) 0.7 % 03/18/25 17:00 Neut # (Auto) 5.00 10^3/uL (1.8-7.7) 03/18/25 17:00 Lymph # (Auto) 1.3 10^3/uL (0.8-4.8) 03/18/25 17:00 Kane # (Auto) 0.5 10^3/uL (0.2-0.9) 03/18/25 17:00 Eos # (Auto) 0.2 10^3/uL (0.0-0.8) 03/18/25 17:00 Baso # (Auto) 0.1 10^3/uL (0.0-0.1) 03/18/25 17:00 Nucleated RBC % (auto) 0 % 03/18/25 17:00 Nucleated RBCs # 0.0 /100WBC 03/18/25 17:00 Sodium 141 mmol/L (136-145) 03/18/25 17:00 Potassium 4.5 mmol/L (3.5-5.1) 03/18/25 17:00 Chloride 105 mmol/L (98-107) 03/18/25 17:00 Carbon Dioxide 22 mmol/L (22-29) 03/18/25 17:00 Anion Gap 18.5 (5-19) 03/18/25 17:00 BUN 19 mg/dL (8-23) 03/18/25 17:00 Creatinine 1.7 mg/dL (0.5-0.9) H 03/18/25 17:00 GFR Calculation 30.5 mL/min (90-130) L 03/18/25 17:00 Glucose 202 mg/dL (65-115) H 03/18/25 17:00 POC Glucose 174 mg/dL (70-110) H 03/18/25 17:29 Calculated Osmolality 300 mOsm/kg (285-295) H 03/18/25 17:00 Lactic Acid 1.4 mmol/L (0.5-2.2) 03/18/25 17:00 Calcium 9.3 mg/dL (8.5-10.5) 03/18/25 17:00 Magnesium 2.0 mg/dL (1.7-2.3) 03/18/25 17:00 Total Bilirubin 0.3 mg/dL (0.15-1.2) 03/18/25 17:00 AST 11 U/L (0-32) 03/18/25 17:00 ALT 16 U/L (0-33) 03/18/25 17:00 Alkaline Phosphatase 131 U/L (35-105) H 03/18/25 17:00 NT-Pro-B Natriuret Pep 333 pg/mL (0-125) H 03/18/25 17:00 Total Protein 6.4 g/dL (6.6-8.7) L 03/18/25 17:00 Albumin 4.3 g/dL (3.5-5.2) 03/18/25 17:00 Globulin 2.1 g/dL (1.3-4.6) 03/18/25 17:00 TSH 2.04 uIU/mL (0.27-4.20) 03/18/25 17:00 Prolactin 82.60 ng/mL (4.8-23.3) H 03/18/25 17:00 Urine Color Yellow (Yellow) 03/18/25 18:21 Urine Appearance Clear (CLEAR) 03/18/25 18:21 Urine pH 5.5 (5-7) 03/18/25 18:21 Ur Specific [place] 1.020 (1.005-1.030) 03/18/25 18:21 Urine Protein Negative (Negative) 03/18/25 18:21 Urine Glucose (UA) 3+ (Normal) H 03/18/25 18:21 Urine Ketones Negative (Negative) 03/18/25 18:21 Urine Blood Negative (Negative) 03/18/25 18:21 Urine Nitrate Positive (Negative) A 03/18/25 18:21 Urine Bilirubin Negative (Negative) 03/18/25 18:21 Urine Urobilinogen 0.2 mg/dL (Negative) 03/18/25 18:21 Ur Leukocyte Esterase Trace (Negative) A 03/18/25 18:21 Urine RBC 0-2 /hpf (0-2) 03/18/25 18:21 Urine WBC 21-50 /hpf (0-5) H 03/18/25 18:21 Ur Squamous Epith Cells 0-5 /hpf (0-5) 03/18/25 18:21 Amorphous Sediment Not Reportable 03/18/25 18:21 Urine Bacteria 4+ /hpf (NONE) H 03/18/25 18:21 Hyaline Casts 0-4 /lpf H 03/18/25 18:21 All radiology interpretation(s) finalized by discharge EKG Data EKG 1: Interpretation: Normal sinus rhythm, left axis, no ST segment elevation Discharge Plan Discharge Patient Disposition: Home Clinical Impression: Dehydration, Elevated serum creatinine Condition: Stable Prescriptions: No Action tamsulosin 0.4 mg capsule 0.4 mg PO QPM omeprazole 20 mg capsule,delayed release(DR/EC) 20 mg PO BID cetirizine [Allergy Relief (cetirizine)] 10 mg tablet 10 mg PO DAILY isosorbide mononitrate 60 mg tablet extended release 24 hr 60 mg PO QAM Rx Instructions: along with 30mg to=90mg total (DME) diabetic shoes w/ 3 inserts See Rx Instructions .Route .MEDSUPPLY Qty: 1 0RF Rx Instructions: As directed by the christal ledesma amlodipine 10 mg tablet 10 mg PO QAM citalopram 40 mg tablet 40 mg PO DAILY Qty: 30 2RF trazodone 50 mg tablet 50 - 100 mg PO .HS PRN (Reason: insomnia) Qty: 60 2RF risperidone [Risperdal] 0.5 mg tablet 0.5 mg PO BID Qty: 60 2RF bupropion HCl [Wellbutrin XL] 300 mg tablet extended release 24 hr 300 mg PO QAM Qty: 30 2RF spironolactone 25 mg tablet 25 mg PO DAILY dapagliflozin propanediol [Farxiga] 10 mg tablet 10 mg PO DAILY isosorbide mononitrate 30 mg tablet extended release 24 hr 30 mg PO QAM Qty: 90 3RF Rx Instructions: along with 60mg to=90mg total aspirin 81 mg Tablet,Delayed Release (Dr/Ec) 81 mg PO DAILY 30 Days Qty: 30 3RF latanoprost 0.005 % drops 1 drp ophthalmic (eye) QPM oxybutynin chloride 10 mg tablet extended release 24hr 10 mg PO BEDTIME pregabalin 200 mg capsule 200 mg PO BID metoprolol succinate 50 mg tablet extended release 24 hr 50 mg PO QPM ergocalciferol (vitamin D2) [Vitamin D2] 1,250 mcg (50,000 unit) capsule 1,250 mcg PO Q7D losartan 50 mg tablet 25 mg PO QAM clopidogrel [Plavix] 75 mg tablet 75 mg PO QAM Discharge Orders: Discharge ED (Routine); Ordered 03/18/25 Ordered By: Heather Gomez Referrals: Rich Rosa MD [Primary Care Provider, Family Practice] Patient Instructions: Dehydration (ED), Patient Portal & Bogdan Instructions Activity Restrictions/Additional Instructions: - Hold your spironolactone tomorrow. Ask your primary care when to restart - Call your primary care physician for follow-up kidney labs/creatinine tomorrow - Increase your fluid intake -Return to ED if you have worsening symptoms, fever greater than 100.4 Thank you for choosing [facility] for your healthcare needs today. You have been screened and evaluated and felt safe for discharge. Health conditions do change or evolve sometimes and as such it is important that you follow up with your Primary Doctor to be re checked, 3-5 days is a general good time frame for follow up. You are always welcome to return to the ED for re assessment if your symptoms are worsening or you have new concerns Print Language: Bruneian Coding Level of Care Code ED Kettle Coordinator for Janene Poon
--- NOTE | 2025-03-18 17:30 | ECG_ITS ---
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 Measurements Intervals [place] Rate: 63 P: 28 MT: 202 QRS: -16 QRSD: 84 T: 13 QT: 413 QTc: 423 Interpretive Statements SINUS RHYTHM LOW QRS VOLTAGE IN PRECORDIAL LEADS [QRS DEFLECTION < 1.0 mV IN CHEST LEADS] Compared to ECG 11/05/2024 14:27:43 Low QRS voltage now present Sinus bradycardia no longer present Myocardial infarct finding no longer present Electronically Signed On 03-20-2025 16:06:01 STIFF LEG DERRICK OPERATOR by Eliezer Berry M.D. [email or web address] [id number]
[2025-03-18 17:33] LABS: Hematocrit 37.6 % (36-47); Hemoglobin 13.10 g/dL (11.27-16.99); Mean Corpuscular HGB Conc 34.8 g/dL (30-55); Mean Corpuscular Hemoglobin 30.0 pg (27-33); Mean Corpuscular Volume 86.2 fl (85-98); Nucleated Red Blood Cells % 0 %; Platelet Count 255 10^3/cmm (157-399); Red Blood Count 4.36 10^6/uL (3.85-5.65); White Blood Count 7.09 10^3/uL (3.29-11.43)
[2025-03-18 17:44] VITALS: BP 125/75; PULSE 70; O2SAT 95
[2025-03-18 17:58] LABS: Lactic Sepsis W/Reflex 1.4 mmol/L (0.5-2.2)
--- NOTE | 2025-03-18 18:01 | CTR_ITS ---
PROCEDURE INFORMATION: Exam: CT Head Without Contrast Exam date and time: 03/18/2025 6:42 PM Age: 64 years old Clinical indication: Altered mental status/memory loss; Additional info: Altered mentation TECHNIQUE: Imaging protocol: Computed tomography of the head without contrast. Radiation optimization: All CT scans at this facility use at least one of these dose optimization techniques: automated exposure control; mA and/or kV adjustment per patient size (includes targeted exams where dose is matched to clinical indication); or iterative reconstruction. COMPARISON: 1. CT head wo con* [id number] 11/05/2024 3:[address] angio headneck* [id number] 12/17/2020 5:11 PM RADIATION DOSE METRICS: Total DLP (mGy-cm): 1013.24 FINDINGS: Tubes, catheters and devices: Bilateral earrings. Necklace present. Brain: Small amount of dural calcification. No acute intracranial hemorrhage. Approximate 2.9 x 1.9 cm hypodensity anterior aspect right temporal lobe region may represent arachnoid cyst or encephalomalacia of right temporal lobe with similar appearance to previous exam. No midline shift. Basilar cisterns mildly prominent. Mild prominence of cerebral sulci. Some decreased density periventricular white matter and subcortical white matter bilaterally compatible with chronic small-vessel ischemic change with similar findings on previous exam. No acute ischemic change noted. Cerebral ventricles: Ventricles mildly prominent probably on the basis of central atrophy. Stable appearance of ventricles compared to previous exam. Paranasal sinuses: Visualized paranasal sinuses appear grossly unremarkable without air-fluid levels. Mastoid air cells: Mastoid air cells and middle ear cavities appear grossly unremarkable. Orbital cavities: Visualized orbits appear grossly intact. Bones: Bone mineralization appears unremarkable. Skull appears intact. No acute skull fracture. Soft tissues: No scalp hematoma. Vasculature: Atherosclerotic calcification anterior circulation again noted. Other findings: No radiopaque foreign body noted. No obvious mass effect. CT/CT head wo con* [id number] IMPRESSION: 1. No acute intracranial process demonstrated. 2. No marked change compared to previous exam.
[2025-03-18 18:08] LABS: Alanine Aminotransferase 16 U/L (0-33); Albumin Level 4.3 g/dL (3.5-5.2); Alkaline Phosphatase 131 U/L (35-105); Anion Gap 18.5 (5-19); Aspartate Amino Transferase 11 U/L (0-32); Blood Urea Nitrogen 19 mg/dL (8-23); Calcium 9.3 mg/dL (8.5-10.5); Carbon Dioxide 22 mmol/L (22-29); Chloride 105 mmol/L (98-107); Globulin 2.1 g/dL (1.3-4.6); Glucose 202 mg/dL (65-115); Magnesium 2.0 mg/dL (1.7-2.3); NT Pro B Type Natriuretic Pept 333 pg/mL (0-125); Osmolality Calculated 300 mOsm/kg (285-295); Potassium 4.5 mmol/L (3.5-5.1); Sodium 141 mmol/L (136-145); Thyroid Stimulating Hormone 2.04 uIU/mL (0.27-4.20); Total Protein 6.4 g/dL (6.6-8.7)
[2025-03-18 18:35] LABS: Glucose Urine UA 3+ (Normal); Nitrate Urine Positive (Negative); Specific Gravity, Urine 1.020 (1.005-1.030)
[2025-03-18 18:36] VITALS: BP 135/80; PULSE 59; O2SAT 94
[2025-03-18 18:40] LABS: Add Urine Microscopic? YES
[2025-03-18 18:58] VITALS: BP 135/80; PULSE 57; O2SAT 94
[2025-03-18 20:02] VITALS: BP 141/87; PULSE 67; O2SAT 96
[2025-03-18 20:19] VITALS: BP 147/87; PULSE 68; O2SAT 97
== END 2025-03-18 20:20 | disposition home or self-care (01) ==
PROVIDERS: Emergency Provider Physician Assistant; PCP Family Medicine
DX: E86.0 Dehydration (principal); R79.89 Other specified abnormal findings of blood chemistry; Z79.82 Long term (current) use of aspirin; Z79.02 Long term (current) use of antithrombotics/antiplatelets; E11.9 Type 2 diabetes mellitus without complications; Z86.73 Personal history of transient ischemic attack (TIA), and cerebral infarction without residual deficits; I10 Essential (primary) hypertension
CPT/HCPCS: 36416; 70450; 80053; 81001; 82962; 83605; 83735; 83880; 84146; 84443; 85025; 87077; 87086; 87186; 93005; 99284; J7030